=== PATIENT | male | born 1965 | race Caucasian/White ===

== ENCOUNTER 2018-03-26 12:45 | Outpatient (RCR) | payer OTHER, SELFPAY ==
[2018-03-24 14:30] VITALS: BP 139/71; PULSE 46; RESP 16; TEMP 37; BMI 49.4
--- NOTE | 2018-03-24 15:47 | PCM.WC.HP ---
(1) Ulcer of left lower extremity with fat layer exposed Status: Chronic Current Visit: Yes Code(s): L97.922 - Non-pressure chronic ulcer of unspecified part of left lower leg with fat layer exposed (2) Edema leg Status: Chronic Current Visit: Yes Code(s): R60.0 - Localized edema (3) Venous insufficiency Status: Chronic Current Visit: Yes Code(s): I87.2 - Venous insufficiency (chronic) (peripheral) (4) Malnutrition Status: Chronic Current Visit: Yes Code(s): E46 - Unspecified protein-calorie malnutrition (5) Delayed wound healing Status: Chronic Current Visit: Yes Code(s): T14.8XXD - Other injury of unspecified body region, subsequent encounter (6) Other specified peripheral vascular diseases Status: Chronic Current Visit: Yes Code(s): I73.89 - Other specified peripheral vascular diseases History of Present Illness Date of Service: 03/24/18 Chief Complaint: Left leg ulcer History of Wound: This 52-year-old male presents complaining of a painful left leg ulcer he estimates the onset of around December 25, 2017. He denies recent trauma. He does report a remote chain saw injury to the site and this ulcer site comes and goes when his leg swelling increases. He is tried taking intermittent diuretic medication. He denies wearing current compression garments. He denies claudication. He denies drinking leg numbness. He relates he has never been screened for diabetes. He denies odors, fever, chill, nausea, vomiting. Home care has included up application of silver gel and rest. Past Medical History Past Medical History: Chronic Problems Ulcer of left lower extremity with fat layer exposed (Chronic) Edema leg (Chronic) Venous insufficiency (Chronic) Malnutrition (Chronic) Delayed wound healing (Chronic) Other specified peripheral vascular diseases (Chronic) Past Medical History: Obesity, chronic leg swelling, hypertension Allergies/Adverse Reactions: Allergies No Known Allergies Allergy (Verified 03/24/18 14:53) Home Medications: Ambulatory Orders Medication Instructions Recorded Furosemide [Lasix] 20 mg PO BIDLX 03/24/18 Lisinopril [Zestril] 2.5 mg PO DAILY 03/24/18 Smoking Status: Never smoker Review of Systems Constitutional: Denies: Chills, Fever, Weakness, Fatigue Cardiovascular: Denies: Chest Pain, Claudication Respiratory: Denies: Shortness of Breath Gastrointestinal: Denies: Diarrhea, Nausea, Vomiting Musculoskeletal: Reports: Leg Pain. Denies: Foot Pain, Joint Tenderness Skin: Reports: Skin Changes, Wounds Neurological: Reports: Balance problems. Denies: Numbness, Tingling Endocrine: Reports: Change in Body Habitus - Physical Exam Vital Signs Temp Pulse Resp BP 98.6 F 46 L 16 139/71 H 03/24/18 14:30 03/24/18 14:30 03/24/18 14:30 03/24/18 14:30 General: Alert, Oriented x3, Cooperative HEENT: Atraumatic Extremities: No cyanosis, Capillary Refill Less than 3 Seconds, No Calf Tenderness - Negative Isaac and Whitmore signs bilateral, Edema - Bilateral lower extremity edema left more than right. Lower leg and thigh edema appears to be clinically consistent with lymphedema bilateral, Peripheral Pulses Normal - Palpable DP and PT pulses bilateral Skin: Ulcer/ Wound - No purulence, streaking, odor, or gross infection or deep tissue exposure is noted. The wound bed is granular and fibrotic without any eschar or necrosis. There is peripheral ulcer site erythema and hyperpigmentation consistent with the venous insufficiency type presentation. There is no bogginess or fluctuance on palpation. The peripheral skin is atrophic and hair is noted to the leg and the foot. There is no interdigital macerations toes Wound Measurements and Assessment WC - Nurse 1 - General Ulcer Measurement Start: 03/24/18 14:30 Freq: Status: Active Protocol: Activity Type Activity Date Activity User E-Sign Co-Sign Detail Recorded Client Recorded Date Recorded By Document 03/24/18 14:30 [facility] [id number] 03/24/18 14:50 [facility] 03/24/18 14:30 Wound Center Nurse 1 [Ulcer Assessment] #1- LT BLANCAS -Combined with other wound No -Current Size (cm) - Length 2.3 -Current Size (cm) - Width 2.4 -Current Size (cm) - Depth 0.3 -Total Square Cm 5.52 -Date of Last Picture (Recall this 03/24/18 field) -Photo Taken Yes -Epithelialization None Present -Tunneling No -Undermining/Tunneling No -Circular Undermining No -Exudate Amt Small (1-33%) -Exudate Type Serosanguineous -Wound Margin Distinct, Outline Attached -Granulation Amt None Present (0 %) -Slough/Fibrin Yes -Necrosis Amt Large (67-100%) -Necrotic Tissue Type Adherent Slough -Texture (Toshia-wound Skin Appearance) Excoriation Scarring Rash -Moisture (Toshia-wound Skin Appearance Dry/Scaly ) -Color (Toshia-wound Skin Appearance) Erythema Hemosiderin Staining -Temperature (Toshia-wound Skin No Abnormality Appearance) (Pt Warm) -Tenderness on Palpation (Toshia-wound Yes Skin Appearance) -Ulcer Cleansing Rinsed/ Irrigated with Saline -Foul Odor after Cleansing No -Anesthetic Used 5% Lidocaine Gel [Edema Assessment] -Lower Limb Edema Present Yes -Right Calf (cm) 54.5 -Right Ankle (cm) 28.6 -Left Calf (cm) 58.2 -Left Ankle (cm) 32.2 WC - Nurse 2 - General Ulcer CM Notes Start: 03/24/18 14:30 Freq: Status: Active Protocol: Activity Type Activity Date Activity User E-Sign Co-Sign Detail Recorded Client Recorded Date Recorded By Document 03/24/18 15:38 [id number] 03/24/18 15:44 03/24/18 15:38 Wound Center Nurse 2 [Procedure/Treatment] #1- LT BLANCAS -Time 15:38 -Correct Patient Yes -Correct Side, Site, Position Yes -Correct Procedure Yes -Procedure Performed Yes -Type of Procedure Debridement -Clinical Debridement Subcutaneous -Post Debridement Size (cm) - Length 2.4 -Post Debridement Size (cm) - Width 2.5 -Post Debridement Size (cm) - Depth 0.3 -Total Square Cm 6.00 -Wound/Ulcer Outcome Not Healed -Ulcer Cleansing Rinsed/ Irrigated with Saline -Foul Odor after Cleansing No -Bioengineered Tissue No -Topical Lidocaine (%) 5 -Bleeding Controlled with Pressure -Offloading No -Treatment Response Procedure Tolerated Well [See Physician Procedure note for Specifics] Pain Scale: 0-10 Numeric [Pain] -Is Patient Pain Free? Yes Musculoskeletal: No Tenderness to Palpation of Joints or Extremities, Muscle Wasting, - - 5 out of 5 ankle muscle strength in all directions bilateral. Compartments remain soft to palpate bilateral lower extremities. Active range of motion digits x10 noted Neurological: Sensory exam intact to light touch and pain Psych/Mental Status: Normal Affect, Appropriate Debridement Note Post-Debridement Measurements/Treatment - Nurse 2 - General Ulcer CM Notes Start: 03/24/18 14:30 Freq: Status: Active Protocol: Activity Type Activity Date Activity User E-Sign Co-Sign Detail Recorded Client Recorded Date Recorded By Document 03/24/18 15:38 [id number] 03/24/18 15:44 03/24/18 15:38 Wound Center Nurse 2 #1- LT BLANCAS -Time 15:38 -Correct Patient Yes -Correct Side, Site, Position Yes -Correct Procedure Yes -Procedure Performed Yes -Type of Procedure Debridement -Clinical Debridement Subcutaneous -Post Debridement Size (cm) - Length 2.4 -Post Debridement Size (cm) - Width 2.5 -Post Debridement Size (cm) - Depth 0.3 -Total Square Cm 6.00 -Wound/Ulcer Outcome Not Healed -Ulcer Cleansing Rinsed/ Irrigated with Saline -Foul Odor after Cleansing No -Bioengineered Tissue No -Topical Lidocaine (%) 5 -Bleeding Controlled with Pressure -Offloading No -Treatment Response Procedure Tolerated Well Pain Scale: 0-10 Numeric Is Patient Pain Free? Yes Wound debrided: leg Laterality: Left Type of Debridement: Excisional debridement Anesthesia Used: 4% Lidocaine Solution Depth: in the subcutaneous layer Percentage of wound debrided: 100 Instrument Used: #15 blade Tissue Removed: fibrous, devitalized subcutaneous, biofilm, slough Severity: Fat Layer Exposed Amount of bleeding with debridement: Mild Bleeding Controlled with: Pressure Patient tolerated procedure well Assessment/Plan Active Problems Ulcer of left lower extremity with fat layer exposed (Chronic) Edema leg (Chronic) Venous insufficiency (Chronic) Malnutrition (Chronic) Delayed wound healing (Chronic) Other specified peripheral vascular diseases (Chronic) Assessment: Left leg ulcer chronic. Venous insufficiency workup in process. Peripheral vascular disease workup in process. Diabetes screening in process. Lower extremity edema and lymphedema bilateral. Delayed healing. Malnutrition suspected. Obesity Plan: I reviewed and discussed his case today. Left leg ulcer subcutaneous excisional debridement was performed as noted in the clinical panel. Aquacel Ag was applied today and a 3 M2 L compression dressing was applied. He will return on Thursday for nursing visit change and will return to clinic in 1 week to follow-up with me. To elevate limbs at rest. To avoid idle standing or sitting. I do not see any jarrett signs of infection and suspect his toshia-ulcer site inflammation is more related to his leg swelling that has recently been exacerbated. He does not have a home and her Whitmore sign. I recommend and ordered baseline labs to get a better understanding of his medical status including CBC, CMP, hemoglobin A1c, prealbumin. Venous duplex Doppler with reflex evaluation and noninvasive arterial studies were also ordered and I will review these results when he returns. A prescription for Yash was provided and I recommended nutritional supplementation optimize healing. I answered all of his questions. We discussed the etiology and ongoing stage comprehensive wound healing plan and expectations.
--- NOTE | 2018-03-24 15:50 | HP.PCM_ITS ---
(1) Ulcer of left lower extremity with fat layer exposed Status: Chronic Current Visit: Yes Code(s): L97.922 - Non-pressure chronic ulcer of unspecified part of left lower leg with fat layer exposed (2) Edema leg Status: Chronic Current Visit: Yes Code(s): R60.0 - Localized edema (3) Venous insufficiency Status: Chronic Current Visit: Yes Code(s): I87.2 - Venous insufficiency (chronic) (peripheral) (4) Malnutrition Status: Chronic Current Visit: Yes Code(s): E46 - Unspecified protein- calorie malnutrition (5) Delayed wound healing Status: Chronic Current Visit: Yes Code(s): T14.8XXD - Other injury of unspecified body region, subsequent encounter (6) Other specified peripheral vascular diseases Status: Chronic Current Visit: Yes Code(s): I73.89 - Other specified peripheral vascular diseases History of Present Illness Date of Service: 03/24/18 Chief Complaint: Left leg ulcer History of Wound: This 52-year-old male presents complaining of a painful left leg ulcer he estimates the onset of around December 25, 2017. He denies recent trauma. He does report a remote chain saw injury to the site and this ulcer sit e comes and goes when his leg swelling increases. He is tried taking intermittent diuretic medication. He denies wearing current compression garments. He denies claudication. He denies drinking leg numbness. He relates he has never been screened for diabetes. He denies odors, fever, chill, nausea, vomiting. Home care has included up application of silver gel and rest. Past Medical History Past Medical History: Chronic Problems Ulcer of left lower extremity with fat layer exposed (Chronic) Edema leg (Chronic) Venous insufficiency (Chronic) Malnutrition (Chronic) Delayed wound healing (Chronic) Other specified peripheral vascular diseases (Chronic) Past Medical History: Obesity, chronic leg swelling, hypertension Allergies/Adverse Reactions: Allergies No Known Allergies Allergy (Verified 03/24/18 14:53) Home Medications: Ambulatory Orders Medication Instructions Recorded Furosemide [Lasix] 20 mg PO BIDLX 03/24/18 Lisinopril [Zestril] 2.5 mg PO DAILY 03/24/18 Smoking Status: Never smoker Review of Systems Constitutional: Denies: Chills, Fever, Weakness, Fatigue Cardiovascular: Denies: Chest Pain, Claudication Respiratory: Denies: Shortness of Breath Gastrointestinal: Denies: Diarrhea, Nausea, Vomiting Musculoskeletal: Reports: Leg Pain. Denies: Foot Pain, Joint Tenderness Skin: Reports: Skin Changes, Wounds Neurological: Reports: Balance problems. Denies: Numbness, Tingling Endocrine: Reports: Change in Body Habitus - Physical Exam Vital Signs Temp Pulse Resp BP 98.6 F 46 L 16 139/71 H 03/24/18 14:30 03/24/18 14:30 03/24/18 14:30 03/24/18 14:30 General: Alert, Oriented x3, Cooperative HEENT: Atraumatic Extremities: No cyanosis, Capillary Refill Less than 3 Seconds, No Calf Tenderness - Negative Isaac and Whitmore signs bilateral, Edema - Bilateral lower extremity edema left more than right. Lower leg and thigh edema appears to be clinically consistent with lymphedema bilateral, Peripheral Pulses Normal - Palpable DP and PT pulses bilateral Skin: Ulcer/ Wound - No purulence, streaking, odor, or gross infection or deep tissue exposure is noted. The wound bed is granular and fibrotic without any eschar or necrosis. There is peripheral ulcer site erythema and hyperpigmentation consistent with the venous insufficiency type presentation. There is no bogginess or fluctuance on palpation. The peripheral skin is atrophic and hair is noted to the leg and the foot. There is no interdigital macerations toes Wound Measurements and Assessment WC - Nurse 1 - General Ulcer Measurement Start: 03/24/18 14:30 Freq: Status: Active Protocol: Activity Type Activity Date Activity User E-Sign Co-Sign Detail Recorded Client Recorded Date Recorded By Document 03/24/18 14:30 [facility] [id number] 03/24/18 14:50 [facility] 03/24/18 14:30 Wound Center Nurse 1 [Ulcer Assessment] #1- LT BLANCAS -Combined with other wound No -Current Size (cm) - Length 2.3 -Current Size (cm) - Width 2.4 -Current Size (cm) - Depth 0.3 -Total Square Cm 5.52 -Date of Last Picture (Recall this 03/24/18 field) -Photo Taken Yes -Epithelialization None Present -Tunneling No -Undermining/Tunneling No -Circular Undermining No -Exudate Amt Small (1-33%) -Exudate Type Serosanguineous -Wound Margin Distinct, Outline Attached -Granulation Amt None Present (0 %) -Slough/Fibrin Yes -Necrosis Amt Large (67-100%) -Necrotic Tissue Type Adherent Slough -Texture (Toshia-wound Skin Appearance) Excoriation Scarring Rash -Moisture (Toshia-wound Skin Appearance Dry/Scaly ) -Color (Toshia-wound Skin Appearance) Erythema Hemosiderin Staining -Temperature (Toshia-wound Skin No Abnormality Appearance) (Pt Warm) -Tenderness on Palpation (Toshia-wound Yes Skin Appearance) -Ulcer Cleansing Rinsed/ Irrigated with Saline -Foul Odor after Cleansing No -Anesthetic Used 5% Lidocaine Gel [Edema Assessment] -Lower Limb Edema Present Yes -Right Calf (cm) 54.5 -Right Ankle (cm) 28.6 -Left Calf (cm) 58.2 -Left Ankle (cm) 32.2 WC - Nurse 2 - General Ulcer CM Notes Start: 03/24/18 14:30 Freq: Status: Active Protocol: Activity Type Activity Date Activity User E-Sign Co-Sign Detail Recorded Client Recorded Date Recorded By Document 03/24/18 15:38 [id number] 03/24/18 15:44 03/24/18 15:38 Wound Center Nurse 2 [Procedure/Treatment] #1- LT BALNCAS -Time 15:38 -Correct Patient Yes -Correct Side, Site, Position Yes -Correct Procedure Yes -Procedure Performed Yes -Type of Procedure Debridement -Clinical Debridement Subcutaneous -Post Debridement Size (cm) - Length 2.4 -Post Debridement Size (cm) - Width 2.5 -Post Debridement Size (cm) - Depth 0.3 -Total Square Cm 6.00 -Wound/Ulcer Outcome Not Healed -Ulcer Cleansing Rinsed/ Irrigated with Saline -Foul Odor after Cleansing No -Bioengineered Tissue No -Topical Lidocaine (%) 5 -Bleeding Controlled with Pressure -Offloading No -Treatment Response Procedure Tolerated Well [See Physician Procedure note for Specifics] Pain Scale: 0-10 Numeric [Pain] -Is Patient Pain Free? Yes Musculoskeletal: No Tenderness to Palpation of Joints or Extremities, Muscle Wasting, - - 5 out of 5 ankle muscle strength in all directions bilateral. Compartments remain soft to palpate bilateral lower extremities. Active range of motion digits x10 noted Neurological: Sensory exam intact to light touch and pain Psych/Mental Status: Normal Affect, Appropriate Debridement Note Post-Debridement Measurements/Treatment WC - Nurse 2 - General Ulcer CM Notes Start: 03/24/18 14:30 Freq: Status: Active Protocol: Activity Type Activity Date Activity User E-Sign Co-Sign Detail Recorded Client Recorded Date Recorded By Document 03/24/18 15:38 [id number] 03/24/18 15:44 03/24/18 15:38 Wound Center Nurse 2 #1- LT BLANCAS -Time 15:38 -Correct Patient Yes -Correct Side, Site, Position Yes -Correct Procedure Yes -Procedure Performed Yes -Type of Procedure Debridement -Clinical Debridement Subcutaneous -Post Debridement Size (cm) - Length 2.4 -Post Debridement Size (cm) - Width 2.5 -Post Debridement Size (cm) - Depth 0.3 -Total Square Cm 6.00 -Wound/Ulcer Outcome Not Healed -Ulcer Cleansing Rinsed/ Irrigated with Saline -Foul Odor after Cleansing No -Bioengineered Tissue No -Topical Lidocaine (%) 5 -Bleeding Controlled with Pressure -Offloading No -Treatment Response Procedure Tolerated Well Pain Scale: 0-10 Numeric Is Patient Pain Free? Yes Wound debrided: leg Laterality: Left Type of Debridement: Excisional debridement Anesthesia Used: 4% Lidocaine Solution Depth: in the subcutaneous layer Percentage of wound debrided: 100 Instrument Used: #15 blade Tissue Removed: fibrous, devitalized subcutaneous, biofilm, slough Severity: Fat Layer Exposed Amount of bleeding with debridement: Mild Bleeding Controlled with: Pressure Patient tolerated procedure well Assessment/Plan Active Problems Ulcer of left lower extremity with fat layer exposed (Chronic) Edema leg (Chronic) Venous insufficiency (Chronic) Malnutrition (Chronic) Delayed wound healing (Chronic) Other specified peripheral vascular diseases (Chronic) Assessment: Left leg ulcer chronic. Venous insufficiency workup in process. Peripheral vascular disease workup in process. Diabetes screening in process. Lower extremity edema and lymphedema bilateral. Delayed healing. Malnutrition suspected. Obesity Plan: I reviewed and discussed his case today. Left leg ulcer subcutaneous excisional debridement was performed as noted in the clinical panel. Aquacel Ag was applied today and a 3 M2 L compression dressing was applied. He will return on Thursday for nursing visit change and will return to clinic in 1 week to follow-up with me. To elevate limbs at rest. To avoid idle standing or sitting. I do not see any jarrett signs of infection and suspect his toshia-ulcer site inflammation is more related to his leg swelling that has recently been exacerbated. He does not have a home and her Whitmore sign. I recommend and ordered baseline labs to get a better understanding of his medical status including CBC, CMP, hemoglobin A1c, prealbumin. Venous duplex Doppler with reflex evaluation and noninvasive arterial studies were also ordered and I will review these results when he returns. A prescription for Yash was provided and I recommended nutritional supplementation optimize healing. I answered all of his questions. We discussed the etiology and ongoing stage comprehensive wound healing plan and expectations.
[2018-03-24 18:25] LABS: Absolute Lymphocyte Count 1.54 X10^3/ul (0.83-4.51); Absolute Neutrophil Count 7.8 X10^3/uL (2.0-7.7); Basophil# 0.04 X10^3/uL; Basophil% 0.4 % (0-1); Eosinophil# 0.34 X10^3/uL; Eosinophils% 3.2 % (0-5); Hematocrit 38.4 % (40-54); Lymphocyte # 1.54 X10^3/ul (4.0); Lymphocyte % 14.5 % (19-41); Mean Corp Hgb Conc 31.3 g/gl (32-36); Mean Corpuscular Hgb 26.2 pg (27.0-32.0); Mean Corpuscular Volume 83.8 fL (80-94); Mean Platelet Vol. 10.6 fl (6.2-12.0); Monocyte# 0.89 X10^3/uL; Monocyte% 8.4 % (0-10); Neutrophil # 7.78 X10^3/uL (2.7-7.7); Neutrophil % 73.4 % (47-70); POSITIVE COUNT NO; POSITIVE DIFFERENTIAL NO; POSITIVE MORPHOLOGY NO; Platelet Count 240 K/mm3 (150-450); RBC Distribution Width CV 15.5 % (11.6-14.6); RBC Distribution Width SD 47.9 fl (35.1-43.9); Red Blood Count 4.58 M/mm3 (4.6-6.2); White Blood Count 10.6 K/mm3 (4.4-11.0)
[2018-03-24 18:51] LABS: ALB/GLOB Ratio 0.8 RATIO (0.9-2.4); AST(SGOT) 13 U/L (15-37); Alanine Aminotransfer ALT/SGPT 22 U/L (16-61); Albumin, Serum 3.3 g/dL (3.2-5.0); Alkaline Phosphatase 76 U/L (45-117); Anion Gap 6 (5-15); BUN 24 mg/dL (7-18); BUN/Creat Ratio 41.6 RATIO (10-20); Calcium,Total 8.8 mg/dL (8.5-10.1); Chloride 107 mmol/L (98-107); Creatinine, Serum 0.58 mg/dL (0.70-1.30); EST Glomerular Filtration Rate 156 mL/min (>60); Est Glom Filt Rate - Afr Amer 189 mL/min (>60); Estimated Creatinine Clearance 140.86 ml/min; Globulin 4.2 g/dL (2.2-4.2); Glucose 83 mg/dL (74-106); Potassium 3.9 mmol/L (3.5-5.1); Prealbumin 24.2 mg/dL (20.0-40.0); Protein, Total 7.5 g/dL (6.4-8.2); Sodium Level 141 mmol/L (136-145)
[2018-03-24 19:38] LABS: Hemoglobin A1c 5.9 % (4.2-6.3)
[2018-03-26 13:07] VITALS: BP 141/76; PULSE 78; RESP 16; TEMP 37; BMI 49.4
--- NOTE | 2018-03-26 17:26 | PCM.WC.HP ---
(1) Cellulitis and abscess of left leg Status: Acute Current Visit: Yes Code(s): L03.116 - Cellulitis of left lower limb; L02.416 - Cutaneous abscess of left lower limb (2) Ulcer of left lower extremity with fat layer exposed Status: Chronic Current Visit: Yes Code(s): L97.922 - Non-pressure chronic ulcer of unspecified part of left lower leg with fat layer exposed (3) Venous insufficiency Status: Chronic Current Visit: Yes Code(s): I87.2 - Venous insufficiency (chronic) (peripheral) History of Present Illness Date of Service: 03/26/18 Chief Complaint: Left leg ulcer History of Wound: This 52-year-old male presents complaining of a painful left leg ulcer he estimates the onset of around December 25, 2017. He denies recent trauma. He does report a remote chain saw injury to the site and this ulcer site comes and goes when his leg swelling increases. He has tried taking intermittent diuretic medication. He denies wearing current compression garments. He denies claudication. He denies leg numbness. He relates he has never been screened for diabetes. He denies odors, fever, chill, nausea, vomiting. Home care has included application of silver gel and rest. He was seen for an initial visit with Dr. Blackmon on Thursday and was here for a nurse visit today for a change of 3M compression wraps but upon removal, nursing staff noticed odor and erythema and requested consultation by physician. The patient denies any increased pain or fever or chills. Past Medical History Past Medical History: Chronic Problems Ulcer of left lower extremity with fat layer exposed (Chronic) Edema leg (Chronic) Venous insufficiency (Chronic) Malnutrition (Chronic) Delayed wound healing (Chronic) Other specified peripheral vascular diseases (Chronic) Allergies/Adverse Reactions: Allergies No Known Allergies Allergy (Verified 03/24/18 14:53) Home Medications: Ambulatory Orders Medication Instructions Recorded Furosemide [Lasix] 20 mg PO BIDLX 03/24/18 Lisinopril [Zestril] 2.5 mg PO DAILY 03/24/18 Smoking Status: Never smoker Tobacco Use: Non-smoker Alcohol: None Drugs: None Review of Systems Constitutional: Denies: Chills, Fever, Weight Change Eyes: Denies: Pain, Vision Change Cardiovascular: Reports: Edema. Denies: Chest Pain, Palpitations Respiratory: Denies: Cough, Shortness of Breath Gastrointestinal: Denies: Diarrhea, Nausea, Vomiting Genitourinary: Denies: Dysuria, Hematuria Skin: Reports: Wounds Hematologic/ Lymphatic: Denies: Easy Bruising, Easy Bleeding - Physical Exam Vital Signs Temp Pulse Resp BP 98.6 F 78 16 141/76 H 03/26/18 13:07 03/26/18 13:07 03/26/18 13:07 03/26/18 13:07 General: Alert, Oriented x3, Cooperative, No apparent distress HEENT: Atraumatic, Normocephalic Lungs: Clear to auscultation Cardiovascular: Regular rate, Regular Rhythm Abdomen: Obese Extremities: Edema Skin: Ulcer/ Wound, - - erythema and odor of wound Wound Measurements and Assessment WC - Nurse 1 - General Ulcer Measurement Start: 03/24/18 14:30 Freq: Status: Active Protocol: Activity Type Activity Date Activity User E-Sign Co-Sign Detail Recorded Client Recorded Date Recorded By Document 03/24/18 14:30 [facility] [id number] 03/24/18 14:50 [facility] Document 03/26/18 13:07 [facility] [id number] 03/26/18 13:11 [facility] 03/24/18 03/26/18 14:30 13:07 Wound Center Nurse 1 [Ulcer Assessment] #1- LT PONCE -Combined with other wound No No -Current Size (cm) - Length 2.3 2.3 -Current Size (cm) - Width 2.4 2.7 -Current Size (cm) - Depth 0.3 0.2 -Total Square Cm 5.52 6.21 -Date of Last Picture (Recall this 03/24/18 field) -Photo Taken Yes -Epithelialization None Present None Present -Tunneling No No -Undermining/Tunneling No No -Circular Undermining No No -Exudate Amt Small (1-33%) Medium (34-66%) -Exudate Type Serosanguineous Serosanguineous -Wound Margin Distinct, Distinct, Outline Outline Attached Attached -Granulation Amt None Present (0 Small (1-33%) %) -Granulation Quality Red -Slough/Fibrin Yes Yes -Necrosis Amt Large (67-100%) Large (67-100%) -Necrotic Tissue Type Adherent Slough Adherent Slough -Texture (Toshia-wound Skin Appearance) Excoriation Excoriation Scarring Scarring Rash Rash -Moisture (Toshia-wound Skin Appearance Dry/Scaly Dry/Scaly ) -Color (Toshia-wound Skin Appearance) Erythema Assessed Hemosiderin Erythema Staining Hemosiderin Staining -Temperature (Toshia-wound Skin No Abnormality No Abnormality Appearance) (Pt Warm) (Pt Warm) -Tenderness on Palpation (Toshia-wound Yes No Skin Appearance) -Ulcer Cleansing Rinsed/ Rinsed/ Irrigated with Irrigated with Saline Saline -Foul Odor after Cleansing No No -Anesthetic Used 5% Lidocaine Gel [Edema Assessment] -Lower Limb Edema Present Yes Yes -Right Calf (cm) 54.5 -Right Ankle (cm) 28.6 -Left Calf (cm) 58.2 54 -Left Ankle (cm) 32.2 28.4 WC - Nurse 2 - General Ulcer CM Notes Start: 03/24/18 14:30 Freq: Status: Active Protocol: Activity Type Activity Date Activity User E-Sign Co-Sign Detail Recorded Client Recorded Date Recorded By Document 03/24/18 15:38 [id number] 03/24/18 15:44 Document 03/26/18 13:59 [id number] 03/26/18 13:59 03/24/18 03/26/18 15:38 13:59 Wound Center Nurse 2 [Procedure/Treatment] #1- LT PONCE -Time 15:38 13:59 -Correct Patient Yes Yes -Correct Side, Site, Position Yes Yes -Correct Procedure Yes Yes -Procedure Performed Yes Yes -Type of Procedure Debridement Debridement -Clinical Debridement Subcutaneous Subcutaneous -Post Debridement Size (cm) - Length 2.4 2.4 -Post Debridement Size (cm) - Width 2.5 2.5 -Post Debridement Size (cm) - Depth 0.3 0.3 -Total Square Cm 6.00 6.00 -Wound/Ulcer Outcome Not Healed Not Healed -Ulcer Cleansing Rinsed/ Not Cleansed Irrigated with Saline -Foul Odor after Cleansing No No -Bioengineered Tissue No No -Topical Lidocaine (%) 5 -Bleeding Controlled with Pressure NA -Offloading No No -Treatment Response Procedure Tolerated Well [See Physician Procedure note for Specifics] Pain Scale: 0-10 Numeric [Pain] -Is Patient Pain Free? Yes Yes Psych/Mental Status: Normal Affect, Appropriate Debridement Note Post-Debridement Measurements/Treatment - Nurse 2 - General Ulcer CM Notes Start: 03/24/18 14:30 Freq: Status: Active Protocol: Activity Type Activity Date Activity User E-Sign Co-Sign Detail Recorded Client Recorded Date Recorded By Document 03/24/18 15:38 [id number] 03/24/18 15:44 TM Document 03/26/18 13:59 [id number] 03/26/18 13:59 03/24/18 03/26/18 15:38 13:59 Wound Center Nurse 2 #1- LT PONCE -Time 15:38 13:59 -Correct Patient Yes Yes -Correct Side, Site, Position Yes Yes -Correct Procedure Yes Yes -Procedure Performed Yes Yes -Type of Procedure Debridement Debridement -Clinical Debridement Subcutaneous Subcutaneous -Post Debridement Size (cm) - Length 2.4 2.4 -Post Debridement Size (cm) - Width 2.5 2.5 -Post Debridement Size (cm) - Depth 0.3 0.3 -Total Square Cm 6.00 6.00 -Wound/Ulcer Outcome Not Healed Not Healed -Ulcer Cleansing Rinsed/ Not Cleansed Irrigated with Saline -Foul Odor after Cleansing No No -Bioengineered Tissue No No -Topical Lidocaine (%) 5 -Bleeding Controlled with Pressure NA -Offloading No No -Treatment Response Procedure Tolerated Well Pain Scale: 0-10 Numeric Is Patient Pain Free? Yes Yes Wound debrided: left ponce Laterality: Left Type of Debridement: Excisional debridement Anesthesia Used: 4% Lidocaine Solution Depth: Down to and including healthy tissue, in the subcutaneous layer Percentage of wound debrided: 100 Instrument Used: 5mm curette Tissue Removed: yellow slough, devitalized tissue Severity: Fat Layer Exposed Amount of bleeding with debridement: Mild Bleeding Controlled with: Compression and gauze Patient tolerated procedure well Assessment/Plan Active Problems Ulcer of left lower extremity with fat layer exposed (Chronic) Edema leg (Chronic) Venous insufficiency (Chronic) Malnutrition (Chronic) Delayed wound healing (Chronic) Other specified peripheral vascular diseases (Chronic) Cellulitis and abscess of left leg (Acute) Assessment: Left leg ulcer chronic. Venous insufficiency workup in process. Peripheral vascular disease workup in process. Diabetes screening in process. Lower extremity edema and lymphedema bilateral. Delayed healing. Malnutrition suspected. Obesity Plan: I reviewed and discussed his case today. Left leg ulcer subcutaneous excisional debridement was performed as noted in the clinical panel. Wound culture performed today and he was prophylactically placed on Augmentin for cellulitis. Will change antibiotic if necessary based on culture results. Aquacel Ag was applied today and will use tubigrip for compression until he follows up with Dr. Blackmon. Encouraged to elevate limbs at rest. To avoid idle standing or sitting. Baseline labs are pending to get a better understanding of his medical status including CBC, CMP, hemoglobin A1c, prealbumin. Venous duplex Doppler with reflex evaluation and noninvasive arterial studies were also pending. Yash prescription was providedby Dr. Blackmon and I recommended nutritional supplementation to optimize healing. We discussed the etiology and ongoing stage comprehensive wound healing plan and expectations. He will follow up as scheduled with Dr. Blackmon.
--- NOTE | 2018-03-26 17:32 | HP.PCM_ITS ---
(1) Cellulitis and abscess of left leg Status: Acute Current Visit: Yes Code(s): L03.116 - Cellulitis of left lower limb; L02.416 - Cutaneous abscess of left lower limb (2) Ulcer of left lower extremity with fat layer exposed Status: Chronic Current Visit: Yes Code(s): L97.922 - Non-pressure chronic ulcer of unspecified part of left lower leg with fat layer exposed (3) Venous insufficiency Status: Chronic Current Visit: Yes Code(s): I87.2 - Venous insufficiency (chronic) (peripheral) History of Present Illness Date of Service: 03/26/18 Chief Complaint: Left leg ulcer History of Wound: This 52-year-old male presents complaining of a painful left leg ulcer he estimates the onset of around December 25, 2017. He denies recent trauma. He does report a remote chain saw injury to the site and this ulcer si te comes and goes when his leg swelling increases. He has tried taking intermittent diuretic medication. He denies wearing current compression garments. He denies claudication. He denies leg numbness. He relates he has never been screened for diabetes. He denies odors, fever, chill, nausea, vomiting. Home care has included application of silver gel and rest. He was seen for an initial visit with Dr. Blackmon on Thursday and was here for a nurse visit today for a change of 3M compression wraps but upon removal, nursing staff noticed odor and erythema and requested consultation by physician. The patient denies any increased pain or fever or chills. Past Medical History Past Medical History: Chronic Problems Ulcer of left lower extremity with fat layer exposed (Chronic) Edema leg (Chronic) Venous insufficiency (Chronic) Malnutrition (Chronic) Delayed wound healing (Chronic) Other specified peripheral vascular diseases (Chronic) Allergies/Adverse Reactions: Allergies No Known Allergies Allergy (Verified 03/24/18 14:53) Home Medications: Ambulatory Orders Medication Instructions Recorded Furosemide [Lasix] 20 mg PO BIDLX 03/24/18 Lisinopril [Zestril] 2.5 mg PO DAILY 03/24/18 Smoking Status: Never smoker Tobacco Use: Non-smoker Alcohol: None Drugs: None Review of Systems Constitutional: Denies: Chills, Fever, Weight Change Eyes: Denies: Pain, Vision Change Cardiovascular: Reports: Edema. Denies: Chest Pain, Palpitations Respiratory: Denies: Cough, Shortness of Breath Gastrointestinal: Denies: Diarrhea, Nausea, Vomiting Genitourinary: Denies: Dysuria, Hematuria Skin: Reports: Wounds Hematologic/ Lymphatic: Denies: Easy Bruising, Easy Bleeding - Physical Exam Vital Signs Temp Pulse Resp BP 98.6 F 78 16 141/76 H 03/26/18 13:07 03/26/18 13:07 03/26/18 13:07 03/26/18 13:07 General: Alert, Oriented x3, Cooperative, No apparent distress HEENT: Atraumatic, Normocephalic Lungs: Clear to auscultation Cardiovascular: Regular rate, Regular Rhythm Abdomen: Obese Extremities: Edema Skin: Ulcer/ Wound, - - erythema and odor of wound Wound Measurements and Assessment WC - Nurse 1 - General Ulcer Measurement Start: 03/24/18 14:30 Freq: Status: Active Protocol: Activity Type Activity Date Activity User E-Sign Co-Sign Detail Recorded Client Recorded Date Recorded By Document 03/24/18 14:30 [facility] [id number] 03/24/18 14:50 [facility] Document 03/26/18 13:07 [facility] [id number] 03/26/18 13:11 [facility] 03/24/18 03/26/18 14:30 13:07 Wound Center Nurse 1 [Ulcer Assessment] #1- LT PONCE -Combined with other wound No No -Current Size (cm) - Length 2.3 2.3 -Current Size (cm) - Width 2.4 2.7 -Current Size (cm) - Depth 0.3 0.2 -Total Square Cm 5.52 6.21 -Date of Last Picture (Recall this 03/24/18 field) -Photo Taken Yes -Epithelialization None Present None Present -Tunneling No No -Undermining/Tunneling No No -Circular Undermining No No -Exudate Amt Small (1-33%) Medium (34-66%) -Exudate Type Serosanguineous Serosanguineous -Wound Margin Distinct, Distinct, Outline Outline Attached Attached -Granulation Amt None Present (0 Small (1-33%) %) -Granulation Quality Red -Slough/Fibrin Yes Yes -Necrosis Amt Large (67-100%) Large (67-100%) -Necrotic Tissue Type Adherent Slough Adherent Slough -Texture (Toshia-wound Skin Appearance) Excoriation Excoriation Scarring Scarring Rash Rash -Moisture (Toshia-wound Skin Appearance Dry/Scaly Dry/Scaly ) -Color (Toshia-wound Skin Appearance) Erythema Assessed Hemosiderin Erythema Staining Hemosiderin Staining -Temperature (Toshia-wound Skin No Abnormality No Abnormality Appearance) (Pt Warm) (Pt Warm) -Tenderness on Palpation (Toshia-wound Yes No Skin Appearance) -Ulcer Cleansing Rinsed/ Rinsed/ Irrigated with Irrigated with Saline Saline -Foul Odor after Cleansing No No -Anesthetic Used 5% Lidocaine Gel [Edema Assessment] -Lower Limb Edema Present Yes Yes -Right Calf (cm) 54.5 -Right Ankle (cm) 28.6 -Left Calf (cm) 58.2 54 -Left Ankle (cm) 32.2 28.4 WC - Nurse 2 - General Ulcer CM Notes Start: 03/24/18 14:30 Freq: Status: Active Protocol: Activity Type Activity Date Activity User E-Sign Co-Sign Detail Recorded Client Recorded Date Recorded By Document 03/24/18 15:38 [id number] 03/24/18 15:44 Document 03/26/18 13:59 [id number] 03/26/18 13:59 03/24/18 03/26/18 15:38 13:59 Wound Center Nurse 2 [Procedure/Treatment] #1- LT PONCE -Time 15:38 13:59 -Correct Patient Yes Yes -Correct Side, Site, Position Yes Yes -Correct Procedure Yes Yes -Procedure Performed Yes Yes -Type of Procedure Debridement Debridement -Clinical Debridement Subcutaneous Subcutaneous -Post Debridement Size (cm) - Length 2.4 2.4 -Post Debridement Size (cm) - Width 2.5 2.5 -Post Debridement Size (cm) - Depth 0.3 0.3 -Total Square Cm 6.00 6.00 -Wound/Ulcer Outcome Not Healed Not Healed -Ulcer Cleansing Rinsed/ Not Cleansed Irrigated with Saline -Foul Odor after Cleansing No No -Bioengineered Tissue No No -Topical Lidocaine (%) 5 -Bleeding Controlled with Pressure NA -Offloading No No -Treatment Response Procedure Tolerated Well [See Physician Procedure note for Specifics] Pain Scale: 0-10 Numeric [Pain] -Is Patient Pain Free? Yes Yes Psych/Mental Status: Normal Affect, Appropriate Debridement Note Post-Debridement Measurements/Treatment - Nurse 2 - General Ulcer CM Notes Start: 03/24/18 14:30 Freq: Status: Active Protocol: Activity Type Activity Date Activity User E-Sign Co-Sign Detail Recorded Client Recorded Date Recorded By Document 03/24/18 15:38 [id number] 03/24/18 15:44 TM Document 03/26/18 13:59 [id number] 03/26/18 13:59 03/24/18 03/26/18 15:38 13:59 Wound Center Nurse 2 #1- LT PONCE -Time 15:38 13:59 -Correct Patient Yes Yes -Correct Side, Site, Position Yes Yes -Correct Procedure Yes Yes -Procedure Performed Yes Yes -Type of Procedure Debridement Debridement -Clinical Debridement Subcutaneous Subcutaneous -Post Debridement Size (cm) - Length 2.4 2.4 -Post Debridement Size (cm) - Width 2.5 2.5 -Post Debridement Size (cm) - Depth 0.3 0.3 -Total Square Cm 6.00 6.00 -Wound/Ulcer Outcome Not Healed Not Healed -Ulcer Cleansing Rinsed/ Not Cleansed Irrigated with Saline -Foul Odor after Cleansing No No -Bioengineered Tissue No No -Topical Lidocaine (%) 5 -Bleeding Controlled with Pressure NA -Offloading No No -Treatment Response Procedure Tolerated Well Pain Scale: 0-10 Numeric Is Patient Pain Free? Yes Yes Wound debrided: left ponce Laterality: Left Type of Debridement: Excisional debridement Anesthesia Used: 4% Lidocaine Solution Depth: Down to and including healthy tissue, in the subcutaneous layer Percentage of wound debrided: 100 Instrument Used: 5mm curette Tissue Removed: yellow slough, devitalized tissue Severity: Fat Layer Exposed Amount of bleeding with debridement: Mild Bleeding Controlled with: Compression and gauze Patient tolerated procedure well Assessment/Plan Active Problems Ulcer of left lower extremity with fat layer exposed (Chronic) Edema leg (Chronic) Venous insufficiency (Chronic) Malnutrition (Chronic) Delayed wound healing (Chronic) Other specified peripheral vascular diseases (Chronic) Cellulitis and abscess of left leg (Acute) Assessment: Left leg ulcer chronic. Venous insufficiency workup in process. Peripheral vascular disease workup in process. Diabetes screening in process. Lower extremity edema and lymphedema bilateral. Delayed healing. Malnutrition suspected. Obesity Plan: I reviewed and discussed his case today. Left leg ulcer subcutaneous e xcisional debridement was performed as noted in the clinical panel. Wound culture performed today and he was prophylactically placed on Augmentin for cellulitis. Will change antibiotic if necessary based on culture results. Aquacel Ag was applied today and will use tubigrip for compression until he follows up with Dr. Blackmon. Encouraged to elevate limbs at rest. To avoid idle standing or sitting. Baseline labs are pending to get a better understanding of his medical status including CBC, CMP, hemoglobin A1c, prealbumin. Venous duplex Doppler with reflex evaluation and noninvasive arterial studies were also pending. Yash prescription was providedby Dr. Blackmon and I recommended nutritional supplementation to optimize healing. We discussed the etiology and ongoing stage comprehensive wound healing plan and expectations. He will follow up as scheduled with Dr. Blackmon.
--- OUTSIDE RECORDS SUMMARY | 2018-05-19 23:53 | XMS RPT_ITS ---
:1965 Author Organization OH[facility] Care Team Providers Name Role Phone TAYA BOYER MD Admitting Unavailable TAYA BOYER MD Attending Unavailable TAYA BOYER MD Primary Care Unavailable TAYA BOYER MD Consulting Unavailable PROVIDER, UNKNOWN Consulting Unavailable PROVIDER, UNKNOWN Consulting Unavailable PROVIDER, UNKNOWN Consulting Unavailable TAYA BOYER MD Admitting Unavailable TAYA BOYER MD Attending Unavailable TAYA BOYER MD Referring Unavailable TAYA BOYER MD Primary Care Unavailable TAYA BOYER MD Consulting Unavailable PROVIDER, UNKNOWN Consulting Unavailable PROVIDER, UNKNOWN Consulting Unavailable PROVIDER, UNKNOWN Consulting Unavailable Fascione, Tita Attending Unavailable LATOUF, BUTROS Primary Care Unavailable Fascione, Tita Attending Unavailable LATOUF, BUTROS Primary Care Unavailable Fascione, Tita Attending Unavailable Fascione, Tita Referring Unavailable LATOUF, BUTROS Primary Care Unavailable PROBLEMS PROBLEMS No Problem Records FoundPROCEDURES PROCEDURES No Procedure Records FoundRESULTS RESULTS LOWER EXT ARTERIAL Observed: 04/04/2018 Status: F Source: [facility] 11:26 PM [facility] REPOSITORY [facility] Cardiovascular Services [address] [place] [address] 04/04/18 2319 MR#: [id number] Acct: [id number] Name: JAMARI LOVE Rep #: [id number] : 1965 52 From: Pradeep Carter MD Attending Dr: Tita Blackmon DPM Status: PRE CLI Ordering Dr: Date: 04/04/18 Location: [facility] Sex: M C Admitted: Arterial Study - Arterial Study Arterial Study: This is a 52-year-old male with an ulcer in the left lower extremity. Suspecting the presence of atherosclerotic peripheral arterial occlusive disease, the patient was brought to the noninvasive vascular laboratory at this time for the purpose of bilateral noninvasive lower extremity arterial assessment. Doppler signal assessment was used to evaluate the pulses at ankle level bilaterally. The posterior tibial and dorsalis pedis pulses were triphasic bilaterally. Segmental limb pressures were obtained bilaterally. The right ankle pressure, as determined by posterior tibial pulse, was measured at 184 mmHg. The right ankle pressure, as determined by dorsalis pedis pulse, was measured at 156 mmHg. The right digital pressure could not be obtained due to the noncompressibility of the vasculature. The left ankle pressure, as determined by posterior tibial pulse, was measured at 180 mmHg. The left ankle pressure, as determined by dorsalis pedis pulse, was measured at 145 mmHg. The left digital pressure was measured at 180 mmHg. Pulse-volume recordings were obtained bilaterally and segmentally. Waveform amplitudes appeared to be satisfactory at all levels bilaterally, but for the right digital level, which was diminished. Resting ankle brachial indices were calculated bilaterally. The resting right ankle brachial index was calculated to be 1.43. The resting left ankle brachial index was calculated to be 1.40. The right digital-brachial index could not be determined due to the noncompressibility of the vasculature. The left digital-brachial index was calculated to be 1.40. Impression: Based upon the findings of this resting noninvasive lower extremity arterial study, there is evidence of arterial calcification bilaterally, rendering the digital arteries in the right lower extremity noncompressible. Furthermore, resting ankle brachial indices are supra-normal bilaterally, as is the left digital-brachial index. However, triphasic waveforms were noted at ankle level bilaterally. Based upon this study, there is no specific evidence of arterial occlusive disease in either lower extremity. However, arterial calcification is suspected, which may artifactually elevate ankle brachial indices and digital-brachial indices, rendering them somewhat inaccurate in determining the presence of an occlusive process. Therefore clinical correlation is advised. However, evidence of significant occlusive disease is not appreciated based upon this study. 04/04/182325 <Electronically signed by Pradeep Carter MD> Date Pradeep Carter MD CC: Taya Boyer; Tita Blackmon DPM Date Dictated: 04/04/182318 Date Transcribed: 04/04/182318 [employer] Teacher: FAYE Bermudez VENOUS DUPLEX LOWER Observed: 04/02/2018 Status: F Source: [facility] [facility] 7:20 AM [facility] REPOSITORY [facility] Cardiovascular Services [address] [place] [id number] Venous Duplex US - Felipe Extrem 03/31/18 1306 MR#: [id number] Acct: [id number] Name: JAMARI LOVE Rep #: [id number] : 1965 52 From: Pradeep Carter MD Attending Dr: Tita Blackmon DPM Status: REG RCR Ordering Dr: Tita Blackmon DPM Date: 03/31/18 Location: WC Sex: M C Admitted: Reason For Study: Venous Insufficiency RIGHT LEFT CFV is compressible, spontaneous, phasic, CFV is compressible, spontaneous, phasic, competent and demonstrates normal competent, and demonstrates normal augmentation. augmentation. FV is compressible, spontaneous, phasic, FV is compressible, spontaneous, phasic, competent and demonstrates normal competent and demonstrates normal augmentation. augmentation. POP V is compressible, spontaneous, phasic, POP V is compressible, spontaneous, phasic, competent and demonstrates normal competent and demonstrates normal augmentation. augmentation. T/P Trunk is compressible. T/P Trunk is compressible. PTV is compressible. PTV is compressible. RT PerV is compressible. LT PerV is compressible. SFJ is competent. SFJ is competent. GSV at knee and above is INCOMPETENT for GSV at knee and above is INCOMPETENT for greater than 0.5 seconds with a measurement greater than 0.5 seconds and measures 0.71 x of 0.45 x 0.54 cm. 0.78 cm. GSV below knee is competent and measures 0.39 GSV below knee is competent and measures 0.16 x 0.52 cm. x 0.20 cm. SSV is competent. SSV is competent. Procedure Exam performed in department. A preliminary report was called and/or faxed to [facility]. <> Interpretation Summary Deep veins of the lower extremities are bilaterally patent and compressible segmentally. There is no evidence of deep vein thrombosis on either side. Valvular competence appears intact within the proximal deep venous systems bilaterally. The greater saphenous veins appear bilaterally patent and compressible segmentally. Sapheno-femoral junctions are bilaterally competent . The right greater saphenous vein appears incompetent above the knee. The right greater saphenous vein appears competent below the knee. The left greater saphenous vein appears incompetent above the knee. The left greater saphenous vein appears competent below the knee. Small saphenous veins are patent and competent bilaterally. Ordering Physician: Tita Blackmon Referring Physician: Taya Boyer Performed By: Darlene Pittman RVT, RDCS and Student 04/02/18 0720 Date Pradeep Carter MD CC: Taya Boyer; Tita Blackmon DPM Date Dictated: 03/31/18 1306 Date Transcribed: 04/02/18 0720 [employer] Teacher: Signed WOUND CTR HISTORY Observed: 03/26/2018 Status: F Source: [facility] 5:42 PM [facility] REPOSITORY [facility] Wound Healing Center [address] [place] [address] Wound Ctr History AND Physical 03/26/18 1726 MR#: [id number] Acct: [id number] Name: JAMARI LOVE Rep #: [id number] : 1965 52 From: Radha Angel DO PCP: Taya Boyer Status: REG RCR Y Location: WC (1) Cellulitis and abscess of left leg Status: Acute Current Visit: Yes Code(s): L03.116 - Cellulitis of left lower limb; L02.416 - Cutaneous abscess of left lower limb (2) Ulcer of left lower extremity with fat layer exposed Status: Chronic Current Visit: Yes Code(s): L97.922 - Non-pressure chronic ulcer of unspecified part of left lower leg with fat layer exposed (3) Venous insufficiency Status: Chronic Current Visit: Yes Code(s): I87.2 - Venous insufficiency (chronic) (peripheral) History of Present Illness Date of Service: 03/26/18 Chief Complaint: Left leg ulcer History of Wound: This 52-year-old male presents complaining of a painful left leg ulcer he estimates the onset of around December 25, 2017. He denies recent trauma. He does report a remote chain saw injury to the site and this ulcer site comes and goes when his leg swelling increases. He has tried taking intermittent diuretic medication. He denies wearing current compression garments. He denies claudication. He denies leg numbness. He relates he has never been screened for diabetes. He denies odors, fever, chill, nausea, vomiting. Home care has included application of silver gel and rest. He was seen for an initial visit with Dr. Blackmon on Thursday and was here for a nurse visit today for a change of 3M compression wraps but upon removal, nursing staff noticed odor and erythema and requested consultation by physician. The patient denies any increased pain or fever or chills. Past Medical History Past Medical History: Chronic Problems Ulcer of left lower extremity with fat layer exposed (Chronic) Edema leg (Chronic) Venous insufficiency (Chronic) Malnutrition (Chronic) Delayed wound healing (Chronic) Other specified peripheral vascular diseases (Chronic) Allergies/Adverse Reactions: Allergies No Known Allergies Allergy (Verified 03/24/18 14:53) Home Medications: Ambulatory Orders Medication Instructions Recorded Furosemide [Lasix] 20 mg PO BIDLX 03/24/18 Lisinopril [Zestril] 2.5 mg PO DAILY 03/24/18 Smoking Status: Never smoker Tobacco Use: Non-smoker Alcohol: None Drugs: None Review of Systems Constitutional: Denies: Chills, Fever, Weight Change Eyes: Denies: Pain, Vision Change Cardiovascular: Reports: Edema. Denies: Chest Pain, Palpitations Respiratory: Denies: Cough, Shortness of Breath Gastrointestinal: Denies: Diarrhea, Nausea, Vomiting Genitourinary: Denies: Dysuria, Hematuria Skin: Reports: Wounds Hematologic/ Lymphatic: Denies: Easy Bruising, Easy Bleeding - Physical Exam Vital Signs Temp Pulse Resp BP 98.6 F 78 16 141/76 H 03/26/18 13:07 03/26/18 13:07 03/26/18 13:07 03/26/18 13:07 General: Alert, Oriented x3, Cooperative, No apparent distress HEENT: Atraumatic, Normocephalic Lungs: Clear to auscultation Cardiovascular: Regular rate, Regular Rhythm Abdomen: Obese Extremities: Edema Skin: Ulcer/ Wound, - - erythema and odor of wound Wound Measurements and Assessment WC - Nurse 1 - General Ulcer Measurement Start: 03/24/18 14:30 Freq: Status: Active Protocol: Activity Type Activity Date Activity User E-Sign Co-Sign Detail Wound Center Nurse 1 [Ulcer Assessment] WC - Nurse 2 - General Ulcer CM Notes Start: 03/24/18 14:30 Freq: Status: Active Protocol: Activity Type Activity Date Activity User E-Sign Co-Sign Detail Wound Center Nurse 2 [Procedure/Treatment] #1- LT PONCE -Time 15:38 13:59 -Correct Patient Yes Yes -Correct Side, Site, Position Yes Yes Psych/Mental Status: Normal Affect, Appropriate Debridement Note Post-Debridement Measurements/Treatment WC - Nurse 2 - General Ulcer CM Notes Start: 03/24/18 14:30 Freq: Status: Active Protocol: Activity Type Activity Date Activity User E-Sign Co-Sign Detail Wound Center Nurse 2 #1- LT PONCE -Time 15:38 13:59 Wound debrided: left ponce Laterality: Left Type of Debridement: Excisional debridement Anesthesia Used: 4% Lidocaine Solution Depth: Down to and including healthy tissue, in the subcutaneous layer Percentage of wound debrided: 100 Instrument Used: 5mm curette Tissue Removed: yellow slough, devitalized tissue Severity: Fat Layer Exposed Amount of bleeding with debridement: Mild Bleeding Controlled with: Compression and gauze Patient tolerated procedure well Assessment/Plan Active Problems Ulcer of left lower extremity with fat layer exposed (Chronic) Edema leg (Chronic) Venous insufficiency (Chronic) Malnutrition (Chronic) Delayed wound healing (Chronic) Other specified peripheral vascular diseases (Chronic) Cellulitis and abscess of left leg (Acute) Assessment: Left leg ulcer chronic. Venous insufficiency workup in process. Peripheral vascular disease workup in process. Diabetes screening in process. Lower extremity edema and lymphedema bilateral. Delayed healing. Malnutrition suspected. Obesity Plan: I reviewed and discussed his case today. Left leg ulcer subcutaneous excisional debridement was performed as noted in the clinical panel. Wound culture performed today and he was prophylactically placed on Augmentin for cellulitis. Will change antibiotic if necessary based on culture results. Aquacel Ag was applied today and will use tubigrip for compression until he follows up with Dr. Blackmon. Encouraged to elevate limbs at rest. To avoid idle standing or sitting. Baseline labs are pending to get a better understanding of his medical status including CBC, CMP, hemoglobin A1c, prealbumin. Venous duplex Doppler with reflex evaluation and noninvasive arterial studies were also pending. Yash prescription was providedby Dr. Blackmon and I recommended nutritional supplementation to optimize healing. We discussed the etiology and ongoing stage comprehensive wound healing plan and expectations. He will follow up as scheduled with Dr. Blackmon. 03/26/18 [id number] <Electronically signed by Radha Angel DO> Date Radha Angel DO CC: Signed Observed: 03/26/2018 Status: F Source: [facility] C[facility], DEEP WOUND 1:50 PM [facility] REPOSITORY Gram Stain Gram Stain 3+ Red Blood Cells No White Blood Cells Very Rare Gram positive cocci Wound Culture #3 Penicillin is the drug of choice for Beta Streptococcal infections. For Penicillin allergic patients, Erythromycin may be used. ORGANISM 1: Proteus mirabilis Amount Growth Rare ORGANISM 2: Staphylococcus aureus Amount Growth 1+ ORGANISM 3: Streptococcus group G Amount Growth 2+ Proteus mirabilis: REACTION Amoxacillin/Clavulanic Acid $ <=2 S Ampicillin $ <=2 S Ampicillin/Sulbactam $ <=2 S Cefazolin $ <=4 S Cefepime $ <=1 S Ceftriaxone $ <=1 S Ciprofloxacin $ <=0.25 S Ertapenim $$$ <=0.5 S Gentamicin $ <=1 S Levofloxacin $ <=0.12 S Piperacillin/Tazobactam $$ <=4 S Tobramycin $ <=1 S Trimethoprim/Sulfametho $ <=20 S (NF) indicates non-formulary drug at [facility]. Approval by Infectious Disease Specialist required before non-formulary drugs may be ordered and/or dispensed. Staphylococcus aureus: REACTION Benzylpenicillin NF 0.06 R Cefoxitin *NF - Clindamycin $$ <=0.25 S Inducable Clindamycin Res[place] - Erythromycin $ <=0.25 S Gentamicin $ <=0.5 S Levofloxacin $ 0.25 S Linezolid $$$$ 2 S Moxifloxicin *NF <=0.25 S Oxacillin NF <=0.25 S Tigecycline $$$$ <=0.12 S Rifampin $$ <=0.5 S Tetracycline NF <=1 S Trimethoprim/Sulfametho $ <=10 S Vancomycin $ <=0.5 S (NF) indicates non-formulary drug at [facility]. Approval by Infectious Disease Specialist required before non-formulary drugs may be ordered and/or dispensed. * CLSI guidelines does not recommend testing of cephalosporins. This interpretation is deduced from Beta-lactam/penicillin results. Cult, Anaerobic No anaerobic bacteria isolated. Performed By: #### M100.1500 #### [facility] [address] [place], [address] WOUND CTR HISTORY Observed: 03/24/2018 Status: F Source: [facility] 9:47 PM [facility] REPOSITORY [facility] Wound Healing Center [address] [place] [address] Wound Ctr History AND Physical 03/24/18 1547 MR#: [id number] Acct: [id number] Name: JAMARI LOVE Rep #: [id number] : 1965 52 From: Tita Blackmon DPWoo PCP: Taya Boyer Status: REG RCR Y Location: WC (1) Ulcer of left lower extremity with fat layer exposed Status: Chronic Current Visit: Yes Code(s): L97.922 - Non-pressure chronic ulcer of unspecified part of left lower leg with fat layer exposed (2) Edema leg Status: Chronic Current Visit: Yes Code(s): R60.0 - Localized edema (3) Venous insufficiency Status: Chronic Current Visit: Yes Code(s): I87.2 - Venous insufficiency (chronic) (peripheral) (4) Malnutrition Status: Chronic Current Visit: Yes Code(s): E46 - Unspecified protein-calorie malnutrition (5) Delayed wound healing Status: Chronic Current Visit: Yes Code(s): T14.8XXD - Other injury of unspecified body region, subsequent encounter (6) Other specified peripheral vascular diseases Status: Chronic Current Visit: Yes Code(s): I73.89 - Other specified peripheral vascular diseases History of Present Illness Date of Service: 03/24/18 Chief Complaint: Left leg ulcer History of Wound: This 52-year-old male presents complaining of a painful left leg ulcer he estimates the onset of around December 25, 2017. He denies recent trauma. He does report a remote chain saw injury to the site and this ulcer site comes and goes when his leg swelling increases. He is tried taking intermittent diuretic medication. He denies wearing current compression garments. He denies claudication. He denies drinking leg numbness. He relates he has never been screened for diabetes. He denies odors, fever, chill, nausea, vomiting. Home care has included up application of silver gel and rest. Past Medical History Past Medical History: Chronic Problems Ulcer of left lower extremity with fat layer exposed (Chronic) Edema leg (Chronic) Venous insufficiency (Chronic) Malnutrition (Chronic) Delayed wound healing (Chronic) Other specified peripheral vascular diseases (Chronic) Past Medical History: Obesity, chronic leg swelling, hypertension Allergies/Adverse Reactions: Allergies No Known Allergies Allergy (Verified 03/24/18 14:53) Home Medications: Ambulatory Orders Medication Instructions Recorded Furosemide [Lasix] 20 mg PO BIDLX 03/24/18 Lisinopril [Zestril] 2.5 mg PO DAILY 03/24/18 Smoking Status: Never smoker Review of Systems Constitutional: Denies: Chills, Fever, Weakness, Fatigue Cardiovascular: Denies: Chest Pain, Claudication Respiratory: Denies: Shortness of Breath Gastrointestinal: Denies: Diarrhea, Nausea, Vomiting Musculoskeletal: Reports: Leg Pain. Denies: Foot Pain, Joint Tenderness Skin: Reports: Skin Changes, Wounds Neurological: Reports: Balance problems. Denies: Numbness, Tingling Endocrine: Reports: Change in Body Habitus - Physical Exam Vital Signs Temp Pulse Resp BP 98.6 F 46 L 16 139/71 H 03/24/18 14:30 03/24/18 14:30 03/24/18 14:30 03/24/18 14:30 General: Alert, Oriented x3, Cooperative HEENT: Atraumatic Extremities: No cyanosis, Capillary Refill Less than 3 Seconds, No Calf Tenderness - Negative Isaac and Whitmore signs bilateral, Edema - Bilateral lower extremity edema left more than right. Lower leg and thigh edema appears to be clinically consistent with lymphedema bilateral, Peripheral Pulses Normal - Palpable DP and PT pulses bilateral Skin: Ulcer/ Wound - No purulence, streaking, odor, or gross infection or deep tissue exposure is noted. The wound bed is granular and fibrotic without any eschar or necrosis. There is peripheral ulcer site erythema and hyperpigmentation consistent with the venous insufficiency type presentation. There is no bogginess or fluctuance on palpation. The peripheral skin is atrophic and hair is noted to the leg and the foot. There is no interdigital macerations toes Wound Measurements and Assessment WC - Nurse 1 - General Ulcer Measurement Start: 03/24/18 14:30 Freq: Status: Active Protocol: Activity Type Activity Date Activity User E-Sign Co-Sign Detail Recorded Client Recorded Date Recorded By Document 03/24/18 14:30 [facility] [id number] 03/24/18 14:50 [facility] Wound Center Nurse 1 [Ulcer Assessment] #1- LT PONCE -Combined with other wound No WC - Nurse 2 - General Ulcer CM Notes Start: 03/24/18 14:30 Freq: Status: Active Protocol: Activity Type Activity Date Activity User E-Sign Co-Sign Detail Recorded Client Recorded Date Recorded By Document 03/24/18 15:38 [id number] 03/24/18 15:44 Wound Center Nurse 2 [Procedure/Treatment] Musculoskeletal: No Tenderness to Palpation of Joints or Extremities, Muscle Wasting, - - 5 out of 5 ankle muscle strength in all directions bilateral. Compartments remain soft to palpate bilateral lower extremities. Active range of motion digits x10 noted Neurological: Sensory exam intact to light touch and pain Psych/Mental Status: Normal Affect, Appropriate Debridement Note Post-Debridement Measurements/Treatment - Nurse 2 - General Ulcer CM Notes Start: 03/24/18 14:30 Freq: Status: Active Protocol: Activity Type Activity Date Activity User E-Sign Co-Sign Detail Recorded Client Recorded Date Recorded By Document 03/24/18 15:38 [id number] 03/24/18 15:44 Wound Center Nurse 2 #1- LT PONCE -Time 15:38 -Correct Patient Yes -Correct Side, Site, Position Yes -Correct Procedure Yes Wound debrided: leg Laterality: Left Type of Debridement: Excisional debridement Anesthesia Used: 4% Lidocaine Solution Depth: in the subcutaneous layer Percentage of wound debrided: 100 Instrument Used: #15 blade Tissue Removed: fibrous, devitalized subcutaneous, biofilm, slough Severity: Fat Layer Exposed Amount of bleeding with debridement: Mild Bleeding Controlled with: Pressure Patient tolerated procedure well Assessment/Plan Active Problems Ulcer of left lower extremity with fat layer exposed (Chronic) Edema leg (Chronic) Venous insufficiency (Chronic) Malnutrition (Chronic) Delayed wound healing (Chronic) Other specified peripheral vascular diseases (Chronic) Assessment: Left leg ulcer chronic. Venous insufficiency workup in process. Peripheral vascular disease workup in process. Diabetes screening in process. Lower extremity edema and lymphedema bilateral. Delayed healing. Malnutrition suspected. Obesity Plan: I reviewed and discussed his case today. Left leg ulcer subcutaneous excisional debridement was performed as noted in the clinical panel. Aquacel Ag was applied today and a 3 M2 L compression dressing was applied. He will return on Thursday for nursing visit change and will return to clinic in 1 week to follow-up with me. To elevate limbs at rest. To avoid idle standing or sitting. I do not see any jarrett signs of infection and suspect his lee-ulcer site inflammation is more related to his leg swelling that has recently been exacerbated. He does not have a home and her Whitmore sign. I recommend and ordered baseline labs to get a better understanding of his medical status including CBC, CMP, hemoglobin A1c, prealbumin. Venous duplex Doppler with reflex evaluation and noninvasive arterial studies were also ordered and I will review these results when he returns. A prescription for Yash was provided and I recommended nutritional supplementation optimize healing. I answered all of his questions. We discussed the etiology and ongoing stage comprehensive wound healing plan and expectations. 03/24/[id number] <Electronically signed by Tita Blackmon DPM> Date Tita Blackmon DPM CC: Signed CBC W/DIFF, AUTOMATED Collected: 03/24/2018 Status: F Source: [facility] 4:15 PM [facility] REPOSITORY TYPE CODE TESTS RESULT OUT OF RANGE REFERENCE UNITS LAB L100.1000 4.4-11.0 K/mm3 Normal WBC 10.6 LAB L100.1200 4.6-6.2 M/mm3 Low RBC 4.58 LAB L100.1300 13.0-16.5 g/dl Low HGB 12.0 LAB L100.1400 40-54 % Low HCT 38.4 LAB L100.1500 80-94 fL Normal MCV 83.8 LAB L100.1600 27.0-32.0 pg Low MCH 26.2 LAB L100.1700 32-36 g/gl Low MCHC 31.3 LAB L100.1810 11.6-14.6 % High RDW CV 15.5 LAB L100.1820 35.1-43.9 fl High RDW SD 47.9 LAB L100.1900 150-450 K/mm3 Normal PLT 240 LAB L100.2000 6.2-12.0 fl Normal MPV 10.6 LAB L100.2100 47-70 % High NEUT% 73.4 LAB L100.2200 19-41 % Low LY% 14.5 LAB L100.2300 0-10 % Normal MONO% 8.4 LAB L100.2400 0-5 % Normal EO% 3.2 LAB L100.2500 0-1 % Normal BASO% 0.4 LAB L100.2550 0.0-0.9 % Normal IM GRAN % 0.100 Result Comment: IG% - Immature Granulocytes (promyelocytes, myelocytes and metamyelocytes) > 1% indicates that a LEFT SHIFT is Present. LAB L100.2620 2.0-7.7 X10 3/uL High Absolute Neut 7.8 LAB L100.2720 0.83-4.51 X10 3/ul Normal Absolute Lymph 1.54 Performed By: #### L100.0100 #### [facility] [address] [place], [address] COMPREHENSIVE METABOLIC Collected: 03/24/2018 Status: F Source: [facility] 4:15 PM [facility] REPOSITORY TYPE CODE TESTS RESULT OUT OF RANGE REFERENCE UNITS LAB L501.0100 74-106 mg/dL Normal GLU 83 Result Comment: Please note revised GLUCOSE reference range effective 2017. LAB L501.1000 7-18 mg/dL High BUN 24 LAB L501.1100 0.70-1.30 mg/dL Low CREAT,SERUM 0.58 Result Comment: The validity of the calculated GFR AND GFRAA in patients over 70 years has not been determined. Clinical correlation is essential. LAB L501.1110 >60 mL/min Normal EST GFR 156 Result Comment: Non- GFR Calc LAB L501.1115 >60 mL/min Normal EST GFR - AA 189 Result Comment: GFR Calc LAB L501.1255 ml/min Normal Estimated CRCL 140.86 LAB L501.1300 10-20 RATIO High BUN/CRE 41.6 LAB L501.1500 6.4-8. g/dL 2 T PROT Normal 7.5 LAB L501.1800 3.2-5. g/dL 0 ALB Normal 3.3 LAB L501.1950 2.2-4. g/dL 2 GLOB Normal 4.2 LAB L501.2000 0.9-2. RATIO Low 4 A/G 0.8 LAB L501.2200 8.5-10 mg/dL .1 CA Normal 8.8 LAB L501.4100 15-37 U/L Low AST 13 LAB L501.4305 45-117 U/L ALK P Normal 76 LAB L501.4405 16-61 U/L ALT Normal 22 LAB L501.4600 0.20-1 mg/dL .00 T BILI Normal 0.30 LAB L501.5300 136-14 mmol/L 5 NA Normal 141 LAB L501.5600 3.5-5. mmol/L 1 K Normal 3.9 LAB L501.5900 98-107 mmol/L CL Normal 107 LAB L501.6100 21.0-3 mmol/L 2.0 CO2 Normal 28.0 LAB L501.6200 5-15 GAP Normal 6 Performed By: #### L500.4050, L506.0500 #### [facility] [address] [place], [address] PREALBUMIN Collected: 03/24/2018 Status: F Source: [place] 4:15 PM [facility] REPOSITORY TYPE CODE TESTS RESULT OUT OF RANGE REFERENCE UNITS LAB L506.0500 20.0-40.0 mg/dL Normal PREALBUMIN 24.2 Performed By: #### L500.4050, L506.0500 #### [facility] [address] [place], [address] HEMOGLOBIN A1C Collected: 03/24/2018 Status: F Source: [place] 4:15 PM [facility] REPOSITORY TYPE CODE TESTS RESULT OUT OF RANGE REFERENCE UNITS LAB L501.9985 4.2-6.3 % Normal HGB A1C 5.9 Performed By: #### L501.9985 #### [facility] [address] [place], [address] ALLERGIES ALLERGIES DATE TYPE / CODE NAME / CODE REACTION SEVERITY SOURCE 03/24/2018 Drug No Known Unknown Tomás Allergy/[id number](S Allergies/F0019 Formerly [facility] NOMED CT) [address](RXNORM) Hospital Repository Miscellaneous No Known Drug Moderate Walter Pomerene Allergy/[id number](S Allergies (Severity [facility] NOMED CT) Modifier) [facility] (Qualifier Repository Value) ENCOUNTERS ENCOUNTERS ADMIT/DISCHARGE ACCOUNT ADMITTING ENCOUNTER LOCATION SOURCE NUMBER CLASS 04/09/2018 [id number] Ambulatory [address] ing:[facility] Repository 03/31/2018 [id number] Ambulatory [address] ing:[facility] Repository 03/26/2018/ [id number] Ambulatory Tomás Tomás 8 [facility] ing:[place] Repository 01/11/2018/ [id number] [facility], [facility] Repository 10/19/2017/ [id number] [facility], Ambulatory [facility] 8 [facility] Repository PAYERS PAYERS ENCOUNTER GUARANTOR PAYER SUBSCRIBER SOURCE 04/09/2018 JAMARI [place] [id number] Insurance:[facility] Number: [facility] [id number] Repository , [place] [address]Agb: Date:2018-03-23 () 04/09/2018 Secondary NOT GIVENUNK [place] Insurance:SELF PAY [facility] Hospital Number: Effective Repository Date:2018-03-27 03/31/2018 JAMARI TAY Primary JAMARI [place] [id number] [facility]: [facility] [id number] Repository , [place] [address]Egn: Date:2018-03-24 () 03/31/2018 Secondary NOT GIVENUNK [place] Insurance:SELF PAY [facility] Number: Effective Repository Date:2018-03-24 03/26/2018 JAMARI [place] [id number] [facility] Number: [facility] [id number] Repository , [place] [address]Jpp: Date:2018-03-23 () 03/26/2018 Secondary NOT GIVENUNK Tomás Insurance:SELF PAY [facility] Hospital Number: Effective Repository Date:2018-03-23
== END 2018-03-26 23:59 ==
LOC: WC 12:45
PROVIDERS: Family Provider Internal Medicine; PCP Internal Medicine; Visit Provider Podiatrist
DX: I87.2 Venous insufficiency (chronic) (peripheral) (principal); L97.822 Non-pressure chronic ulcer of other part of left lower leg with fat layer exposed; R60.0 Localized edema; M79.605 Pain in left leg; M79.89 Other specified soft tissue disorders; E66.9 Obesity, unspecified; Z68.42 Body mass index [BMI] 45.0-49.9, adult; Z71.3 Dietary counseling and surveillance; I89.0 Lymphedema, not elsewhere classified; I73.9 Peripheral vascular disease, unspecified; L03.116 Cellulitis of left lower limb
CPT/HCPCS: 11042; 29581; 80053; 83036; 84134; 85025; 87070; 87075; 87077; 87186; 87205; 99203; G0463

== ENCOUNTER 2018-04-21 09:00 | Outpatient (RCR) | payer OTHER, SELFPAY ==
[2018-03-27 02:12] VITALS: BP 141/76; PULSE 78; RESP 16; TEMP 37
--- NOTE | 2018-03-31 13:03 | VDLE_ITS ---
Reason For Study: Venous Insufficiency RIGHT LEFT CFV is compressible, spontaneous, phasic, CFV is compressible, spontaneous, phasic, competent and demonstrates normal competent, and demonstrates normal augmentation. augmentation. FV is compressible, spontaneous, phasic, FV is compressible, spontaneous, phasic, competent and demonstrates normal competent and demonstrates normal augmentation. augmentation. POP V is compressible, spontaneous, phasic, POP V is compressible, spontaneous, phasic, competent and demonstrates normal competent and demonstrates normal augmentation. augmentation. T/P Trunk is compressible. T/P Trunk is compressible. PTV is compressible. PTV is compressible. RT PerV is compressible. LT PerV is compressible. SFJ is competent. SFJ is competent. GSV at knee and above is INCOMPETENT for GSV at knee and above is INCOMPETENT for greater than 0.5 seconds with a measurement greater than 0.5 seconds and measures 0.71 x of 0.45 x 0.54 cm. 0.78 cm. GSV below knee is competent and measures 0.39 GSV below knee is competent and measures 0.16 x 0.52 cm. x 0.20 cm. SSV is competent. SSV is competent. Procedure Exam performed in department. A preliminary report was called and/or faxed to [facility]. <> Interpretation Summary Deep veins of the lower extremities are bilaterally patent and compressible segmentally. There is no evidence of deep vein thrombosis on either side. Valvular competence appears intact within the proximal deep venous systems bilaterally. The greater saphenous veins appear bilaterally patent and compressible segmentally. Sapheno-femoral junctions are bilaterally competent . The right greater saphenous vein appears incompetent above the knee. The right greater saphenous vein appears competent below the knee. The left greater saphenous vein appears incompetent above the knee. The left greater saphenous vein appears competent below the knee. Small saphenous veins are patent and competent bilaterally. Ordering Physician: Tita Blackmon Referring Physician: Lobo Longo Performed By: Zain DAVIES RDCS, Darlene and Student
[2018-03-31 15:12] VITALS: BP 132/73; PULSE 74; RESP 20; TEMP 37; BMI 49.4
--- NOTE | 2018-03-31 16:48 | PCM.WC.PN ---
(1) Ulcer of left lower extremity with fat layer exposed Status: Chronic Code(s): L97.922 - Non-pressure chronic ulcer of unspecified part of left lower leg with fat layer exposed (2) Edema leg Status: Chronic Code(s): R60.0 - Localized edema (3) Venous insufficiency Status: Chronic Code(s): I87.2 - Venous insufficiency (chronic) (peripheral) (4) Delayed wound healing Status: Chronic Code(s): T14.8XXD - Other injury of unspecified body region, subsequent encounter (5) Other specified peripheral vascular diseases Status: Chronic Code(s): I73.89 - Other specified peripheral vascular diseases (6) Cellulitis and abscess of left leg Status: Chronic Code(s): L03.116 - Cellulitis of left lower limb; L02.416 - Cutaneous abscess of left lower limb Type of Wound Chief Complaint: Left leg ulcer History of Wound: This 52-year-old male presents complaining of a painful left leg ulcer he estimates the onset of around December 25, 2017. He denies recent trauma. He does report a remote chain saw injury to the site and this ulcer site comes and goes when his leg swelling increases. He has tried taking intermittent diuretic medication. He denies wearing current compression garments. He denies claudication. He denies leg numbness. He relates he has never been screened for diabetes. He denies odors, fever, chill, nausea, vomiting. He was seen for compression dressing change last Thursday and there was concern of cellulitis formation. Dr. Young did obtain a culture and he would like to review the results today. Progress of Wound: Improving - Physical Exam Vital Signs Temp Pulse Resp BP 98.6 F 74 20 H 132/73 H 03/31/18 15:12 03/31/18 15:12 03/31/18 15:12 03/31/18 15:12 General: Alert, Oriented x3, Cooperative Extremities: No cyanosis, Capillary Refill Less than 3 Seconds, No Calf Tenderness - Negative Isaac and Whitmore sign bilateral, Diminished Peripheral Pulses, Edema - Moderate left lower extremity Skin: Ulcer/ Wound - No purulence, odor, necrosis, deep tissue exposure left leg. The peripheral skin is atrophic. There is some periwound inflammation this is decreased compared to last week. The compartments remain soft and periwound palpation Wound Measurements and Assessment WC - Nurse 1 - General Ulcer Measurement Start: 03/31/18 15:12 Freq: Status: Active Protocol: Activity Type Activity Date Activity User E-Sign Co-Sign Detail Recorded Client Recorded Date Recorded By Document 03/31/18 15:12 [email or web address] [id number] 03/31/18 15:18 DL 03/31/18 15:12 Wound Center Nurse 1 [Ulcer Assessment] #1- LT BLANCAS -Current Size (cm) - Length 1.9 -Current Size (cm) - Width 1.9 -Current Size (cm) - Depth 0.2 -Total Square Cm 3.61 -Photo Taken No -Exudate Amt Medium (34-66%) -Exudate Type Serosanguineous -Wound Margin Distinct, Outline Attached -Granulation Amt Medium (34-66%) -Granulation Quality Red -Necrosis Amt Medium (34-66%) -Necrotic Tissue Type Adherent Slough -Structure Exposed N/A -Texture (Toshia-wound Skin Appearance) Excoriation Localized Edema Scarring -Moisture (Toshia-wound Skin Appearance Weeping ) -Color (Toshia-wound Skin Appearance) Erythema Hemosiderin Staining -Temperature (Toshia-wound Skin No Abnormality Appearance) (Pt Warm) -Tenderness on Palpation (Toshia-wound No Skin Appearance) -Ulcer Cleansing Wound Cleanser -Foul Odor after Cleansing No -Anesthetic Used 4% Lidocaine Solution [Edema Assessment] -Left Calf (cm) 47.5 -Left Ankle (cm) 28 - Nurse 2 - General Ulcer CM Notes Start: 03/31/18 15:12 Freq: Status: Active Protocol: Activity Type Activity Date Activity User E-Sign Co-Sign Detail Recorded Client Recorded Date Recorded By Document 03/31/18 15:42 JO [id number] 03/31/18 15:47 JO 03/31/18 15:42 Wound Center Nurse 2 [Procedure/Treatment] #1- LT BLANCAS -Time 15:42 -Correct Patient Yes -Correct Side, Site, Position Yes -Correct Procedure Yes -Procedure Performed Yes -Type of Procedure Debridement -Clinical Debridement Subcutaneous -Post Debridement Size (cm) - Length 2.0 -Post Debridement Size (cm) - Width 2.0 -Post Debridement Size (cm) - Depth 0.2 -Total Square Cm 4.00 -Wound/Ulcer Outcome Not Healed -Ulcer Cleansing Rinsed/ Irrigated with Saline -Foul Odor after Cleansing No -Bioengineered Tissue No -Bleeding Controlled with Pressure -Offloading No -Treatment Response Procedure Tolerated Well [See Physician Procedure note for Specifics] Pain Scale: 0-10 Numeric [Pain] -Is Patient Pain Free? Yes Musculoskeletal: No Tenderness to Palpation of Joints or Extremities, Muscle Wasting Neurological: - - Lack of normal epicritic sensation noted. There is pain with wound manipulation debridement Psych/Mental Status: Normal Affect, Appropriate Debridement Note Post-Debridement Measurements/Treatment WC - Nurse 2 - General Ulcer CM Notes Start: 03/31/18 15:12 Freq: Status: Active Protocol: Activity Type Activity Date Activity User E-Sign Co-Sign Detail Recorded Client Recorded Date Recorded By Document 03/31/18 15:42 [id number] 03/31/18 15:47 JO 03/31/18 15:42 Wound Center Nurse 2 #1- LT BLANCAS -Time 15:42 -Correct Patient Yes -Correct Side, Site, Position Yes -Correct Procedure Yes -Procedure Performed Yes -Type of Procedure Debridement -Clinical Debridement Subcutaneous -Post Debridement Size (cm) - Length 2.0 -Post Debridement Size (cm) - Width 2.0 -Post Debridement Size (cm) - Depth 0.2 -Total Square Cm 4.00 -Wound/Ulcer Outcome Not Healed -Ulcer Cleansing Rinsed/ Irrigated with Saline -Foul Odor after Cleansing No -Bioengineered Tissue No -Bleeding Controlled with Pressure -Offloading No -Treatment Response Procedure Tolerated Well Pain Scale: 0-10 Numeric Is Patient Pain Free? Yes Wound debrided: leg Laterality: Left Type of Debridement: Excisional debridement Anesthesia Used: 5% Lidocaine Gel Depth: in the subcutaneous layer Percentage of wound debrided: 100 Instrument Used: #15 blade Tissue Removed: devitalized subcutaneous, biofilm, slough, fibrous Severity: Fat Layer Exposed Amount of bleeding with debridement: Mild Bleeding Controlled with: Pressure Patient tolerated procedure well Assessment/Plan Assessment: Left leg ulcer chronic. Venous insufficiency workup in process. Peripheral vascular disease workup in process. Diabetes screening in process. Lower extremity edema and lymphedema bilateral. Delayed healing. Malnutrition suspected. Obesity Plan: I reviewed and discussed his case today. Left leg ulcer subcutaneous excisional debridement was performed as noted in the clinical panel. Wound culture performed last week and he was prophylactically placed on Augmentin for cellulitis. His microbiology results were reviewed with staph, strep, and Proteus mirabilis. His white blood cell count was 10.6. He is advised to complete the course of Augmentin. Aquacel Ag was applied today and will use 3M2L compression dressing; he will leave this intact until next week. Encouraged to elevate limbs at rest. To avoid idle standing or sitting. Baseline labs are pending to get a better understanding of his medical status including CBC, CMP, hemoglobin A1c, prealbumin. Venous duplex Doppler with reflex evaluation were reviewed with evidence of venous insufficiency in which I recommend a vascular referral. His noninvasive arterial studies were also pending. Yash prescription was provided to optimize healing. We discussed the etiology and ongoing stage comprehensive wound healing plan and expectations. He will follow up as scheduled 1 week at the wound healing center.
[2018-04-07 09:27] VITALS: BP 146/71; PULSE 72; RESP 22; TEMP 36.4; BMI 49.4
--- NOTE | 2018-04-07 10:06 | PCM.WC.PN ---
(1) Ulcer of left lower extremity with fat layer exposed Status: Chronic Current Visit: Yes Code(s): L97.922 - Non-pressure chronic ulcer of unspecified part of left lower leg with fat layer exposed (2) Edema leg Status: Chronic Current Visit: Yes Code(s): R60.0 - Localized edema (3) Venous insufficiency Status: Chronic Current Visit: Yes Code(s): I87.2 - Venous insufficiency (chronic) (peripheral) (4) Delayed wound healing Status: Chronic Current Visit: Yes Code(s): T14.8XXD - Other injury of unspecified body region, subsequent encounter (5) Other specified peripheral vascular diseases Status: Chronic Current Visit: Yes Code(s): I73.89 - Other specified peripheral vascular diseases Type of Wound Date of Service: 04/07/18 Chief Complaint: Left leg ulcer History of Wound: This 52-year-old male presents for follow-up of left leg ulcer. His compression dressing slipped down and exposed the wound a couple of days ago and he took no action. He denies odors, fever, chill, nausea, vomiting. He is a vascular surgery consultation with Dr. Alejo scheduled for April 28, 2018. Progress of Wound: Improving - Physical Exam Vital Signs Temp Pulse Resp BP 97.6 F L 72 22 H 146/71 H 04/07/18 09:27 04/07/18 09:27 04/07/18 09:27 04/07/18 09:27 General: Alert, Oriented x3, Cooperative Extremities: No cyanosis, Capillary Refill Less than 3 Seconds, No Calf Tenderness - Negative Isaac and Whitmore sign bilateral legs and thighs, Diminished Peripheral Pulses, Edema - Bilateral lower extremities have significant edema and lymphedema Skin: Ulcer/ Wound - No purulence, odor, or streaking. There is peripheral wound erythema and inflammation skin peeling and hyperpigmentation. The skin is atrophic. The wound has significantly decreased in size and has mainly granulation tissue with interspersed fibrous tissue noted no deep tissue exposure is noted Wound Measurements and Assessment WC - Nurse 1 - General Ulcer Measurement Start: 03/31/18 15:12 Freq: Status: Active Protocol: Activity Type Activity Date Activity User E-Sign Co-Sign Detail Recorded Client Recorded Date Recorded By Document 04/07/18 09:27 DL [id number] 04/07/18 09:33 DL 04/07/18 09:27 Wound Center Nurse 1 [Ulcer Assessment] #1- LT BLANCAS -Current Size (cm) - Length 1.6 -Current Size (cm) - Width 1.7 -Current Size (cm) - Depth 0.1 -Total Square Cm 2.72 -Photo Taken No -Exudate Amt Medium (34-66%) -Exudate Type Serosanguineous -Wound Margin Distinct, Outline Attached -Granulation Amt Medium (34-66%) -Granulation Quality Red -Necrosis Amt Medium (34-66%) -Necrotic Tissue Type Adherent Slough -Structure Exposed N/A -Texture (Toshia-wound Skin Appearance) Excoriation Localized Edema Scarring -Moisture (Toshia-wound Skin Appearance Weeping ) -Color (Toshia-wound Skin Appearance) Erythema -Temperature (Toshia-wound Skin No Abnormality Appearance) (Pt Warm) -Tenderness on Palpation (Toshia-wound Yes Skin Appearance) -Ulcer Cleansing Wound Cleanser -Foul Odor after Cleansing No [Edema Assessment] -Left Calf (cm) 56 -Left Ankle (cm) 27.5 WC - Nurse 2 - General Ulcer CM Notes Start: 03/31/18 15:12 Freq: Status: Active Protocol: Activity Type Activity Date Activity User E-Sign Co-Sign Detail Recorded Client Recorded Date Recorded By Document 04/07/18 09:42 JO [id number] 04/07/18 09:43 JO 04/07/18 09:42 Wound Center Nurse 2 [Procedure/Treatment] #1- LT BLANCAS -Time 09:42 -Correct Patient Yes -Correct Side, Site, Position Yes -Correct Procedure Yes -Procedure Performed Yes -Type of Procedure Debridement -Clinical Debridement Subcutaneous -Post Debridement Size (cm) - Length 1.7 -Post Debridement Size (cm) - Width 1.7 -Post Debridement Size (cm) - Depth 0.1 -Total Square Cm 2.89 -Wound/Ulcer Outcome Not Healed -Ulcer Cleansing Rinsed/ Irrigated with Saline -Foul Odor after Cleansing No -Bioengineered Tissue No -Bleeding Controlled with Pressure -Offloading No -Treatment Response Procedure Tolerated Well [See Physician Procedure note for Specifics] Pain Scale: 0-10 Numeric [Pain] -Is Patient Pain Free? Yes Musculoskeletal: No Tenderness to Palpation of Joints or Extremities, Muscle Wasting, - - Compartments soft to palpation left lower extremity Neurological: - Psych/Mental Status: Normal Affect, Appropriate Debridement Note Post-Debridement Measurements/Treatment WC - Nurse 2 - General Ulcer CM Notes Start: 03/31/18 15:12 Freq: Status: Active Protocol: Activity Type Activity Date Activity User E-Sign Co-Sign Detail Recorded Client Recorded Date Recorded By Document 03/31/18 15:42 [id number] 03/31/18 15:47 Document 04/07/18 09:42 [id number] 04/07/18 09:43 03/31/18 04/07/18 15:42 09:42 Wound Center Nurse 2 #1- LT BLANCAS -Time 15:42 09:42 -Correct Patient Yes Yes -Correct Side, Site, Position Yes Yes -Correct Procedure Yes Yes -Procedure Performed Yes Yes -Type of Procedure Debridement Debridement -Clinical Debridement Subcutaneous Subcutaneous -Post Debridement Size (cm) - Length 2.0 1.7 -Post Debridement Size (cm) - Width 2.0 1.7 -Post Debridement Size (cm) - Depth 0.2 0.1 -Total Square Cm 4.00 2.89 -Wound/Ulcer Outcome Not Healed Not Healed -Ulcer Cleansing Rinsed/ Rinsed/ Irrigated with Irrigated with Saline Saline -Foul Odor after Cleansing No No -Bioengineered Tissue No No -Bleeding Controlled with Pressure Pressure -Offloading No No -Treatment Response Procedure Procedure Tolerated Well Tolerated Well Pain Scale: 0-10 Numeric Is Patient Pain Free? Yes Yes Wound debrided: leg Laterality: Left Type of Debridement: Excisional debridement Anesthesia Used: 5% Lidocaine Gel Depth: in the subcutaneous layer Percentage of wound debrided: 100 Instrument Used: #15 blade Tissue Removed: fibrous, devitalized subcutaneous, biofilm, slough Severity: Fat Layer Exposed Amount of bleeding with debridement: Mild Bleeding Controlled with: Pressure Patient tolerated procedure well Assessment/Plan Active Problems Ulcer of left lower extremity with fat layer exposed (Chronic) Edema leg (Chronic) Venous insufficiency (Chronic) Delayed wound healing (Chronic) Other specified peripheral vascular diseases (Chronic) Cellulitis and abscess of left leg (Chronic) Assessment: Left leg ulcer chronic. Venous insufficiency workup in process. Peripheral vascular disease workup in process. Diabetes screening in process. Lower extremity edema and lymphedema bilateral. Delayed healing. Malnutrition suspected. Obesity Plan: I reviewed and discussed his case today. Left leg ulcer subcutaneous excisional debridement was performed as noted in the clinical panel. He completed a course of Augmentin for cellulitis. Aquacel Ag was applied today and will use 3M2L compression dressing; he will leave this intact mid week which she will return for nursing visit to change this. I encouraged him to elevate limbs at rest. To avoid idle standing or sitting. Baseline labs are pending to get a better understanding of his medical status including CBC, CMP, hemoglobin A1c, prealbumin. Venous duplex Doppler with reflex evaluation were reviewed with evidence of venous insufficiency in which I recommend a vascular referral. His noninvasive arterial studies were reviewed with evidence of vessel calcification. His right ankle-brachial index is 1.43 and left was 1.4. To follow-up with his vascular consultation on April 28 as scheduled. He does not have apparent objective or subjective signs of a blood clot and he will continue to monitor for this. He thinks he has been walking differently and his left hip is tight. He will also monitor this. Yash prescription was provided to optimize healing. We discussed the etiology and ongoing stage comprehensive wound healing plan and expectations. He will follow up as scheduled 1 week at the wound healing center.
[2018-04-09 13:53] VITALS: BP 130/75; PULSE 79; RESP 18; TEMP 37.2; BMI 49.4
[2018-04-14 10:04] VITALS: BP 144/89; PULSE 84; RESP 22; TEMP 36.2; BMI 49.4
--- NOTE | 2018-04-14 10:44 | PCM.WC.PN ---
(1) Ulcer of left lower extremity with fat layer exposed Status: Chronic Current Visit: Yes Code(s): L97.922 - Non-pressure chronic ulcer of unspecified part of left lower leg with fat layer exposed (2) Edema leg Status: Chronic Current Visit: Yes Code(s): R60.0 - Localized edema (3) Venous insufficiency Status: Chronic Current Visit: Yes Code(s): I87.2 - Venous insufficiency (chronic) (peripheral) (4) Delayed wound healing Status: Chronic Current Visit: Yes Code(s): T14.8XXD - Other injury of unspecified body region, subsequent encounter (5) Other specified peripheral vascular diseases Status: Chronic Current Visit: Yes Code(s): I73.89 - Other specified peripheral vascular diseases Type of Wound Date of Service: 04/14/18 Chief Complaint: Left leg ulcer History of Wound: This 52-year-old male presents for follow-up of left leg ulcer. He wears a 3m2l for compression control. He denies odors, fever, chill, nausea, vomiting. He is a vascular surgery consultation with Dr. Alejo scheduled for April 28, 2018. Progress of Wound: Improving - Physical Exam Vital Signs Temp Pulse Resp BP 97.1 F L 84 22 H 144/89 H 04/14/18 10:04 04/14/18 10:04 04/14/18 10:04 04/14/18 10:04 General: Alert, Oriented x3, Cooperative Extremities: No cyanosis, Capillary Refill Less than 3 Seconds, No Calf Tenderness - negative kathleen and de la vega bilateral, Diminished Peripheral Pulses, Edema - significant edema left lower extremity with inflammatory changes Skin: Ulcer/ Wound - no streaking, no odor, no deep necrosis, no deep tissue exposed left leg. skin peeling. inflammatory changes are consistent with last visit. Wound Measurements and Assessment WC - Nurse 1 - General Ulcer Measurement Start: 03/31/18 15:12 Freq: Status: Active Protocol: Activity Type Activity Date Activity User E-Sign Co-Sign Detail Recorded Client Recorded Date Recorded By Document 04/14/18 10:04 DL [id number] 04/14/18 10:06 DL 04/14/18 10:04 Wound Center Nurse 1 [Ulcer Assessment] #1- LT BLANCAS -Current Size (cm) - Length 1.7 -Current Size (cm) - Width 1.5 -Current Size (cm) - Depth 0.2 -Total Square Cm 2.55 -Photo Taken No -Exudate Amt Medium (34-66%) -Exudate Type Serosanguineous -Wound Margin Distinct, Outline Attached -Granulation Amt Large (67-100%) -Granulation Quality Red -Necrosis Amt Small (1-33%) -Necrotic Tissue Type Adherent Slough -Structure Exposed N/A -Texture (Toshia-wound Skin Appearance) Excoriation -Moisture (Toshia-wound Skin Appearance Weeping ) -Color (Toshia-wound Skin Appearance) Hemosiderin Staining -Temperature (Toshia-wound Skin No Abnormality Appearance) (Pt Warm) -Ulcer Cleansing Wound Cleanser -Foul Odor after Cleansing No -Anesthetic Used 4% Lidocaine Solution [Edema Assessment] -Left Calf (cm) 55 -Left Ankle (cm) 27.6 WC - Nurse 2 - General Ulcer CM Notes Start: 03/31/18 15:12 Freq: Status: Active Protocol: Activity Type Activity Date Activity User E-Sign Co-Sign Detail Recorded Client Recorded Date Recorded By Document 04/14/18 10:13 DL [email or web address] 04/14/18 10:15 DL 04/14/18 10:13 Wound Center Nurse 2 [Procedure/Treatment] #1- LT BLANCAS -Time 10:13 -Correct Patient Yes -Correct Side, Site, Position Yes -Correct Procedure Yes -Procedure Performed Yes -Type of Procedure Debridement -Clinical Debridement Subcutaneous -Post Debridement Size (cm) - Length 1.8 -Post Debridement Size (cm) - Width 1.5 -Post Debridement Size (cm) - Depth 0.2 -Total Square Cm 2.70 -Wound/Ulcer Outcome Not Healed -Ulcer Cleansing Rinsed/ Irrigated with Saline -Foul Odor after Cleansing No -Bioengineered Tissue No -Bleeding Controlled with Pressure -Offloading No -Treatment Response Procedure Tolerated Well [See Physician Procedure note for Specifics] Pain Scale: 0-10 Numeric [Pain] -Is Patient Pain Free? Yes Musculoskeletal: No Tenderness to Palpation of Joints or Extremities, Muscle Wasting Neurological: Sensory exam intact to light touch and pain, - Psych/Mental Status: Normal Affect, Appropriate Debridement Note Post-Debridement Measurements/Treatment WC - Nurse 2 - General Ulcer CM Notes Start: 03/31/18 15:12 Freq: Status: Active Protocol: Activity Type Activity Date Activity User E-Sign Co-Sign Detail Recorded Client Recorded Date Recorded By Document 03/31/18 15:42 [id number] 03/31/18 15:47 JF Document 04/07/18 09:42 [email or web address] [id number] 04/07/18 09:43 JF Document 04/14/18 10:13 DL [id number] 04/14/18 10:15 DL 03/31/18 04/07/18 04/14/18 15:42 09:42 10:13 Wound Center Nurse 2 #1- LT BLANCAS -Time 15:42 09:42 10:13 -Correct Patient Yes Yes Yes -Correct Side, Site, Position Yes Yes Yes -Correct Procedure Yes Yes Yes -Procedure Performed Yes Yes Yes -Type of Procedure Debridement Debridement Debridement -Clinical Debridement Subcutaneous Subcutaneous Subcutaneous -Post Debridement Size (cm) - Length 2.0 1.7 1.8 -Post Debridement Size (cm) - Width 2.0 1.7 1.5 -Post Debridement Size (cm) - Depth 0.2 0.1 0.2 -Total Square Cm 4.00 2.89 2.70 -Wound/Ulcer Outcome Not Healed Not Healed Not Healed -Ulcer Cleansing Rinsed/ Rinsed/ Rinsed/ Irrigated with Irrigated with Irrigated with Saline Saline Saline -Foul Odor after Cleansing No No No -Bioengineered Tissue No No No -Bleeding Controlled with Pressure Pressure Pressure -Offloading No No No -Treatment Response Procedure Procedure Procedure Tolerated Well Tolerated Well Tolerated Well Pain Scale: 0-10 Numeric Is Patient Pain Free? Yes Yes Yes Wound debrided: leg Laterality: Left Type of Debridement: Excisional debridement Anesthesia Used: 4% Lidocaine Solution Depth: in the subcutaneous layer Percentage of wound debrided: 100 Instrument Used: #15 blade Tissue Removed: fibrous, devitalized subcutaneous, biofilm, slough Severity: Fat Layer Exposed Amount of bleeding with debridement: Mild Bleeding Controlled with: Pressure Patient tolerated procedure well Assessment/Plan Active Problems Ulcer of left lower extremity with fat layer exposed (Chronic) Edema leg (Chronic) Venous insufficiency (Chronic) Delayed wound healing (Chronic) Other specified peripheral vascular diseases (Chronic) Cellulitis and abscess of left leg (Chronic) Assessment: Left leg ulcer chronic. Venous insufficiency workup in process. Peripheral vascular disease workup in process. Diabetes screening in process. Lower extremity edema and lymphedema bilateral. Delayed healing. Malnutrition suspected. Obesity Plan: I reviewed and discussed his case today. Left leg ulcer subcutaneous excisional debridement was performed as noted in the clinical panel. He completed a course of Augmentin for cellulitis. Aquacel Ag was applied today and will use 3M2L compression dressing; he will leave this intact mid week which she will return for nursing visit to change this. I encouraged him to elevate limbs at rest. To avoid idle standing or sitting. Baseline labs are pending to get a better understanding of his medical status including CBC, CMP, hemoglobin A1c, prealbumin. The WBC was 10.6, hemoglobin A1C was 5.9%, and prealbumin was 24.2. Venous duplex Doppler with reflex evaluation were reviewed with evidence of venous insufficiency in which I recommend a vascular referral. His noninvasive arterial studies were reviewed with evidence of vessel calcification. His right ankle-brachial index is 1.43 and left was 1.4. To follow-up with his vascular consultation on April 28 as scheduled. He does not have apparent objective or subjective signs of a blood clot and he will continue to monitor for this. He thinks he has been walking differently and his left hip is tight. He will also monitor this. Yash prescription was provided to optimize healing. We discussed the etiology and ongoing stage comprehensive wound healing plan and expectations. He will follow up as scheduled 1 week at the wound healing center.
[2018-04-16 13:03] VITALS: BP 152/87; PULSE 80; RESP 16; TEMP 36.3; BMI 49.4
[2018-04-21 09:10] VITALS: BP 141/78; PULSE 79; RESP 18; TEMP 36.4; BMI 49.4
--- NOTE | 2018-04-21 10:02 | PCM.WC.PN ---
(1) Ulcer of left lower extremity with fat layer exposed Status: Chronic Current Visit: Yes Code(s): L97.922 - Non-pressure chronic ulcer of unspecified part of left lower leg with fat layer exposed (2) Edema leg Status: Chronic Current Visit: Yes Code(s): R60.0 - Localized edema (3) Venous insufficiency Status: Chronic Current Visit: Yes Code(s): I87.2 - Venous insufficiency (chronic) (peripheral) (4) Delayed wound healing Status: Chronic Current Visit: Yes Code(s): T14.8XXD - Other injury of unspecified body region, subsequent encounter (5) Other specified peripheral vascular diseases Status: Chronic Current Visit: Yes Code(s): I73.89 - Other specified peripheral vascular diseases Type of Wound Date of Service: 04/21/18 Chief Complaint: Left leg ulcer History of Wound: This 52-year-old male presents for follow-up of left leg ulcer. He wears a 3m2l for compression control. He denies odors, fever, chill, nausea, vomiting. He is a vascular surgery consultation with Dr. Alejo scheduled for April 28, 2018. He has continued leg swelling. Progress of Wound: Improving - Physical Exam Vital Signs Temp Pulse Resp BP 97.5 F L 79 18 141/78 H 04/21/18 09:10 04/21/18 09:10 04/21/18 09:10 04/21/18 09:10 General: Alert, Oriented x3, Cooperative Extremities: No cyanosis, Capillary Refill Less than 3 Seconds, No Calf Tenderness - Negative Isaac and Whitmore sign bilateral, Diminished Peripheral Pulses, Edema - biLateral lower extremities but decreased compared to previous visits Skin: Ulcer/ Wound - No purulence, erythema, streaking, odor, or infection of the leg. There is inflammation and edema around the ulcer site that is consistent with previous exams. There is some skin peeling. The ulcer size has decreased with peripheral epithelialization and continued granulation tissue that appears healthy. Wound Measurements and Assessment WC - Nurse 1 - General Ulcer Measurement Start: 03/31/18 15:12 Freq: Status: Active Protocol: Activity Type Activity Date Activity User E-Sign Co-Sign Detail Recorded Client Recorded Date Recorded By Document 04/21/18 09:10 RB [id number] 04/21/18 09:25 RB 04/21/18 09:10 Wound Center Nurse 1 [Ulcer Assessment] #1- LT BLANCAS -Combined with other wound No -Current Size (cm) - Length 1.2 -Current Size (cm) - Width 1.5 -Current Size (cm) - Depth 0.2 -Total Square Cm 1.80 -Photo Taken No -Tunneling No -Undermining/Tunneling No -Exudate Amt Small (1-33%) -Exudate Type Serosanguineous -Wound Margin Distinct, Outline Attached -Granulation Amt Large (67-100%) -Granulation Quality Red -Slough/Fibrin Yes -Necrosis Amt Small (1-33%) -Necrotic Tissue Type Adherent Slough -Structure Exposed N/A -Texture (Toshia-wound Skin Appearance) Excoriation Friable -Moisture (Toshia-wound Skin Appearance Dry/Scaly ) -Color (Toshia-wound Skin Appearance) Erythema -Tenderness on Palpation (Toshia-wound Yes Skin Appearance) -Ulcer Cleansing Wound Cleanser -Anesthetic Used 5% Lidocaine Gel [Edema Assessment] -Lower Limb Edema Present Yes -Left Calf (cm) 50.5 -Left Ankle (cm) 28 WC - Nurse 2 - General Ulcer CM Notes Start: 03/31/18 15:12 Freq: Status: Active Protocol: Activity Type Activity Date Activity User E-Sign Co-Sign Detail Recorded Client Recorded Date Recorded By Document 04/21/18 09:34 [id number] 04/21/18 09:36 04/21/18 09:34 Wound Center Nurse 2 [Procedure/Treatment] #1- LT BLANCAS -Time 09:35 -Correct Patient Yes -Correct Side, Site, Position Yes -Correct Procedure Yes -Procedure Performed Yes -Type of Procedure Debridement -Clinical Debridement Subcutaneous -Post Debridement Size (cm) - Length 1.3 -Post Debridement Size (cm) - Width 1.5 -Post Debridement Size (cm) - Depth 0.2 -Total Square Cm 1.95 -Wound/Ulcer Outcome Not Healed -Ulcer Cleansing Rinsed/ Irrigated with Saline -Foul Odor after Cleansing No -Bioengineered Tissue No -Bleeding Controlled with Pressure -Offloading No -Treatment Response Procedure Tolerated Well [See Physician Procedure note for Specifics] Pain Scale: 0-10 Numeric [Pain] -Is Patient Pain Free? Yes Musculoskeletal: No Tenderness to Palpation of Joints or Extremities, Muscle Wasting Neurological: Sensory exam intact to light touch and pain Psych/Mental Status: Normal Affect, Appropriate Debridement Note Post-Debridement Measurements/Treatment WC - Nurse 2 - General Ulcer CM Notes Start: 03/31/18 15:12 Freq: Status: Active Protocol: Activity Type Activity Date Activity User E-Sign Co-Sign Detail Recorded Client Recorded Date Recorded By Document 03/31/18 15:42 JF [id number] 03/31/18 15:47 JF Document 04/07/18 09:42 JF [id number] 04/07/18 09:43 JF Document 04/14/18 10:13 DL [id number] 04/14/18 10:15 DL Document 04/21/18 09:34 JF [id number] 04/21/18 09:36 JF 03/31/18 04/07/18 04/14/18 15:42 09:42 10:13 Wound Center Nurse 2 #1- LT BLANCAS -Time 15:42 09:42 10:13 -Correct Patient Yes Yes Yes -Correct Side, Site, Position Yes Yes Yes -Correct Procedure Yes Yes Yes -Procedure Performed Yes Yes Yes -Type of Procedure Debridement Debridement Debridement -Clinical Debridement Subcutaneous Subcutaneous Subcutaneous -Post Debridement Size (cm) - Length 2.0 1.7 1.8 -Post Debridement Size (cm) - Width 2.0 1.7 1.5 -Post Debridement Size (cm) - Depth 0.2 0.1 0.2 -Total Square Cm 4.00 2.89 2.70 -Wound/Ulcer Outcome Not Healed Not Healed Not Healed -Ulcer Cleansing Rinsed/ Rinsed/ Rinsed/ Irrigated with Irrigated with Irrigated with Saline Saline Saline -Foul Odor after Cleansing No No No -Bioengineered Tissue No No No -Bleeding Controlled with Pressure Pressure Pressure -Offloading No No No -Treatment Response Procedure Procedure Procedure Tolerated Well Tolerated Well Tolerated Well Pain Scale: 0-10 Numeric Is Patient Pain Free? Yes Yes Yes 04/21/18 09:34 Wound Center Nurse 2 #1- LT BLANCAS -Time 09:35 -Correct Patient Yes -Correct Side, Site, Position Yes -Correct Procedure Yes -Procedure Performed Yes -Type of Procedure Debridement -Clinical Debridement Subcutaneous -Post Debridement Size (cm) - Length 1.3 -Post Debridement Size (cm) - Width 1.5 -Post Debridement Size (cm) - Depth 0.2 -Total Square Cm 1.95 -Wound/Ulcer Outcome Not Healed -Ulcer Cleansing Rinsed/ Irrigated with Saline -Foul Odor after Cleansing No -Bioengineered Tissue No -Bleeding Controlled with Pressure -Offloading No -Treatment Response Procedure Tolerated Well Pain Scale: 0-10 Numeric Is Patient Pain Free? Yes Wound debrided: leg Laterality: Left Type of Debridement: Excisional debridement Anesthesia Used: 5% Lidocaine Gel Depth: in the subcutaneous layer Percentage of wound debrided: 100 Instrument Used: #15 blade Tissue Removed: fibrous, devitalized subcutaneous, biofilm, slough Severity: Fat Layer Exposed Amount of bleeding with debridement: Mild Bleeding Controlled with: Pressure Patient tolerated procedure well Assessment/Plan Active Problems Ulcer of left lower extremity with fat layer exposed (Chronic) Edema leg (Chronic) Venous insufficiency (Chronic) Delayed wound healing (Chronic) Other specified peripheral vascular diseases (Chronic) Cellulitis and abscess of left leg (Chronic) Assessment: Left leg ulcer chronic. Venous insufficiency workup in process. Peripheral vascular disease workup in process. Diabetes screening in process. Lower extremity edema and lymphedema bilateral. Delayed healing. Malnutrition suspected. Obesity Plan: I reviewed and discussed his case today. Left leg ulcer subcutaneous excisional debridement was performed as noted in the clinical panel. He completed a course of Augmentin for cellulitis. Aquacel Ag was applied today and will use 3M2L compression dressing; he refuses to come for nursing visit this upcoming mid week. I encouraged him to elevate limbs at rest. To avoid idle standing or sitting. Baseline labs are pending to get a better understanding of his medical status including CBC, CMP, hemoglobin A1c, prealbumin. The WBC was 10.6, hemoglobin A1C was 5.9%, and prealbumin was 24.2. Venous duplex Doppler with reflex evaluation were reviewed with evidence of venous insufficiency in which I recommend a vascular referral. He is scheduled for Saturday, April 28, 2018. his noninvasive arterial studies were reviewed with evidence of vessel calcification. His right ankle-brachial index is 1.43 and left was 1.4. To follow-up with his vascular consultation on April 28 as scheduled. He does not have apparent objective or subjective signs of a blood clot and he will continue to monitor for this. He thinks he has been walking differently and his left hip is tight. He will also monitor this. Yash prescription was provided to optimize healing. We discussed the etiology and ongoing stage comprehensive wound healing plan and expectations. He will follow up as scheduled 1 week at the wound healing center.
--- NOTE | 2018-04-21 10:05 | PN.PCM_ITS ---
(1) Ulcer of left lower extremity with fat layer exposed Status: Chronic Current Visit: Yes Code(s): L97.922 - Non-pressure chronic ulcer of unspecified part of left lower leg with fat layer exposed (2) Edema leg Status: Chronic Current Visit: Yes Code(s): R60.0 - Localized edema (3) Venous insufficiency Status: Chronic Current Visit: Yes Code(s): I87.2 - Venous insufficiency (chronic) (peripheral) (4) Delayed wound healing Status: Chronic Current Visit: Yes Code(s): T14.8XXD - Other injury of unspecified body region, subsequent encounter (5) Other specified peripheral vascular diseases Status: Chronic Current Visit: Yes Code(s): I73.89 - Other specified peripheral vascular diseases Type of Wound Date of Service: 04/21/18 Chief Complaint: Left leg ulcer History of Wound: This 52-year-old male presents for follow-up of left leg ulcer. He wears a 3m2l for compression control. He denies odors, fever, chill, nausea, vomiting. He is a vascular surgery consultation with Dr. Alejo scheduled for April 28, 2018. He has continued leg swelling. Progress of Wound: Improving - Physical Exam Vital Signs Temp Pulse Resp BP 97.5 F L 79 18 141/78 H 04/21/18 09:10 04/21/18 09:10 04/21/18 09:10 04/21/18 09:10 General: Alert, Oriented x3, Cooperative Extremities: No cyanosis, Capillary Refill Less than 3 Seconds, No Calf Tenderness - Negative Isaac and Whitmore sign bilateral, Diminished Peripheral Pulses, Edema - biLateral lower extremities but decreased compared to previous v isits Skin: Ulcer/ Wound - No purulence, erythema, streaking, odor, or infection of the leg. There is inflammation and edema around the ulcer site that is consistent with previous exams. There is some skin peeling. The ulcer size has decreased with peripheral epithelialization and continued granulation tissue that appears healthy. Wound Measurements and Assessment WC - Nurse 1 - General Ulcer Measurement Start: 03/31/18 15:12 Freq: Status: Active Protocol: Activity Type Activity Date Activity User E-Sign Co-Sign Detail Recorded Client Recorded Date Recorded By Document 04/21/18 09:10 RB [id number] 04/21/18 09:25 RB 04/21/18 09:10 Wound Center Nurse 1 [Ulcer Assessment] #1- LT BLANCAS -Combined with other wound No -Current Size (cm) - Length 1.2 -Current Size (cm) - Width 1.5 -Current Size (cm) - Depth 0.2 -Total Square Cm 1.80 -Photo Taken No -Tunneling No -Undermining/Tunneling No -Exudate Amt Small (1-33%) -Exudate Type Serosanguineous -Wound Margin Distinct, Outline Attached -Granulation Amt Large (67-100%) -Granulation Quality Red -Slough/Fibrin Yes -Necrosis Amt Small (1-33%) -Necrotic Tissue Type Adherent Slough -Structure Exposed N/A -Texture (Toshia-wound Skin Appearance) Excoriation Friable -Moisture (Toshia-wound Skin Appearance Dry/Scaly ) -Color (Toshia-wound Skin Appearance) Erythema -Tenderness on Palpation (Toshia-wound Yes Skin Appearance) -Ulcer Cleansing Wound Cleanser -Anesthetic Used 5% Lidocaine Gel [Edema Assessment] -Lower Limb Edema Present Yes -Left Calf (cm) 50.5 -Left Ankle (cm) 28 WC - Nurse 2 - General Ulcer CM Notes Start: 03/31/18 15:12 Freq: Status: Active Protocol: Activity Type Activity Date Activity User E-Sign Co-Sign Detail Recorded Client Recorded Date Recorded By Document 04/21/18 09:34 JO [id number] 04/21/18 09:36 JO 04/21/18 09:34 Wound Center Nurse 2 [Procedure/Treatment] #1- LT BLANCAS -Time 09:35 -Correct Patient Yes -Correct Side, Site, Position Yes -Correct Procedure Yes -Procedure Performed Yes -Type of Procedure Debridement -Clinical Debridement Subcutaneous -Post Debridement Size (cm) - Length 1.3 -Post Debridement Size (cm) - Width 1.5 -Post Debridement Size (cm) - Depth 0.2 -Total Square Cm 1.95 -Wound/Ulcer Outcome Not Healed -Ulcer Cleansing Rinsed/ Irrigated with Saline -Foul Odor after Cleansing No -Bioengineered Tissue No -Bleeding Controlled with Pressure -Offloading No -Treatment Response Procedure Tolerated Well [See Physician Procedure note for Specifics] Pain Scale: 0-10 Numeric [Pain] -Is Patient Pain Free? Yes Musculoskeletal: No Tenderness to Palpation of Joints or Extremities, Muscle Wasting Neurological: Sensory exam intact to light touch and pain Psych/Mental Status: Normal Affect, Appropriate Debridement Note Post-Debridement Measurements/Treatment WC - Nurse 2 - General Ulcer CM Notes Start: 03/31/18 15:12 Freq: Status: Active Protocol: Activity Type Activity Date Activity User E-Sign Co-Sign Detail Recorded Client Recorded Date Recorded By Document 03/31/18 15:42 JF [id number] 03/31/18 15:47 JF Document 04/07/18 09:42 JF [id number] 04/07/18 09:43 JF Document 04/14/18 10:13 DL [id number] 04/14/18 10:15 DL Document 04/21/18 09:34 JF [id number] 04/21/18 09:36 JF 03/31/18 04/07/18 04/14/18 15:42 09:42 10:13 Wound Center Nurse 2 #1- LT BLANCAS -Time 15:42 09:42 10:13 -Correct Patient Yes Yes Yes -Correct Side, Site, Position Yes Yes Yes -Correct Procedure Yes Yes Yes -Procedure Performed Yes Yes Yes -Type of Procedure Debridement Debridement Debridement -Clinical Debridement Subcutaneous Subcutaneous Subcutaneous -Post Debridement Size (cm) - Length 2.0 1.7 1.8 -Post Debridement Size (cm) - Width 2.0 1.7 1.5 -Post Debridement Size (cm) - Depth 0.2 0.1 0.2 -Total Square Cm 4.00 2.89 2.70 -Wound/Ulcer Outcome Not Healed Not Healed Not Healed -Ulcer Cleansing Rinsed/ Rinsed/ Rinsed/ Irrigated with Irrigated with Irrigated with Saline Saline Saline -Foul Odor after Cleansing No No No -Bioengineered Tissue No No No -Bleeding Controlled with Pressure Pressure Pressure -Offloading No No No -Treatment Response Procedure Procedure Procedure Tolerated Well Tolerated Well Tolerated Well Pain Scale: 0-10 Numeric Is Patient Pain Free? Yes Yes Yes 04/21/18 09:34 Wound Center Nurse 2 #1- LT BLANCAS -Time 09:35 -Correct Patient Yes -Correct Side, Site, Position Yes -Correct Procedure Yes -Procedure Performed Yes -Type of Procedure Debridement -Clinical Debridement Subcutaneous -Post Debridement Size (cm) - Length 1.3 -Post Debridement Size (cm) - Width 1.5 -Post Debridement Size (cm) - Depth 0.2 -Total Square Cm 1.95 -Wound/Ulcer Outcome Not Healed -Ulcer Cleansing Rinsed/ Irrigated with Saline -Foul Odor after Cleansing No -Bioengineered Tissue No -Bleeding Controlled with Pressure -Offloading No -Treatment Response Procedure Tolerated Well Pain Scale: 0-10 Numeric Is Patient Pain Free? Yes Wound debrided: leg Laterality: Left Type of Debridement: Excisional debridement Anesthesia Used: 5% Lidocaine Gel Depth: in the subcutaneous layer Percentage of wound debrided: 100 Instrument Used: #15 blade Tissue Removed: fibrous, devitalized subcutaneous, biofilm, slough Severity: Fat Layer Exposed Amount of bleeding with debridement: Mild Bleeding Controlled with: Pressure Patient tolerated procedure well Assessment/Plan Active Problems Ulcer of left lower extremity with fat layer exposed (Chronic) Edema leg (Chronic) Venous insufficiency (Chronic) Delayed wound healing (Chronic) Other specified peripheral vascular diseases (Chronic) Cellulitis and abscess of left leg (Chronic) Assessment: Left leg ulcer chronic. Venous insufficiency workup in process. Peripheral vascular disease workup in process. Diabetes screening in process. Lower extremity edema and lymphedema bilateral. Delayed healing. Malnutrition suspected. Obesity Plan: I reviewed and discussed his case today. Left leg ulcer subcutaneous excisional debridement was performed as noted in the clinical panel. He completed a course of Augmentin for cellulitis. Aquacel Ag was applied today and will use 3M2L compression dressing; he refuses to come for nursing visit this upcoming mid week. I encouraged him to elevate limbs at rest. To avoid idle standing or sitting. Baseline labs are pending to get a better understanding of his medical status including CBC, CMP, hemoglobin A1c, prealbumin. The WBC was 10.6, hemoglobin A1C was 5.9%, and prealbumin was 24.2. Venous duplex Doppler with reflex evaluation were reviewed with evidence of venous insufficiency in which I recommend a vascular referral. He is scheduled for Saturday, April 28, 2018. his noninvasive arterial studies were reviewed with evidence of vessel calcification. His right ankle-brachial index is 1.43 and left was 1.4. To follow-up with his vascular consultation on April 28 as scheduled. He does not have apparent objective or subjective signs of a blood clot and he will continue to monitor for this. He thinks he has been walking differently and his left hip is tight. He will also monitor this. Yash prescription was provided to optimize healing. We discussed the etiology and ongoing stage comprehensive wound healing plan and expectations. He will follow up as scheduled 1 week at the wound healing center.
== END 2018-04-26 23:59 ==
LOC: WC 09:00
PROVIDERS: Family Provider Internal Medicine; PCP Internal Medicine; Visit Provider Podiatrist
DX: I87.2 Venous insufficiency (chronic) (peripheral) (principal); L97.822 Non-pressure chronic ulcer of other part of left lower leg with fat layer exposed; R60.0 Localized edema; M79.605 Pain in left leg; M79.89 Other specified soft tissue disorders; L03.116 Cellulitis of left lower limb; I73.9 Peripheral vascular disease, unspecified; I89.0 Lymphedema, not elsewhere classified; E66.9 Obesity, unspecified; Z71.3 Dietary counseling and surveillance; Z68.42 Body mass index [BMI] 45.0-49.9, adult
CPT/HCPCS: 11042; 29581; 93923; 93970; 99212; G0463

== ENCOUNTER 2018-05-26 16:00 | Outpatient (RCR) | payer OTHER, SELFPAY ==
[2018-04-27 01:26] VITALS: BP 141/78; PULSE 79; RESP 18; TEMP 36.4
[2018-04-28 10:24] VITALS: BP 141/78; PULSE 82; RESP 22; TEMP 36.7; BMI 49.4
--- NOTE | 2018-04-28 11:00 | PCM.WC.PN ---
(1) Ulcer of left lower extremity with fat layer exposed Status: Chronic Current Visit: Yes Code(s): L97.922 - Non-pressure chronic ulcer of unspecified part of left lower leg with fat layer exposed (2) Edema leg Status: Chronic Current Visit: Yes Code(s): R60.0 - Localized edema (3) Venous insufficiency Status: Chronic Current Visit: Yes Code(s): I87.2 - Venous insufficiency (chronic) (peripheral) (4) Malnutrition Status: Chronic Current Visit: Yes Code(s): E46 - Unspecified protein-calorie malnutrition (5) Delayed wound healing Status: Chronic Current Visit: Yes Code(s): T14.8XXD - Other injury of unspecified body region, subsequent encounter Type of Wound Chief Complaint: Left leg ulcer History of Wound: This 52-year-old male presents for follow-up of left leg ulcer. He wears a 3m2l for compression control. He left this on all week and was traveling. He reports his leg was dangling down more than usual and he was in the car for extended periods of time. He was not able to come for a midweek nursing session as advised. He denies odors, fever, chill, nausea, vomiting. He is a vascular surgery consultation with Dr. Alejo was completed this morning and he was advised to wear compression garment and to return to clinic in 4 months. He has continued leg swelling and increased skin excoriation and irritation. Progress of Wound: Improving ulcer site. Worsening ulcer surrounding tissue - Physical Exam Vital Signs Temp Pulse Resp BP 98.1 F 82 22 H 141/78 H 04/28/18 10:24 04/28/18 10:24 04/28/18 10:24 04/28/18 10:24 General: Alert, Oriented x3, Cooperative Extremities: No cyanosis, Capillary Refill Less than 3 Seconds, No Calf Tenderness - Negative Isaac and Whitmore sign bilateral, Diminished Peripheral Pulses - Moderate bilateral lower extremities and bilateral Skin: Ulcer/ Wound - No purulence, odor, infection, or streaking left. There is progressive peripheral epithelialization and healing of the ulcer site.. Ulcer site is inflamed with erythema and increased skin peeling. There is no crepitus or bogginess on palpation or jarrett necrosis. The skin is very atrophic and hairless left Wound Measurements and Assessment WC - Nurse 1 - General Ulcer Measurement Start: 04/28/18 10:23 Freq: Status: Active Protocol: Activity Type Activity Date Activity User E-Sign Co-Sign Detail Recorded Client Recorded Date Recorded By Document 04/28/18 10:24 [email or web address] 04/28/18 10:34 DL 04/28/18 10:24 Wound Center Nurse 1 [Ulcer Assessment] #1- LT BLANCAS -Current Size (cm) - Length 0.3 -Current Size (cm) - Width 0.2 -Current Size (cm) - Depth 0.1 -Total Square Cm 0.06 -Photo Taken No -Exudate Amt Small (1-33%) -Exudate Type Serosanguineous -Wound Margin Indistinct, Non -Visible -Granulation Amt Small (1-33%) -Granulation Quality [place] -Necrosis Amt Small (1-33%) -Necrotic Tissue Type Adherent Slough -Texture (Toshia-wound Skin Appearance) Excoriation Localized Edema -Moisture (Toshia-wound Skin Appearance Weeping ) -Color (Toshia-wound Skin Appearance) Erythema Hemosiderin Staining -Temperature (Toshia-wound Skin No Abnormality Appearance) (Pt Warm) -Tenderness on Palpation (Toshia-wound No Skin Appearance) -Ulcer Cleansing Wound Cleanser -Foul Odor after Cleansing No -Anesthetic Used 4% Lidocaine Solution [Edema Assessment] -Left Calf (cm) 57.5 -Left Ankle (cm) 29 WC - Nurse 2 - General Ulcer CM Notes Start: 04/28/18 10:23 Freq: Status: Active Protocol: Activity Type Activity Date Activity User E-Sign Co-Sign Detail Recorded Client Recorded Date Recorded By Document 04/28/18 10:49 JO [email or web address] 04/28/18 10:50 JO 04/28/18 10:49 Wound Center Nurse 2 [Procedure/Treatment] #1- LT BLANCAS -Time 10:49 -Correct Patient Yes -Correct Side, Site, Position Yes -Correct Procedure Yes -Procedure Performed Yes -Type of Procedure Debridement -Clinical Debridement Subcutaneous -Post Debridement Size (cm) - Length 0.4 -Post Debridement Size (cm) - Width 0.4 -Post Debridement Size (cm) - Depth 0.1 -Total Square Cm 0.16 -Wound/Ulcer Outcome Not Healed -Ulcer Cleansing Rinsed/ Irrigated with Saline -Foul Odor after Cleansing No -Bioengineered Tissue No -Bleeding Controlled with Pressure -Offloading No -Treatment Response Procedure Tolerated Well [See Physician Procedure note for Specifics] Pain Scale: 0-10 Numeric [Pain] -Is Patient Pain Free? Yes Musculoskeletal: No Tenderness to Palpation of Joints or Extremities, Muscle Wasting Neurological: Sensory exam intact to light touch and pain Psych/Mental Status: Normal Affect, Appropriate Debridement Note Post-Debridement Measurements/Treatment WC - Nurse 2 - General Ulcer CM Notes Start: 04/28/18 10:23 Freq: Status: Active Protocol: Activity Type Activity Date Activity User E-Sign Co-Sign Detail Recorded Client Recorded Date Recorded By Document 04/28/18 10:49 JO [id number] 04/28/18 10:50 JO 04/28/18 10:49 Wound Center Nurse 2 #1- LT BLANCAS -Time 10:49 -Correct Patient Yes -Correct Side, Site, Position Yes -Correct Procedure Yes -Procedure Performed Yes -Type of Procedure Debridement -Clinical Debridement Subcutaneous -Post Debridement Size (cm) - Length 0.4 -Post Debridement Size (cm) - Width 0.4 -Post Debridement Size (cm) - Depth 0.1 -Total Square Cm 0.16 -Wound/Ulcer Outcome Not Healed -Ulcer Cleansing Rinsed/ Irrigated with Saline -Foul Odor after Cleansing No -Bioengineered Tissue No -Bleeding Controlled with Pressure -Offloading No -Treatment Response Procedure Tolerated Well Pain Scale: 0-10 Numeric Is Patient Pain Free? Yes Wound debrided: leg Laterality: Left Type of Debridement: Excisional debridement Anesthesia Used: 5% Lidocaine Gel Depth: in the subcutaneous layer Percentage of wound debrided: 100 Instrument Used: #15 blade Tissue Removed: fibrous, devitalized subcutaneous, biofilm, slough Severity: Fat Layer Exposed Amount of bleeding with debridement: Mild Bleeding Controlled with: Pressure Patient tolerated procedure well Assessment/Plan Active Problems Ulcer of left lower extremity with fat layer exposed (Chronic) Edema leg (Chronic) Venous insufficiency (Chronic) Malnutrition (Chronic) Delayed wound healing (Chronic) Assessment: Left leg ulcer chronic. Venous insufficiency. Lower extremity edema and lymphedema bilateral. Delayed healing. Malnutrition suspected. Obesity Plan: I reviewed and discussed his case today. Left leg ulcer subcutaneous excisional debridement was performed as noted in the clinical panel. He completed a course of Augmentin for cellulitis. Kopjra was applied today and will use 3M2L compression dressing; he is available to come for a mid week nursing visit to have the compression dressing changed. I encouraged him to elevate limbs at rest. To avoid idle standing or sitting. Baseline labs are pending to get a better understanding of his medical status including CBC, CMP, hemoglobin A1c, prealbumin. The WBC was 10.6, hemoglobin A1C was 5.9%, and prealbumin was 24.2. Venous duplex Doppler with reflex evaluation were reviewed with evidence of venous insufficiency in which I recommend a vascular referral. He did see Dr. Alejo this morning who recommended compression garments and return follow-up in 4 months I provided a Farrow wrap compression dressing prescription today. His noninvasive arterial studies were reviewed with evidence of vessel calcification. His right ankle-brachial index is 1.43 and left was 1.4. He does not have apparent objective or subjective signs of a blood clot and he will continue to monitor for this. Yash prescription was provided to optimize healing. We discussed the etiology and ongoing stage comprehensive wound healing plan and expectations. He will follow up as scheduled 1 week at the wound healing center.
--- NOTE | 2018-04-28 11:03 | PN.PCM_ITS ---
(1) Ulcer of left lower extremity with fat layer exposed Status: Chronic Current Visit: Yes Code(s): L97.922 - Non-pressure chronic ulcer of unspecified part of left lower leg with fat layer exposed (2) Edema leg Status: Chronic Current Visit: Yes Code(s): R60.0 - Localized edema (3) Venous insufficiency Status: Chronic Current Visit: Yes Code(s): I87.2 - Venous insufficiency (chronic) (peripheral) (4) Malnutrition Status: Chronic Current Visit: Yes Code(s): E46 - Unspecified protein- calorie malnutrition (5) Delayed wound healing Status: Chronic Current Visit: Yes Code(s): T14.8XXD - Other injury of unspecified body region, subsequent encounter Type of Wound Chief Complaint: Left leg ulcer History of Wound: This 52-year-old male presents for follow-up of left leg ulcer. He wears a 3m2l for compression control. He left this on all week and was traveling. He reports his leg was dangling down more than usual and he was in the car for extended periods of time. He was not able to come for a midweek nursing session as advised. He denies odors, fever, chill, nausea, vomiting. He is a vascular surgery consultation with Dr. Alejo was completed this morning and he was advised to wear compression garment and to return to clinic in 4 months. He has continued leg swelling and increased skin excoriation and irritation. Progress of Wound: Improving ulcer site. Worsening ulcer surrounding tissue - Physical Exam Vital Signs Temp Pulse Resp BP 98.1 F 82 22 H 141/78 H 04/28/18 10:24 04/28/18 10:24 04/28/18 10:24 04/28/18 10:24 General: Alert, Oriented x3, Cooperative Extremities: No cyanosis, Capillary Refill Less than 3 Seconds, No Calf Tenderness - Negative Isaac and Whitmore sign bilateral, Diminished Peripheral Pulses - Moderate bilateral lower extremities and bilateral Skin: Ulcer/ Wound - No purulence, odor, infection, or streaking left. There is progressive peripheral epithelialization and healing of the ulcer site.. Ulcer site is inflamed with erythema and increased skin peeling. There is no crepitus or bogginess on palpation or jarrett necrosis. The skin is very atrophic and hairless left Wound Measurements and Assessment WC - Nurse 1 - General Ulcer Measurement Start: 04/28/18 10:23 Freq: Status: Active Protocol: Activity Type Activity Date Activity User E-Sign Co-Sign Detail Recorded Client Recorded Date Recorded By Document 04/28/18 10:24 [email or web address] [id number] 04/28/18 10:34 DL 04/28/18 10:24 Wound Center Nurse 1 [Ulcer Assessment] #1- LT BLANCAS -Current Size (cm) - Length 0.3 -Current Size (cm) - Width 0.2 -Current Size (cm) - Depth 0.1 -Total Square Cm 0.06 -Photo Taken No -Exudate Amt Small (1-33%) -Exudate Type Serosanguineous -Wound Margin Indistinct, Non -Visible -Granulation Amt Small (1-33%) -Granulation Quality [place] -Necrosis Amt Small (1-33%) -Necrotic Tissue Type Adherent Slough -Texture (Toshia-wound Skin Appearance) Excoriation Localized Edema -Moisture (Toshia-wound Skin Appearance Weeping ) -Color (Toshia-wound Skin Appearance) Erythema Hemosiderin Staining -Temperature (Toshia-wound Skin No Abnormality Appearance) (Pt Warm) -Tenderness on Palpation (Toshia-wound No Skin Appearance) -Ulcer Cleansing Wound Cleanser -Foul Odor after Cleansing No -Anesthetic Used 4% Lidocaine Solution [Edema Assessment] -Left Calf (cm) 57.5 -Left Ankle (cm) 29 WC - Nurse 2 - General Ulcer CM Notes Start: 04/28/18 10:23 Freq: Status: Active Protocol: Activity Type Activity Date Activity User E-Sign Co-Sign Detail Recorded Client Recorded Date Recorded By Document 04/28/18 10:49 JO [email or web address] 04/28/18 10:50 JO 04/28/18 10:49 Wound Center Nurse 2 [Procedure/Treatment] #1- LT BLANCAS -Time 10:49 -Correct Patient Yes -Correct Side, Site, Position Yes -Correct Procedure Yes -Procedure Performed Yes -Type of Procedure Debridement -Clinical Debridement Subcutaneous -Post Debridement Size (cm) - Length 0.4 -Post Debridement Size (cm) - Width 0.4 -Post Debridement Size (cm) - Depth 0.1 -Total Square Cm 0.16 -Wound/Ulcer Outcome Not Healed -Ulcer Cleansing Rinsed/ Irrigated with Saline -Foul Odor after Cleansing No -Bioengineered Tissue No -Bleeding Controlled with Pressure -Offloading No -Treatment Response Procedure Tolerated Well [See Physician Procedure note for Specifics] Pain Scale: 0-10 Numeric [Pain] -Is Patient Pain Free? Yes Musculoskeletal: No Tenderness to Palpation of Joints or Extremities, Muscle Wasting Neurological: Sensory exam intact to light touch and pain Psych/Mental Status: Normal Affect, Appropriate Debridement Note Post-Debridement Measurements/Treatment WC - Nurse 2 - General Ulcer CM Notes Start: 04/28/18 10:23 Freq: Status: Active Protocol: Activity Type Activity Date Activity User E-Sign Co-Sign Detail Recorded Client Recorded Date Recorded By Document 04/28/18 10:49 JO [id number] 04/28/18 10:50 JO 04/28/18 10:49 Wound Center Nurse 2 #1- LT BLANCAS -Time 10:49 -Correct Patient Yes -Correct Side, Site, Position Yes -Correct Procedure Yes -Procedure Performed Yes -Type of Procedure Debridement -Clinical Debridement Subcutaneous -Post Debridement Size (cm) - Length 0.4 -Post Debridement Size (cm) - Width 0.4 -Post Debridement Size (cm) - Depth 0.1 -Total Square Cm 0.16 -Wound/Ulcer Outcome Not Healed -Ulcer Cleansing Rinsed/ Irrigated with Saline -Foul Odor after Cleansing No -Bioengineered Tissue No -Bleeding Controlled with Pressure -Offloading No -Treatment Response Procedure Tolerated Well Pain Scale: 0-10 Numeric Is Patient Pain Free? Yes Wound debrided: leg Laterality: Left Type of Debridement: Excisional debridement Anesthesia Used: 5% Lidocaine Gel Depth: in the subcutaneous layer Percentage of wound debrided: 100 Instrument Used: #15 blade Tissue Removed: fibrous, devitalized subcutaneous, biofilm, slough Severity: Fat Layer Exposed Amount of bleeding with debridement: Mild Bleeding Controlled with: Pressure Patient tolerated procedure well Assessment/Plan Active Problems Ulcer of left lower extremity with fat layer exposed (Chronic) Edema leg (Chronic) Venous insufficiency (Chronic) Malnutrition (Chronic) Delayed wound healing (Chronic) Assessment: Left leg ulcer chronic. Venous insufficiency. Lower extremity edema and lymphedema bilateral. Delayed healing. Malnutrition suspected. Obesity Plan: I reviewed and discussed his case today. Left leg ulcer subcutaneous excisional debridement was performed as noted in the clinical panel. He completed a course of Augmentin for cellulitis. FanGo was applied today and will use 3M2L compression dressing; he is available to come for a mid week nursing visit to have the compression dressing changed. I encouraged him to elevate limbs at rest. To avoid idle standing or sitting. Baseline labs are pending to get a better understanding of his medical status including CBC, CMP, hemoglobin A1c, prealbumin. The WBC was 10.6, hemoglobin A1C was 5.9%, and prealbumin was 24.2. Venous duplex Doppler with reflex evaluation were reviewed with evidence of venous insufficiency in which I recommend a vascular referral. He did see Dr. Alejo this morning who recommended compression garments and return follow-up in 4 months I provided a Farrow wrap compression dressing prescription today. His noninvasive arterial studies were reviewed with evidence of vessel calcification. His right ankle-brachial index is 1.43 and left was 1.4. He does not have apparent objective or subjective signs of a blood clot and he will continue to monitor for this. Yash prescription was provided to optimize healing. We discussed the etiology and ongoing stage comprehensive wound healing plan and expectations. He will follow up as sc heduled 1 week at the wound healing center.
[2018-04-30 08:26] VITALS: BP 142/96; PULSE 85; RESP 18; TEMP 37.3; BMI 49.4
[2018-05-05 15:48] VITALS: BP 154/88; PULSE 76; RESP 24; TEMP 36.3; BMI 49.4
--- NOTE | 2018-05-05 16:36 | PCM.WC.PN ---
(1) Ulcer of left lower extremity with fat layer exposed Status: Chronic Current Visit: Yes Code(s): L97.922 - Non-pressure chronic ulcer of unspecified part of left lower leg with fat layer exposed (2) Edema leg Status: Chronic Current Visit: Yes Code(s): R60.0 - Localized edema (3) Venous insufficiency Status: Chronic Current Visit: Yes Code(s): I87.2 - Venous insufficiency (chronic) (peripheral) (4) Malnutrition Status: Chronic Current Visit: Yes Code(s): E46 - Unspecified protein-calorie malnutrition (5) Delayed wound healing Status: Chronic Current Visit: Yes Code(s): T14.8XXD - Other injury of unspecified body region, subsequent encounter Type of Wound Date of Service: 05/05/18 Chief Complaint: Left leg ulcer History of Wound: This 52-year-old male presents for follow-up of left leg ulcer. He wears a 3m2l for compression control. He obtained his new Farrow compression dressing for left lower extremity and brought this today. He is ready to get educated on proper application. He is a vascular surgery consultation with Dr. Alejo was completed recently and he was advised to wear compression garment and to return to clinic in 4 months. He has continued leg swelling and increased skin excoriation and irritation. He asked if there is any other lotion recommendation. He denies calf pain, shortness of breath, chest pain, fever, chill, nausea, vomiting, loss of appetite, or leg pain. Progress of Wound: Improving ulcer site - Physical Exam Vital Signs Temp Pulse Resp BP 97.3 F L 76 24 H 154/88 H 05/05/18 15:48 05/05/18 15:48 05/05/18 15:48 05/05/18 15:48 General: Alert, Oriented x3, Cooperative Extremities: No cyanosis, Capillary Refill Less than 3 Seconds, No Calf Tenderness - Negative Isaac and Whitmore sign bilateral, Diminished Peripheral Pulses, Edema - Bilateral lower extremities consistent with lymphedema and venous insufficiency, Tenderness - No pain with left leg ulcer manipulation Skin: Ulcer/ Wound - Peripheral epithelialization and reduced ulcer site is noted to the anterior left leg ulcer site. There is no purulence, erythema, streaking, odor, or infection or necrosis left leg. The peripheral skin is hairless, atrophic, with skin peeling and hyperpigmentation. Wound Measurements and Assessment WC - Nurse 1 - General Ulcer Measurement Start: 04/28/18 10:23 Freq: Status: Active Protocol: Activity Type Activity Date Activity User E-Sign Co-Sign Detail Recorded Client Recorded Date Recorded By Document 05/05/18 15:48 DL [id number] 05/05/18 15:56 DL 05/05/18 15:48 Wound Center Nurse 1 [Ulcer Assessment] #1- LT BLANCAS -Current Size (cm) - Length 0.5 -Current Size (cm) - Width 0.4 -Current Size (cm) - Depth 0.1 -Total Square Cm 0.20 -Photo Taken No -Exudate Amt Small -Exudate Type Yellow/Green -Wound Margin Thickened -Granulation Amt Small (1-33%) -Granulation Quality [place] -Necrosis Amt Small (1-33%) -Necrotic Tissue Type Adherent Slough -Structure Exposed N/A -Texture (Toshia-wound Skin Appearance) Excoriation Localized Edema -Moisture (Toshia-wound Skin Appearance Weeping ) -Color (Toshia-wound Skin Appearance) Erythema Hemosiderin Staining -Temperature (Toshia-wound Skin No Abnormality Appearance) (Pt Warm) -Tenderness on Palpation (Toshia-wound No Skin Appearance) -Ulcer Cleansing Wound Cleanser -Foul Odor after Cleansing No -Anesthetic Used 4% Lidocaine Solution [Edema Assessment] -Left Calf (cm) 56 -Left Ankle (cm) 26.2 - Nurse 2 - General Ulcer CM Notes Start: 04/28/18 10:23 Freq: Status: Active Protocol: Activity Type Activity Date Activity User E-Sign Co-Sign Detail Recorded Client Recorded Date Recorded By Document 05/05/18 16:08 JO [id number] 05/05/18 16:09 JO 05/05/18 16:08 Wound Center Nurse 2 [Procedure/Treatment] #1- LT BLANCAS -Time 16:09 -Correct Patient Yes -Correct Side, Site, Position Yes -Correct Procedure Yes -Procedure Performed Yes -Type of Procedure Debridement -Clinical Debridement Subcutaneous -Post Debridement Size (cm) - Length 0.5 -Post Debridement Size (cm) - Width 0.5 -Post Debridement Size (cm) - Depth 0.1 -Total Square Cm 0.25 -Wound/Ulcer Outcome Not Healed -Ulcer Cleansing Rinsed/ Irrigated with Saline -Foul Odor after Cleansing No -Bioengineered Tissue No -Bleeding Controlled with Pressure -Offloading No -Treatment Response Procedure Tolerated Well [See Physician Procedure note for Specifics] Pain Scale: 0-10 Numeric [Pain] -Is Patient Pain Free? Yes Musculoskeletal: No Tenderness to Palpation of Joints or Extremities, Muscle Wasting Neurological: Sensory exam intact to light touch and pain Psych/Mental Status: Normal Affect, Appropriate Debridement Note Post-Debridement Measurements/Treatment WC - Nurse 2 - General Ulcer CM Notes Start: 04/28/18 10:23 Freq: Status: Active Protocol: Activity Type Activity Date Activity User E-Sign Co-Sign Detail Recorded Client Recorded Date Recorded By Document 04/28/18 10:49 [id number] 04/28/18 10:50 Document 05/05/18 16:08 [id number] 05/05/18 16:09 04/28/18 05/05/18 10:49 16:08 Wound Center Nurse 2 #1- LT BLANCAS -Time 10:49 16:09 -Correct Patient Yes Yes -Correct Side, Site, Position Yes Yes -Correct Procedure Yes Yes -Procedure Performed Yes Yes -Type of Procedure Debridement Debridement -Clinical Debridement Subcutaneous Subcutaneous -Post Debridement Size (cm) - Length 0.4 0.5 -Post Debridement Size (cm) - Width 0.4 0.5 -Post Debridement Size (cm) - Depth 0.1 0.1 -Total Square Cm 0.16 0.25 -Wound/Ulcer Outcome Not Healed Not Healed -Ulcer Cleansing Rinsed/ Rinsed/ Irrigated with Irrigated with Saline Saline -Foul Odor after Cleansing No No -Bioengineered Tissue No No -Bleeding Controlled with Pressure Pressure -Offloading No No -Treatment Response Procedure Procedure Tolerated Well Tolerated Well Pain Scale: 0-10 Numeric Is Patient Pain Free? Yes Yes Wound debrided: leg Laterality: Left Type of Debridement: Excisional debridement Anesthesia Used: 5% Lidocaine Gel Depth: in the subcutaneous layer Percentage of wound debrided: 100 Instrument Used: #15 blade Tissue Removed: fibrous, devitalized subcutaneous, biofilm, slough Severity: Fat Layer Exposed Amount of bleeding with debridement: Mild Bleeding Controlled with: Pressure Patient tolerated procedure well Assessment/Plan Active Problems Ulcer of left lower extremity with fat layer exposed (Chronic) Edema leg (Chronic) Venous insufficiency (Chronic) Malnutrition (Chronic) Delayed wound healing (Chronic) Assessment: Left leg ulcer chronic. Venous insufficiency. Lower extremity edema and lymphedema bilateral. Delayed healing. Malnutrition suspected. Obesity Plan: I reviewed and discussed his case today. Left leg ulcer subcutaneous excisional debridement was performed as noted in the clinical panel. He completed a course of Augmentin for cellulitis. I do not recommend additional antibiotics at this time and this does not appear clinically infected. Aquacel Ag was applied today to change daily after soap and water wash. I recommend moisturizing the toshia-ulcer site with Lac-Hydrin to improve skin integrity. A prescription was provided today. If he is unable to obtain this prescription, I recommend [id number] Eucerin. I encouraged him to elevate limbs at rest. To avoid idle standing or sitting. Baseline labs are pending to get a better understanding of his medical status including CBC, CMP, hemoglobin A1c, prealbumin. The WBC was 10.6, hemoglobin A1C was 5.9%, and prealbumin was 24.2. Venous duplex Doppler with reflex evaluation were reviewed with evidence of venous insufficiency in which I recommend a vascular referral. He did see Dr. Alejo this morning who recommended compression garments and return follow-up in 4 months and he did obtain his prescribed Farrow wrap compression. He was educated on proper application to the left lower extremity will try this this upcoming week. She will then consider ordering this compression dressing for the right lower extremity if he can tolerate this and successfully perform at home. His noninvasive arterial studies were reviewed with evidence of vessel calcification. His right ankle-brachial index is 1.43 and left was 1.4. He does not have apparent objective or subjective signs of a blood clot and he will continue to monitor for this. Yash prescription was provided to optimize healing. We discussed the etiology and ongoing stage comprehensive wound healing plan and expectations. He will follow up as scheduled 1 week at the wound healing center.
[2018-05-12 15:57] VITALS: BP 155/92; PULSE 80; RESP 24; TEMP 36.4; BMI 49.4
--- NOTE | 2018-05-12 16:41 | PN.PCM_ITS ---
(1) Ulcer of left lower extremity with fat layer exposed Status: Chronic Current Visit: Yes Code(s): L97.922 - Non-pressure chronic ulcer of unspecified part of left lower leg with fat layer exposed (2) Edema leg Status: Chronic Current Visit: Yes Code(s): R60.0 - Localized edema (3) Venous insufficiency Status: Chronic Current Visit: Yes Code(s): I87.2 - Venous insufficiency (chronic) (peripheral) (4) Malnutrition Status: Chronic Current Visit: Yes Code(s): E46 - Unspecified protein- calorie malnutrition (5) Delayed wound healing Status: Chronic Current Visit: Yes Code(s): T14.8XXD - Other injury of unspecified body region, subsequent encounter Type of Wound Date of Service: 05/12/18 Chief Complaint: Left leg ulcer History of Wound: This 52-year-old male presents for follow-up of left leg ulcer. He wears a 3m2l for compression control. He obtained his new Farrow compression dressing for left lower extremity and brought this today. He is ready to get educated on proper application. He is a vascular surgery consultation with Dr. Alejo was completed recently and he was advised to wear compression garment and to return to clinic in 4 months. He has continued leg swelling and increased skin excoriation and irritation. He asked if there is any other lotion recommendation. He denies calf pain, shortness of breath, chest pain, fever, chill, nausea, vomiting, loss of appetite, or leg pain. He has been moisturizing the surrounding ulcer site skin with moisturizing lotion as advised and there is less skin peeling and inflammation. Progress of Wound: Improving ulcer site and toshia Ulcer site - Physical Exam Vital Signs Temp Pulse Resp BP 97.6 F L 80 24 H 155/92 H 05/12/18 15:57 05/12/18 15:57 05/12/18 15:57 05/12/18 15:57 General: Alert, Oriented x3, Cooperative Extremities: No cyanosis, Capillary Refill Less than 3 Seconds, No Calf Tenderness - Negative Isaac and Whitmore sign bilateral, Diminished Peripheral Pulses, Edema - Bilateral lower extremities decreased Skin: Ulcer/ Wound - No purulence, erythema, streaking, odor, infection, necrosis, or deep tissue exposure left limb. The peripheral skin is hairless and atrophic. The toshia-ulcer site has less erythema, skin peeling, inflammation, and hyperpigmentation compared to last week and is doing well. Wound Measurements and Assessment WC - Nurse 1 - General Ulcer Measurement Start: 04/28/18 10:23 Freq: Status: Active Protocol: Activity Type Activity Date Activity User E-Sign Co-Sign Detail Recorded Client Recorded Date Recorded By Document 05/12/18 15:57 DL [id number] 05/12/18 16:04 DL 05/12/18 15:57 Wound Center Nurse 1 [Ulcer Assessment] #1- LT BLANCAS -Current Size (cm) - Length 0.7 -Current Size (cm) - Width 0.6 -Current Size (cm) - Depth 0.1 -Total Square Cm 0.42 -Photo Taken No -Exudate Amt None Present -Wound Margin Flat & Intact -Granulation Amt Small (1-33%) -Granulation Quality [place] -Necrosis Amt None Present (0 %) -Structure Exposed N/A -Texture (Toshia-wound Skin Appearance) Excoriation Scarring -Moisture (Toshia-wound Skin Appearance Weeping ) -Color (Toshia-wound Skin Appearance) Hemosiderin Staining Rubor -Temperature (Toshia-wound Skin No Abnormality Appearance) (Pt Warm) -Tenderness on Palpation (Toshia-wound No Skin Appearance) -Ulcer Cleansing Wound Cleanser -Foul Odor after Cleansing No -Anesthetic Used 5% Lidocaine Gel [Edema Assessment] -Left Calf (cm) 50 -Left Ankle (cm) 27 - Nurse 2 - General Ulcer CM Notes Start: 04/28/18 10:23 Freq: Status: Active Protocol: Activity Type Activity Date Activity User E-Sign Co-Sign Detail Recorded Client Recorded Date Recorded By Document 05/12/18 16:22 DV [id number] 05/12/18 16:28 DV 05/12/18 16:22 Wound Center Nurse 2 [Procedure/Treatment] #1- LT BLANCAS -Time 16:22 -Correct Patient Yes -Correct Side, Site, Position Yes -Correct Procedure Yes -Procedure Performed Yes -Type of Procedure Debridement -Clinical Debridement Subcutaneous -Post Debridement Size (cm) - Length 0.7 -Post Debridement Size (cm) - Width 1.1 -Post Debridement Size (cm) - Depth 0.1 -Total Square Cm 0.77 -Wound/Ulcer Outcome Not Healed -Ulcer Cleansing Rinsed/ Irrigated with Saline -Foul Odor after Cleansing No -Bioengineered Tissue No -Bleeding Controlled with Pressure -Offloading No -Treatment Response Procedure Tolerated Well [See Physician Procedure note for Specifics] Pain Scale: 0-10 Numeric [Pain] -Is Patient Pain Free? Yes Musculoskeletal: No Tenderness to Palpation of Joints or Extremities, Muscle Wasting, - - Compartments remain soft to palpate left lower extremity Neurological: Sensory exam intact to light touch and pain Psych/Mental Status: Normal Affect, Appropriate Debridement Note Post-Debridement Measurements/Treatment WC - Nurse 2 - General Ulcer CM Notes Start: 04/28/18 10:23 Freq: Status: Active Protocol: Activity Type Activity Date Activity User E-Sign Co-Sign Detail Recorded Client Recorded Date Recorded By Document 04/28/18 10:49 JO [id number] 04/28/18 10:50 Document 05/05/18 16:08 JF [id number] 05/05/18 16:09 JF Document 05/12/18 16:22 DV [id number] 05/12/18 16:28 DV 04/28/18 05/05/18 05/12/18 10:49 16:08 16:22 Wound Center Nurse 2 #1- LT BLANCAS -Time 10:49 16:09 16:22 -Correct Patient Yes Yes Yes -Correct Side, Site, Position Yes Yes Yes -Correct Procedure Yes Yes Yes -Procedure Performed Yes Yes Yes -Type of Procedure Debridement Debridement Debridement -Clinical Debridement Subcutaneous Subcutaneous Subcutaneous -Post Debridement Size (cm) - Length 0.4 0.5 0.7 -Post Debridement Size (cm) - Width 0.4 0.5 1.1 -Post Debridement Size (cm) - Depth 0.1 0.1 0.1 -Total Square Cm 0.16 0.25 0.77 -Wound/Ulcer Outcome Not Healed Not Healed Not Healed -Ulcer Cleansing Rinsed/ Rinsed/ Rinsed/ Irrigated with Irrigated with Irrigated with Saline Saline Saline -Foul Odor after Cleansing No No No -Bioengineered Tissue No No No -Bleeding Controlled with Pressure Pressure Pressure -Offloading No No No -Treatment Response Procedure Procedure Procedure Tolerated Well Tolerated Well Tolerated Well Pain Scale: 0-10 Numeric Is Patient Pain Free? Yes Yes Yes Wound debrided: leg anterior Laterality: Left Type of Debridement: Excisional debridement Anesthesia Used: 5% Lidocaine Gel Depth: in the subcutaneous layer Percentage of wound debrided: 100 Instrument Used: #15 blade Tissue Removed: fibrous, devitalized subcutaneous, biofilm, slough Severity: Fat Layer Exposed Amount of bleeding with debridement: Mild Bleeding Controlled with: Pressure Patient tolerated procedure well Assessment/Plan Active Problems Ulcer of left lower extremity with fat layer exposed (Chronic) Edema leg (Chronic) Venous insufficiency (Chronic) Malnutrition (Chronic) Delayed wound healing (Chronic) Assessment: Left leg ulcer chronic. Venous insufficiency. Lower extremity edema and lymphedema bilateral. Delayed healing. Malnutrition suspected. Obesity Plan: I reviewed and discussed his case today. Left leg ulcer subcutaneous excisional debridement was performed as noted in the clinical panel. He completed a course of Augmentin for cellulitis. I do not recommend additional antibiotics at this time and this does not appear clinically infected. Aquacel Ag was applied today to change daily after soap and water wash. I recommend moisturizing the toshia-ulcer site with Lac-Hydrin to improve skin integrity. She did obtain this and has started use as advised. Significant skin improvement is noted. I encouraged him to elevate limbs at rest. To avoid idle standing or sitting. Baseline labs are pending to get a better understanding of his medical status including CBC, CMP, hemoglobin A1c, prealbumin. The WBC was 10.6, hemoglobin A1C was 5.9%, and prealbumin was 24.2. Venous duplex Doppler with reflex evaluation were reviewed with evidence of venous insufficiency in which I recommend a vascular referral. He did see Dr. Alejo this previously who recommended compression garments and return follow-up in 4 months and he did obtain his prescribed Farrow wrap compression. He was educated on proper application to the left lower extremity will try this this upcoming week. He is doing very well with this compression garment on the left and would like to obtain one for the right lower extremity as well. An order was provided today. His noninvasive arterial studies were reviewed with evidence of vessel calcification. His right ankle-brachial index is 1.43 and left was 1.4. He does not have apparent objective or subjective signs of a blood clot and he will continue to monitor for this. Yash prescription was provided to optimize healing. We discussed the etiology and ongoing stage comprehensive wound healing plan and expectations. He will follow up as scheduled 1 week at the wound healing center.
[2018-05-19 15:45] VITALS: BP 159/100; PULSE 85; RESP 16; TEMP 37.4; BMI 49.4
--- NOTE | 2018-05-19 17:43 | PCM.WC.PN ---
(1) Ulcer of left lower extremity with fat layer exposed Status: Chronic Current Visit: Yes Code(s): L97.922 - Non-pressure chronic ulcer of unspecified part of left lower leg with fat layer exposed (2) Edema leg Status: Chronic Current Visit: Yes Code(s): R60.0 - Localized edema (3) Venous insufficiency Status: Chronic Current Visit: Yes Code(s): I87.2 - Venous insufficiency (chronic) (peripheral) (4) Malnutrition Status: Chronic Current Visit: Yes Code(s): E46 - Unspecified protein-calorie malnutrition (5) Delayed wound healing Status: Chronic Current Visit: Yes Code(s): T14.8XXD - Other injury of unspecified body region, subsequent encounter Type of Wound Date of Service: 05/19/18 Chief Complaint: Left leg ulcer History of Wound: This 52-year-old male presents for follow-up of left leg ulcer. He wears a 3m2l for compression control. He obtained his new Farrow compression dressing for left lower extremity and brought this today. He is ready to get educated on proper application. He is a vascular surgery consultation with Dr. Alejo was completed recently and he was advised to wear compression garment and to return to clinic in 4 months. He asked if there is any other lotion recommendation. He denies calf pain, shortness of breath, chest pain, fever, chill, nausea, vomiting, loss of appetite, or leg pain. He has been moisturizing the surrounding ulcer site skin with moisturizing lotion as advised and there is less skin peeling and inflammation. Progress of Wound: Improving ulcer site and toshia Ulcer site - Physical Exam Vital Signs Temp Pulse Resp BP 99.3 F H 85 16 159/100 H 05/19/18 15:45 05/19/18 15:45 05/19/18 15:45 05/19/18 15:45 General: Alert, Oriented x3, Cooperative Extremities: No cyanosis, Capillary Refill Less than 3 Seconds, No Calf Tenderness - Negative Isaac and Whitmore sign left compartments remain soft to left lower extremity palpation, Diminished Peripheral Pulses, Edema Skin: Ulcer/ Wound - Peripheral epithelialization is noted in the ulcer bed is granular. There is no purulence, erythema, streaking, odor, or infection. The peripheral skin does have continued peeling and inflammation however this is not appear to be infectious and it has significantly improved since he has been applying lotion. Wound Measurements and Assessment GULSHAN - Nurse 1 - General Ulcer Measurement Start: 04/28/18 10:23 Freq: Status: Active Protocol: Activity Type Activity Date Activity User E-Sign Co-Sign Detail Recorded Client Recorded Date Recorded By Document 05/19/18 15:45 [facility] [id number] 05/19/18 15:50 [facility] 05/19/18 15:45 Wound Center Nurse 1 [Ulcer Assessment] #1- LT BLANCAS -Combined with other wound No -Current Size (cm) - Length 0.7 -Current Size (cm) - Width 0.7 -Current Size (cm) - Depth 0.1 -Total Square Cm 0.49 -Photo Taken No -Epithelialization Small 1-33% -Tunneling No -Undermining/Tunneling No -Circular Undermining No -Exudate Amt None Present -Wound Margin Distinct, Outline Attached -Granulation Amt None Present (0 %) -Necrosis Amt Large (67-100%) -Necrotic Tissue Type Eschar -Structure Exposed None/Limited to Skin Breakdown -Texture (Toshia-wound Skin Appearance) No Abnormality Assessed -Moisture (Toshia-wound Skin Appearance Assessed ) Dry/Scaly -Color (Toshia-wound Skin Appearance) Erythema -Temperature (Toshia-wound Skin No Abnormality Appearance) (Pt Warm) -Tenderness on Palpation (Toshia-wound No Skin Appearance) -Ulcer Cleansing Wound Cleanser -Foul Odor after Cleansing No -Anesthetic Used 4% Lidocaine Solution [Edema Assessment] -Lower Limb Edema Present Yes -Left Calf (cm) 51.5 -Left Ankle (cm) 29.3 - Nurse 2 - General Ulcer CM Notes Start: 04/28/18 10:23 Freq: Status: Active Protocol: Activity Type Activity Date Activity User E-Sign Co-Sign Detail Recorded Client Recorded Date Recorded By Document 05/19/18 16:09 [id number] 05/19/18 16:09 05/19/18 16:09 Wound Center Nurse 2 [Procedure/Treatment] #1- LT BLANCAS -Time 16:09 -Correct Patient Yes -Correct Side, Site, Position Yes -Correct Procedure Yes -Procedure Performed Yes -Type of Procedure Debridement -Clinical Debridement Subcutaneous -Post Debridement Size (cm) - Length 0.4 -Post Debridement Size (cm) - Width 0.5 -Post Debridement Size (cm) - Depth 0.1 -Total Square Cm 0.20 -Wound/Ulcer Outcome Not Healed -Ulcer Cleansing Rinsed/ Irrigated with Saline -Foul Odor after Cleansing No -Bioengineered Tissue No -Bleeding Controlled with Pressure -Offloading No -Treatment Response Procedure Tolerated Well [See Physician Procedure note for Specifics] Pain Scale: 0-10 Numeric [Pain] -Is Patient Pain Free? Yes Musculoskeletal: No Tenderness to Palpation of Joints or Extremities, Muscle Wasting Neurological: - - Lack of normal epicritic sensation toshia-ulcer site noted to light touch Psych/Mental Status: Normal Affect, Appropriate Debridement Note Post-Debridement Measurements/Treatment WC - Nurse 2 - General Ulcer CM Notes Start: 04/28/18 10:23 Freq: Status: Active Protocol: Activity Type Activity Date Activity User E-Sign Co-Sign Detail Recorded Client Recorded Date Recorded By Document 04/28/18 10:49 [id number] 04/28/18 10:50 Document 05/05/18 16:08 [id number] 05/05/18 16:09 Document 05/12/18 16:22 DV [id number] 05/12/18 16:28 DV Document 05/19/18 16:09 [id number] 05/19/18 16:09 JF 04/28/18 05/05/18 05/12/18 10:49 16:08 16:22 Wound Center Nurse 2 #1- LT BLANCAS -Time 10:49 16:09 16:22 -Correct Patient Yes Yes Yes -Correct Side, Site, Position Yes Yes Yes -Correct Procedure Yes Yes Yes -Procedure Performed Yes Yes Yes -Type of Procedure Debridement Debridement Debridement -Clinical Debridement Subcutaneous Subcutaneous Subcutaneous -Post Debridement Size (cm) - Length 0.4 0.5 0.7 -Post Debridement Size (cm) - Width 0.4 0.5 1.1 -Post Debridement Size (cm) - Depth 0.1 0.1 0.1 -Total Square Cm 0.16 0.25 0.77 -Wound/Ulcer Outcome Not Healed Not Healed Not Healed -Ulcer Cleansing Rinsed/ Rinsed/ Rinsed/ Irrigated with Irrigated with Irrigated with Saline Saline Saline -Foul Odor after Cleansing No No No -Bioengineered Tissue No No No -Bleeding Controlled with Pressure Pressure Pressure -Offloading No No No -Treatment Response Procedure Procedure Procedure Tolerated Well Tolerated Well Tolerated Well Pain Scale: 0-10 Numeric Is Patient Pain Free? Yes Yes Yes 05/19/18 16:09 Wound Center Nurse 2 #1- LT BLANCAS -Time 16:09 -Correct Patient Yes -Correct Side, Site, Position Yes -Correct Procedure Yes -Procedure Performed Yes -Type of Procedure Debridement -Clinical Debridement Subcutaneous -Post Debridement Size (cm) - Length 0.4 -Post Debridement Size (cm) - Width 0.5 -Post Debridement Size (cm) - Depth 0.1 -Total Square Cm 0.20 -Wound/Ulcer Outcome Not Healed -Ulcer Cleansing Rinsed/ Irrigated with Saline -Foul Odor after Cleansing No -Bioengineered Tissue No -Bleeding Controlled with Pressure -Offloading No -Treatment Response Procedure Tolerated Well Pain Scale: 0-10 Numeric Is Patient Pain Free? Yes Wound debrided: anterior leg Laterality: Left Type of Debridement: Excisional debridement Anesthesia Used: 5% Lidocaine Gel Depth: in the subcutaneous layer Percentage of wound debrided: 100 Instrument Used: #15 blade Tissue Removed: fibrous, devitalized subcutaneous, biofilm, slough Severity: Fat Layer Exposed Amount of bleeding with debridement: Mild Bleeding Controlled with: Pressure Patient tolerated procedure well Assessment/Plan Active Problems Ulcer of left lower extremity with fat layer exposed (Chronic) Edema leg (Chronic) Venous insufficiency (Chronic) Malnutrition (Chronic) Delayed wound healing (Chronic) Assessment: Left leg ulcer chronic. Venous insufficiency. Lower extremity edema and lymphedema bilateral. Delayed healing. Malnutrition suspected. Obesity Plan: I reviewed and discussed his case today. Left leg ulcer subcutaneous excisional debridement was performed as noted in the clinical panel. He completed a course of Augmentin for cellulitis. I do not recommend additional antibiotics at this time and this does not appear clinically infected. Aquacel Ag was applied today to change daily after soap and water wash. I recommend moisturizing the toshia-ulcer site with Lac-Hydrin to improve skin integrity. he did obtain this and has started use as advised. Significant skin improvement is noted. I encouraged him to elevate limbs at rest. To avoid idle standing or sitting. Baseline labs are pending to get a better understanding of his medical status including CBC, CMP, hemoglobin A1c, prealbumin. The WBC was 10.6, hemoglobin A1C was 5.9%, and prealbumin was 24.2. Venous duplex Doppler with reflex evaluation were reviewed with evidence of venous insufficiency in which I recommend a vascular referral. He did see Dr. Alejo this previously who recommended compression garments and return follow-up in 4 months and he did obtain his prescribed Farrow wrap compression. He was educated on proper application to the left lower extremity will try this this upcoming week. He is doing very well with this compression garment on the left and would like to obtain one for the right lower extremity as well. An order was provided previously. His noninvasive arterial studies were reviewed with evidence of vessel calcification. His right ankle-brachial index is 1.43 and left was 1.4. He does not have apparent objective or subjective signs of a blood clot and he will continue to monitor for this. Yash prescription was provided to optimize healing. We discussed the etiology and ongoing stage comprehensive wound healing plan and expectations. He will follow up as scheduled 1 week at the wound healing center.
--- NOTE | 2018-05-19 17:47 | PN.PCM_ITS ---
(1) Ulcer of left lower extremity with fat layer exposed Status: Chronic Current Visit: Yes Code(s): L97.922 - Non-pressure chronic ulcer of unspecified part of left lower leg with fat layer exposed (2) Edema leg Status: Chronic Current Visit: Yes Code(s): R60.0 - Localized edema (3) Venous insufficiency Status: Chronic Current Visit: Yes Code(s): I87.2 - Venous insufficiency (chronic) (peripheral) (4) Malnutrition Status: Chronic Current Visit: Yes Code(s): E46 - Unspecified protein- calorie malnutrition (5) Delayed wound healing Status: Chronic Current Visit: Yes Code(s): T14.8XXD - Other injury of unspecified body region, subsequent encounter Type of Wound Date of Service: 05/19/18 Chief Complaint: Left leg ulcer History of Wound: This 52-year-old male presents for follow-up of left leg ulcer. He wears a 3m2l for compression control. He obtained his new Farrow compression dressing for left lower extremity and brought this today. He is ready to get educated on proper application. He is a vascular surgery consultation with Dr. Aeljo was completed recently and he was advised to wear compression garment and to return to clinic in 4 months. He asked if there is any other lotion recommendation. He denies calf pain, shortness of breath, chest pain, fever, chill, nausea, vomiting, loss of appetite, or leg pain. He has been moisturizing the surrounding ulcer site skin with moisturizing lotion as advised and there is less skin peeling and inflammation. Progress of Wound: Improving ulcer site and toshia Ulcer site - Physical Exam Vital Signs Temp Pulse Resp BP 99.3 F H 85 16 159/100 H 05/19/18 15:45 05/19/18 15:45 05/19/18 15:45 05/19/18 15:45 General: Alert, Oriented x3, Cooperative Extremities: No cyanosis, Capillary Refill Less than 3 Seconds, No Calf Tenderness - Negative Isaac and Whitmore sign left compartments remain soft to left lower extremity palpation, Diminished Peripheral Pulses, Edema Skin: Ulcer/ Wound - Peripheral epithelialization is noted in the ulcer bed is granular. There is no purulence, erythema, streaking, odor, or infection. The peripheral skin does have continued peeling and inflammation however this is not appear to be infectious and it has significantly improved since he has been applying lotion. Wound Measurements and Assessment GULSHAN - Nurse 1 - General Ulcer Measurement Start: 04/28/18 10:23 Freq: Status: Active Protocol: Activity Type Activity Date Activity User E-Sign Co-Sign Detail Recorded Client Recorded Date Recorded By Document 05/19/18 15:45 [facility] [id number] 05/19/18 15:50 [facility] 05/19/18 15:45 Wound Center Nurse 1 [Ulcer Assessment] #1- LT BLANCAS -Combined with other wound No -Current Size (cm) - Length 0.7 -Current Size (cm) - Width 0.7 -Current Size (cm) - Depth 0.1 -Total Square Cm 0.49 -Photo Taken No -Epithelialization Small 1-33% -Tunneling No -Undermining/Tunneling No -Circular Undermining No -Exudate Amt None Present -Wound Margin Distinct, Outline Attached -Granulation Amt None Present (0 %) -Necrosis Amt Large (67-100%) -Necrotic Tissue Type Eschar -Structure Exposed None/Limited to Skin Breakdown -Texture (Toshia-wound Skin Appearance) No Abnormality Assessed -Moisture (Toshia-wound Skin Appearance Assessed ) Dry/Scaly -Color (Toshia-wound Skin Appearance) Erythema -Temperature (Toshia-wound Skin No Abnormality Appearance) (Pt Warm) -Tenderness on Palpation (Toshia-wound No Skin Appearance) -Ulcer Cleansing Wound Cleanser -Foul Odor after Cleansing No -Anesthetic Used 4% Lidocaine Solution [Edema Assessment] -Lower Limb Edema Present Yes -Left Calf (cm) 51.5 -Left Ankle (cm) 29.3 - Nurse 2 - General Ulcer CM Notes Start: 04/28/18 10:23 Freq: Status: Active Protocol: Activity Type Activity Date Activity User E-Sign Co-Sign Detail Recorded Client Recorded Date Recorded By Document 05/19/18 16:09 [id number] 05/19/18 16:09 05/19/18 16:09 Wound Center Nurse 2 [Procedure/Treatment] #1- LT BLANCAS -Time 16:09 -Correct Patient Yes -Correct Side, Site, Position Yes -Correct Procedure Yes -Procedure Performed Yes -Type of Procedure Debridement -Clinical Debridement Subcutaneous -Post Debridement Size (cm) - Length 0.4 -Post Debridement Size (cm) - Width 0.5 -Post Debridement Size (cm) - Depth 0.1 -Total Square Cm 0.20 -Wound/Ulcer Outcome Not Healed -Ulcer Cleansing Rinsed/ Irrigated with Saline -Foul Odor after Cleansing No -Bioengineered Tissue No -Bleeding Controlled with Pressure -Offloading No -Treatment Response Procedure Tolerated Well [See Physician Procedure note for Specifics] Pain Scale: 0-10 Numeric [Pain] -Is Patient Pain Free? Yes Musculoskeletal: No Tenderness to Palpation of Joints or Extremities, Muscle Wasting Neurological: - - Lack of normal epicritic sensation toshia-ulcer site noted to light touch Psych/Mental Status: Normal Affect, Appropriate Debridement Note Post-Debridement Measurements/Treatment WC - Nurse 2 - General Ulcer CM Notes Start: 04/28/18 10:23 Freq: Status: Active Protocol: Activity Type Activity Date Activity User E-Sign Co-Sign Detail Recorded Client Recorded Date Recorded By Document 04/28/18 10:49 [id number] 04/28/18 10:50 Document 05/05/18 16:08 [id number] 05/05/18 16:09 Document 05/12/18 16:22 DV [id number] 05/12/18 16:28 DV Document 05/19/18 16:09 [id number] 05/19/18 16:09 JF 04/28/18 05/05/18 05/12/18 10:49 16:08 16:22 Wound Center Nurse 2 #1- LT BLANCAS -Time 10:49 16:09 16:22 -Correct Patient Yes Yes Yes -Correct Side, Site, Position Yes Yes Yes -Correct Procedure Yes Yes Yes -Procedure Performed Yes Yes Yes -Type of Procedure Debridement Debridement Debridement -Clinical Debridement Subcutaneous Subcutaneous Subcutaneous -Post Debridement Size (cm) - Length 0.4 0.5 0.7 -Post Debridement Size (cm) - Width 0.4 0.5 1.1 -Post Debridement Size (cm) - Depth 0.1 0.1 0.1 -Total Square Cm 0.16 0.25 0.77 -Wound/Ulcer Outcome Not Healed Not Healed Not Healed -Ulcer Cleansing Rinsed/ Rinsed/ Rinsed/ Irrigated with Irrigated with Irrigated with Saline Saline Saline -Foul Odor after Cleansing No No No -Bioengineered Tissue No No No -Bleeding Controlled with Pressure Pressure Pressure -Offloading No No No -Treatment Response Procedure Procedure Procedure Tolerated Well Tolerated Well Tolerated Well Pain Scale: 0-10 Numeric Is Patient Pain Free? Yes Yes Yes 05/19/18 16:09 Wound Center Nurse 2 #1- LT BLANCAS -Time 16:09 -Correct Patient Yes -Correct Side, Site, Position Yes -Correct Procedure Yes -Procedure Performed Yes -Type of Procedure Debridement -Clinical Debridement Subcutaneous -Post Debridement Size (cm) - Length 0.4 -Post Debridement Size (cm) - Width 0.5 -Post Debridement Size (cm) - Depth 0.1 -Total Square Cm 0.20 -Wound/Ulcer Outcome Not Healed -Ulcer Cleansing Rinsed/ Irrigated with Saline -Foul Odor after Cleansing No -Bioengineered Tissue No -Bleeding Controlled with Pressure -Offloading No -Treatment Response Procedure Tolerated Well Pain Scale: 0-10 Numeric Is Patient Pain Free? Yes Wound debrided: anterior leg Laterality: Left Type of Debridement: Excisional debridement Anesthesia Used: 5% Lidocaine Gel Depth: in the subcutaneous layer Percentage of wound debrided: 100 Instrument Used: #15 blade Tissue Removed: fibrous, devitalized subcutaneous, biofilm, slough Severity: Fat Layer Exposed Amount of bleeding with debridement: Mild Bleeding Controlled with: Pressure Patient tolerated procedure well Assessment/Plan Active Problems Ulcer of left lower extremity with fat layer exposed (Chronic) Edema leg (Chronic) Venous insufficiency (Chronic) Malnutrition (Chronic) Delayed wound healing (Chronic) Assessment: Left leg ulcer chronic. Venous insufficiency. Lower extremity edema and lymphedema bilateral. Delayed healing. Malnutrition suspected. Obes ity Plan: I reviewed and discussed his case today. Left leg ulcer subcutaneous excisional debridement was performed as noted in the clinical panel. He completed a course of Augmentin for cellulitis. I do not recommend additional antibiotics at this time and this does not appear clinically infected. Aquacel Ag was applied today to change daily after soap and water wash. I recommend moisturizing the toshia-ulcer site with Lac-Hydrin to improve skin integrity. he did obtain this and has started use as advised. Significant skin improvement is noted. I encouraged him to elevate limbs at rest. To avoid idle standing or sitting. Baseline labs are pending to get a better understanding of his medical status including CBC, CMP, hemoglobin A1c, prealbumin. The WBC was 10.6, hemoglobin A1C was 5.9%, and prealbumin was 24.2. Venous duplex Doppler with reflex evaluation were reviewed with evidence of venous insufficiency in which I recommend a vascular referral. He did see Dr. Alejo this previously who recommended compression garments and return follow-up in 4 months and he did obtain his prescribed Farrow wrap compression. He was educated on proper appli cation to the left lower extremity will try this this upcoming week. He is doing very well with this compression garment on the left and would like to obtain one for the right lower extremity as well. An order was provided previously. His noninvasive arterial studies were reviewed with evidence of vessel calcification. His right ankle-brachial index is 1.43 and left was 1.4. He does not have apparent objective or subjective signs of a blood clot and he will continue to monitor for this. Yash prescription was provided to optimize healing. We discussed the etiology and ongoing stage comprehensive wound healing plan and expectations. He will follow up as scheduled 1 week at the wound healing center.
[2018-05-26 15:35] VITALS: BP 166/87; PULSE 85; RESP 20; TEMP 36.2; BMI 49.4
--- NOTE | 2018-05-27 11:57 | PCM.WC.PN ---
(1) Ulcer of left lower extremity with fat layer exposed Status: Chronic Current Visit: Yes Code(s): L97.922 - Non-pressure chronic ulcer of unspecified part of left lower leg with fat layer exposed (2) Edema leg Status: Chronic Current Visit: Yes Code(s): R60.0 - Localized edema (3) Venous insufficiency Status: Chronic Current Visit: Yes Code(s): I87.2 - Venous insufficiency (chronic) (peripheral) (4) Malnutrition Status: Chronic Current Visit: Yes Code(s): E46 - Unspecified protein-calorie malnutrition (5) Delayed wound healing Status: Chronic Current Visit: Yes Code(s): T14.8XXD - Other injury of unspecified body region, subsequent encounter Type of Wound Date of Service: 05/26/18 Chief Complaint: Left leg ulcer History of Wound: This 52-year-old male presents for follow-up of left leg ulcer. He wears a 3m2l for compression control. He obtained his new Farrow compression dressing for left lower extremity and has been doing well with this so far. He also recently purchased this same compression dressing for the right lower extremity and is waiting for it to arrive in the mail. He denies calf pain, shortness of breath, chest pain, fever, chill, nausea, vomiting, loss of appetite, or leg pain. He has been moisturizing the surrounding ulcer site skin with moisturizing lotion as advised and there is less skin peeling and inflammation. Progress of Wound: Improving ulcer site and lee Ulcer site - Physical Exam Vital Signs Temp Pulse Resp BP 97.1 F L 85 20 H 166/87 H 05/26/18 15:35 05/26/18 15:35 05/26/18 15:35 05/26/18 15:35 General: Alert, Oriented x3, Cooperative Extremities: No cyanosis, Capillary Refill Less than 3 Seconds, No Calf Tenderness - Negative Isaac and Whitmore sign bilateral, Diminished Peripheral Pulses, Edema - Moderate bilateral lower extremities, Tenderness - No pain with ulcer manipulation Skin: Ulcer/ Wound - left no purulence, erythema, streaking, odor, deep tissue exposure, or infection left leg. The surrounding ulcer site has decreased inflammation, skin peeling, and irritation. The remaining skin is atrophic and hairless to bilateral lower extremities Wound Measurements and Assessment WC - Nurse 1 - General Ulcer Measurement Start: 04/28/18 10:23 Freq: Status: Active Protocol: Activity Type Activity Date Activity User E-Sign Co-Sign Detail Recorded Client Recorded Date Recorded By Document 05/26/18 15:35 DL [id number] 05/26/18 15:40 DL 05/26/18 15:35 Wound Center Nurse 1 [Ulcer Assessment] #1- LT BLANCAS -Current Size (cm) - Length 0.4 -Current Size (cm) - Width 0.5 -Current Size (cm) - Depth 0.1 -Total Square Cm 0.20 -Photo Taken No -Exudate Amt None Present -Wound Margin Distinct, Outline Attached -Granulation Amt Small (1-33%) -Granulation Quality Red -Necrosis Amt Small (1-33%) -Necrotic Tissue Type Adherent Slough -Structure Exposed N/A -Texture (Lee-wound Skin Appearance) Scarring -Moisture (Lee-wound Skin Appearance Dry/Scaly ) -Color (Lee-wound Skin Appearance) Hemosiderin Staining -Temperature (Lee-wound Skin No Abnormality Appearance) (Pt Warm) -Tenderness on Palpation (Lee-wound No Skin Appearance) -Ulcer Cleansing Rinsed/ Irrigated with Saline -Foul Odor after Cleansing No -Anesthetic Used 5% Lidocaine Gel [Edema Assessment] -Left Calf (cm) 50 -Left Ankle (cm) 26.2 WC - Nurse 2 - General Ulcer CM Notes Start: 04/28/18 10:23 Freq: Status: Active Protocol: Activity Type Activity Date Activity User E-Sign Co-Sign Detail Recorded Client Recorded Date Recorded By Document 05/26/18 15:47 DL [id number] 05/26/18 15:48 DL 05/26/18 15:47 Wound Center Nurse 2 [Procedure/Treatment] #1- LT BLANCAS -Time 15:48 -Correct Patient Yes -Correct Side, Site, Position Yes -Correct Procedure Yes -Procedure Performed Yes -Type of Procedure Debridement -Clinical Debridement Subcutaneous -Post Debridement Size (cm) - Length 0.4 -Post Debridement Size (cm) - Width 0.5 -Post Debridement Size (cm) - Depth 0.1 -Total Square Cm 0.20 -Wound/Ulcer Outcome Not Healed -Ulcer Cleansing Rinsed/ Irrigated with Saline -Foul Odor after Cleansing No -Bioengineered Tissue No -Bleeding Controlled with Pressure -Offloading No -Treatment Response Procedure Tolerated Well [See Physician Procedure note for Specifics] Pain Scale: 0-10 Numeric [Pain] -Is Patient Pain Free? Yes Musculoskeletal: No Tenderness to Palpation of Joints or Extremities, Muscle Wasting Neurological: Sensory exam intact to light touch and pain Psych/Mental Status: Normal Affect, Appropriate Debridement Note Post-Debridement Measurements/Treatment WC - Nurse 2 - General Ulcer CM Notes Start: 04/28/18 10:23 Freq: Status: Active Protocol: Activity Type Activity Date Activity User E-Sign Co-Sign Detail Recorded Client Recorded Date Recorded By Document 04/28/18 10:49 [id number] 04/28/18 10:50 JF Document 05/05/18 16:08 JF [id number] 05/05/18 16:09 JF Document 05/12/18 16:22 DV [id number] 05/12/18 16:28 DV Document 05/19/18 16:09 JF [id number] 05/19/18 16:09 JF Document 05/26/18 15:47 DL [id number] 05/26/18 15:48 DL 04/28/18 05/05/18 05/12/18 10:49 16:08 16:22 Wound Center Nurse 2 #1- LT BLANCAS -Time 10:49 16:09 16:22 -Correct Patient Yes Yes Yes -Correct Side, Site, Position Yes Yes Yes -Correct Procedure Yes Yes Yes -Procedure Performed Yes Yes Yes -Type of Procedure Debridement Debridement Debridement -Clinical Debridement Subcutaneous Subcutaneous Subcutaneous -Post Debridement Size (cm) - Length 0.4 0.5 0.7 -Post Debridement Size (cm) - Width 0.4 0.5 1.1 -Post Debridement Size (cm) - Depth 0.1 0.1 0.1 -Total Square Cm 0.16 0.25 0.77 -Wound/Ulcer Outcome Not Healed Not Healed Not Healed -Ulcer Cleansing Rinsed/ Rinsed/ Rinsed/ Irrigated with Irrigated with Irrigated with Saline Saline Saline -Foul Odor after Cleansing No No No -Bioengineered Tissue No No No -Bleeding Controlled with Pressure Pressure Pressure -Offloading No No No -Treatment Response Procedure Procedure Procedure Tolerated Well Tolerated Well Tolerated Well Pain Scale: 0-10 Numeric Is Patient Pain Free? Yes Yes Yes 05/19/18 05/26/18 16:09 15:47 Wound Center Nurse 2 #1- LT BLANCAS -Time 16:09 15:48 -Correct Patient Yes Yes -Correct Side, Site, Position Yes Yes -Correct Procedure Yes Yes -Procedure Performed Yes Yes -Type of Procedure Debridement Debridement -Clinical Debridement Subcutaneous Subcutaneous -Post Debridement Size (cm) - Length 0.4 0.4 -Post Debridement Size (cm) - Width 0.5 0.5 -Post Debridement Size (cm) - Depth 0.1 0.1 -Total Square Cm 0.20 0.20 -Wound/Ulcer Outcome Not Healed Not Healed -Ulcer Cleansing Rinsed/ Rinsed/ Irrigated with Irrigated with Saline Saline -Foul Odor after Cleansing No No -Bioengineered Tissue No No -Bleeding Controlled with Pressure Pressure -Offloading No No -Treatment Response Procedure Procedure Tolerated Well Tolerated Well Pain Scale: 0-10 Numeric Is Patient Pain Free? Yes Yes Wound debrided: leg Laterality: Left Type of Debridement: Excisional debridement Anesthesia Used: 5% Lidocaine Gel Depth: in the subcutaneous layer Percentage of wound debrided: 100 Instrument Used: #15 blade Tissue Removed: fibrous, devitalized subcutaneous, biofilm, slough Severity: Fat Layer Exposed Amount of bleeding with debridement: Mild Bleeding Controlled with: Pressure Patient tolerated procedure well Assessment/Plan Active Problems Ulcer of left lower extremity with fat layer exposed (Chronic) Edema leg (Chronic) Venous insufficiency (Chronic) Malnutrition (Chronic) Delayed wound healing (Chronic) Assessment: Left leg ulcer chronic. Venous insufficiency. Lower extremity edema and lymphedema bilateral. Delayed healing. Malnutrition suspected. Obesity Plan: I reviewed and discussed his case today. Left leg ulcer subcutaneous excisional debridement was performed as noted in the clinical panel. He was reassured no local signs of infection are noted. Aquacel Ag was applied today to change daily after soap and water wash. I recommend moisturizing the lee-ulcer site with Lac-Hydrin to improve skin integrity. he did obtain this and has started use as advised. Significant skin improvement is noted. I encouraged him to elevate limbs at rest. To avoid idle standing or sitting. Baseline labs are pending to get a better understanding of his medical status including CBC, CMP, hemoglobin A1c, prealbumin. The WBC was 10.6, hemoglobin A1C was 5.9%, and prealbumin was 24.2. Venous duplex Doppler with reflex evaluation were reviewed with evidence of venous insufficiency in which I recommend a vascular referral. He did see Dr. Alejo this previously who recommended compression garments and return follow-up in 4 months and he did obtain his prescribed Farrow wrap compression for both lower extremities. His noninvasive arterial studies were reviewed with evidence of vessel calcification. His right ankle-brachial index is 1.43 and left was 1.4. He does not have apparent objective or subjective signs of a blood clot and he will continue to monitor for this. Yash prescription was provided to optimize healing; to continue use of the advised. We discussed the etiology and ongoing stage comprehensive wound healing plan and expectations. He will follow up as scheduled 1 week at the wound healing center.
--- NOTE | 2018-05-27 12:02 | PN.PCM_ITS ---
(1) Ulcer of left lower extremity with fat layer exposed Status: Chronic Current Visit: Yes Code(s): L97.922 - Non-pressure chronic ulcer of unspecified part of left lower leg with fat layer exposed (2) Edema leg Status: Chronic Current Visit: Yes Code(s): R60.0 - Localized edema (3) Venous insufficiency Status: Chronic Current Visit: Yes Code(s): I87.2 - Venous insufficiency (chronic) (peripheral) (4) Malnutrition Status: Chronic Current Visit: Yes Code(s): E46 - Unspecified protein- calorie malnutrition (5) Delayed wound healing Status: Chronic Current Visit: Yes Code(s): T14.8XXD - Other injury of unspecified body region, subsequent encounter Type of Wound Date of Service: 05/26/18 Chief Complaint: Left leg ulcer History of Wound: This 52-year-old male presents for follow-up of left leg ulcer. He wears a 3m2l for compression control. He obtained his new Farrow compression dressing for left lower extremity and has been doing well with this so far. He also recently purchased this same compression dressing for the right lower extremity and is waiting for it to arrive in the mail. He denies calf pain, shortness of breath, chest pain, fever, chill, nausea, vomiting, loss of appetite, or leg pain. He has been moisturizing the surrounding ulcer site skin with moisturizing lotion as advised and there is less skin peeling and inflammation. Progress of Wound: Improving ulcer site and lee Ulcer site - Physical Exam Vital Signs Temp Pulse Resp BP 97.1 F L 85 20 H 166/87 H 05/26/18 15:35 05/26/18 15:35 05/26/18 15:35 05/26/18 15:35 General: Alert, Oriented x3, Cooperative Extremities: No cyanosis, Capillary Refill Less than 3 Seconds, No Calf Tenderness - Negative Isaac and Whitmore sign bilateral, Diminished Peripheral Pulses, Edema - Moderate bilateral lower extremities, Tenderness - No pain with ulcer manipulation Skin: Ulcer/ Wound - left no purulence, erythema, streaking, odor, deep tissue exposure, or infection left leg. The surrounding ulcer site has decreased inflammation, skin peeling, and irritation. The remaining skin is atrophic and hairless to bilateral lower extremities Wound Measurements and Assessment WC - Nurse 1 - General Ulcer Measurement Start: 04/28/18 10:23 Freq: Status: Active Protocol: Activity Type Activity Date Activity User E-Sign Co-Sign Detail Recorded Client Recorded Date Recorded By Document 05/26/18 15:35 DL [id number] 05/26/18 15:40 DL 05/26/18 15:35 Wound Center Nurse 1 [Ulcer Assessment] #1- LT BLANCAS -Current Size (cm) - Length 0.4 -Current Size (cm) - Width 0.5 -Current Size (cm) - Depth 0.1 -Total Square Cm 0.20 -Photo Taken No -Exudate Amt None Present -Wound Margin Distinct, Outline Attached -Granulation Amt Small (1-33%) -Granulation Quality Red -Necrosis Amt Small (1-33%) -Necrotic Tissue Type Adherent Slough -Structure Exposed N/A -Texture (Lee-wound Skin Appearance) Scarring -Moisture (Lee-wound Skin Appearance Dry/Scaly ) -Color (Lee-wound Skin Appearance) Hemosiderin Staining -Temperature (Lee-wound Skin No Abnormality Appearance) (Pt Warm) -Tenderness on Palpation (Lee-wound No Skin Appearance) -Ulcer Cleansing Rinsed/ Irrigated with Saline -Foul Odor after Cleansing No -Anesthetic Used 5% Lidocaine Gel [Edema Assessment] -Left Calf (cm) 50 -Left Ankle (cm) 26.2 WC - Nurse 2 - General Ulcer CM Notes Start: 04/28/18 10:23 Freq: Status: Active Protocol: Activity Type Activity Date Activity User E-Sign Co-Sign Detail Recorded Client Recorded Date Recorded By Document 05/26/18 15:47 DL [id number] 05/26/18 15:48 DL 05/26/18 15:47 Wound Center Nurse 2 [Procedure/Treatment] #1- LT BLANCAS -Time 15:48 -Correct Patient Yes -Correct Side, Site, Position Yes -Correct Procedure Yes -Procedure Performed Yes -Type of Procedure Debridement -Clinical Debridement Subcutaneous -Post Debridement Size (cm) - Length 0.4 -Post Debridement Size (cm) - Width 0.5 -Post Debridement Size (cm) - Depth 0.1 -Total Square Cm 0.20 -Wound/Ulcer Outcome Not Healed -Ulcer Cleansing Rinsed/ Irrigated with Saline -Foul Odor after Cleansing No -Bioengineered Tissue No -Bleeding Controlled with Pressure -Offloading No -Treatment Response Procedure Tolerated Well [See Physician Procedure note for Specifics] Pain Scale: 0-10 Numeric [Pain] -Is Patient Pain Free? Yes Musculoskeletal: No Tenderness to Palpation of Joints or Extremities, Muscle Wasting Neurological: Sensory exam intact to light touch and pain Psych/Mental Status: Normal Affect, Appropriate Debridement Note Post-Debridement Measurements/Treatment WC - Nurse 2 - General Ulcer CM Notes Start: 04/28/18 10:23 Freq: Status: Active Protocol: Activity Type Activity Date Activity User E-Sign Co-Sign Detail Recorded Client Recorded Date Recorded By Document 04/28/18 10:49 [id number] 04/28/18 10:50 JF Document 05/05/18 16:08 JF [id number] 05/05/18 16:09 JF Document 05/12/18 16:22 DV [id number] 05/12/18 16:28 DV Document 05/19/18 16:09 JF [id number] 05/19/18 16:09 JF Document 05/26/18 15:47 DL [id number] 05/26/18 15:48 DL 04/28/18 05/05/18 05/12/18 10:49 16:08 16:22 Wound Center Nurse 2 #1- LT BLANCAS -Time 10:49 16:09 16:22 -Correct Patient Yes Yes Yes -Correct Side, Site, Position Yes Yes Yes -Correct Procedure Yes Yes Yes -Procedure Performed Yes Yes Yes -Type of Procedure Debridement Debridement Debridement -Clinical Debridement Subcutaneous Subcutaneous Subcutaneous -Post Debridement Size (cm) - Length 0.4 0.5 0.7 -Post Debridement Size (cm) - Width 0.4 0.5 1.1 -Post Debridement Size (cm) - Depth 0.1 0.1 0.1 -Total Square Cm 0.16 0.25 0.77 -Wound/Ulcer Outcome Not Healed Not Healed Not Healed -Ulcer Cleansing Rinsed/ Rinsed/ Rinsed/ Irrigated with Irrigated with Irrigated with Saline Saline Saline -Foul Odor after Cleansing No No No -Bioengineered Tissue No No No -Bleeding Controlled with Pressure Pressure Pressure -Offloading No No No -Treatment Response Procedure Procedure Procedure Tolerated Well Tolerated Well Tolerated Well Pain Scale: 0-10 Numeric Is Patient Pain Free? Yes Yes Yes 05/19/18 05/26/18 16:09 15:47 Wound Center Nurse 2 #1- LT BLANCAS -Time 16:09 15:48 -Correct Patient Yes Yes -Correct Side, Site, Position Yes Yes -Correct Procedure Yes Yes -Procedure Performed Yes Yes -Type of Procedure Debridement Debridement -Clinical Debridement Subcutaneous Subcutaneous -Post Debridement Size (cm) - Length 0.4 0.4 -Post Debridement Size (cm) - Width 0.5 0.5 -Post Debridement Size (cm) - Depth 0.1 0.1 -Total Square Cm 0.20 0.20 -Wound/Ulcer Outcome Not Healed Not Healed -Ulcer Cleansing Rinsed/ Rinsed/ Irrigated with Irrigated with Saline Saline -Foul Odor after Cleansing No No -Bioengineered Tissue No No -Bleeding Controlled with Pressure Pressure -Offloading No No -Treatment Response Procedure Procedure Tolerated Well Tolerated Well Pain Scale: 0-10 Numeric Is Patient Pain Free? Yes Yes Wound debrided: leg Laterality: Left Type of Debridement: Excisional debridement Anesthesia Used: 5% Lidocaine Gel Depth: in the subcutaneous layer Percentage of wound debrided: 100 Instrument Used: #15 blade Tissue Removed: fibrous, devitalized subcutaneous, biofilm, slough Severity: Fat Layer Exposed Amount of bleeding with debridement: Mild Bleeding Controlled with: Pressure Patient tolerated procedure well Assessment/Plan Active Problems Ulcer of left lower extremity with fat layer exposed (Chronic) Edema leg (Chronic) Venous insufficiency (Chronic) Malnutrition (Chronic) Delayed wound healing (Chronic) Assessment: Left leg ulcer chronic. Venous insufficiency. Lower extremity edema and lymphedema bilateral. Delayed healing. Malnutrition suspected. Obesity Plan: I reviewed and discussed his case today. Left leg ulcer subcutaneous excisional debridement was performed as noted in the clinical panel. He was reassured no local signs of infection are noted. Aquacel Ag was applied today to change daily after soap and water wash. I recommend moisturizing the lee- ulcer site with Lac-Hydrin to improve skin integrity. he did obtain this and has started use as advised. Significant skin improvement is noted. I encouraged him to elevate limbs at rest. To avoid idle standing or sitting. Baseline labs are pending to get a better understanding of his medical status including CBC, CMP, hemoglobin A1c, prealbumin. The WBC was 10.6, hemoglobin A1C was 5.9%, and prealbumin was 24.2. Venous duplex Doppler with reflex evaluation were reviewed with evidence of venous insufficiency in which I recommend a vascular referral. He did see Dr. Alejo this previously who recommended compression garments and return follow-up in 4 months and he did obtain his prescribed Farrow wrap compression for both lower extremities. His noninvasive arterial studies were reviewed with evidence of vessel calcification. His right ankle-brachial index is 1.43 and left was 1.4. He does not have apparent objective or subjective signs of a blood clot and he will continue to monitor for this. Yash prescription was provided to optimize healing; to continue use of the advised. We discussed the etiology and ongoing stage comprehensive wound healing plan and expectations. He will follow up as scheduled 1 week at the wound healing center.
== END 2018-05-27 23:59 ==
LOC: WC 16:00
PROVIDERS: Family Provider Internal Medicine; PCP Internal Medicine; Visit Provider Podiatrist
DX: I87.2 Venous insufficiency (chronic) (peripheral) (principal); L97.822 Non-pressure chronic ulcer of other part of left lower leg with fat layer exposed; R60.0 Localized edema; M79.89 Other specified soft tissue disorders; L03.116 Cellulitis of left lower limb; I73.9 Peripheral vascular disease, unspecified; I89.0 Lymphedema, not elsewhere classified; E66.9 Obesity, unspecified; Z71.3 Dietary counseling and surveillance; Z68.42 Body mass index [BMI] 45.0-49.9, adult
CPT/HCPCS: 11042; 29581; 99212; G0463

== ENCOUNTER 2018-06-16 16:15 | Outpatient (RCR) | payer OTHER, SELFPAY ==
[2018-05-28 01:28] VITALS: BP 166/87; PULSE 85; RESP 20; TEMP 36.2
[2018-06-02 15:25] VITALS: BP 129/83; PULSE 78; RESP 18; TEMP 36.6; BMI 49.4
--- NOTE | 2018-06-04 22:25 | PN.PCM_ITS ---
(1) Ulcer of left lower extremity with fat layer exposed Status: Chronic Current Visit: Yes Code(s): L97.922 - Non-pressure chronic ulcer of unspecified part of left lower leg with fat layer exposed (2) Edema leg Status: Chronic Current Visit: Yes Code(s): R60.0 - Localized edema (3) Venous insufficiency Status: Chronic Current Visit: Yes Code(s): I87.2 - Venous insufficiency (chronic) (peripheral) (4) Malnutrition Status: Chronic Current Visit: Yes Code(s): E46 - Unspecified protein- calorie malnutrition (5) Delayed wound healing Status: Chronic Current Visit: Yes Code(s): T14.8XXD - Other injury of unspecified body region, subsequent encounter Type of Wound Date of Service: 06/02/18 Chief Complaint: Left leg ulcer History of Wound: This 52-year-old male presents for follow-up of left leg ulcer. He wears a 3m2l for compression control. He continues to use bilateral farrow compression dressings. He denies calf pain, shortness of breath, chest pain, fever, chill, nausea, vomiting, loss of appetite, or leg pain. He has been moisturizing the surrounding ulcer site skin with moisturizing lotion as advised and there is less skin peeling and inflammation. He is having difficulty coming to the wound care center once a week. Progress of Wound: Improving ulcer site and lee Ulcer site - Physical Exam Vital Signs Temp Pulse Resp BP 97.8 F 78 18 129/83 H 06/02/18 15:25 06/02/18 15:25 06/02/18 15:25 06/02/18 15:25 General: Alert, Oriented x3, Cooperative Extremities: No cyanosis, Capillary Refill Less than 3 Seconds, No Calf Tenderness - Negative Isaac and Whitmore sign bilateral, Diminished Peripheral Pulses, Edema Skin: Ulcer/ Wound - No purulence, erythema, streaking, odor, or infection. Peripheral epithelialization is noted to the left leg ulcer site. There is continued decreased lee-ulcer site inflammation Wound Measurements and Assessment WC - Nurse 1 - General Ulcer Measurement Start: 06/02/18 15:25 Freq: Status: Active Protocol: Activity Type Activity Date Activity User E-Sign Co-Sign Detail Recorded Client Recorded Date Recorded By Document 06/02/18 15:25 AN [id number] 06/02/18 15:39 AN 06/02/18 15:25 Wound Center Nurse 1 [Ulcer Assessment] #1- LT BLANCAS -Current Size (cm) - Length 0.3 -Current Size (cm) - Width 0.8 -Current Size (cm) - Depth 0.1 -Total Square Cm 0.24 -Date of Last Picture (Recall this 06/02/18 field) -Photo Taken Yes -Epithelialization None Present -Tunneling No -Undermining/Tunneling No -Circular Undermining No -Classification - Thickness Full Thickness without Exposed Support Structure -Exudate Amt Small -Exudate Type Serosanguineous -Wound Margin Flat & Intact -Granulation Amt Medium (34-66%) -Granulation Quality Red -Necrosis Amt Medium (34-66%) -Necrotic Tissue Type Adherent Slough -Structure Exposed None/Limited to Skin Breakdown -Texture (Lee-wound Skin Appearance) Assessed -Moisture (Lee-wound Skin Appearance No Abnormality ) Dry/Scaly -Color (Lee-wound Skin Appearance) Assessed Hemosiderin Staining -Temperature (Lee-wound Skin No Abnormality Appearance) (Pt Warm) -Tenderness on Palpation (Lee-wound No Skin Appearance) -Ulcer Cleansing Rinsed/ Irrigated with Saline -Foul Odor after Cleansing No -Anesthetic Used 5% Lidocaine Gel [Edema Assessment] -Left Calf (cm) 58.5 -Left Ankle (cm) 28.5 WC - Nurse 2 - General Ulcer CM Notes Start: 06/02/18 15:25 Freq: Status: Active Protocol: Activity Type Activity Date Activity User E-Sign Co-Sign Detail Recorded Client Recorded Date Recorded By Document 06/02/18 15:57 [id number] 06/02/18 15:58 06/02/18 15:57 Wound Center Nurse 2 [Procedure/Treatment] #1- LT BLANCAS -Time 15:57 -Correct Patient Yes -Correct Side, Site, Position Yes -Correct Procedure Yes -Procedure Performed Yes -Type of Procedure Debridement -Clinical Debridement Subcutaneous -Post Debridement Size (cm) - Length 0.4 -Post Debridement Size (cm) - Width 0.8 -Post Debridement Size (cm) - Depth 0.1 -Total Square Cm 0.32 -Wound/Ulcer Outcome Not Healed -Ulcer Cleansing Rinsed/ Irrigated with Saline -Foul Odor after Cleansing No -Bioengineered Tissue No -Bleeding Controlled with Pressure -Offloading No -Treatment Response Procedure Tolerated Well [See Physician Procedure note for Specifics] Pain Scale: 0-10 Numeric [Pain] -Is Patient Pain Free? Yes Musculoskeletal: No Tenderness to Palpation of Joints or Extremities, Muscle Wasting, - - lymphedema Neurological: Sensory exam intact to light touch and pain, - Psych/Mental Status: Normal Affect, Appropriate Debridement Note Post-Debridement Measurements/Treatment WC - Nurse 2 - General Ulcer CM Notes Start: 06/02/18 15:25 Freq: Status: Active Protocol: Activity Type Activity Date Activity User E-Sign Co-Sign Detail Recorded Client Recorded Date Recorded By Document 06/02/18 15:57 [id number] 06/02/18 15:58 06/02/18 15:57 Wound Center Nurse 2 #1- LT BLANCAS -Time 15:57 -Correct Patient Yes -Correct Side, Site, Position Yes -Correct Procedure Yes -Procedure Performed Yes -Type of Procedure Debridement -Clinical Debridement Subcutaneous -Post Debridement Size (cm) - Length 0.4 -Post Debridement Size (cm) - Width 0.8 -Post Debridement Size (cm) - Depth 0.1 -Total Square Cm 0.32 -Wound/Ulcer Outcome Not Healed -Ulcer Cleansing Rinsed/ Irrigated with Saline -Foul Odor after Cleansing No -Bioengineered Tissue No -Bleeding Controlled with Pressure -Offloading No -Treatment Response Procedure Tolerated Well Pain Scale: 0-10 Numeric Is Patient Pain Free? Yes Wound debrided: anterior leg Laterality: Left Type of Debridement: Excisional debridement Anesthesia Used: 5% Lidocaine Gel Depth: in the subcutaneous layer Percentage of wound debrided: 100 Instrument Used: #15 blade Tissue Removed: fibrous, devitalized subcutaneous, biofilm, slough Severity: Fat Layer Exposed Amount of bleeding with debridement: Mild Bleeding Controlled with: Pressure Patient tolerated procedure well Assessment/Plan Active Problems Ulcer of left lower extremity with fat layer exposed (Chronic) Edema leg (Chronic) Venous insufficiency (Chronic) Malnutrition (Chronic) Delayed wound healing (Chronic) Assessment: Left leg ulcer chronic. Venous insufficiency. Lower extremity edema and lymphedema bilateral. Delayed healing. Malnutrition suspected. Obesity Plan: I reviewed and discussed his case today. Left leg ulcer subcutaneous excisional debridement was performed as noted in the clinical panel. He was reassured no local signs of infection are noted. Aquacel Ag was applied today to change daily after soap and water wash. I recommend moisturizing the lee-ulcer site with Lac-Hydrin to improve skin integrity. he did obtain this and has started use as advised. Significant skin improvement is noted. I encouraged him to elevate limbs at rest. To avoid idle standing or sitting. Baseline labs are pending to get a better understanding of his medical status including CBC, CMP, hemoglobin A1c, prealbumin. The WBC was 10.6, hemoglobin A1C was 5.9%, and prealbumin was 24.2. Venous duplex Doppler with reflex evaluation were reviewed with evidence of venous insufficiency in which I recommend a vascular referral. He did see Dr. Alejo this previously who recommended compression garments and return follow-up in 4 months and he did obtain his prescribed Farrow wrap compression for both lower extremities. His noninvasive arterial studies were reviewed with evidence of vessel calcification. His right ankle-brachial index is 1.43 and left was 1.4. He does not have apparent objective or subjective signs of a blood clot and he will continue to monitor for this. Yash prescription was provided to optimize healing; to continue use of the advised. We discussed the etiology and ongoing stage comprehensive wound healing plan and expectations. He is having difficulty attending weekly wound care center visit and he will return in 2 weeks.
[2018-06-16 16:18] VITALS: BP 144/83; PULSE 82; RESP 18; TEMP 37; BMI 49.4
--- NOTE | 2018-06-16 16:51 | PN.PCM_ITS ---
(1) Ulcer of left lower extremity with fat layer exposed Status: Chronic Current Visit: Yes Code(s): L97.922 - Non-pressure chronic ulcer of unspecified part of left lower leg with fat layer exposed (2) Edema leg Status: Chronic Current Visit: Yes Code(s): R60.0 - Localized edema (3) Venous insufficiency Status: Chronic Current Visit: Yes Code(s): I87.2 - Venous insufficiency (chronic) (peripheral) (4) Malnutrition Status: Chronic Current Visit: Yes Code(s): E46 - Unspecified protein- calorie malnutrition (5) Delayed wound healing Status: Chronic Current Visit: Yes Code(s): T14.8XXD - Other injury of unspecified body region, subsequent encounter Type of Wound Date of Service: 06/16/18 Chief Complaint: Left leg ulcer History of Wound: This 52-year-old male presents for follow-up of left leg ulcer. He wears a 3m2l for compression control. He continues to use bilateral farrow compression dressings. He denies calf pain, shortness of breath, chest pain, fever, chill, nausea, vomiting, loss of appetite, or leg pain. He has been moisturizing the surrounding ulcer site skin with moisturizing lotion as advised and there is less skin peeling and inflammation. He is having difficulty coming to the wound care center once a week. He reports he is unable to elevate his leg at all throughout the day. Progress of Wound: Stable - Physical Exam Vital Signs Temp Pulse Resp BP 98.6 F 82 18 144/83 H 06/16/18 16:18 06/16/18 16:18 06/16/18 16:18 06/16/18 16:18 General: Alert, Oriented x3, Cooperative Extremities: No cyanosis, Capillary Refill Less than 3 Seconds, No Calf Tenderness, Diminished Peripheral Pulses, Edema Skin: Ulcer/ Wound - No purulence, erythema, streaking, odor, or infection. The peripheral skin is very hairless, atrophic, and there is no deep tissue exposed. Wound Measurements and Assessment WC - Nurse 1 - General Ulcer Measurement Start: 06/02/18 15:25 Freq: Status: Active Protocol: Activity Type Activity Date Activity User E-Sign Co-Sign Detail Recorded Client Recorded Date Recorded By Document 06/16/18 16:18 AN [id number] 06/16/18 16:24 AN 02/20/19 16:18 Wound Center Nurse 1 [Ulcer Assessment] #1- LT BLANCAS -Current Size (cm) - Length 0.2 -Current Size (cm) - Width 0.4 -Current Size (cm) - Depth 0.1 -Total Square Cm 0.08 -Photo Taken No -Epithelialization None Present -Tunneling No -Undermining/Tunneling No -Circular Undermining No -Classification - Thickness Full Thickness without Exposed Support Structure -Exudate Amt Small -Exudate Type Serosanguineous -Wound Margin Distinct, Outline Attached -Granulation Amt Large (67-100%) -Granulation Quality [place] -Slough/Fibrin Yes -Necrosis Amt Small (1-33%) -Necrotic Tissue Type Adherent Slough -Structure Exposed None/Limited to Skin Breakdown -Texture ([place]-wound Skin Appearance) Assessed Localized Edema -Moisture ([place]oshia-wound Skin Appearance Assessed ) Dry/Scaly -Color (Toshia-wound Skin Appearance) Assessed Erythema -Temperature ([place]oshia-wound Skin No Abnormality Appearance) (Pt Warm) -Tenderness on Palpation ([place]oshia-wound No Skin Appearance) -Ulcer Cleansing Rinsed/ Irrigated with Saline -Foul Odor after Cleansing No -Anesthetic Used 4% Lidocaine Solution [Edema Assessment] -Left Calf (cm) 55 -Left Ankle (cm) 26.8 WC - Nurse 2 - General Ulcer CM Notes Start: 06/02/18 15:25 Freq: Status: Active Protocol: Activity Type Activity Date Activity User E-Sign Co-Sign Detail Recorded Client Recorded Date Recorded By Document 06/16/18 16:45 JO [email or web address] 06/16/18 16:47 JO 06/16/18 16:45 Wound Center Nurse 2 [Procedure/Treatment] #1- LT BLANCAS -Time 16:46 -Correct Patient Yes -Correct Side, Site, Position Yes -Correct Procedure Yes -Procedure Performed Yes -Type of Procedure Debridement -Clinical Debridement Subcutaneous -Post Debridement Size (cm) - Length 0.3 -Post Debridement Size (cm) - Width 0.5 -Post Debridement Size (cm) - Depth 0.1 -Total Square Cm 0.15 -Wound/Ulcer Outcome Not Healed -Ulcer Cleansing Rinsed/ Irrigated with Saline -Foul Odor after Cleansing No -Bioengineered Tissue No -Bleeding Controlled with Pressure -Offloading No -Treatment Response Procedure Tolerated Well [See Physician Procedure note for Specifics] Pain Scale: 0-10 Numeric [Pain] -Is Patient Pain Free? Yes Musculoskeletal: No Tenderness to Palpation of Joints or Extremities, Muscle Wasting, - - Compartments remain soft left lower extremity. Negative Isaac and Whitmore sign bilateral. Lymphedema bilateral lower extremities Neurological: - - Lack of normal epicritic sensation to ulcer palpation left leg Psych/Mental Status: Normal Affect, Appropriate Debridement Note Post-Debridement Measurements/Treatment WC - Nurse 2 - General Ulcer CM Notes Start: 06/02/18 15:25 Freq: Status: Active Protocol: Activity Type Activity Date Activity User E-Sign Co-Sign Detail Recorded Client Recorded Date Recorded By Document 06/02/18 15:57 [id number] 06/02/18 15:58 Document 06/16/18 16:45 [id number] 06/16/18 16:47 06/02/18 06/16/18 15:57 16:45 Wound Center Nurse 2 #1- LT BLANCAS -Time 15:57 16:46 -Correct Patient Yes Yes -Correct Side, Site, Position Yes Yes -Correct Procedure Yes Yes -Procedure Performed Yes Yes -Type of Procedure Debridement Debridement -Clinical Debridement Subcutaneous Subcutaneous -Post Debridement Size (cm) - Length 0.4 0.3 -Post Debridement Size (cm) - Width 0.8 0.5 -Post Debridement Size (cm) - Depth 0.1 0.1 -Total Square Cm 0.32 0.15 -Wound/Ulcer Outcome Not Healed Not Healed -Ulcer Cleansing Rinsed/ Rinsed/ Irrigated with Irrigated with Saline Saline -Foul Odor after Cleansing No No -Bioengineered Tissue No No -Bleeding Controlled with Pressure Pressure -Offloading No No -Treatment Response Procedure Procedure Tolerated Well Tolerated Well Pain Scale: 0-10 Numeric Is Patient Pain Free? Yes Yes Wound debrided: leg Laterality: Left Type of Debridement: Excisional debridement Anesthesia Used: 5% Lidocaine Gel Depth: in the subcutaneous layer Percentage of wound debrided: 100 Instrument Used: #15 blade Tissue Removed: fibrous, devitalized subcutaneous, biofilm, slough Severity: Fat Layer Exposed Amount of bleeding with debridement: Mild Bleeding Controlled with: Pressure Patient tolerated procedure well Assessment/Plan Active Problems Ulcer of left lower extremity with fat layer exposed (Chronic) Edema leg (Chronic) Venous insufficiency (Chronic) Malnutrition (Chronic) Delayed wound healing (Chronic) Assessment: Left leg ulcer chronic. Venous insufficiency. Lower extremity edema and lymphedema bilateral. Delayed healing. Malnutrition suspected. Obesity Plan: I reviewed and discussed his case today. Left leg ulcer subcutaneous excisional debridement was performed as noted in the clinical panel. He was reassured no local signs of infection are noted. Hydrogel will was applied to the leg; to change daily. I recommend moisturizing the toshia-ulcer site with Lac- Hydrin to improve skin integrity. he did obtain this and has started use as advised. Significant skin improvement is noted. I encouraged him to elevate limbs at rest. To avoid idle standing or sitting. I advised him to elevate the legs at least 20 minutes every hour. Baseline labs are pending to get a better understanding of his medical status including CBC, CMP, hemoglobin A1c, prealbumin. The WBC was 10.6, hemoglobin A1C was 5.9%, and prealbumin was 24.2. Venous duplex Doppler with reflex evaluation were reviewed with evidence of venous insufficiency in which I recommend a vascular referral. He did see Dr. Alejo this previously who recommended compression garments and return follow-up in 4 months and he did obtain his prescribed Farrow wrap compression for both lower extremities. His noninvasive arterial studies were reviewed with evidence of vessel calcification. His right ankle-brachial index is 1.43 and left was 1.4. He does not have apparent objective or subjective signs of a blood clot and he will continue to monitor for this. Yash prescription was provided to optimize healing; to continue use of the advised. We discussed the etiology and ongoing stage comprehensive wound healing plan and expectations. He is having difficulty attending weekly wound care center visit and he will return in 2 weeks.
== END 2018-06-24 23:59 ==
LOC: WC 16:15
PROVIDERS: Family Provider Internal Medicine; PCP Internal Medicine; Visit Provider Podiatrist
DX: I87.2 Venous insufficiency (chronic) (peripheral) (principal); L97.822 Non-pressure chronic ulcer of other part of left lower leg with fat layer exposed; R60.0 Localized edema; I89.0 Lymphedema, not elsewhere classified; E66.9 Obesity, unspecified; Z71.3 Dietary counseling and surveillance; Z68.42 Body mass index [BMI] 45.0-49.9, adult
CPT/HCPCS: 11042

== ENCOUNTER 2018-07-14 08:00 | Outpatient (RCR) | payer OTHER, SELFPAY ==
[2018-06-25 01:10] VITALS: BP 144/83; PULSE 82; RESP 18; TEMP 37
[2018-06-30 08:02] VITALS: BP 132/74; PULSE 80; RESP 22; TEMP 36.3; BMI 49.4
--- NOTE | 2018-06-30 08:34 | PCM.WC.PN ---
(1) Ulcer of left lower extremity with fat layer exposed Status: Chronic Current Visit: Yes Code(s): L97.922 - Non-pressure chronic ulcer of unspecified part of left lower leg with fat layer exposed (2) Venous insufficiency Status: Chronic Current Visit: Yes Code(s): I87.2 - Venous insufficiency (chronic) (peripheral) (3) Malnutrition Status: Chronic Current Visit: Yes Code(s): E46 - Unspecified protein-calorie malnutrition (4) Delayed wound healing Status: Chronic Current Visit: Yes Code(s): T14.8XXD - Other injury of unspecified body region, subsequent encounter Type of Wound Chief Complaint: Left leg ulcer History of Wound: This 52-year-old male presents for follow-up of left leg ulcer. He wears a 3m2l for compression control. He continues to use bilateral farrow compression dressings. He denies calf pain, shortness of breath, chest pain, fever, chill, nausea, vomiting, loss of appetite, or leg pain. He has been moisturizing the surrounding ulcer site skin with moisturizing lotion as advised and there is less skin peeling and inflammation. He is having difficulty coming to the wound care center once a week. He reports he is unable to elevate his leg at all throughout the day. Progress of Wound: Stable - Physical Exam Vital Signs Temp Pulse Resp BP 97.4 F L 80 22 H 132/74 H 06/30/18 08:02 06/30/18 08:02 06/30/18 08:02 06/30/18 08:02 Wound Measurements and Assessment WC - Nurse 1 - General Ulcer Measurement Start: 06/30/18 08:02 Freq: Status: Active Protocol: Activity Type Activity Date Activity User E-Sign Co-Sign Detail Recorded Client Recorded Date Recorded By Document 06/30/18 08:02 DL [id number] 06/30/18 08:09 DL 06/30/18 08:02 Wound Center Nurse 1 [Ulcer Assessment] #1- LT BLANCAS -Current Size (cm) - Length 0.3 -Current Size (cm) - Width 0.4 -Current Size (cm) - Depth 0.1 -Total Square Cm 0.12 -Photo Taken No -Exudate Amt Medium -Exudate Type Serosanguineous -Wound Margin Distinct, Outline Attached -Granulation Amt Large (67-100%) -Granulation Quality [place] -Necrosis Amt None Present (0 %) -Structure Exposed N/A -Texture (Lee-wound Skin Appearance) Excoriation Localized Edema -Moisture (Lee-wound Skin Appearance We[place] ) -Color (Lee-wound Skin Appearance) Hemosiderin Staining -Temperature (Lee-wound Skin No Abnormality Appearance) (Pt Warm) -Tenderness on Palpation (Lee-wound No Skin Appearance) -Ulcer Cleansing Wound Cleanser -Foul Odor after Cleansing No [Edema Assessment] -Left Calf (cm) 50 -Left Ankle (cm) 27 Debridement Note Wound debrided: leg Laterality: Left Type of Debridement: Excisional debridement Anesthesia Used: 5% Lidocaine Gel Depth: in the subcutaneous layer Percentage of wound debrided: 100 Instrument Used: #15 blade Tissue Removed: fibrous, devitalized subcutaneous, biofilm, slough Severity: Fat Layer Exposed Amount of bleeding with debridement: Mild Bleeding Controlled with: Pressure Patient tolerated procedure well Assessment/Plan Active Problems Ulcer of left lower extremity with fat layer exposed (Chronic) Venous insufficiency (Chronic) Malnutrition (Chronic) Delayed wound healing (Chronic) Assessment: Left leg ulcer chronic. Venous insufficiency. Lower extremity edema and lymphedema bilateral. Delayed healing. Malnutrition suspected. Obesity Plan: I reviewed and discussed his case today. Left leg ulcer subcutaneous excisional debridement was performed as noted in the clinical panel. He was reassured no local signs of infection are noted. Hydrogel will was applied to the leg; to change daily. I recommend moisturizing the lee-ulcer site with Lac-Hydrin to improve skin integrity. he did obtain this and has started use as advised. Significant skin improvement is noted. I encouraged him to elevate limbs at rest. To avoid idle standing or sitting. I advised him to elevate the legs at least 20 minutes every hour. Baseline labs are pending to get a better understanding of his medical status including CBC, CMP, hemoglobin A1c, prealbumin. The WBC was 10.6, hemoglobin A1C was 5.9%, and prealbumin was 24.2. Venous duplex Doppler with reflex evaluation were reviewed with evidence of venous insufficiency in which I recommend a vascular referral. He did see Dr. Alejo this previously who recommended compression garments and return follow-up in 4 months and he did obtain his prescribed Farrow wrap compression for both lower extremities. His noninvasive arterial studies were reviewed with evidence of vessel calcification. His right ankle-brachial index is 1.43 and left was 1.4. He does not have apparent objective or subjective signs of a blood clot and he will continue to monitor for this. Yash prescription was provided to optimize healing; to continue use of the advised. We discussed the etiology and ongoing stage comprehensive wound healing plan and expectations. He is having difficulty attending weekly wound care center visit and he will return in 2 weeks.
--- NOTE | 2018-06-30 15:50 | PCM.WC.PN ---
(1) Ulcer of left lower extremity with fat layer exposed Status: Chronic Current Visit: Yes Code(s): L97.922 - Non-pressure chronic ulcer of unspecified part of left lower leg with fat layer exposed (2) Venous insufficiency Status: Chronic Current Visit: Yes Code(s): I87.2 - Venous insufficiency (chronic) (peripheral) (3) Malnutrition Status: Chronic Current Visit: Yes Code(s): E46 - Unspecified protein-calorie malnutrition (4) Delayed wound healing Status: Chronic Current Visit: Yes Code(s): T14.8XXD - Other injury of unspecified body region, subsequent encounter Type of Wound Date of Service: 06/30/18 Chief Complaint: Left leg ulcer History of Wound: This 52-year-old male presents for follow-up of left leg ulcer. He wears farrow wraps for edema control. He has difficulty with daily elevation due to work demands. He denies calf pain, shortness of breath, chest pain, fever, chill, nausea, vomiting, loss of appetite, or leg pain. He has been moisturizing the surrounding ulcer site skin with moisturizing lotion as advised and there is less skin peeling and inflammation. He is having difficulty coming to the wound care center once a week. He has increased weeping and inflammation surrounding the ulcer site this past week. He denies shortness of breath chest pain or deep calf pain. Progress of Wound: Improving ulcer site. Intermittent worsening of the leg swelling - Physical Exam Vital Signs Temp Pulse Resp BP 97.4 F L 80 22 H 132/74 H 06/30/18 08:02 06/30/18 08:02 06/30/18 08:02 06/30/18 08:02 General: Alert, Oriented x3, Cooperative Extremities: No cyanosis, Capillary Refill Less than 3 Seconds, No Calf Tenderness - Negative Isaac and Whitmore left, Diminished Peripheral Pulses, Edema - Increased left lower extremity Skin: Ulcer/ Wound - No purulence, erythema, streaking, odor, or acute infection. Peripheral epithelialization is noted. The peripheral ulcer site has increased skin peeling, hyperpigmentation, diffuse erythema consistent with his venous insufficiency and lymphedema. The skin is atrophic and hairless. Wound Measurements and Assessment WC - Nurse 1 - General Ulcer Measurement Start: 06/30/18 08:02 Freq: Status: Active Protocol: Activity Type Activity Date Activity User E-Sign Co-Sign Detail Recorded Client Recorded Date Recorded By Document 06/30/18 08:02 DL [id number] 06/30/18 08:09 DL 06/30/18 08:02 Wound Center Nurse 1 [Ulcer Assessment] #1- LT BLANCAS -Current Size (cm) - Length 0.3 -Current Size (cm) - Width 0.4 -Current Size (cm) - Depth 0.1 -Total Square Cm 0.12 -Photo Taken No -Exudate Amt Medium -Exudate Type Serosanguineous -Wound Margin Distinct, Outline Attached -Granulation Amt Large (67-100%) -Granulation Quality [place] -Necrosis Amt None Present (0 %) -Structure Exposed N/A -Texture (Lee-wound Skin Appearance) Excoriation Localized Edema -Moisture (Lee-wound Skin Appearance Weeping ) -Color (Lee-wound Skin Appearance) Hemosiderin Staining -Temperature (Lee-wound Skin No Abnormality Appearance) (Pt Warm) -Tenderness on Palpation (Lee-wound No Skin Appearance) -Ulcer Cleansing Wound Cleanser -Foul Odor after Cleansing No [Edema Assessment] -Left Calf (cm) 50 -Left Ankle (cm) 27 WC - Nurse 2 - General Ulcer CM Notes Start: 06/30/18 08:02 Freq: Status: Active Protocol: Activity Type Activity Date Activity User E-Sign Co-Sign Detail Recorded Client Recorded Date Recorded By Document 06/30/18 08:27 [id number] 06/30/18 08:34 06/30/18 08:27 Wound Center Nurse 2 [Procedure/Treatment] #1- LT BLANCAS -Time 08:27 -Correct Patient Yes -Correct Side, Site, Position Yes -Correct Procedure Yes -Procedure Performed Yes -Type of Procedure Debridement -Clinical Debridement Subcutaneous -Post Debridement Size (cm) - Length 0.3 -Post Debridement Size (cm) - Width 0.4 -Post Debridement Size (cm) - Depth 0.2 -Total Square Cm 0.12 -Wound/Ulcer Outcome Not Healed -Ulcer Cleansing Rinsed/ Irrigated with Saline -Foul Odor after Cleansing No -Bleeding Controlled with Pressure -Offloading No -Treatment Response Procedure Tolerated Well [See Physician Procedure note for Specifics] Pain Scale: 0-10 Numeric [Pain] -Is Patient Pain Free? Yes Musculoskeletal: No Tenderness to Palpation of Joints or Extremities, Muscle Wasting, - - Compartments soft to palpate left lower extremity Neurological: Sensory exam intact to light touch and pain Psych/Mental Status: Normal Affect, Appropriate Debridement Note Post-Debridement Measurements/Treatment WC - Nurse 2 - General Ulcer CM Notes Start: 06/30/18 08:02 Freq: Status: Active Protocol: Activity Type Activity Date Activity User E-Sign Co-Sign Detail Recorded Client Recorded Date Recorded By Document 06/30/18 08:27 [id number] 06/30/18 08:34 06/30/18 08:27 Wound Center Nurse 2 #1- LT BLANCAS -Time 08:27 -Correct Patient Yes -Correct Side, Site, Position Yes -Correct Procedure Yes -Procedure Performed Yes -Type of Procedure Debridement -Clinical Debridement Subcutaneous -Post Debridement Size (cm) - Length 0.3 -Post Debridement Size (cm) - Width 0.4 -Post Debridement Size (cm) - Depth 0.2 -Total Square Cm 0.12 -Wound/Ulcer Outcome Not Healed -Ulcer Cleansing Rinsed/ Irrigated with Saline -Foul Odor after Cleansing No -Bleeding Controlled with Pressure -Offloading No -Treatment Response Procedure Tolerated Well Pain Scale: 0-10 Numeric Is Patient Pain Free? Yes Wound debrided: leg Laterality: Left Type of Debridement: Excisional debridement Anesthesia Used: 5% Lidocaine Gel Depth: in the subcutaneous layer Percentage of wound debrided: 100 Instrument Used: #15 blade Tissue Removed: fibrous, devitalized subcutaneous, biofilm, slough Severity: Fat Layer Exposed Amount of bleeding with debridement: Mild Bleeding Controlled with: Pressure Patient tolerated procedure well Assessment/Plan Active Problems Ulcer of left lower extremity with fat layer exposed (Chronic) Venous insufficiency (Chronic) Malnutrition (Chronic) Delayed wound healing (Chronic) Assessment: Left leg ulcer chronic. Venous insufficiency. Lower extremity edema and lymphedema bilateral. Delayed healing. Malnutrition suspected. Obesity Plan: I reviewed and discussed his case today. Left leg ulcer subcutaneous excisional debridement was performed as noted in the clinical panel. He was reassured no local signs of infection are noted. Hydrogel will was applied to the leg; to change daily. I recommend moisturizing the lee-ulcer site with Lac-Hydrin to improve skin integrity. I encouraged him to elevate limbs at rest. To avoid idle standing or sitting. I advised him to elevate the legs at least 20 minutes every hour. Increase edema is noted. To continue with diuresis per primary care physician. To continue farrow wraps. I also recommend compression pumps lymphedema; order was provided today. This order process will be initiated and is noted he does not have health insurance and he has limited electrical access. This is medically necessary to optimize healing and prevent limb loss. The patient is amenable to proceed forward with the order and is able to use this product as prescribed. He is tried other conservative care for edema control including various compression stockings, diuresis medications, and avoiding idle activities. Baseline labs are pending to get a better understanding of his medical status including CBC, CMP, hemoglobin A1c, prealbumin. The WBC was 10.6, hemoglobin A1C was 5.9%, and prealbumin was 24.2. Venous duplex Doppler with reflex evaluation were reviewed with evidence of venous insufficiency in which I recommend a vascular referral. He did see Dr. Alejo this previously who recommended compression garments and return follow-up in 4 months and he did obtain his prescribed Farrow wrap compression for both lower extremities. His noninvasive arterial studies were reviewed with evidence of vessel calcification. His right ankle-brachial index is 1.43 and left was 1.4. He does not have apparent objective or subjective signs of a blood clot and he will continue to monitor for this. Yash prescription was provided to optimize healing; to continue use of the advised. We discussed the etiology and ongoing stage comprehensive wound healing plan and expectations. He is having difficulty attending weekly wound care center visit and he will return in 2 weeks.
--- NOTE | 2018-06-30 15:55 | PN.PCM_ITS ---
(1) Ulcer of left lower extremity with fat layer exposed Status: Chronic Current Visit: Yes Code(s): L97.922 - Non-pressure chronic ulcer of unspecified part of left lower leg with fat layer exposed (2) Venous insufficiency Status: Chronic Current Visit: Yes Code(s): I87.2 - Venous insufficiency (chronic) (peripheral) (3) Malnutrition Status: Chronic Current Visit: Yes Code(s): E46 - Unspecified protein- calorie malnutrition (4) Delayed wound healing Status: Chronic Current Visit: Yes Code(s): T14.8XXD - Other injury of unspecified body region, subsequent encounter Type of Wound Date of Service: 06/30/18 Chief Complaint: Left leg ulcer History of Wound: This 52-year-old male presents for follow-up of left leg ulcer. He wears farrow wraps for edema control. He has difficulty with daily elevation due to work demands. He denies calf pain, shortness of breath, chest pain, fever, chill, nausea, vomiting, loss of appetite, or leg pain. He has been moisturizing the surrounding ulcer site skin with moisturizing lotion as advised and there is less skin peeling and inflammation. He is having difficulty coming to the wound care center once a week. He has increased weeping and inflammation surrounding the ulcer site this past week. He denies shortness of breath chest pain or deep calf pain. Progress of Wound: Improving ulcer site. Intermittent worsening of the leg swelling - Physical Exam Vital Signs Temp Pulse Resp BP 97.4 F L 80 22 H 132/74 H 06/30/18 08:02 06/30/18 08:02 06/30/18 08:02 06/30/18 08:02 General: Alert, Oriented x3, Cooperative Extremities: No cyanosis, Capillary Refill Less than 3 Seconds, No Calf Tenderness - Negative Isaac and Whitmore left, Diminished Peripheral Pulses, Edema - Increased left lower extremity Skin: Ulcer/ Wound - No purulence, erythema, streaking, odor, or acute infection. Peripheral epithelialization is noted. The peripheral ulcer site has increased skin peeling, hyperpigmentation, diffuse erythema consistent with his venous insufficiency and lymphedema. The skin is atrophic and hairless. Wound Measurements and Assessment WC - Nurse 1 - General Ulcer Measurement Start: 06/30/18 08:02 Freq: Status: Active Protocol: Activity Type Activity Date Activity User E-Sign Co-Sign Detail Recorded Client Recorded Date Recorded By Document 06/30/18 08:02 DL [id number] 06/30/18 08:09 DL 06/30/18 08:02 Wound Center Nurse 1 [Ulcer Assessment] #1- LT BLANCAS -Current Size (cm) - Length 0.3 -Current Size (cm) - Width 0.4 -Current Size (cm) - Depth 0.1 -Total Square Cm 0.12 -Photo Taken No -Exudate Amt Medium -Exudate Type Serosanguineous -Wound Margin Distinct, Outline Attached -Granulation Amt Large (67-100%) -Granulation Quality [place] -Necrosis Amt None Present (0 %) -Structure Exposed N/A -Texture (Lee-wound Skin Appearance) Excoriation Localized Edema -Moisture (Lee-wound Skin Appearance Weeping ) -Color (Lee-wound Skin Appearance) Hemosiderin Staining -Temperature (Lee-wound Skin No Abnormality Appearance) (Pt Warm) -Tenderness on Palpation (Lee-wound No Skin Appearance) -Ulcer Cleansing Wound Cleanser -Foul Odor after Cleansing No [Edema Assessment] -Left Calf (cm) 50 -Left Ankle (cm) 27 WC - Nurse 2 - General Ulcer CM Notes Start: 06/30/18 08:02 Freq: Status: Active Protocol: Activity Type Activity Date Activity User E-Sign Co-Sign Detail Recorded Client Recorded Date Recorded By Document 06/30/18 08:27 [id number] [id number] 06/30/18 08:34 06/30/18 08:27 Wound Center Nurse 2 [Procedure/Treatment] #1- LT BLANCAS -Time 08:27 -Correct Patient Yes -Correct Side, Site, Position Yes -Correct Procedure Yes -Procedure Performed Yes -Type of Procedure Debridement -Clinical Debridement Subcutaneous -Post Debridement Size (cm) - Length 0.3 -Post Debridement Size (cm) - Width 0.4 -Post Debridement Size (cm) - Depth 0.2 -Total Square Cm 0.12 -Wound/Ulcer Outcome Not Healed -Ulcer Cleansing Rinsed/ Irrigated with Saline -Foul Odor after Cleansing No -Bleeding Controlled with Pressure -Offloading No -Treatment Response Procedure Tolerated Well [See Physician Procedure note for Specifics] Pain Scale: 0-10 Numeric [Pain] -Is Patient Pain Free? Yes Musculoskeletal: No Tenderness to Palpation of Joints or Extremities, Muscle Wasting, - - Compartments soft to palpate left lower extremity Neurological: Sensory exam intact to light touch and pain Psych/Mental Status: Normal Affect, Appropriate Debridement Note Post-Debridement Measurements/Treatment WC - Nurse 2 - General Ulcer CM Notes Start: 06/30/18 08:02 Freq: Status: Active Protocol: Activity Type Activity Date Activity User E-Sign Co-Sign Detail Recorded Client Recorded Date Recorded By Document 06/30/18 08:27 [id number] 06/30/18 08:34 06/30/18 08:27 Wound Center Nurse 2 #1- LT BLANCAS -Time 08:27 -Correct Patient Yes -Correct Side, Site, Position Yes -Correct Procedure Yes -Procedure Performed Yes -Type of Procedure Debridement -Clinical Debridement Subcutaneous -Post Debridement Size (cm) - Length 0.3 -Post Debridement Size (cm) - Width 0.4 -Post Debridement Size (cm) - Depth 0.2 -Total Square Cm 0.12 -Wound/Ulcer Outcome Not Healed -Ulcer Cleansing Rinsed/ Irrigated with Saline -Foul Odor after Cleansing No -Bleeding Controlled with Pressure -Offloading No -Treatment Response Procedure Tolerated Well Pain Scale: 0-10 Numeric Is Patient Pain Free? Yes Wound debrided: leg Laterality: Left Type of Debridement: Excisional debridement Anesthesia Used: 5% Lidocaine Gel Depth: in the subcutaneous layer Percentage of wound debrided: 100 Instrument Used: #15 blade Tissue Removed: fibrous, devitalized subcutaneous, biofilm, slough Severity: Fat Layer Exposed Amount of bleeding with debridement: Mild Bleeding Controlled with: Pressure Patient tolerated procedure well Assessment/Plan Active Problems Ulcer of left lower extremity with fat layer exposed (Chronic) Venous insufficiency (Chronic) Malnutrition (Chronic) Delayed wound healing (Chronic) Assessment: Left leg ulcer chronic. Venous insufficiency. Lower extremity edema and lymphedema bilateral. Delayed healing. Malnutrition suspected. Obesity Plan: I reviewed and discussed his case today. Left leg ulcer subcutaneous excisional debridement was performed as noted in the clinical panel. He was reassured no local signs of infection are noted. Hydrogel will was applied to the leg; to change daily. I recommend moisturizing the lee-ulcer site with Lac- Hydrin to improve skin integrity. I encouraged him to elevate limbs at rest. To avoid idle standing or sitting. I advised him to elevate the legs at least 20 minutes every hour. Increase edema is noted. To continue with diuresis per primary care physician. To continue farrow wraps. I also recommend compression pumps lymphedema; order was provided today. This order process will be initiated and is noted he does not have health insurance and he has limited electrical access. This is medically necessary to optimize healing and prevent limb loss. The patient is amenable to proceed forward with the order and is able to use this product as prescribed. He is tried other conservative care for edema control including various compression stockings, diuresis medications, and avoiding idle activities. Baseline labs are pending to get a better understanding of his medical status including CBC, CMP, hemoglobin A1c, prealbumin. The WBC was 10.6, hemoglobin A1C was 5.9%, and prealbumin was 24.2. Venous duplex Doppler with reflex evaluation were reviewed with evidence of venous insufficiency in which I recommend a vascular referral. He did see Dr. Alejo this previously who recommended compression garments and return follow-up in 4 months and he did obtain his prescribed Farrow wrap compression for both lower extremities. His noninvasive arterial studies were reviewed with evidence of vessel calcification. His right ankle-brachial index is 1.43 and left was 1.4. He does not have apparent objective or subjective signs of a blood clot and he will continue to monitor for this. Yash prescription was provided to optimize healing; to continue use of the advised. We discussed the etiology and ongoing stage comprehensive wound healing plan and expectations. He is having difficulty attending weekly wound care center visit and he will return in 2 weeks.
[2018-07-14 08:10] VITALS: BP 122/65; PULSE 73; RESP 16; TEMP 36.2; BMI 49.4
--- NOTE | 2018-07-14 13:05 | PN.PCM_ITS ---
(1) Ulcer of left lower extremity with fat layer exposed Status: Resolved Current Visit: Yes Code(s): L97.922 - Non-pressure chronic ulcer of unspecified part of left lower leg with fat layer exposed (2) Venous insufficiency Status: Chronic Current Visit: Yes Code(s): I87.2 - Venous insufficiency (chronic) (peripheral) (3) Malnutrition Status: Chronic Current Visit: Yes Code(s): E46 - Unspecified protein- calorie malnutrition (4) Delayed wound healing Status: Chronic Current Visit: Yes Code(s): T14.8XXD - Other injury of unspecified body region, subsequent encounter Type of Wound Date of Service: 07/14/18 Chief Complaint: Left leg ulcer History of Wound: This 52-year-old male presents for follow-up of left leg ulcer. He wears farrow wraps for edema control. He has difficulty with daily elevation due to work demands. He denies calf pain, shortness of breath, chest pain, fever, chill, nausea, vomiting, loss of appetite, or leg pain. He has been moisturizing the surrounding ulcer site skin with moisturizing lotion as advised and there is less skin peeling and inflammation. He thinks the ulcer site has healed. He is continue to wear compression dressings. He does have difficulty elevating the limb because he is very busy working most the day. He is trying to get a compression pump and is currently delaying this process due to over $700 cost. Progress of Wound: Healed - Physical Exam Vital Signs Temp Pulse Resp BP 97.1 F L 73 16 122/65 H 07/14/18 08:10 07/14/18 08:10 07/14/18 08:10 07/14/18 08:10 General: Alert, Oriented x3, Cooperative Extremities: No cyanosis, Capillary Refill Less than 3 Seconds, No Calf Tenderness - Negative Isaac and Whitmore sign left lower extremity, Diminished Peripheral Pulses, Edema - Bilateral lower extremities consistent with venous insufficiency and lymphedema Skin: Ulcer/ Wound - The ulcer site has healed and there is full epithelialization. The peripheral skin is hairless and atrophic. There is continued edema inflammation and hyperpigmentation noted. No blisters are noted. Wound Measurements and Assessment WC - Nurse 1 - General Ulcer Measurement Start: 06/30/18 08:02 Freq: Status: Active Protocol: Activity Type Activity Date Activity User E-Sign Co-Sign Detail Recorded Client Recorded Date Recorded By Document 07/14/18 08:10 [id number] 07/14/18 08:11 07/14/18 08:10 Wound Center Nurse 1 [Ulcer Assessment] #1- LT BLANCAS -Combined with other wound No -Current Size (cm) - Length 0 -Current Size (cm) - Width 0 -Current Size (cm) - Depth 0 -Total Square Cm 0 -Photo Taken Yes -Epithelialization Large 67-100% [Edema Assessment] -Lower Limb Edema Present Yes -Left Calf (cm) 53.4 -Left Ankle (cm) 27.9 - Nurse 2 - General Ulcer CM Notes Start: 06/30/18 08:02 Freq: Status: Active Protocol: Activity Type Activity Date Activity User E-Sign Co-Sign Detail Recorded Client Recorded Date Recorded By Document 07/14/18 08:36 [id number] 07/14/18 08:37 07/14/18 08:36 Pain Scale: 0-10 Numeric [Pain] -Is Patient Pain Free? Yes Musculoskeletal: No Tenderness to Palpation of Joints or Extremities, Muscle Wasting, - - Compartments remain soft left lower extremity to palpate Neurological: Sensory exam intact to light touch and pain, - Psych/Mental Status: Normal Affect, Appropriate Debridement Note Post-Debridement Measurements/Treatment - Nurse 2 - General Ulcer CM Notes Start: 06/30/18 08:02 Freq: Status: Active Protocol: Activity Type Activity Date Activity User E-Sign Co-Sign Detail Recorded Client Recorded Date Recorded By Document 06/30/18 08:27 [id number] 06/30/18 08:34 Document 07/14/18 08:36 [id number] 07/14/18 08:37 06/30/18 07/14/18 08:27 08:36 Wound Center Nurse 2 #1- LT BLANCAS -Time 08:27 -Correct Patient Yes -Correct Side, Site, Position Yes -Correct Procedure Yes -Procedure Performed Yes -Type of Procedure Debridement -Clinical Debridement Subcutaneous -Post Debridement Size (cm) - Length 0.3 -Post Debridement Size (cm) - Width 0.4 -Post Debridement Size (cm) - Depth 0.2 -Total Square Cm 0.12 -Wound/Ulcer Outcome Not Healed -Ulcer Cleansing Rinsed/ Irrigated with Saline -Foul Odor after Cleansing No -Bleeding Controlled with Pressure -Offloading No -Treatment Response Procedure Tolerated Well Pain Scale: 0-10 Numeric Is Patient Pain Free? Yes Yes No debridement was completed today - ulcer site is healed today Assessment/Plan Active Problems Venous insufficiency (Chronic) Malnutrition (Chronic) Delayed wound healing (Chronic) Assessment: Left leg ulcer chronic -healed today. Venous insufficiency. Lower extremity edema and lymphedema bilateral. Delayed healing. Malnutrition suspected. Obesity Plan: I reviewed and discussed his case today. No debridement was performed today because the ulcer site has healed. He can discontinue wound product application and dressing care. He was advised to discontinue nutritional sup plementation. He understands the site is very friable and he is at high risk for re-ulceration; to monitor closely on a daily basis. To continue moisturizing the skin to maintain proper skin integrity with Lac-Hydrin. I encouraged him to elevate limbs at rest. To avoid idle standing or sitting. I advised him to elevate the legs at least 20 minutes every hour. Increase edema is noted. To continue with diuresis per primary care physician. To continue farrow wraps. I also recommend compression pumps lymphedema; order was provided previously. The finalization of this orders pending due to the cost and he will do his best to participate. He is discharged from the wound healing center at this time. To return if re-ulceration occurs or call the foot and ankle Center if he has any other lower extremity concerns.
== END 2018-07-25 23:59 ==
LOC: WC 08:00
PROVIDERS: Family Provider Internal Medicine; PCP Internal Medicine; Visit Provider Podiatrist
DX: I87.2 Venous insufficiency (chronic) (peripheral) (principal); L97.822 Non-pressure chronic ulcer of other part of left lower leg with fat layer exposed; R60.0 Localized edema; E89.0 Postprocedural hypothyroidism; Z71.3 Dietary counseling and surveillance; Z68.42 Body mass index [BMI] 45.0-49.9, adult; E66.9 Obesity, unspecified
CPT/HCPCS: 11042; 99212; G0463

== ENCOUNTER 2022-03-24 10:00 | Outpatient (RCR) | payer OTHER, SELFPAY ==
[2022-03-17 10:34] VITALS: BP 138/83; PULSE 78; RESP 22; TEMP 35.9
--- NOTE | 2022-03-17 13:15 | HP.PCM_ITS ---
History of Present Illness Date of Service: 03/17/22 Chief Complaint: Left leg ulcer History of Wound: This 56-year-old male presents for evaluation of left anterior leg ulcer that started 2 months ago. He has been placing aloe gel and black christian on to the ulcer. He has a history of edema and lymphedema. He has not been wearing his compression wraps or using his compression pumps. He has a history of leg ulcers, lymphedema, edema in legs, CHF, HTN, obstructive sleep apnea, osteoarthritis, obesity, depression and PVD. Arterial study done 04/04/18 showed Resting ankle?brachial indices were calculated bilaterally. The resting right ankle?brachial index was calculated to be 1.43. The resting left ankle?brachial index was calculated to be 1.40 Venous studies from 03/31/28 showed Valvular competence appears intact within the proximal deep venous systems bilaterally. The right greater saphenous vein appears incompetent above the knee. The left greater saphenous vein appears incompetent above the knee. He denies fever, chills, nausea or vomiting. Progress of Wound: Left anterior leg ulcer is superficial and very painful. [facility] Medical History (Updated 03/21/22 @ 14:51 by Katie Kauffman NP, [employer]) Edema leg Home Medications furosemide 20 mg tablet 20 mg PO BIDLX 03/24/18 [History Last Taken Unknown] lisinopril 2.5 mg tablet 2.5 mg PO DAILY 03/24/18 [History Last Taken Unknown] aspirin 81 mg tablet 81 mg PO DAILY 03/17/22 [History Last Taken Unknown] Allergy/AdvReac Type Severity Reaction Status Date / Time No Known Allergies Allergy Verified 03/17/22 10:49 Family History Mother CHF (congestive heart failure) Father Parkinsons disease Surgical History History of surgical removal of skin lesion Status post right foot surgery Social History Smoking Status: Never smoker ROS Constitutional Constitutional: Reports stops breathing during sleep; Denies fatigue, fever(s) or frequent falls Eyes Eyes: Reports requires corrective lenses ENT HEENT: Reports none Cardiovascular Cardiovascular: Denies chest pain or vomiting Respiratory/Chest Respiratory/Chest: Reports as per HPI Gastrointestinal Gastrointestinal: Reports none Genitourinary Genitourinary: Reports none Musculoskeletal Musculoskeletal: Reports joint pain and joint stiffness Integumentary Integumentary: Reports skin ulcer Neurologic Neurologic: Reports none Psychiatric Psychiatric: Reports as per HPI Endocrine Endocrinology: Reports none Vital Signs Vital Signs Vital Signs: 03/17/22 10:34 Temperature 96.7 F L Temperature Source Temporal Pulse Rate 78 Respiratory Rate 22 H Blood Pressure 138/83 H Blood Pressure Mean 101 Blood Pressure Source Monitor Physical Exam Const alert and no apparent distress General Appearance: cooperative Nutritional Appearance: obese HEENT normocephalic and head/scalp atraumatic Eyes General Eye: normal appearance of both eyes Neck full ROM Lymph Lymphatic: lymphedema moderate and pitting Lymphatic Narrative: Lymphedema of bilateral lower extremities up into the thighs bilaterally. Resp normal respiratory effort, normal air movement and clear to auscultation bilaterally Effort and Inspection: able to speak in complete sentences Cardio regular rate and regular rhythm GI soft to palpation and non-tender Back/Spine normal ROM Extremity normal capillary refill General Extremity: edema bilateral lower extremity (+3-+4 edema bilateral lower extremities) Details: severe Peripheral Pulses: Yes dorsalis pedis pulses present Skin Skin Narrative: Left anterior leg ulcer is superficial with a pink wound bed. Toshia wound is stable. Wound Narrative: Left anterior leg ulcer Neuro oriented x3 Psych cooperative and affect normal Debridement Note Debridement Note Wound debrided: anterior leg ulcer Laterality: Left Wound Grade/Stage: Stage II Type of Debridement: Excisional debridement Anesthesia Used: 5% Lidocaine Gel Depth: Down to and including healthy tissue and in the subcutaneous layer Percentage of wound debrided: 100 Instrument Used: 5mm curette Tissue Removed: Devitalized tissue and slough Severity: Fat Layer Exposed Amount of bleeding with debridement: Mild Bleeding Controlled with: Compression and gauze Patient tolerated procedure: Patient tolerated procedure well Post-Debridement Measurements and Additional Note: Post-Debridement Measurements/Treatment WC - Nurse 1 - General Ulcer Assessment Start: 03/17/22 10:30 Freq: Status: Active Protocol: GULSHAN.LOWANGELY Activity Type Activity Date Activity User E-sign Co-sign Detail Recorded Client Recorded Date Recorded By Document 03/17/22 10:34 DL [id number] 03/17/22 10:47 DL 03/17/22 10:34 WC - Today's Visit Information Type of service Initial Visit Arrival Mode Ambulatory, Crutches Transfer Assistance Manual Transfer Assist (Other) x1 Patient Identification Verified (Name & Yes ) Patient Requires Transmission-Based No Precautions Vital Signs Temperature (97.8 F-99.1 F) 96.7 F L Temperature Source Temporal Pulse Rate (60-100) 78 Pulse Location Monitor Respiratory Rate (12-18) 22 H Respiratory rate source Observation Blood Pressure (90/60-120/80) 138/83 H Blood Pressure Mean 101 Source Monitor History Since Last Visit- (Skip if this is Patient's initial visit) Left Footwear Regular Shoe Right Footwear Regular Shoe Pain Scale: 0-10 Numeric Is Patient Pain Free? Yes Lower Extremity Assessment/ Foot Assessment/ Toe Nail Assessment Left -Posterior Tibial Palpable Yes -Posterior Tibial Doppler Multiphasic -Dorsalis Pedis Palpable Yes -Dorsalis Pedis Doppler Multiphasic -Extremity Color Hemosiderin -Hair Growth on Legs No -Hair Growth on Toes No -Temperature of Extremity Warm -Capillary Refill Less than 3 Seconds -Dependent Rubor No -Blanched when Elevated No -Lipodermatosclerosis No -Other Deformity No -Prior Foot Ulcer No -Charcot Joint No -Prior Amputation No -Thick No -Discolored No -Deformed No -Improper Length & Hygeine No Right -Posterior Tibial Palpable Yes -Posterior Tibial Doppler Multiphasic -Dorsalis Pedis Palpable Yes -Dorsalis Pedis Doppler Multiphasic -Extremity Color Normal -Hair Growth on Legs No -Hair Growth on Toes No -Temperature of Extremity Warm -Capillary Refill Less than 3 Seconds -Dependent Rubor No -Blanched when Elevated No -Lipodermatosclerosis No -Other Deformity No -Prior Foot Ulcer No -Charcot Joint No -Prior Amputation No -Thick No -Discolored No -Deformed No -Improper Length & Hygeine No Neuropathy Assessment Feet - Top Side and Bottom <Entered> (a) Communication Assessment Able to Read Yes Able to Write Yes Right Hearing Abillity Normal Left Hearing Abillity Normal Visual Assistive Devices Glasses Teaching Assessment Preferences Verbal,Written, Demonstration Barriers to Learning None,Knowledge Deficit Readiness To Learn Fair Willingness to Engage in Self Management Med Activies Readiness to Engage in Self Management Med Activities Anxiety Level Calm Cooperation Cooperative Perception Coherent Interest in Health Problem Asks Questions Education Importance Acknowledges Need Does Patient Smoke tobacco or other No substances Smoking Status Never smoker Is Patient Diabetic No Functional Assessment Recent Decline in Ability to Perform Denies Any Declines Culture/Oriental Orthodox/Director Of Outside Sales Cultural/Oriental Orthodox Needs that may affect No Treatment Plan Would you allow our hospital drivers license examiner to No meet you for the purpose of spiritual/ emotional support? Director Of Outside Sales to contact place of anabaptism No Teaching: Wound Center Discharge Instructions -Person Taught Patient *Nutrition -Person Taught Patient Applying Farow Wrap -Person Taught Patient [facility] Orientation/ Contacting Physician -Person Taught Patient Venous Insufficiency -Person Taught Patient Special Procedure Instuctions -Person Taught Patient Control Swelling with Leg Elevation -Person Taught Patient Compression Wraps & Stockings -Person Taught Patient *Wound/Skin Impairment -Person Taught Patient *Welcome to the Wound Center -Person Taught Patient (a) 1 - + WC - Nurse 1 - General Ulcer Measurement Start: 03/17/22 10:30 Freq: Status: Active Protocol: Activity Type Activity Date Activity User E-sign Co-sign Detail Recorded Client Recorded Date Recorded By Document 03/17/22 10:34 DL [id number] 03/17/22 10:47 DL 03/17/22 10:34 Wound Center Nurse 1 #2 L Sanchez -Current Size (cm) - Length 2 -Current Size (cm) - Width 3.3 -Current Size (cm) - Depth 0.2 -Total Square Cm 6.6 -Photo Taken Yes -Classification - Thickness Full Thickness without Exposed Support Structure -Exudate Amt Medium -Exudate Type Serosanguineous -Wound Margin Distinct, Outline Attached -Granulation Amt None Present (0 %) -Necrosis Amt Large (67-100%) -Necrotic Tissue Type Adherent Slough -Structure Exposed N/A -Texture (Toshia-wound Skin Appearance) Localized Edema ,Scarring -Moisture (Toshia-wound Skin Appearance) Dry/Scaly -Color (Toshia-wound Skin Appearance) Erythema, Hemosiderin Staining -Temperature (Toshia-wound Skin No Abnormality Appearance) (Pt Warm) -Tenderness on Palpation (Toshia-wound No Skin Appearance) -Ulcer Cleansing Soap and Water -Foul Odor after Cleansing No -Anesthetic Used 5% Lidocaine Gel Right Calf (cm) 49.5 Right Ankle (cm) 28 Left Calf (cm) 48.5 Left Ankle (cm) 29 WC - Nurse 2 - General Ulcer CM Notes Start: 03/17/22 10:30 Freq: Status: Active Protocol: Activity Type Activity Date Activity User E-sign Co-sign Detail Recorded Client Recorded Date Recorded By Document 03/17/22 11:04 [id number] 03/17/22 11:11 03/17/22 11:04 Wound Center Nurse 2 #2 L Sanchez -Time 11:10 -Correct Patient Yes -Correct Side, Site, Position Yes -Correct Procedure Yes -Procedure Performed Yes -Type of Procedure Debridement -Clinical Debridement Subcutaneous -Tissue Removed Subcutaneous -Post Debridement (cm) - Length 2.5 -Post Debridement (cm) - Width 4.3 -Post Debridement (cm) - Depth 0.2 -Total Square (Post) (cm) 10.75 -Area of Debridement (cm) - Length 2.5 -Area of Debridement (cm) - Width 4.3 -Total Square (Area) (cm) 10.75 -Tunneling No -Undermining/Tunneling No -Circular Undermining No -Wound/Ulcer Outcome Not Healed -Ulcer Cleansing Rinsed/ Irrigated with Saline -Foul Odor after Cleansing No -Bioengineered Tissue No -Bleeding Controlled with Pressure -Treatment Response Procedure Tolerated Well -Offloading No -Debridement - Subq, 1st 20sq cm Yes Pain Scale: 0-10 Numeric Is Patient Pain Free? Yes - Nurse 3 - General Ulcer D/C NN Start: 03/17/22 10:30 Freq: Status: Active Protocol: Activity Type Activity Date Activity User E-sign Co-sign Detail Recorded Client Recorded Date Recorded By Document 03/17/22 11:27 [facility] [id number] 03/17/22 11:28 [facility] 03/17/22 11:27 Wound Care Nurse 3 #2 L Sanchez -Ulcer Cleansing Rinsed/ Irrigated with Saline -Foul Odor after Cleansing No -Primary Dressing Applied Optilok 6.5x10, Promogran -Other Dressing DRSG PER [place] [employer]SEMBLER -Optilok 6.5x10 1 -Promogran 1 Left -Multi-Layered Wrap Application Multi-Layer Comp - Left ($) -Other PER [place] [employer]SEMBLER Treatment Response Procedure Tolerated Well Pain Scale: 0-10 Numeric Is Patient Pain Free? Yes - Visit Discharge Discharge Condition Stable Ambulatory Status Ambulatory, Crutches Charges/Coding Visit Charges Office Visits / Consults: 61438 OV L4 Est (25 modifier) Procedures Integumentary 111xxx-113xx: [id number] Bettina subq tissue 20 sq cm/< Assessment/Plan Assessment/Plan (1) Ulcer of left lower extremity with fat layer exposed: CODE(S): L97.922 - Non-pressure chronic ulcer of unspecified part of left lower leg with fat layer exposed (2) Bilateral lower extremity edema: CODE(S): R60.0 - Localized edema (3) Lymphedema associated with obesity: CODE(S): I89.0 - Lymphedema, not elsewhere classified; E66.9 - Obesity, unspecified (4) Venous insufficiency: CODE(S): I87.2 - Venous insufficiency (chronic) (peripheral) (5) Other specified peripheral vascular diseases: CODE(S): I73.89 - Other specified peripheral vascular diseases PLAN: Plan Patient was evaluated at the wound center today. Wound care - To left anterior leg ulcer Promogram covered with Super absorber dressing, such as ABD. Compression - 3M 2 layer wraps to the left leg, lightly wrapped. Hopefully this will start to compress legs to remove some of the edema. Encourage patient to start to use his lymphedema pumps to help decrease some of his edema. Wound culture obtained today of left anterior leg ulcer, depending on the results of the culture, it may necessitate the need for treatment with antibiotics. Encouraged patient to elevate his legs when sitting. If he develops pain in left leg or any other issues over the weekend, he can take to two layer wrap off to asses his feet and leg. Follow up one week. Call or come in sooner, or go to ED if develop any concerns.
[2022-03-24 10:05] VITALS: BP 125/69; PULSE 79; TEMP 36.1
--- NOTE | 2022-03-24 10:34 | PN.PCM_ITS ---
History of Present Illness Date of Service: 03/24/22 Chief Complaint: Left leg ulcer History of Wound: This 56-year-old male presents for evaluation of left anterior leg ulcer that started 2 months ago. He has been placing aloe gel and black christian on to the ulcer. He has a history of edema and lymphedema. He has not been wearing his compression wraps or using his compression pumps. He has a history of leg ulcers, lymphedema, edema in legs, CHF, HTN, obstructive sleep apnea, osteoarthritis, obesity, depression and PVD. Arterial study done 04/04/18 showed Resting ankle?brachial indices were calculated bilaterally. The resting right ankle?brachial index was calculated to be 1.43. The resting left ankle?brachial index was calculated to be 1.40 Venous studies from 03/31/28 showed Valvular competence appears intact within the proximal deep venous systems bilaterally. The right greater saphenous vein appears incompetent above the knee. The left greater saphenous vein appears incompetent above the knee. Wound culture obtained on 03/17/22 was positive for Staphylococcus pseudintermediu and MRSE. He was started on Levaquin. He denies fever, chills, nausea or vomiting. Progress of Wound: Left anterior leg ulcer is stable. Toshia wound is excoriated. Ulcer is painful. Left leg edema has shown improvement with the 3M 2 layer wraps, edema is +2-+3, non pitting. He states he is has started to use his compression pumps a couple of times a week. Objective Data Objective Data Vital Signs: Vital Signs Temp Pulse Resp BP 96.9 F L 79 22 H 125/69 H 03/24/22 10:05 03/24/22 10:05 03/17/22 10:34 03/24/22 10:05 Lab / Micro Data Micro: Microbiology 03/17/22 11:10 Wound - Leg, Left Gram Stain - Final 03/17/22 11:10 Wound - Leg, Left Wound Culture - Final Staphylococcus pseudintermediu Staphylococcus epidermidis 03/17/22 11:10 Wound - Leg, Left Anaerobic Culture - Final No anaerobic bacteria isolated. Charges/Coding Procedures Integumentary 111xxx-113xx: [id number] Bettina subq tissue 20 sq cm/< Debridement Note Debridement Note Wound debrided: anterior leg ulcer Laterality: Left Wound Grade/Stage: Stage II Type of Debridement: Excisional debridement Anesthesia Used: 5% Lidocaine Gel Depth: Down to and including healthy tissue and in the subcutaneous layer Percentage of wound debrided: 100 Instrument Used: 5mm curette Tissue Removed: Devitalized tissue and slough Severity: Fat Layer Exposed Amount of bleeding with debridement: Mild Bleeding Controlled with: Compression and gauze Patient tolerated procedure: Patient tolerated procedure well Post-Debridement Measurements and Additional Note: Post-Debridement Measurements/Treatment GULSHAN - Nurse 1 - General Ulcer Assessment Start: 03/17/22 10:30 Freq: Status: Active Protocol: TERRANCE Activity Type Activity Date Activity User E-sign Co-sign Detail Recorded Client Recorded Date Recorded By Document 03/17/22 10:34 DL [id number] 03/17/22 10:47 DL Document 03/24/22 10:05 KR [id number] 03/24/22 10:08 KR 03/17/22 03/24/22 10:34 10:05 GULSHAN - Today's Visit Information Type of service Initial Visit Follow-up Visit (Physician/RADIATOR TESTER ) Arrival Mode Ambulatory, Ambulatory, Crutches Crutches Transfer Assistance Manual Transfer Assist (Other) x1 Patient Identification Verified (Name & Yes Yes ) Patient Requires Transmission-Based No Precautions Vital Signs Temperature (97.8 F-99.1 F) 96.7 F L 96.9 F L Temperature Source Temporal Temporal Pulse Rate (60-100) 78 79 Pulse Location Monitor Monitor Respiratory Rate (12-18) 22 H Respiratory rate source Observation Blood Pressure (90/60-120/80) 138/83 H 125/69 H Blood Pressure Mean (mm Hg) 101 87 Source Monitor Monitor Position Sitting Blood Pressure Location Left Arm History Since Last Visit- (Skip if this is Patient's initial visit) Have you changed medications since your No last visit? Any new allergies or adverse reactions No Had a fall/change in ADL's that may No increase risk of falls Signs or symptoms of abuse and/or No neglect since last visit Have you been in the hospital since your No last visit? Has dressing in place as prescribed Yes Has compression in place as prescribed Yes Has offloadiing in place as prescribed N/A Experienced any changes in pain level or No management Left Footwear Regular Shoe Regular Shoe Right Footwear Regular Shoe Regular Shoe Pain Scale: 0-10 Numeric Is Patient Pain Free? Yes Yes Lower Extremity Assessment/ Foot Assessment/ Toe Nail Assessment Left -Posterior Tibial Palpable Yes -Posterior Tibial Doppler Multiphasic -Dorsalis Pedis Palpable Yes -Dorsalis Pedis Doppler Multiphasic -Extremity Color Hemosiderin -Hair Growth on Legs No -Hair Growth on Toes No -Temperature of Extremity Warm -Capillary Refill Less than 3 Seconds -Dependent Rubor No -Blanched when Elevated No -Lipodermatosclerosis No -Other Deformity No -Prior Foot Ulcer No -Charcot Joint No -Prior Amputation No -Thick No -Discolored No -Deformed No -Improper Length & Hygeine No Right -Posterior Tibial Palpable Yes -Posterior Tibial Doppler Multiphasic -Dorsalis Pedis Palpable Yes -Dorsalis Pedis Doppler Multiphasic -Extremity Color Normal -Hair Growth on Legs No -Hair Growth on Toes No -Temperature of Extremity Warm -Capillary Refill Less than 3 Seconds -Dependent Rubor No -Blanched when Elevated No -Lipodermatosclerosis No -Other Deformity No -Prior Foot Ulcer No -Charcot Joint No -Prior Amputation No -Thick No -Discolored No -Deformed No -Improper Length & Hygeine No Neuropathy Assessment Feet - Top Side and Bottom <Entered> (a) Communication Assessment Able to Read Yes Able to Write Yes Right Hearing Abillity Normal Left Hearing Abillity Normal Visual Assistive Devices Glasses Teaching Assessment Preferences Verbal,Written, Demonstration Barriers to Learning None,Knowledge Deficit Readiness To Learn Fair Willingness to Engage in Self Management Med Activies Readiness to Engage in Self Management Med Activities Anxiety Level Calm Cooperation Cooperative Perception Coherent Interest in Health Problem Asks Questions Education Importance Acknowledges Need Does Patient Smoke tobacco or other No substances Smoking Status Never smoker Is Patient Diabetic No Functional Assessment Recent Decline in Ability to Perform Denies Any Declines Culture/Orthodox/Journeyman Level Acoustic Analyst Cultural/Orthodox Needs that may affect No Treatment Plan Would you allow our hospital glue plant operator to No meet you for the purpose of spiritual/ emotional support? Journeyman Level Acoustic Analyst to contact place of mandaeism No Teaching: Wound Center Discharge Instructions -Person Taught Patient *Nutrition -Person Taught Patient Applying Farow Wrap -Person Taught Patient [facility] Orientation/ Contacting Physician -Person Taught Patient Venous Insufficiency -Person Taught Patient Special Procedure Instuctions -Person Taught Patient Control Swelling with Leg Elevation -Person Taught Patient Compression Wraps & Stockings -Person Taught Patient *Wound/Skin Impairment -Person Taught Patient *Welcome to the Wound Center -Person Taught Patient (a) 1 - + WC - Nurse 1 - General Ulcer Measurement Start: 03/17/22 10:30 Freq: Status: Active Protocol: Activity Type Activity Date Activity User E-sign Co-sign Detail Recorded Client Recorded Date Recorded By Document 03/17/22 10:34 DL [id number] 03/17/22 10:47 DL Document 03/24/22 10:05 KR [id number] 03/24/22 10:08 KR 03/17/22 03/24/22 10:34 10:05 Wound Center Nurse 1 #2 L Sanchez -Current Size (cm) - Length 2 2.5 -Current Size (cm) - Width 3.3 4 -Current Size (cm) - Depth 0.2 0.2 -Total Square Cm 6.6 10.0 -Photo Taken Yes -Classification - Thickness Full Thickness without Exposed Support Structure -Exudate Amt Medium Medium -Exudate Type Serosanguineous Serosanguineous -Wound Margin Distinct, Distinct, Outline Outline Attached Attached -Granulation Amt None Present (0 Medium (34-66%) %) -Granulation Quality [place],Red -Necrosis Amt Large (67-100%) Medium (34-66%) -Necrotic Tissue Type Adherent Slough Adherent Slough -Structure Exposed N/A -Texture (Toshia-wound Skin Appearance) Localized Edema Assessed, ,Scarring Scarring -Moisture (Toshia-wound Skin Appearance) Dry/Scaly No Abnormality, Assessed -Color (Toshia-wound Skin Appearance) Erythema, No Abnormality, Hemosiderin Assessed Staining -Temperature (Toshia-wound Skin No Abnormality No Abnormality Appearance) (Pt Warm) (Pt Warm) -Tenderness on Palpation (Toshia-wound No No Skin Appearance) -Ulcer Cleansing Soap and Water Rinsed/ Irrigated with Saline -Foul Odor after Cleansing No No -Anesthetic Used 5% Lidocaine 5% Lidocaine Gel Gel Right Calf (cm) 49.5 Right Ankle (cm) 28 Left Calf (cm) 48.5 Left Ankle (cm) 29 WC - Nurse 2 - General Ulcer CM Notes Start: 03/17/22 10:30 Freq: Status: Active Protocol: Activity Type Activity Date Activity User E-sign Co-sign Detail Recorded Client Recorded Date Recorded By Document 03/17/22 11:04 [id number] 03/17/22 11:11 Document 03/24/22 10:28 [id number] 03/24/22 10:31 03/17/22 03/24/22 11:04 10:28 Wound Center Nurse 2 #2 L Sanchez -Time 11:10 10:30 -Correct Patient Yes Yes -Correct Side, Site, Position Yes Yes -Correct Procedure Yes Yes -Procedure Performed Yes Yes -Type of Procedure Debridement Debridement -Clinical Debridement Subcutaneous Subcutaneous -Tissue Removed Subcutaneous Subcutaneous -Post Debridement (cm) - Length 2.5 2.5 -Post Debridement (cm) - Width 4.3 4.1 -Post Debridement (cm) - Depth 0.2 0.2 -Total Square (Post) (cm) 10.75 10.25 -Area of Debridement (cm) - Length 2.5 2.5 -Area of Debridement (cm) - Width 4.3 4.1 -Total Square (Area) (cm) 10.75 10.25 -Tunneling No No -Undermining/Tunneling No No -Circular Undermining No No -Wound/Ulcer Outcome Not Healed Not Healed -Ulcer Cleansing Rinsed/ Rinsed/ Irrigated with Irrigated with Saline Saline -Foul Odor after Cleansing No No -Bioengineered Tissue No No -Bleeding Controlled with Pressure Pressure -Treatment Response Procedure Procedure Tolerated Well Tolerated Well -Offloading No No -Debridement - Subq, 1st 20sq cm Yes Yes Pain Scale: 0-10 Numeric Is Patient Pain Free? Yes Yes WC - Nurse 3 - General Ulcer D/C NN Start: 03/17/22 10:30 Freq: Status: Active Protocol: Activity Type Activity Date Activity User E-sign Co-sign Detail Recorded Client Recorded Date Recorded By Document 03/17/22 11:27 [facility] [id number] 03/17/22 11:28 [facility] 03/17/22 11:27 Wound Care Nurse 3 #2 L Sanchez -Ulcer Cleansing Rinsed/ Irrigated with Saline -Foul Odor after Cleansing No -Primary Dressing Applied Optilok 6.5x10, Promogran -Other Dressing DRSG PER [place] SENIOR RELIABILITY ENGINEER -Optilok 6.5x10 1 -Promogran 1 Left -Multi-Layered Wrap Application Multi-Layer Comp - Left ($) -Other PER [place] SENIOR RELIABILITY ENGINEER Treatment Response Procedure Tolerated Well Pain Scale: 0-10 Numeric Is Patient Pain Free? Yes WC - Visit Discharge Discharge Condition Stable Ambulatory Status Ambulatory, Crutches Assessment/Plan Assessment/Plan (1) Ulcer of left lower extremity with fat layer exposed: CODE(S): L97.922 - Non-pressure chronic ulcer of unspecified part of left lower leg with fat layer exposed (2) Bilateral lower extremity edema: CODE(S): R60.0 - Localized edema (3) Lymphedema associated with obesity: CODE(S): I89.0 - Lymphedema, not elsewhere classified; E66.9 - Obesity, unspecified (4) Venous insufficiency: CODE(S): I87.2 - Venous insufficiency (chronic) (peripheral) (5) Other specified peripheral vascular diseases: CODE(S): I73.89 - Other specified peripheral vascular diseases PLAN: Plan Patient was evaluated at the wound center today. Wound care - To left anterior leg ulcer Kenia covered with Super absorber dressing, such as ABD. Compression - 3M 2 layer wraps to the left leg, lightly wrapped. Hopefully this will start to compress legs to remove some of the edema. Encourage patient to start to use his lymphedema pumps to help decrease some of his edema. Wound culture obtained on 03/17/22 was positive for Staphylococcus pseudintermediu and MRSE. He was started on Levaquin. Encouraged patient to elevate his legs when sitting. He removed the 3M wraps to shower before coming into the wound center. Instructed him to place RYAN wrap on leg after showering until he is seen at the wound center. Follow up one week. Call or come in sooner, or go to ED if develop any concerns.
== END 2022-03-26 23:59 | disposition home or self-care (01) ==
LOC: WC 10:00
PROVIDERS: PCP Internal Medicine; Visit Provider Nurse Practitioner Family
DX: L97.822 Non-pressure chronic ulcer of other part of left lower leg with fat layer exposed (principal); I11.0 Hypertensive heart disease with heart failure; I50.9 Heart failure, unspecified; I73.89 Other specified peripheral vascular diseases; I89.0 Lymphedema, not elsewhere classified; I87.2 Venous insufficiency (chronic) (peripheral); R60.0 Localized edema; E66.9 Obesity, unspecified; G47.33 Obstructive sleep apnea (adult) (pediatric); F32.A Depression, unspecified; Z79.82 Long term (current) use of aspirin; Z79.899 Other long term (current) drug therapy
CPT/HCPCS: 11042; 29581; 87070; 87075; 87186; 87205; 99213; 99214; G0463

== ENCOUNTER 2022-04-23 10:00 | Outpatient (RCR) | payer OTHER, SELFPAY ==
[2022-03-27 00:42] VITALS: BP 125/69; PULSE 79; RESP 22; TEMP 36.1
[2022-04-02 10:41] VITALS: BP 145/83; PULSE 78; RESP 18; TEMP 36.1
--- NOTE | 2022-04-02 12:38 | PN.PCM_ITS ---
History of Present Illness Date of Service: 04/02/22 Chief Complaint: Left leg ulcer History of Wound: This 56-year-old male presents for evaluation of left anterior leg ulcer that started 2 months ago. He has been placing aloe gel and black christian on to the ulcer. He has a history of edema and lymphedema. He has not been wearing his compression wraps or using his compression pumps. He has a history of leg ulcers, lymphedema, edema in legs, CHF, HTN, obstructive sleep apnea, osteoarthritis, obesity, depression and PVD. Arterial study done 04/04/18 showed Resting ankle?brachial indices were calculated bilaterally. The resting right ankle?brachial index was calculated to be 1.43. The resting left ankle?brachial index was calculated to be 1.40 Venous studies from 03/31/28 showed Valvular competence appears intact within the proximal deep venous systems bilaterally. The right greater saphenous vein appears incompetent above the knee. The left greater saphenous vein appears incompetent above the knee. Wound culture obtained on 03/17/22 was positive for Staphylococcus pseudintermediu and MRSE. He was started on Levaquin. He denies fever, chills, nausea or vomiting. Progress of Wound: Left anterior leg ulcer is stable. Toshia wound is less excoriated. Ulcer is painful. Left leg edema has shown improvement with the 3M 2 layer wraps, edema is +2, non pitting. He states he is has started to use his compression pumps a couple of times a week when the sun has been shining (he has solar energy). Objective Data Objective Data Vital Signs: Vital Signs Temp Pulse Resp BP 97 F L 78 18 145/83 H 04/02/22 10:41 04/02/22 10:41 04/02/22 10:41 04/02/22 10:41 Charges/Coding Procedures Integumentary 111xxx-113xx: 03003 Bettina subq tissue 20 sq cm/< Debridement Note Debridement Note Wound debrided: anterior leg ulcer Laterality: Left Wound Grade/Stage: Stage II Type of Debridement: Excisional debridement Anesthesia Used: 5% Lidocaine Gel Depth: Down to and including healthy tissue and in the subcutaneous layer Percentage of wound debrided: 100 Instrument Used: 7mm curette Tissue Removed: Devitalized tissue and slough Severity: Fat Layer Exposed Amount of bleeding with debridement: Mild Bleeding Controlled with: Compression and gauze Patient tolerated procedure: Patient tolerated procedure well Post-Debridement Measurements and Additional Note: Post-Debridement Measurements/Treatment - Nurse 1 - General Ulcer Assessment Start: 04/02/22 10:40 Freq: Status: Active Protocol: TERRANCE Activity Type Activity Date Activity User E-sign Co-sign Detail Recorded Client Recorded Date Recorded By Document 04/02/22 10:41 JOLENE [id number] 04/02/22 10:52 JOLENE 04/02/22 10:41 WC - Today's Visit Information Type of service Follow-up Visit (Physician/PARACHUTE TAPER ) Arrival Mode Ambulatory, Crutches Transfer Assistance None Patient Identification Verified (Name & Yes ) Patient Requires Transmission-Based No Precautions Vital Signs Temperature (97.8 F-99.1 F) 97 F L Temperature Source Temporal Pulse Rate (60-100) 78 Pulse Location Monitor Respiratory Rate (12-18) 18 Respiratory rate source Observation Blood Pressure (90/60-120/80) 145/83 H Blood Pressure Mean (mm Hg) 103 Source Monitor Position Semi-Fowlers Blood Pressure Location Left Arm History Since Last Visit- (Skip if this is Patient's initial visit) Have you changed medications since your No last visit? Any new allergies or adverse reactions No Had a fall/change in ADL's that may No increase risk of falls Signs or symptoms of abuse and/or No neglect since last visit Have you been in the hospital since your No last visit? Has dressing in place as prescribed Yes Has compression in place as prescribed Yes Has offloadiing in place as prescribed No Experienced any changes in pain level or No management Pain Scale: 0-10 Numeric Is Patient Pain Free? Yes [facility] Nurse 1 - General Ulcer Measurement Start: 04/02/22 10:40 Freq: Status: Active Protocol: Activity Type Activity Date Activity User E-sign Co-sign Detail Recorded Client Recorded Date Recorded By Document 04/02/22 10:41 JOLENE [id number] 04/02/22 10:52 RB 04/02/22 10:41 Wound Center Nurse 1 #2 L Sanchez -Combined with other wound No -Current Size (cm) - Length 2.3 -Current Size (cm) - Width 3.6 -Current Size (cm) - Depth 0.2 -Total Square Cm 8.28 -Photo Taken Yes -Tunneling No -Undermining/Tunneling No -Circular Undermining No -Exudate Amt Medium -Exudate Type Serosanguineous -Wound Margin Distinct, Outline Attached -Granulation Amt Medium (34-66%) -Granulation Quality [place] -Slough/Fibrin Yes -Necrosis Amt Medium (34-66%) -Necrotic Tissue Type Adherent Slough -Structure Exposed N/A -Texture (Toshia-wound Skin Appearance) Assessed, Scarring -Moisture (Toshia-wound Skin Appearance) Assessed -Color (Toshia-wound Skin Appearance) Assessed -Temperature (Toshia-wound Skin No Abnormality Appearance) (Pt Warm) -Tenderness on Palpation (Toshia-wound No Skin Appearance) -Ulcer Cleansing Wound Cleanser -Foul Odor after Cleansing No -Anesthetic Used 5% Lidocaine Gel Lower Limb Edema Present Yes Left Calf (cm) 56 Left Ankle (cm) 29 - Nurse 2 - General Ulcer CM Notes Start: 04/02/22 10:40 Freq: Status: Active Protocol: Activity Type Activity Date Activity User E-sign Co-sign Detail Recorded Client Recorded Date Recorded By Document 04/02/22 11:17 [id number] 04/02/22 11:19 JO 04/02/22 11:17 Wound Center Nurse 2 #2 L Sanchez -Time 11:17 -Correct Patient Yes -Correct Side, Site, Position Yes -Correct Procedure Yes -Procedure Performed Yes -Type of Procedure Debridement -Clinical Debridement Subcutaneous -Tissue Removed Subcutaneous -Post Debridement (cm) - Length 2.4 -Post Debridement (cm) - Width 3.5 -Post Debridement (cm) - Depth 0.2 -Total Square (Post) (cm) 8.40 -Area of Debridement (cm) - Length 2.4 -Area of Debridement (cm) - Width 3.5 -Total Square (Area) (cm) 8.40 -Tunneling No -Undermining/Tunneling No -Circular Undermining No -Wound/Ulcer Outcome Not Healed -Ulcer Cleansing Rinsed/ Irrigated with Saline -Foul Odor after Cleansing No -Bioengineered Tissue No -Bleeding Controlled with Pressure -Treatment Response Procedure Tolerated Well -Offloading No -Debridement - Subq, 1st 20sq cm Yes Pain Scale: 0-10 Numeric Is Patient Pain Free? Yes - Nurse 3 - General Ulcer D/C NN Start: 04/02/22 10:40 Freq: Status: Active Protocol: Activity Type Activity Date Activity User E-sign Co-sign Detail Recorded Client Recorded Date Recorded By Document 04/02/22 11:39 [id number] 04/02/22 11:40 RB 04/02/22 11:39 Wound Care Nurse 3 #2 L Sanchez -Primary Dressing Applied Optilok 6.5x10, Promogran -Optilok 6.5x10 1 -Promogran 1 Left -Multi-Layered Wrap Application Multi-Layer Comp - Left ($) Treatment Response Procedure Tolerated Well Pain Scale: 0-10 Numeric Is Patient Pain Free? Yes WC - Visit Discharge Discharge Condition Stable Ambulatory Status Ambulatory, Crutches Transportation Private Auto Medication Reconcilliation completed & No provided to patient/care provider Clinical Summary of Care Provided Yes Assessment/Plan Assessment/Plan (1) Ulcer of left lower extremity with fat layer exposed: CODE(S): L97.922 - Non-pressure chronic ulcer of unspecified part of left lower leg with fat layer exposed (2) Bilateral lower extremity edema: CODE(S): R60.0 - Localized edema (3) Lymphedema associated with obesity: CODE(S): I89.0 - Lymphedema, not elsewhere classified; E66.9 - Obesity, unspecified (4) Venous insufficiency: CODE(S): I87.2 - Venous insufficiency (chronic) (peripheral) (5) Other specified peripheral vascular diseases: CODE(S): I73.89 - Other specified peripheral vascular diseases PLAN: Plan Patient was evaluated at the wound center today. Wound care - To left anterior leg ulcer Kenia covered with Super absorber dressing, such as ABD. Compression - 3M 2 layer wraps to the left leg. This seems to be helping his edema. Encourage patient to start to use his lymphedema pumps to help decrease some of his edema. He states he has been using them when the sun has been shining, because he has solar energy. Wound culture obtained on 03/17/22 was positive for Staphylococcus pseudintermediu and MRSE. He was started on Levaquin. Encouraged patient to elevate his legs when sitting. Follow up one week. Call or come in sooner, or go to ED if develop any concerns.
--- NOTE | 2022-04-09 09:20 | PCM.WC.PN ---
History of Present Illness Date of Service: 04/09/22 Chief Complaint: Left leg ulcer History of Wound: This 56-year-old male presents for evaluation of left anterior leg ulcer that started 2 months ago. He has been placing aloe gel and black christian on to the ulcer. He has a history of edema and lymphedema. He has not been wearing his compression wraps or using his compression pumps. He has a history of leg ulcers, lymphedema, edema in legs, CHF, HTN, obstructive sleep apnea, osteoarthritis, obesity, depression and PVD. Arterial study done 04/04/18 showed Resting ankle?brachial indices were calculated bilaterally. The resting right ankle?brachial index was calculated to be 1.43. The resting left ankle?brachial index was calculated to be 1.40 Venous studies from 03/31/18 showed Valvular competence appears intact within the proximal deep venous systems bilaterally. The right greater saphenous vein appears incompetent above the knee. The left greater saphenous vein appears incompetent above the knee. Wound culture obtained on 03/17/22 was positive for Staphylococcus pseudintermediu and MRSE. He was started on Levaquin. He denies fever, chills, nausea or vomiting. Progress of Wound: Left anterior leg ulcer is stable. Wound bed is fibrous, doesn't bleed well with debridement. Toshia wound is stable but still pink. His 3M 2 layer wraps slid down, so his foot and lower leg (which includes where the ulcer is located) has less edema, but mid calf up has +4. He has not used his compression pumps this past week due to not having any power because it has been so over cast and he uses solar power. Objective Data Objective Data Vital Signs: Vital Signs Temp Pulse Resp BP 97 F L 78 18 145/83 H 04/02/22 10:41 04/02/22 10:41 04/02/22 10:41 04/02/22 10:41 Charges/Coding Procedures Integumentary 111xxx-113xx: [id number] Bettina subq tissue 20 sq cm/< Debridement Note Debridement Note Wound debrided: anterior leg ulcer Laterality: Left Wound Grade/Stage: Stage II Type of Debridement: Excisional debridement Anesthesia Used: 5% Lidocaine Gel Depth: Down to and including healthy tissue and in the subcutaneous layer Percentage of wound debrided: 100 Instrument Used: 7mm curette Tissue Removed: Devitalized tissue and slough Severity: Fat Layer Exposed Amount of bleeding with debridement: Mild (minimal bleeding with debridement.) Bleeding Controlled with: Compression and gauze Patient tolerated procedure: Patient tolerated procedure well Post-Debridement Measurements and Additional Note: Post-Debridement Measurements/Treatment - Nurse 1 - General Ulcer Assessment Start: 04/02/22 10:40 Freq: Status: Active Protocol: TERRANCE Activity Type Activity Date Activity User E-sign Co-sign Detail Recorded Client Recorded Date Recorded By Document 04/02/22 10:41 RB [id number] 04/02/22 10:52 RB Document 04/09/22 08:48 RB [id number] 04/09/22 08:54 RB 04/02/22 04/09/22 10:41 08:48 - Today's Visit Information Type of service Follow-up Visit (Physician/WELL SURVEYING ENGINEER ) Arrival Mode Ambulatory, Crutches Transfer Assistance None Patient Identification Verified (Name & Yes ) Patient Requires Transmission-Based No Precautions Vital Signs Temperature (97.8 F-99.1 F) 97 F L Temperature Source Temporal Pulse Rate (60-100) 78 Pulse Location Monitor Respiratory Rate (12-18) 18 Respiratory rate source Observation Blood Pressure (90/60-120/80) 145/83 H Blood Pressure Mean (mm Hg) 103 Source Monitor Position Semi-Fowlers Blood Pressure Location Left Arm History Since Last Visit- (Skip if this is Patient's initial visit) Have you changed medications since your No last visit? Any new allergies or adverse reactions No Had a fall/change in ADL's that may No increase risk of falls Signs or symptoms of abuse and/or No neglect since last visit Have you been in the hospital since your No last visit? Has dressing in place as prescribed Yes Has compression in place as prescribed Yes Has offloadiing in place as prescribed No Experienced any changes in pain level or No management Pain Scale: 0-10 Numeric Is Patient Pain Free? Yes Yes - Nurse 1 - General Ulcer Measurement Start: 04/02/22 10:40 Freq: Status: Active Protocol: Activity Type Activity Date Activity User E-sign Co-sign Detail Recorded Client Recorded Date Recorded By Document 04/02/22 10:41 RB [id number] 04/02/22 10:52 RB Document 04/09/22 08:48 RB [id number] 04/09/22 08:54 RB 04/02/22 04/09/22 10:41 08:48 Wound Center Nurse 1 #2 L Sanchez -Combined with other wound No No -Current Size (cm) - Length 2.3 1.8 -Current Size (cm) - Width 3.6 3.1 -Current Size (cm) - Depth 0.2 0.2 -Total Square Cm 8.28 5.58 -Photo Taken Yes Yes -Tunneling No No -Undermining/Tunneling No No -Circular Undermining No No -Exudate Amt Medium Medium -Exudate Type Serosanguineous Serosanguineous -Wound Margin Distinct, Distinct, Outline Outline Attached Attached -Granulation Amt Medium (34-66%) Medium (34-66%) -Granulation Quality [place],Red -Slough/Fibrin Yes Yes -Necrosis Amt Medium (34-66%) Medium (34-66%) -Necrotic Tissue Type Adherent Slough Adherent Slough -Structure Exposed N/A N/A -Texture (Toshia-wound Skin Appearance) Assessed, Assessed, Scarring Scarring -Moisture (Toshia-wound Skin Appearance) Assessed Assessed -Color (Toshia-wound Skin Appearance) Assessed Assessed -Temperature (Toshia-wound Skin No Abnormality No Abnormality Appearance) (Pt Warm) (Pt Warm) -Tenderness on Palpation (Toshia-wound No No Skin Appearance) -Ulcer Cleansing Wound Cleanser Wound Cleanser -Foul Odor after Cleansing No No -Anesthetic Used 5% Lidocaine 5% Lidocaine Gel Gel Lower Limb Edema Present Yes Yes Left Calf (cm) 56 50.5 Left Ankle (cm) 29 29.5 WC - Nurse 2 - General Ulcer CM Notes Start: 04/02/22 10:40 Freq: Status: Active Protocol: Activity Type Activity Date Activity User E-sign Co-sign Detail Recorded Client Recorded Date Recorded By Document 04/02/22 11:17 [id number] 04/02/22 11:19 Document 04/09/22 09:08 [id number] 04/09/22 09:10 JO 04/02/22 04/09/22 11:17 09:08 Wound Center Nurse 2 #2 L Sanchez -Time 11:17 09:08 -Correct Patient Yes Yes -Correct Side, Site, Position Yes Yes -Correct Procedure Yes Yes -Procedure Performed Yes Yes -Type of Procedure Debridement Debridement -Clinical Debridement Subcutaneous Subcutaneous -Tissue Removed Subcutaneous Subcutaneous -Post Debridement (cm) - Length 2.4 2.2 -Post Debridement (cm) - Width 3.5 3.3 -Post Debridement (cm) - Depth 0.2 0.1 -Total Square (Post) (cm) 8.40 7.26 -Area of Debridement (cm) - Length 2.4 2.2 -Area of Debridement (cm) - Width 3.5 3.3 -Total Square (Area) (cm) 8.40 7.26 -Tunneling No No -Undermining/Tunneling No No -Circular Undermining No No -Wound/Ulcer Outcome Not Healed Not Healed -Ulcer Cleansing Rinsed/ Rinsed/ Irrigated with Irrigated with Saline Saline -Foul Odor after Cleansing No No -Bioengineered Tissue No No -Bleeding Controlled with Pressure Pressure -Treatment Response Procedure Procedure Tolerated Well Tolerated Well -Offloading No No -Debridement - Subq, 1st 20sq cm Yes Yes Pain Scale: 0-10 Numeric Is Patient Pain Free? Yes Yes - Nurse 3 - General Ulcer D/C NN Start: 04/02/22 10:40 Freq: Status: Active Protocol: Activity Type Activity Date Activity User E-sign Co-sign Detail Recorded Client Recorded Date Recorded By Document 04/02/22 11:39 [id number] 04/02/22 11:40 04/02/22 11:39 Wound Care Nurse 3 #2 L Sanchez -Primary Dressing Applied Optilok 6.5x10, Promogran -Optilok 6.5x10 1 -Promogran 1 Left -Multi-Layered Wrap Application Multi-Layer Comp - Left ($) Treatment Response Procedure Tolerated Well Pain Scale: 0-10 Numeric Is Patient Pain Free? Yes - Visit Discharge Discharge Condition Stable Ambulatory Status Ambulatory, Crutches Transportation Private Auto Medication Reconcilliation completed & No provided to patient/care provider Clinical Summary of Care Provided Yes Assessment/Plan Assessment/Plan (1) Ulcer of left lower extremity with fat layer exposed: CODE(S): L97.922 - Non-pressure chronic ulcer of unspecified part of left lower leg with fat layer exposed (2) Bilateral lower extremity edema: CODE(S): R60.0 - Localized edema (3) Lymphedema associated with obesity: CODE(S): I89.0 - Lymphedema, not elsewhere classified; E66.9 - Obesity, unspecified (4) Venous insufficiency: CODE(S): I87.2 - Venous insufficiency (chronic) (peripheral) (5) Other specified peripheral vascular diseases: CODE(S): I73.89 - Other specified peripheral vascular diseases PLAN: Plan Patient was evaluated at the wound center today. Wound care - To left anterior leg ulcer moistened Promogram covered with gauze or super absorber dressing, such as ABD every other day. Wash the ulcer with soap and water at the time of the dressing change. Compression - Stopping the 3M 2 layer wraps to the left leg due to them slipping down and he is not able to come into the wound center for a nurse visit to have the redone. Will place single layer tubigrip and RYAN wrap for compression. He states that he has someone who should be able to help him with his dressing changes and the compression. Encourage patient to start to use his lymphedema pumps to help decrease some of his edema. He states he has been using them when the sun has been shining, because he has solar energy. Stressed that the pumps could really help his lymphedema and the wound healing. Discussed that with all the swelling, it will make it difficult to heal this wound. Wound culture obtained on 03/17/22 was positive for Staphylococcus pseudintermediu and MRSE. He was started on Levaquin. Encouraged patient to elevate his legs when sitting. Follow up one week. Call or come in sooner, or go to ED if develop any concerns.
[2022-04-16 08:58] VITALS: BP 135/80; PULSE 74; RESP 22; TEMP 36.1
--- NOTE | 2022-04-16 11:18 | PN.PCM_ITS ---
History of Present Illness Date of Service: 04/16/22 Chief Complaint: Left leg ulcer History of Wound: This 56-year-old male presents for evaluation of left anterior leg ulcer that started 2 months ago. He has been placing aloe gel and black christian on to the ulcer. He has a history of edema and lymphedema. He has not been wearing his compression wraps or using his compression pumps. He has a history of leg ulcers, lymphedema, edema in legs, CHF, HTN, obstructive sleep apnea, osteoarthritis, obesity, depression and PVD. Arterial study done 04/04/18 showed Resting ankle?brachial indices were calculated bilaterally. The resting right ankle?brachial index was calculated to be 1.43. The resting left ankle?brachial index was calculated to be 1.40 Venous studies from 03/31/18 showed Valvular competence appears intact within the proximal deep venous systems bilaterally. The right greater saphenous vein appears incompetent above the knee. The left greater saphenous vein appears incompetent above the knee. Wound culture obtained on 03/17/22 was positive for Staphylococcus pseudintermediu and MRSE. He was started on Levaquin. He denies fever, chills, nausea or vomiting. Progress of Wound: Left anterior leg ulcer is slightly smaller. He only changed his dressing once since his last visit. He has had a difficult time with the MANI wraps. He has only used his compression pumps once since his last visit because it has been too overcast for him to get enough solar power. Objective Data Objective Data Vital Signs: Vital Signs Temp Pulse Resp BP 97 F L 74 22 H 135/80 H 04/16/22 08:58 04/16/22 08:58 04/16/22 08:58 04/16/22 08:58 Charges/Coding Procedures Integumentary 111xxx-113xx: 50886 Bettina subq tissue 20 sq cm/< Debridement Note Debridement Note Wound debrided: anterior leg ulcer Laterality: Left Wound Grade/Stage: Stage II Type of Debridement: Excisional debridement Anesthesia Used: 5% Lidocaine Gel Depth: Down to and including healthy tissue and in the subcutaneous layer Percentage of wound debrided: 100 Instrument Used: 7mm curette Tissue Removed: Devitalized tissue and slough Severity: Fat Layer Exposed Amount of bleeding with debridement: Mild (minimal bleeding with debridement.) Bleeding Controlled with: Compression and gauze Patient tolerated procedure: Patient tolerated procedure well Post-Debridement Measurements and Additional Note: Post-Debridement Measurements/Treatment WC - Nurse 1 - General Ulcer Assessment Start: 04/02/22 10:40 Freq: Status: Active Protocol: TERRANCE Activity Type Activity Date Activity User E-sign Co-sign Detail Recorded Client Recorded Date Recorded By Document 04/02/22 10:41 RB [id number] 04/02/22 10:52 RB Document 04/09/22 08:48 RB [id number] 04/09/22 08:54 RB Document 04/16/22 08:58 DL [id number] 04/16/22 09:07 DL 04/02/22 04/09/22 04/16/22 10:41 08:48 08:58 WC - Today's Visit Information Type of service Follow-up Visit Follow-up Visit (Physician/ACCOUNTS RECEIVABLE ADMINISTRATOR (Physician/ACCOUNTS RECEIVABLE ADMINISTRATOR ) ) Arrival Mode Ambulatory, Ambulatory, Crutches Walker Transfer Assistance None None Patient Identification Verified (Name & Yes Yes ) Patient Requires Transmission-Based No No Precautions Vital Signs Temperature (97.8 F-99.1 F) 97 F L 97 F L Temperature Source Temporal Temporal Pulse Rate (60-100) 78 74 Pulse Location Monitor Monitor Respiratory Rate (12-18) 18 22 H Respiratory rate source Observation Observation Blood Pressure (90/60-120/80) 145/83 H 135/80 H Blood Pressure Mean (mm Hg) 103 98 Source Monitor Monitor Position Semi-Fowlers Blood Pressure Location Left Arm History Since Last Visit- (Skip if this is Patient's initial visit) Have you changed medications since your No No last visit? Any new allergies or adverse reactions No No Had a fall/change in ADL's that may No No increase risk of falls Signs or symptoms of abuse and/or No No neglect since last visit Have you been in the hospital since your No No last visit? Has dressing in place as prescribed Yes Yes Has compression in place as prescribed Yes N/A Has offloadiing in place as prescribed No N/A Experienced any changes in pain level or No No management Pain Scale: 0-10 Numeric Is Patient Pain Free? Yes Yes Yes GULSHAN - Nurse 1 - General Ulcer Measurement Start: 04/02/22 10:40 Freq: Status: Active Protocol: Activity Type Activity Date Activity User E-sign Co-sign Detail Recorded Client Recorded Date Recorded By Document 04/02/22 10:41 RB [id number] 04/02/22 10:52 RB Document 04/09/22 08:48 RB [id number] 04/09/22 08:54 RB Document 04/16/22 08:58 DL [id number] 04/16/22 09:07 DL 04/02/22 04/09/22 04/16/22 10:41 08:48 08:58 Wound Center Nurse 1 #2 L Sanchez -Combined with other wound No No -Current Size (cm) - Length 2.3 1.8 2.1 -Current Size (cm) - Width 3.6 3.1 2.8 -Current Size (cm) - Depth 0.2 0.2 0.2 -Total Square Cm 8.28 5.58 5.88 -Photo Taken Yes Yes Yes -Tunneling No No -Undermining/Tunneling No No -Circular Undermining No No -Exudate Amt Medium Medium Large -Exudate Type Serosanguineous Serosanguineous -Wound Margin Distinct, Distinct, Distinct, Outline Outline Outline Attached Attached Attached -Granulation Amt Medium (34-66%) Medium (34-66%) Medium (34-66%) -Granulation Quality [place],Red Pale -Slough/Fibrin Yes Yes -Necrosis Amt Medium (34-66%) Medium (34-66%) Medium (34-66%) -Necrotic Tissue Type Adherent Slough Adherent Slough Adherent Slough -Structure Exposed N/A N/A N/A -Texture (Toshia-wound Skin Appearance) Assessed, Assessed, Scarring Scarring Scarring -Moisture (Toshia-wound Skin Appearance) Assessed Assessed Dry/Scaly -Color (Toshia-wound Skin Appearance) Assessed Assessed Hemosiderin Staining -Temperature (Toshia-wound Skin No Abnormality No Abnormality No Abnormality Appearance) (Pt Warm) (Pt Warm) (Pt Warm) -Tenderness on Palpation (Toshia-wound No No Skin Appearance) -Ulcer Cleansing Wound Cleanser Wound Cleanser Soap and Water -Foul Odor after Cleansing No No No -Anesthetic Used 5% Lidocaine 5% Lidocaine 5% Lidocaine Gel Gel Gel Lower Limb Edema Present Yes Yes Left Calf (cm) 56 50.5 57.2 Left Ankle (cm) 29 29.5 26.5 WC - Nurse 2 - General Ulcer CM Notes Start: 04/02/22 10:40 Freq: Status: Active Protocol: Activity Type Activity Date Activity User E-sign Co-sign Detail Recorded Client Recorded Date Recorded By Document 04/02/22 11:17 [id number] 04/02/22 11:19 Document 04/09/22 09:08 [id number] 04/09/22 09:10 Document 04/16/22 09:35 [id number] 04/16/22 09:37 04/02/22 04/09/22 04/16/22 11:17 09:08 09:35 Wound Center Nurse 2 #2 L Sanchez -Time 11:17 09:08 09:35 -Correct Patient Yes Yes Yes -Correct Side, Site, Position Yes Yes Yes -Correct Procedure Yes Yes Yes -Procedure Performed Yes Yes Yes -Type of Procedure Debridement Debridement Debridement -Clinical Debridement Subcutaneous Subcutaneous Subcutaneous -Tissue Removed Subcutaneous Subcutaneous Subcutaneous -Post Debridement (cm) - Length 2.4 2.2 2 -Post Debridement (cm) - Width 3.5 3.3 3 -Post Debridement (cm) - Depth 0.2 0.1 0.2 -Total Square (Post) (cm) 8.40 7.26 6 -Area of Debridement (cm) - Length 2.4 2.2 2 -Area of Debridement (cm) - Width 3.5 3.3 3 -Total Square (Area) (cm) 8.40 7.26 6 -Tunneling No No No -Undermining/Tunneling No No No -Circular Undermining No No No -Wound/Ulcer Outcome Not Healed Not Healed Not Healed -Ulcer Cleansing Rinsed/ Rinsed/ Rinsed/ Irrigated with Irrigated with Irrigated with Saline Saline Saline -Foul Odor after Cleansing No No No -Bioengineered Tissue No No No -Bleeding Controlled with Pressure Pressure Pressure -Treatment Response Procedure Procedure Procedure Tolerated Well Tolerated Well Tolerated Well -Offloading No No No -Debridement - Subq, 1st 20sq cm Yes Yes Yes Pain Scale: 0-10 Numeric Is Patient Pain Free? Yes Yes Yes - Nurse 3 - General Ulcer D/C NN Start: 04/02/22 10:40 Freq: Status: Active Protocol: Activity Type Activity Date Activity User E-sign Co-sign Detail Recorded Client Recorded Date Recorded By Document 04/02/22 11:39 RB [id number] 04/02/22 11:40 RB Document 04/09/22 09:23 DL [id number] 04/09/22 09:25 DL Document 04/16/22 10:17 DL [id number] 04/16/22 10:18 DL 04/02/22 04/09/22 04/16/22 11:39 09:23 10:17 Wound Care Nurse 3 #2 L Sanchez -Ulcer Cleansing Soap and Water Soap and Water -Foul Odor after Cleansing No No -Primary Dressing Applied Optilok 6.5x10, Optilok 6.5x10, Promogran Promogran -Other Dressing promogran/ kerramax -Primary Dressing Covered/Secured with Dry Gauze & Secured with Roll Gauze, Tape Secured with Tape -Optilok 6.5x10 1 1 -Promogran 1 1 Left -Multi-Layered Wrap Application Multi-Layer Multi-Layer Comp - Left ($) Comp - Left ($) -Compression Wrap Mani Wrap -Tubular Bandage Single Layer -Size of Tubigrip Used Size F -Size F ($) 1 Treatment Response Procedure Procedure Tolerated Well Tolerated Well Pain Scale: 0-10 Numeric Is Patient Pain Free? Yes Yes Yes WC - Visit Discharge Discharge Condition Stable Stable Stable Ambulatory Status Ambulatory, Ambulatory, Ambulatory, Crutches Crutches Crutches Transportation Private Auto Private Auto Medication Reconcilliation completed & No provided to patient/care provider Clinical Summary of Care Provided Yes Orders Sent Yes Assessment/Plan Assessment/Plan (1) Ulcer of left lower extremity with fat layer exposed: CODE(S): L97.922 - Non-pressure chronic ulcer of unspecified part of left lower leg with fat layer exposed (2) Bilateral lower extremity edema: CODE(S): R60.0 - Localized edema (3) Lymphedema associated with obesity: CODE(S): I89.0 - Lymphedema, not elsewhere classified; E66.9 - Obesity, unspecified (4) Venous insufficiency: CODE(S): I87.2 - Venous insufficiency (chronic) (peripheral) (5) Other specified peripheral vascular diseases: CODE(S): I73.89 - Other specified peripheral vascular diseases PLAN: Plan Patient was evaluated at the wound center today. Wound care - To left anterior leg ulcer moistened Promogram covered with super absorber dressing. Compression - 3M 2 layer wraps to the left leg for compression. He will return in one week. After next week, he will come in on Fridays for a nurse visit. Encourage patient to start to use his lymphedema pumps to help decrease some of his edema. He states he has been using them when the sun has been shining, because he has solar energy. Stressed that the pumps could really help his lymphedema and the wound healing. Discussed that with all the swelling, it will make it difficult to heal this wound. Wound culture obtained on 03/17/22 was positive for Staphylococcus pseudintermediu and MRSE. He completed Levaquin. Encouraged patient to elevate his legs when sitting. Follow up one week. Call or come in sooner, or go to ED if develop any concerns.
[2022-04-23 10:05] VITALS: BP 122/65; PULSE 80; RESP 18; TEMP 35.7
--- NOTE | 2022-04-23 12:06 | PCM.WC.PN ---
History of Present Illness Date of Service: 04/23/22 Chief Complaint: Left leg ulcer History of Wound: This 56-year-old male presents for evaluation of left anterior leg ulcer that started 2 months ago. He has been placing aloe gel and black christian on to the ulcer. He has a history of edema and lymphedema. He has not been wearing his compression wraps or using his compression pumps. He has a history of leg ulcers, lymphedema, edema in legs, CHF, HTN, obstructive sleep apnea, osteoarthritis, obesity, depression and PVD. Arterial study done 04/04/18 showed Resting ankle?brachial indices were calculated bilaterally. The resting right ankle?brachial index was calculated to be 1.43. The resting left ankle?brachial index was calculated to be 1.40 Venous studies from 03/31/18 showed Valvular competence appears intact within the proximal deep venous systems bilaterally. The right greater saphenous vein appears incompetent above the knee. The left greater saphenous vein appears incompetent above the knee. Wound culture obtained on 03/17/22 was positive for Staphylococcus pseudintermediu and MRSE. He was started on Levaquin. He denies fever, chills, nausea or vomiting. Progress of Wound: Left anterior leg ulcer is slightly smaller. The toshia wound is slightly erythematous. His 3M 2layer wraps have started to slide down, or he has pushed them down so he can scratch his leg. Objective Data Objective Data Vital Signs: Vital Signs Temp Pulse Resp BP O2 Del Method 96.2 F L 80 18 122/65 H Room Air 04/23/22 10:05 04/23/22 10:05 04/23/22 10:05 04/23/22 10:05 04/23/22 10:05 Oxygen Delivery Method Room Air Charges/Coding Procedures Integumentary 111xxx-113xx: [id number] Bettina subq tissue 20 sq cm/< Debridement Note Debridement Note Wound debrided: anterior leg ulcer Laterality: Left Wound Grade/Stage: Stage II Type of Debridement: Excisional debridement Anesthesia Used: 5% Lidocaine Gel Depth: Down to and including healthy tissue and in the subcutaneous layer Percentage of wound debrided: 100 Instrument Used: 7mm curette Tissue Removed: Devitalized tissue and slough Severity: Fat Layer Exposed Amount of bleeding with debridement: Mild Bleeding Controlled with: Compression and gauze Patient tolerated procedure: Patient tolerated procedure well Post-Debridement Measurements and Additional Note: Post-Debridement Measurements/Treatment GULSHAN - Nurse 1 - General Ulcer Assessment Start: 04/02/22 10:40 Freq: Status: Active Protocol: TERRANCE Activity Type Activity Date Activity User E-sign Co-sign Detail Recorded Client Recorded Date Recorded By Document 04/02/22 10:41 RB [id number] 04/02/22 10:52 RB Document 04/09/22 08:48 RB [id number] 04/09/22 08:54 RB Document 04/16/22 08:58 DL [id number] 04/16/22 09:07 DL Document 04/23/22 10:05 BMF [id number] 04/23/22 10:09 BMF 04/02/22 04/09/22 04/16/22 10:41 08:48 08:58 WC - Today's Visit Information Type of service Follow-up Visit Follow-up Visit (Physician/SOFTWARE TECHNICAL LEAD (Physician/SOFTWARE TECHNICAL LEAD ) ) Arrival Mode Ambulatory, Ambulatory, Crutches Walker Transfer Assistance None None Patient Identification Verified (Name & Yes Yes ) Patient Requires Transmission-Based No No Precautions Vital Signs Temperature (97.8 F-99.1 F) 97 F L 97 F L Temperature Source Temporal Temporal Pulse Rate (60-100) 78 74 Pulse Location Monitor Monitor Respiratory Rate (12-18) 18 22 H Respiratory rate source Observation Observation Oxygen Delivery Method Blood Pressure (90/60-120/80) 145/83 H 135/80 H Blood Pressure Mean (mm Hg) 103 98 Source Monitor Monitor Position Semi-Fowlers Blood Pressure Location Left Arm History Since Last Visit- (Skip if this is Patient's initial visit) Have you changed medications since your No No last visit? Any new allergies or adverse reactions No No Had a fall/change in ADL's that may No No increase risk of falls Signs or symptoms of abuse and/or No No neglect since last visit Have you been in the hospital since your No No last visit? Has dressing in place as prescribed Yes Yes Has compression in place as prescribed Yes N/A Has offloadiing in place as prescribed No N/A Experienced any changes in pain level or No No management Left Footwear Right Footwear Pain Scale: 0-10 Numeric Is Patient Pain Free? Yes Yes Yes 04/23/22 10:05 - Today's Visit Information Type of service Follow-up Visit (Physician/SOFTWARE TECHNICAL LEAD ) Arrival Mode Ambulatory, Crutches Transfer Assistance None Patient Identification Verified (Name & Yes ) Patient Requires Transmission-Based No Precautions Vital Signs Temperature (97.8 F-99.1 F) 96.2 F L Temperature Source Temporal Pulse Rate (60-100) 80 Pulse Location Monitor Respiratory Rate (12-18) 18 Respiratory rate source Observation Oxygen Delivery Method Room Air Blood Pressure (90/60-120/80) 122/65 H Blood Pressure Mean (mm Hg) 84 Source Monitor Position Sitting Blood Pressure Location Left Arm History Since Last Visit- (Skip if this is Patient's initial visit) Have you changed medications since your No last visit? Any new allergies or adverse reactions No Had a fall/change in ADL's that may No increase risk of falls Signs or symptoms of abuse and/or No neglect since last visit Have you been in the hospital since your No last visit? Has dressing in place as prescribed Yes Has compression in place as prescribed Yes Has offloadiing in place as prescribed N/A Experienced any changes in pain level or No management Left Footwear Regular Shoe Right Footwear Regular Shoe Pain Scale: 0-10 Numeric Is Patient Pain Free? Yes - Nurse 1 - General Ulcer Measurement Start: 04/02/22 10:40 Freq: Status: Active Protocol: Activity Type Activity Date Activity User E-sign Co-sign Detail Recorded Client Recorded Date Recorded By Document 04/02/22 10:41 RB [id number] 04/02/22 10:52 RB Document 04/09/22 08:48 RB [id number] 04/09/22 08:54 RB Document 04/16/22 08:58 DL [id number] 04/16/22 09:07 DL Document 04/23/22 10:05 [facility] [id number] 04/23/22 10:09 BM 04/02/22 04/09/22 04/16/22 10:41 08:48 08:58 Wound Center Nurse 1 #2 L Sanchez -Combined with other wound No No -Current Size (cm) - Length 2.3 1.8 2.1 -Current Size (cm) - Width 3.6 3.1 2.8 -Current Size (cm) - Depth 0.2 0.2 0.2 -Total Square Cm 8.28 5.58 5.88 -Date of Last Picture (Recall this field) -Photo Taken Yes Yes Yes -Epithelialization -Tunneling No No -Undermining/Tunneling No No -Circular Undermining No No -Exudate Amt Medium Medium Large -Exudate Type Serosanguineous Serosanguineous -Wound Margin Distinct, Distinct, Distinct, Outline Outline Outline Attached Attached Attached -Granulation Amt Medium (34-66%) Medium (34-66%) Medium (34-66%) -Granulation Quality [place],Red Pale -Slough/Fibrin Yes Yes -Necrosis Amt Medium (34-66%) Medium (34-66%) Medium (34-66%) -Necrotic Tissue Type Adherent Slough Adherent Slough Adherent Slough -Structure Exposed N/A N/A N/A -Texture (Toshia-wound Skin Appearance) Assessed, Assessed, Scarring Scarring Scarring -Moisture (Toshia-wound Skin Appearance) Assessed Assessed Dry/Scaly -Color (Toshia-wound Skin Appearance) Assessed Assessed Hemosiderin Staining -Temperature (Toshia-wound Skin No Abnormality No Abnormality No Abnormality Appearance) (Pt Warm) (Pt Warm) (Pt Warm) -Tenderness on Palpation (Toshia-wound No No Skin Appearance) -Ulcer Cleansing Wound Cleanser Wound Cleanser Soap and Water -Foul Odor after Cleansing No No No -Anesthetic Used 5% Lidocaine 5% Lidocaine 5% Lidocaine Gel Gel Gel Lower Limb Edema Present Yes Yes Left Calf (cm) 56 50.5 57.2 Left Ankle (cm) 29 29.5 26.5 04/23/22 10:05 Wound Center Nurse 1 #2 L Sanchez -Combined with other wound No -Current Size (cm) - Length 1.8 -Current Size (cm) - Width 2 -Current Size (cm) - Depth 0.2 -Total Square Cm 3.6 -Date of Last Picture (Recall this 04/23/22 field) -Photo Taken Yes -Epithelialization None Present -Tunneling No -Undermining/Tunneling No -Circular Undermining No -Exudate Amt Medium -Exudate Type Serosanguineous -Wound Margin Flat & Intact -Granulation Amt Medium (34-66%) -Granulation Quality Red -Slough/Fibrin Yes -Necrosis Amt Medium (34-66%) -Necrotic Tissue Type Adherent Slough -Structure Exposed -Texture (Toshia-wound Skin Appearance) Assessed, Scarring -Moisture (Toshia-wound Skin Appearance) Assessed -Color (Toshia-wound Skin Appearance) Assessed, Erythema -Temperature (Toshia-wound Skin No Abnormality Appearance) (Pt Warm) -Tenderness on Palpation (Toshia-wound No Skin Appearance) -Ulcer Cleansing Soap and Water -Foul Odor after Cleansing No -Anesthetic Used 5% Lidocaine Gel Lower Limb Edema Present Yes Left Calf (cm) 57 Left Ankle (cm) 27 WC - Nurse 2 - General Ulcer CM Notes Start: 04/02/22 10:40 Freq: Status: Active Protocol: Activity Type Activity Date Activity User E-sign Co-sign Detail Recorded Client Recorded Date Recorded By Document 04/02/22 11:17 [id number] 04/02/22 11:19 Document 04/09/22 09:08 [id number] 04/09/22 09:10 Document 04/16/22 09:35 [id number] 04/16/22 09:37 Document 04/23/22 10:30 [id number] 04/23/22 10:31 04/02/22 04/09/22 04/16/22 11:17 09:08 09:35 Wound Center Nurse 2 #2 L Sanchez -Time 11:17 09:08 09:35 -Correct Patient Yes Yes Yes -Correct Side, Site, Position Yes Yes Yes -Correct Procedure Yes Yes Yes -Procedure Performed Yes Yes Yes -Type of Procedure Debridement Debridement Debridement -Clinical Debridement Subcutaneous Subcutaneous Subcutaneous -Tissue Removed Subcutaneous Subcutaneous Subcutaneous -Post Debridement (cm) - Length 2.4 2.2 2 -Post Debridement (cm) - Width 3.5 3.3 3 -Post Debridement (cm) - Depth 0.2 0.1 0.2 -Total Square (Post) (cm) 8.40 7.26 6 -Area of Debridement (cm) - Length 2.4 2.2 2 -Area of Debridement (cm) - Width 3.5 3.3 3 -Total Square (Area) (cm) 8.40 7.26 6 -Tunneling No No No -Undermining/Tunneling No No No -Circular Undermining No No No -Wound/Ulcer Outcome Not Healed Not Healed Not Healed -Ulcer Cleansing Rinsed/ Rinsed/ Rinsed/ Irrigated with Irrigated with Irrigated with Saline Saline Saline -Foul Odor after Cleansing No No No -Bioengineered Tissue No No No -Bleeding Controlled with Pressure Pressure Pressure -Treatment Response Procedure Procedure Procedure Tolerated Well Tolerated Well Tolerated Well -Offloading No No No -Debridement - Subq, 1st 20sq cm Yes Yes Yes Pain Scale: 0-10 Numeric Is Patient Pain Free? Yes Yes Yes 04/23/22 10:30 Wound Center Nurse 2 #2 L Sanchez -Time 10:30 -Correct Patient Yes -Correct Side, Site, Position Yes -Correct Procedure Yes -Procedure Performed Yes -Type of Procedure Debridement -Clinical Debridement Subcutaneous -Tissue Removed Subcutaneous -Post Debridement (cm) - Length 2.0 -Post Debridement (cm) - Width 2.4 -Post Debridement (cm) - Depth 0.1 -Total Square (Post) (cm) 4.80 -Area of Debridement (cm) - Length 2.0 -Area of Debridement (cm) - Width 2.4 -Total Square (Area) (cm) 4.80 -Tunneling No -Undermining/Tunneling No -Circular Undermining No -Wound/Ulcer Outcome Not Healed -Ulcer Cleansing Rinsed/ Irrigated with Saline -Foul Odor after Cleansing No -Bioengineered Tissue No -Bleeding Controlled with Pressure -Treatment Response Procedure Tolerated Well -Offloading No -Debridement - Subq, 1st 20sq cm Yes Pain Scale: 0-10 Numeric Is Patient Pain Free? Yes WC - Nurse 3 - General Ulcer D/C NN Start: 04/02/22 10:40 Freq: Status: Active Protocol: Activity Type Activity Date Activity User E-sign Co-sign Detail Recorded Client Recorded Date Recorded By Document 04/02/22 11:39 RB [id number] 04/02/22 11:40 RB Document 04/09/22 09:23 DL [id number] 04/09/22 09:25 DL Document 04/16/22 10:17 DL [id number] 04/16/22 10:18 DL Document 04/23/22 10:48 [facility] [id number] 04/23/22 10:48 BM 04/02/22 04/09/22 04/16/22 11:39 09:23 10:17 Wound Care Nurse 3 #2 L Sanchez -Ulcer Cleansing Soap and Water Soap and Water -Foul Odor after Cleansing No No -Primary Dressing Applied Optilok 6.5x10, Optilok 6.5x10, Promogran Promogran -Other Dressing promogran/ kerramax -Primary Dressing Covered/Secured with Dry Gauze & Secured with Roll Gauze, Tape Secured with Tape -Optilok 6.5x10 1 1 -Promogran 1 1 Left -Lotion applied to leg before compression wrap -Multi-Layered Wrap Application Multi-Layer Multi-Layer Comp - Left ($) Comp - Left ($) -Compression Wrap Mani Wrap -Tubular Bandage Single Layer -Size of Tubigrip Used Size F -Size F ($) 1 Treatment Response Procedure Procedure Tolerated Well Tolerated Well Pain Scale: 0-10 Numeric Is Patient Pain Free? Yes Yes Yes WC - Visit Discharge Discharge Condition Stable Stable Stable Ambulatory Status Ambulatory, Ambulatory, Ambulatory, Crutches Crutches Crutches Transportation Private Auto Private Auto Medication Reconcilliation completed & No provided to patient/care provider Clinical Summary of Care Provided Yes Orders Sent Yes 04/23/22 10:48 Wound Care Nurse 3 #2 L Sanchez -Ulcer Cleansing Rinsed/ Irrigated with Saline -Foul Odor after Cleansing No -Primary Dressing Applied -Other Dressing abd; promogran -Primary Dressing Covered/Secured with -Optilok 6.5x10 -Promogran Left -Lotion applied to leg before Yes compression wrap -Multi-Layered Wrap Application Multi-Layer Comp - Left ($) -Compression Wrap -Tubular Bandage -Size of Tubigrip Used -Size F ($) Treatment Response Procedure Tolerated Well Pain Scale: 0-10 Numeric Is Patient Pain Free? Yes WC - Visit Discharge Discharge Condition Stable Ambulatory Status Ambulatory, Crutches Transportation Medication Reconcilliation completed & provided to patient/care provider Clinical Summary of Care Provided Orders Sent Assessment/Plan Assessment/Plan (1) Ulcer of left lower extremity with fat layer exposed: CODE(S): L97.922 - Non-pressure chronic ulcer of unspecified part of left lower leg with fat layer exposed (2) Bilateral lower extremity edema: CODE(S): R60.0 - Localized edema (3) Lymphedema associated with obesity: CODE(S): I89.0 - Lymphedema, not elsewhere classified; E66.9 - Obesity, unspecified (4) Venous insufficiency: CODE(S): I87.2 - Venous insufficiency (chronic) (peripheral) (5) Other specified peripheral vascular diseases: CODE(S): I73.89 - Other specified peripheral vascular diseases PLAN: Plan Patient was evaluated at the wound center today. Wound care - To left anterior leg ulcer moistened Promogram covered with super absorber dressing. Compression - 3M 2 layer wraps to the left leg for compression. He will return on Thursday for a nurses visit. Encourage patient to start to use his lymphedema pumps to help decrease some of his edema. He states he has been using them when the sun has been shining, because he has solar energy. Stressed that the pumps could really help his lymphedema and the wound healing. Discussed that with all the swelling, it will make it difficult to heal this wound. Wound culture obtained on 03/17/22 was positive for Staphylococcus pseudintermediu and MRSE. He completed Levaquin. Encouraged patient to elevate his legs when sitting. Follow up one week. Follow up Thursday for a nurses visit to have 3M 2 layer wrap changed. Call or come in sooner, or go to ED if develop any concerns.
== END 2022-04-26 23:59 | disposition home or self-care (01) ==
LOC: WC 10:00
PROVIDERS: PCP Internal Medicine; Visit Provider Nurse Practitioner Family
DX: L97.822 Non-pressure chronic ulcer of other part of left lower leg with fat layer exposed (principal); I11.0 Hypertensive heart disease with heart failure; I50.9 Heart failure, unspecified; I73.89 Other specified peripheral vascular diseases; I87.2 Venous insufficiency (chronic) (peripheral); I89.0 Lymphedema, not elsewhere classified; R60.0 Localized edema; G47.33 Obstructive sleep apnea (adult) (pediatric); E66.9 Obesity, unspecified; F32.A Depression, unspecified; Z79.82 Long term (current) use of aspirin; Z79.899 Other long term (current) drug therapy
CPT/HCPCS: 11042; 29581

== ENCOUNTER 2022-05-13 15:00 | Outpatient (RCR) | payer OTHER, SELFPAY ==
[2022-04-27 00:33] VITALS: BP 122/65; PULSE 80; RESP 18; TEMP 35.7
[2022-04-30 09:18] VITALS: BP 128/80; PULSE 75; RESP 18; TEMP 35.6
--- NOTE | 2022-04-30 09:51 | PN.PCM_ITS ---
History of Present Illness Date of Service: 04/30/22 Chief Complaint: Left leg ulcer History of Wound: This 56-year-old male presents for evaluation of left anterior leg ulcer that started 2 months ago. He has been placing aloe gel and black christian on to the ulcer. He has a history of edema and lymphedema. He has not been wearing his compression wraps or using his compression pumps. He has a history of leg ulcers, lymphedema, edema in legs, CHF, HTN, obstructive sleep apnea, osteoarthritis, obesity, depression and PVD. Arterial study done 04/04/18 showed Resting ankle?brachial indices were calculated bilaterally. The resting right ankle?brachial index was calculated to be 1.43. The resting left ankle?brachial index was calculated to be 1.40 Venous studies from 03/31/18 showed Valvular competence appears intact within the proximal deep venous systems bilaterally. The right greater saphenous vein appears incompetent above the knee. The left greater saphenous vein appears incompetent above the knee. Wound culture obtained on 03/17/22 was positive for Staphylococcus pseudintermediu and MRSE. He was started on Levaquin. He denies fever, chills, nausea or vomiting. Progress of Wound: Left anterior leg ulcer is slightly smaller. The toshia wound is slightly erythematous. He removed his 3M 2layer wraps on Thursday and placed an RYAN wrap. He would like to try an RYAN wrap for compression. Objective Data Objective Data Vital Signs: Vital Signs Temp Pulse Resp BP 96.1 F L 75 18 128/80 H 04/30/22 09:18 04/30/22 09:18 04/30/22 09:18 04/30/22 09:18 Charges/Coding Procedures Integumentary 111xxx-113xx: 98230 Bettina subq tissue 20 sq cm/< Debridement Note Debridement Note Wound debrided: anterior leg ulcer Laterality: Left Wound Grade/Stage: Stage II Type of Debridement: Excisional debridement Anesthesia Used: 5% Lidocaine Gel Depth: Down to and including healthy tissue and in the subcutaneous layer Percentage of wound debrided: 100 Instrument Used: 7mm curette Tissue Removed: Devitalized tissue and slough Severity: Fat Layer Exposed Amount of bleeding with debridement: Mild Bleeding Controlled with: Compression and gauze Patient tolerated procedure: Patient tolerated procedure well Post-Debridement Measurements and Additional Note: Post-Debridement Measurements/Treatment WC - Nurse 1 - General Ulcer Assessment Start: 04/30/22 09:17 Freq: Status: Active Protocol: TERRANCE Activity Type Activity Date Activity User E-sign Co-sign Detail Recorded Client Recorded Date Recorded By Document 04/30/22 09:18 RB [id number] 04/30/22 09:22 RB 04/30/22 09:18 WC - Today's Visit Information Type of service Follow-up Visit (Physician/TELEGRAPHIC TYPEWRITER REPAIRER ) Arrival Mode Ambulatory, Crutches Transfer Assistance None Patient Identification Verified (Name & Yes ) Patient Requires Transmission-Based No Precautions Vital Signs Temperature (97.8 F-99.1 F) 96.1 F L Temperature Source Temporal Pulse Rate (60-100) 75 Pulse Location Apical Respiratory Rate (12-18) 18 Respiratory rate source Observation Blood Pressure (90/60-120/80) 128/80 H Blood Pressure Mean (mm Hg) 96 Source Monitor Position Semi-Fowlers Blood Pressure Location Right Arm History Since Last Visit- (Skip if this is Patient's initial visit) Have you changed medications since your No last visit? Any new allergies or adverse reactions No Had a fall/change in ADL's that may No increase risk of falls Signs or symptoms of abuse and/or No neglect since last visit Have you been in the hospital since your No last visit? Has dressing in place as prescribed Yes Has compression in place as prescribed Yes Has offloadiing in place as prescribed No Experienced any changes in pain level or No management Pain Scale: 0-10 Numeric Is Patient Pain Free? Yes - Nurse 1 - General Ulcer Measurement Start: 04/30/22 09:17 Freq: Status: Active Protocol: Activity Type Activity Date Activity User E-sign Co-sign Detail Recorded Client Recorded Date Recorded By Document 04/30/22 09:18 RB [id number] 04/30/22 09:22 RB 04/30/22 09:18 Wound Center Nurse 1 #2 L Sanchez -Combined with other wound No -Current Size (cm) - Length 1.4 -Current Size (cm) - Width 1.8 -Current Size (cm) - Depth 0.2 -Total Square Cm 2.52 -Photo Taken Yes -Tunneling No -Undermining/Tunneling No -Circular Undermining No -Exudate Amt Medium -Exudate Type Serosanguineous -Wound Margin Distinct, Outline Attached -Granulation Amt Medium (34-66%) -Granulation Quality [place] -Slough/Fibrin Yes -Necrosis Amt Small (1-33%) -Necrotic Tissue Type Adherent Slough -Structure Exposed N/A -Texture (Toshia-wound Skin Appearance) Assessed -Moisture (Toshia-wound Skin Appearance) Assessed -Color (Toshia-wound Skin Appearance) Assessed -Temperature (Toshia-wound Skin No Abnormality Appearance) (Pt Warm) -Tenderness on Palpation (Otshia-wound No Skin Appearance) -Ulcer Cleansing Wound Cleanser -Foul Odor after Cleansing No -Anesthetic Used 4% Lidocaine Solution Lower Limb Edema Present Yes Right Calf (cm) 48.4 Right Ankle (cm) 27.5 WC - Nurse 2 - General Ulcer CM Notes Start: 04/30/22 09:17 Freq: Status: Active Protocol: Activity Type Activity Date Activity User E-sign Co-sign Detail Recorded Client Recorded Date Recorded By Document 04/30/22 09:27 JO [id number] 04/30/22 09:28 JO 04/30/22 09:27 Wound Center Nurse 2 #2 L Sanchez -Time 09:28 -Correct Patient Yes -Correct Side, Site, Position Yes -Correct Procedure Yes -Procedure Performed Yes -Type of Procedure Debridement -Clinical Debridement Subcutaneous -Tissue Removed Subcutaneous -Post Debridement (cm) - Length 1.7 -Post Debridement (cm) - Width 2.2 -Post Debridement (cm) - Depth 0.1 -Total Square (Post) (cm) 3.74 -Area of Debridement (cm) - Length 1.7 -Area of Debridement (cm) - Width 2.2 -Total Square (Area) (cm) 3.74 -Tunneling No -Undermining/Tunneling No -Circular Undermining No -Wound/Ulcer Outcome Not Healed -Ulcer Cleansing Rinsed/ Irrigated with Saline -Foul Odor after Cleansing No -Bioengineered Tissue No -Bleeding Controlled with Pressure -Treatment Response Procedure Tolerated Well -Offloading No -Debridement - Subq, 1st 20sq cm Yes Pain Scale: 0-10 Numeric Is Patient Pain Free? Yes GULSHAN - Nurse 3 - General Ulcer D/C NN Start: 04/30/22 09:17 Freq: Status: Active Protocol: Activity Type Activity Date Activity User E-sign Co-sign Detail Recorded Client Recorded Date Recorded By Document 04/30/22 09:48 RB [id number] 04/30/22 09:49 RB 04/30/22 09:48 Wound Care Nurse 3 #2 L Sanchez -Ulcer Cleansing Wound Cleanser -Primary Dressing Applied Promogran -Primary Dressing Covered/Secured with Dry Gauze & Roll Gauze, Secured with Tape -Promogran 1 Left -Other ryan Treatment Response Procedure Tolerated Well Pain Scale: 0-10 Numeric Is Patient Pain Free? Yes WC - Visit Discharge Discharge Condition Stable Ambulatory Status Ambulatory, Crutches Transportation Private Auto Medication Reconcilliation completed & No provided to patient/care provider Clinical Summary of Care Provided Yes Assessment/Plan Assessment/Plan (1) Ulcer of left lower extremity with fat layer exposed: CODE(S): L97.922 - Non-pressure chronic ulcer of unspecified part of left lower leg with fat layer exposed (2) Bilateral lower extremity edema: CODE(S): R60.0 - Localized edema (3) Lymphedema associated with obesity: CODE(S): I89.0 - Lymphedema, not elsewhere classified; E66.9 - Obesity, unspecified (4) Venous insufficiency: CODE(S): I87.2 - Venous insufficiency (chronic) (peripheral) (5) Other specified peripheral vascular diseases: CODE(S): I73.89 - Other specified peripheral vascular diseases PLAN: Plan Patient was evaluated at the wound center today. Wound care - To left anterior leg ulcer moistened Promogram covered with super absorber dressing every other day after washing with soap and water. Compression - RYAN wrap to the left leg for compression. Encourage patient to start to use his lymphedema pumps to help decrease some of his edema. He states he has been using them when the sun has been shining, because he has solar energy. Stressed that the pumps could really help his lymphedema and the wound healing. Discussed that with all the swelling, it will make it difficult to heal this wound. Wound culture obtained on 03/17/22 was positive for Staphylococcus pseudintermediu and MRSE. He completed Levaquin. Encouraged patient to elevate his legs when sitting. If no improvement this week, will reconsider applying the 3 M 2 layer wraps. Follow up one week. Call or come in sooner, or go to ED if develop any concerns.
[2022-05-06 14:55] VITALS: BP 131/81; PULSE 86; RESP 20; TEMP 36.2
--- NOTE | 2022-05-06 15:56 | PCM.WC.PN ---
History of Present Illness Date of Service: 05/06/22 Chief Complaint: Left leg ulcer History of Wound: This 56-year-old male presents for evaluation of left anterior leg ulcer that started 2 months ago. He has been placing aloe gel and black christian on to the ulcer. He has a history of edema and lymphedema. He has not been wearing his compression wraps or using his compression pumps. He has a history of leg ulcers, lymphedema, edema in legs, CHF, HTN, obstructive sleep apnea, osteoarthritis, obesity, depression and PVD. Arterial study done 04/04/18 showed Resting ankle?brachial indices were calculated bilaterally. The resting right ankle?brachial index was calculated to be 1.43. The resting left ankle?brachial index was calculated to be 1.40 Venous studies from 03/31/18 showed Valvular competence appears intact within the proximal deep venous systems bilaterally. The right greater saphenous vein appears incompetent above the knee. The left greater saphenous vein appears incompetent above the knee. Wound culture obtained on 03/17/22 was positive for Staphylococcus pseudintermediu and MRSE. He was started on Levaquin. He denies fever, chills, nausea or vomiting. Progress of Wound: Left anterior leg ulcer is stable. The toshia wound is stable. He states that he has only changed his ulcer dressing once this past week and he has been wearing RYAN wrap for compression. Objective Data Objective Data Vital Signs: Vital Signs Temp Pulse Resp BP O2 Del Method 97.1 F L 86 20 H 131/81 H Room Air 05/06/22 14:55 05/06/22 14:55 05/06/22 14:55 05/06/22 14:55 05/06/22 14:55 Oxygen Delivery Method Room Air Charges/Coding Procedures Integumentary 111xxx-113xx: 50646 Bettina subq tissue 20 sq cm/< Debridement Note Debridement Note Wound debrided: anterior leg ulcer Laterality: Left Wound Grade/Stage: Stage II Type of Debridement: Excisional debridement Anesthesia Used: 5% Lidocaine Gel Depth: Down to and including healthy tissue and in the subcutaneous layer Percentage of wound debrided: 100 Instrument Used: 5mm curette Tissue Removed: Devitalized tissue and slough Severity: Fat Layer Exposed Amount of bleeding with debridement: Mild Bleeding Controlled with: Compression and gauze Patient tolerated procedure: Patient tolerated procedure well Post-Debridement Measurements and Additional Note: Post-Debridement Measurements/Treatment - Nurse 1 - General Ulcer Assessment Start: 04/30/22 09:17 Freq: Status: Active Protocol: TERRANCE Activity Type Activity Date Activity User E-sign Co-sign Detail Recorded Client Recorded Date Recorded By Document 04/30/22 09:18 RB [id number] 04/30/22 09:22 RB Document 05/06/22 14:55 [facility] [id number] 05/06/22 15:07 BM 04/30/22 05/06/22 09:18 14:55 - Today's Visit Information Type of service Follow-up Visit Follow-up Visit (Physician/SAWMILL RELIEF WORKER (Physician/SAWMILL RELIEF WORKER ) ) Arrival Mode Ambulatory, Wheelchair Crutches Transfer Assistance None Other Transfer Assist (Other) 1 Patient Identification Verified (Name & Yes Yes ) Patient Requires Transmission-Based No No Precautions Vital Signs Temperature (97.8 F-99.1 F) 96.1 F L 97.1 F L Temperature Source Temporal Temporal Pulse Rate (60-100) 75 86 Pulse Location Apical Monitor Respiratory Rate (12-18) 18 20 H Respiratory rate source Observation Observation Oxygen Delivery Method Room Air Blood Pressure (90/60-120/80) 128/80 H 131/81 H Blood Pressure Mean (mm Hg) 96 97 Source Monitor Monitor Position Semi-Fowlers Sitting Blood Pressure Location Right Arm Left Forearm History Since Last Visit- (Skip if this is Patient's initial visit) Have you changed medications since your No No last visit? Any new allergies or adverse reactions No No Had a fall/change in ADL's that may No No increase risk of falls Signs or symptoms of abuse and/or No No neglect since last visit Have you been in the hospital since your No No last visit? Has dressing in place as prescribed Yes Yes Has compression in place as prescribed Yes Yes Has offloadiing in place as prescribed No N/A Experienced any changes in pain level or No No management Left Footwear Regular Shoe Right Footwear Regular Shoe Pain Scale: 0-10 Numeric Is Patient Pain Free? Yes Yes GULSHAN - Nurse 1 - General Ulcer Measurement Start: 04/30/22 09:17 Freq: Status: Active Protocol: Activity Type Activity Date Activity User E-sign Co-sign Detail Recorded Client Recorded Date Recorded By Document 04/30/22 09:18 RB [id number] 04/30/22 09:22 RB Document 05/06/22 14:55 [facility] [id number] 05/06/22 15:07 [facility] 04/30/22 05/06/22 09:18 14:55 Wound Center Nurse 1 #2 L Sanchez -Combined with other wound No No -Current Size (cm) - Length 1.4 1.6 -Current Size (cm) - Width 1.8 1.5 -Current Size (cm) - Depth 0.2 0.1 -Total Square Cm 2.52 2.40 -Date of Last Picture (Recall this 05/06/22 field) -Photo Taken Yes Yes -Epithelialization Small 1-33% -Tunneling No No -Undermining/Tunneling No No -Circular Undermining No No -Exudate Amt Medium Medium -Exudate Type Serosanguineous Serosanguineous -Wound Margin Distinct, Distinct, Outline Outline Attached Attached -Granulation Amt Medium (34-66%) Large (67-100%) -Granulation Quality Spring Red -Slough/Fibrin Yes No -Necrosis Amt Small (1-33%) None Present (0 %) -Necrotic Tissue Type Adherent Slough -Structure Exposed N/A -Texture (Toshia-wound Skin Appearance) Assessed Assessed, Scarring -Moisture (Toshia-wound Skin Appearance) Assessed Assessed,Dry/ Scaly -Color (Toshia-wound Skin Appearance) Assessed Not Assessed, Erythema -Temperature (Toshia-wound Skin No Abnormality No Abnormality Appearance) (Pt Warm) (Pt Warm) -Tenderness on Palpation (Toshia-wound No No Skin Appearance) -Ulcer Cleansing Wound Cleanser Soap and Water -Foul Odor after Cleansing No No -Anesthetic Used 4% Lidocaine 5% Lidocaine Solution Gel Lower Limb Edema Present Yes Yes Right Calf (cm) 48.4 Right Ankle (cm) 27.5 Left Calf (cm) 57.7 Left Ankle (cm) 28.3 WC - Nurse 2 - General Ulcer CM Notes Start: 04/30/22 09:17 Freq: Status: Active Protocol: Activity Type Activity Date Activity User E-sign Co-sign Detail Recorded Client Recorded Date Recorded By Document 04/30/22 09:27 JO [id number] 04/30/22 09:28 Document 05/06/22 15:24 [id number] 05/06/22 15:26 JF 04/30/22 05/06/22 09:27 15:24 Wound Center Nurse 2 #2 L Sanchez -Time 09: 15:25 -Correct Patient Yes Yes -Correct Side, Site, Position Yes Yes -Correct Procedure Yes Yes -Procedure Performed Yes Yes -Type of Procedure Debridement Debridement -Clinical Debridement Subcutaneous Subcutaneous -Tissue Removed Subcutaneous Subcutaneous -Post Debridement (cm) - Length 1.7 1.9 -Post Debridement (cm) - Width 2.2 1.7 -Post Debridement (cm) - Depth 0.1 0.1 -Total Square (Post) (cm) 3.74 3.23 -Area of Debridement (cm) - Length 1.7 1.9 -Area of Debridement (cm) - Width 2.2 1.7 -Total Square (Area) (cm) 3.74 3.23 -Tunneling No No -Undermining/Tunneling No No -Circular Undermining No No -Wound/Ulcer Outcome Not Healed Not Healed -Ulcer Cleansing Rinsed/ Rinsed/ Irrigated with Irrigated with Saline Saline -Foul Odor after Cleansing No No -Bioengineered Tissue No No -Bleeding Controlled with Pressure Pressure -Treatment Response Procedure Procedure Tolerated Well Tolerated Well -Offloading No No -Debridement - Subq, 1st 20sq cm Yes Yes Pain Scale: 0-10 Numeric Is Patient Pain Free? Yes Yes - Nurse 3 - General Ulcer D/C NN Start: 04/30/22 09:17 Freq: Status: Active Protocol: Activity Type Activity Date Activity User E-sign Co-sign Detail Recorded Client Recorded Date Recorded By Document 04/30/22 09:48 [id number] 04/30/22 09:49 RB Document 05/06/22 15:43 [facility] [id number] 05/06/22 15:44 [facility] 04/30/22 05/06/22 09:48 15:43 Wound Care Nurse 3 #2 L Sanchez -Ulcer Cleansing Wound Cleanser Rinsed/ Irrigated with Saline -Foul Odor after Cleansing No -Primary Dressing Applied Promogran Optilok 6.5x10, Promogran Kenia Matter -Primary Dressing Covered/Secured with Dry Gauze & Dry Gauze & Roll Gauze, Roll Gauze, Secured with Secured with Tape Tape -Optilok 6.5x10 1 -Promogran 1 -Promogran Kenia Matter 1 Left -Multi-Layered Wrap Application Multi-Layer Comp - Left ($) -Other ryan Treatment Response Procedure Procedure Tolerated Well Tolerated Well Pain Scale: 0-10 Numeric Is Patient Pain Free? Yes Yes WC - Visit Discharge Discharge Condition Stable Stable Ambulatory Status Ambulatory, Wheelchair Crutches Transportation Private Auto Medication Reconcilliation completed & No provided to patient/care provider Clinical Summary of Care Provided Yes Assessment/Plan Assessment/Plan (1) Ulcer of left lower extremity with fat layer exposed: CODE(S): L97.922 - Non-pressure chronic ulcer of unspecified part of left lower leg with fat layer exposed (2) Bilateral lower extremity edema: CODE(S): R60.0 - Localized edema (3) Lymphedema associated with obesity: CODE(S): I89.0 - Lymphedema, not elsewhere classified; E66.9 - Obesity, unspecified (4) Venous insufficiency: CODE(S): I87.2 - Venous insufficiency (chronic) (peripheral) (5) Other specified peripheral vascular diseases: CODE(S): I73.89 - Other specified peripheral vascular diseases PLAN: Plan Patient was evaluated at the wound center today. Wound care - To left anterior leg ulcer moistened Kenia covered with super absorber at the time of the 3M 2layer wrap compression changes. Compression - 3M 2 layer wrap the left leg for compression. Encourage patient to start to use his lymphedema pumps to help decrease some of his edema. He states he has been using them when the sun has been shining, because he has solar energy. Stressed that the pumps could really help his lymphedema and the wound healing. Discussed that with all the swelling, it will make it difficult to heal this wound. Wound culture obtained on 03/17/22 was positive for Staphylococcus pseudintermediu and MRSE. He completed Levaquin. Encouraged patient to elevate his legs when sitting. Discussed with patient that if he is not doing good wound care as prescribed, that it will take longer to heal. He is concerned with how long the healing process will be because of the cost of coming to the wound healing center. Follow up Thursday for a nurses visit and in one week to see me. Call or come in sooner, or go to ED if develop any concerns.
[2022-05-09 09:40] VITALS: BP 122/78; PULSE 85; RESP 18; TEMP 35.8
[2022-05-13 15:10] VITALS: BP 140/84; PULSE 72; RESP 18; TEMP 36.3
--- NOTE | 2022-05-13 16:29 | PN.PCM_ITS ---
History of Present Illness Date of Service: 05/13/22 Chief Complaint: Left leg ulcer History of Wound: This 56-year-old male presents for evaluation of left anterior leg ulcer that started 2 months ago. He has been placing aloe gel and black christian on to the ulcer. He has a history of edema and lymphedema. He has not been wearing his compression wraps or using his compression pumps. He has a history of leg ulcers, lymphedema, edema in legs, CHF, HTN, obstructive sleep apnea, osteoarthritis, obesity, depression and PVD. Arterial study done 04/04/18 showed Resting ankle?brachial indices were calculated bilaterally. The resting right ankle?brachial index was calculated to be 1.43. The resting left ankle?brachial index was calculated to be 1.40 Venous studies from 03/31/18 showed Valvular competence appears intact within the proximal deep venous systems bilaterally. The right greater saphenous vein appears incompetent above the knee. The left greater saphenous vein appears incompetent above the knee. Wound culture obtained on 03/17/22 was positive for Staphylococcus pseudintermediu and MRSE. He completed Levaquin. He denies fever, chills, nausea or vomiting. Progress of Wound: Left anterior leg ulcer is slightly smaller. The toshia wound is erythematous, it looks like it could be a skin jonathan infection. He states he is really not liking the 3M 2 layer wraps because the roll down. He would really like to use an MANI wrap for compression. He states that he was able to use his compression pumps more over the past week because the sun had been shining. Objective Data Objective Data Vital Signs: Vital Signs Temp Pulse Resp BP O2 Del Method 97.3 F L 72 18 140/84 H Room Air 05/13/22 15:10 05/13/22 15:10 05/13/22 15:10 05/13/22 15:10 05/13/22 15:10 Oxygen Delivery Method Room Air Charges/Coding Procedures Integumentary 111xxx-113xx: [id number] Bettina subq tissue 20 sq cm/< Debridement Note Debridement Note Wound debrided: anterior leg ulcer Laterality: Left Wound Grade/Stage: Stage III Type of Debridement: Excisional debridement Anesthesia Used: 5% Lidocaine Gel Depth: Down to and including healthy tissue and in the subcutaneous layer Percentage of wound debrided: 100 Instrument Used: 5mm curette Tissue Removed: Devitalized tissue and slough Severity: Fat Layer Exposed Amount of bleeding with debridement: Mild Bleeding Controlled with: Compression and gauze Patient tolerated procedure: Patient tolerated procedure well Post-Debridement Measurements and Additional Note: Post-Debridement Measurements/Treatment - Nurse 1 - General Ulcer Assessment Start: 04/30/22 09:17 Freq: Status: Active Protocol: TERRANCE Activity Type Activity Date Activity User E-sign Co-sign Detail Recorded Client Recorded Date Recorded By Document 04/30/22 09:18 RB [id number] 04/30/22 09:22 RB Document 05/06/22 14:55 [facility] [id number] 05/06/22 15:07 BM Document 05/09/22 09:40 RB [id number] 05/09/22 09:44 RB Document 05/13/22 15:10 [facility] [id number] 05/13/22 15:20 BMF 04/30/22 05/06/22 05/09/22 09:18 14:55 09:40 - Today's Visit Information Type of service Follow-up Visit Follow-up Visit Nurse-only (Physician/PUNCH MACHINE OPERATOR (Physician/PUNCH MACHINE OPERATOR Visit ) ) Arrival Mode Ambulatory, Wheelchair Ambulatory, Crutches Crutches Transfer Assistance None Other None Transfer Assist (Other) 1 Patient Identification Verified (Name & Yes Yes Yes ) Patient Requires Transmission-Based No No No Precautions Vital Signs Temperature (97.8 F-99.1 F) 96.1 F L 97.1 F L 96.5 F L Temperature Source Temporal Temporal Temporal Pulse Rate (60-100) 75 86 85 Pulse Location Apical Monitor Monitor Respiratory Rate (12-18) 18 20 H 18 Respiratory rate source Observation Observation Observation Oxygen Delivery Method Room Air Blood Pressure (90/60-120/80) 128/80 H 131/81 H 122/78 H Blood Pressure Mean (mm Hg) 96 97 92 Source Monitor Monitor Monitor Position Semi-Fowlers Sitting Semi-Fowlers Blood Pressure Location Right Arm Left Forearm Left Arm History Since Last Visit- (Skip if this is Patient's initial visit) Have you changed medications since your No No No last visit? Any new allergies or adverse reactions No No No Had a fall/change in ADL's that may No No No increase risk of falls Signs or symptoms of abuse and/or No No No neglect since last visit Have you been in the hospital since your No No No last visit? Has dressing in place as prescribed Yes Yes Yes Has compression in place as prescribed Yes Yes Yes Has offloadiing in place as prescribed No N/A No Experienced any changes in pain level or No No No management Left Footwear Regular Shoe Right Footwear Regular Shoe Pain Scale: 0-10 Numeric Is Patient Pain Free? Yes Yes Yes Teaching: Wound Center compression pumps -Person Taught Patient -Teaching Method Discussion -Response to teaching Reinforcement needed Control Swelling with Leg Elevation -Person Taught Patient -Teaching Method Discussion -Response to teaching Reinforcement needed 05/13/22 15:10 WC - Today's Visit Information Type of service Follow-up Visit (Physician/PUNCH MACHINE OPERATOR ) Arrival Mode Ambulatory, Crutches Transfer Assistance None Transfer Assist (Other) Patient Identification Verified (Name & Yes ) Patient Requires Transmission-Based No Precautions Vital Signs Temperature (97.8 F-99.1 F) 97.3 F L Temperature Source Temporal Pulse Rate (60-100) 72 Pulse Location Monitor Respiratory Rate (12-18) 18 Respiratory rate source Observation Oxygen Delivery Method Room Air Blood Pressure (90/60-120/80) 140/84 H Blood Pressure Mean (mm Hg) 102 Source Monitor Position Sitting Blood Pressure Location Left Forearm History Since Last Visit- (Skip if this is Patient's initial visit) Have you changed medications since your No last visit? Any new allergies or adverse reactions No Had a fall/change in ADL's that may No increase risk of falls Signs or symptoms of abuse and/or No neglect since last visit Have you been in the hospital since your No last visit? Has dressing in place as prescribed Yes Has compression in place as prescribed No Has offloadiing in place as prescribed N/A Experienced any changes in pain level or No management Left Footwear Regular Shoe Right Footwear Regular Shoe Pain Scale: 0-10 Numeric Is Patient Pain Free? Yes Teaching: Wound Center compression pumps -Person Taught -Teaching Method -Response to teaching Control Swelling with Leg Elevation -Person Taught -Teaching Method -Response to teaching - Nurse 1 - General Ulcer Measurement Start: 04/30/22 09:17 Freq: Status: Active Protocol: Activity Type Activity Date Activity User E-sign Co-sign Detail Recorded Client Recorded Date Recorded By Document 04/30/22 09:18 RB [id number] 04/30/22 09:22 RB Document 05/06/22 14:55 [facility] [id number] 05/06/22 15:07 [facility] Document 05/09/22 09:40 RB [id number] 05/09/22 09:44 RB Document 05/13/22 15:10 [facility] [id number] 05/13/22 15:20 F 04/30/22 05/06/22 05/09/22 09:18 14:55 09:40 Wound Center Nurse 1 #2 L Sanchez -Combined with other wound No No -Current Size (cm) - Length 1.4 1.6 -Current Size (cm) - Width 1.8 1.5 -Current Size (cm) - Depth 0.2 0.1 -Total Square Cm 2.52 2.40 -Date of Last Picture (Recall this 05/06/22 field) -Photo Taken Yes Yes -Epithelialization Small 1-33% -Tunneling No No -Undermining/Tunneling No No -Circular Undermining No No -Exudate Amt Medium Medium -Exudate Type Serosanguineous Serosanguineous -Wound Margin Distinct, Distinct, Outline Outline Attached Attached -Granulation Amt Medium (34-66%) Large (67-100%) -Granulation Quality [place] Red -Slough/Fibrin Yes No -Necrosis Amt Small (1-33%) None Present (0 %) -Necrotic Tissue Type Adherent Slough -Structure Exposed N/A -Texture (Toshia-wound Skin Appearance) Assessed Assessed, Scarring -Moisture (Toshia-wound Skin Appearance) Assessed Assessed,Dry/ Scaly -Color (Toshia-wound Skin Appearance) Assessed Not Assessed, Erythema -Temperature (Toshia-wound Skin No Abnormality No Abnormality Appearance) (Pt Warm) (Pt Warm) -Tenderness on Palpation (Toshia-wound No No Skin Appearance) -Ulcer Cleansing Wound Cleanser Soap and Water -Foul Odor after Cleansing No No -Anesthetic Used 4% Lidocaine 5% Lidocaine Solution Gel Lower Limb Edema Present Yes Yes Yes Right Calf (cm) 48.4 Right Ankle (cm) 27.5 Left Calf (cm) 57.7 47.7 Left Ankle (cm) 28.3 27.5 05/13/22 15:10 Wound Center Nurse 1 #2 L Sanchez -Combined with other wound No -Current Size (cm) - Length 1.5 -Current Size (cm) - Width 1.5 -Current Size (cm) - Depth 0.1 -Total Square Cm 2.25 -Date of Last Picture (Recall this 05/13/22 field) -Photo Taken Yes -Epithelialization None Present -Tunneling No -Undermining/Tunneling No -Circular Undermining No -Exudate Amt Large -Exudate Type Serosanguineous -Wound Margin Distinct, Outline Attached -Granulation Amt Medium (34-66%) -Granulation Quality Red -Slough/Fibrin Yes -Necrosis Amt Medium (34-66%) -Necrotic Tissue Type Adherent Slough -Structure Exposed -Texture (Toshia-wound Skin Appearance) Assessed, Excoriation, Scarring -Moisture (Toshia-wound Skin Appearance) Assessed, Maceration -Color (Toshia-wound Skin Appearance) Assessed, Erythema -Temperature (Toshia-wound Skin No Abnormality Appearance) (Pt Warm) -Tenderness on Palpation (Toshia-wound No Skin Appearance) -Ulcer Cleansing Soap and Water -Foul Odor after Cleansing No -Anesthetic Used 5% Lidocaine Gel Lower Limb Edema Present Yes Right Calf (cm) Right Ankle (cm) Left Calf (cm) 58.8 Left Ankle (cm) 27.7 - Nurse 2 - General Ulcer CM Notes Start: 04/30/22 09:17 Freq: Status: Active Protocol: Activity Type Activity Date Activity User E-sign Co-sign Detail Recorded Client Recorded Date Recorded By Document 04/30/22 09:27 [id number] 04/30/22 09:28 Document 05/06/22 15:24 [id number] 05/06/22 15:26 Document 05/13/22 15:35 [id number] 05/13/22 15:38 04/30/22 05/06/22 05/13/22 09:27 15:24 15:35 Wound Center Nurse 2 #2 L Sanchez -Time 09: 15:25 15:36 -Correct Patient Yes Yes Yes -Correct Side, Site, Position Yes Yes Yes -Correct Procedure Yes Yes Yes -Procedure Performed Yes Yes Yes -Type of Procedure Debridement Debridement Debridement -Clinical Debridement Subcutaneous Subcutaneous Subcutaneous -Tissue Removed Subcutaneous Subcutaneous Subcutaneous -Post Debridement (cm) - Length 1.7 1.9 1.5 -Post Debridement (cm) - Width 2.2 1.7 1.7 -Post Debridement (cm) - Depth 0.1 0.1 0.1 -Total Square (Post) (cm) 3.74 3.23 2.55 -Area of Debridement (cm) - Length 1.7 1.9 1.5 -Area of Debridement (cm) - Width 2.2 1.7 1.7 -Total Square (Area) (cm) 3.74 3.23 2.55 -Tunneling No No No -Undermining/Tunneling No No No -Circular Undermining No No No -Wound/Ulcer Outcome Not Healed Not Healed Not Healed -Ulcer Cleansing Rinsed/ Rinsed/ Rinsed/ Irrigated with Irrigated with Irrigated with Saline Saline Saline -Foul Odor after Cleansing No No No -Bioengineered Tissue No No No -Bleeding Controlled with Pressure Pressure Pressure -Treatment Response Procedure Procedure Procedure Tolerated Well Tolerated Well Tolerated Well -Offloading No No No -Debridement - Subq, 1st 20sq cm Yes Yes Yes Pain Scale: 0-10 Numeric Is Patient Pain Free? Yes Yes Yes WC - Nurse 3 - General Ulcer D/C NN Start: 04/30/22 09:17 Freq: Status: Active Protocol: Activity Type Activity Date Activity User E-sign Co-sign Detail Recorded Client Recorded Date Recorded By Document 04/30/22 09:48 RB [id number] 04/30/22 09:49 RB Document 05/06/22 15:43 [facility] [id number] 05/06/22 15:44 [facility] Document 05/09/22 09:40 RB [id number] 05/09/22 09:44 RB Document 05/13/22 15:43 AK [id number] 05/13/22 15:44 AK 04/30/22 05/06/22 05/09/22 09:48 15:43 09:40 Wound Care Nurse 3 #2 L Sanchez -Ulcer Cleansing Wound Cleanser Rinsed/ Irrigated with Saline -Foul Odor after Cleansing No -Primary Dressing Applied Promogran Optilok 6.5x10, Optilok 6.5x10 Promogran Agustin Matter -Other Dressing agustin -Primary Dressing Covered/Secured with Dry Gauze & Dry Gauze & Roll Gauze, Roll Gauze, Secured with Secured with Tape Tape -Optilok 6.5x10 1 1 -Promogran 1 -Promogran Agustin Matter 1 Left -Lotion applied to leg before compression wrap -Multi-Layered Wrap Application Multi-Layer Multi-Layer Comp - Left ($) Comp - Left ($) -Compression Wrap -Other mani Treatment Response Procedure Procedure Procedure Tolerated Well Tolerated Well Tolerated Well Vital Signs Temperature (97.8 F-99.1 F) 96.5 F L Temperature Source Temporal Pulse Rate (60-100) 85 Pulse Location Monitor Respiratory Rate (12-18) 18 Respiratory rate source Observation Blood Pressure (90/60-120/80) 122/78 H Blood Pressure Mean (mm Hg) 92 Source Monitor Position Semi-Fowlers Blood Pressure Location Left Arm Pain Scale: 0-10 Numeric Is Patient Pain Free? Yes Yes Yes Teaching: Wound Center compression pumps -Person Taught Patient -Teaching Method Discussion -Response to teaching Reinforcement needed Control Swelling with Leg Elevation -Person Taught Patient -Teaching Method Discussion -Response to teaching Reinforcement needed WC - Visit Discharge Discharge Condition Stable Stable Stable Ambulatory Status Ambulatory, Wheelchair Ambulatory, Crutches Crutches Transportation Private Auto [facility] van transportation Medication Reconcilliation completed & No No provided to patient/care provider Clinical Summary of Care Provided Yes Yes 05/13/22 15:43 Wound Care Nurse 3 #2 L Sanchez -Ulcer Cleansing -Foul Odor after Cleansing -Primary Dressing Applied Promogran Agustin Matter -Other Dressing -Primary Dressing Covered/Secured with Dry Gauze & Roll Gauze, Secured with Tape -Optilok 6.5x10 -Promogran -Promogran Agustin Matter 1 Left -Lotion applied to leg before No compression wrap -Multi-Layered Wrap Application -Compression Wrap Mani Wrap -Other Treatment Response Vital Signs Temperature (97.8 F-99.1 F) Temperature Source Pulse Rate (60-100) Pulse Location Respiratory Rate (12-18) Respiratory rate source Blood Pressure (90/60-120/80) Blood Pressure Mean (mm Hg) Source Position Blood Pressure Location Pain Scale: 0-10 Numeric Is Patient Pain Free? Yes Teaching: Wound Center compression pumps -Person Taught -Teaching Method -Response to teaching Control Swelling with Leg Elevation -Person Taught -Teaching Method -Response to teaching WC - Visit Discharge Discharge Condition Stable Ambulatory Status Ambulatory, Crutches Transportation Medication Reconcilliation completed & Yes provided to patient/care provider Clinical Summary of Care Provided Yes Assessment/Plan Assessment/Plan (1) Ulcer of left lower extremity with fat layer exposed: CODE(S): L97.922 - Non-pressure chronic ulcer of unspecified part of left lower leg with fat layer exposed (2) Bilateral lower extremity edema: CODE(S): R60.0 - Localized edema (3) Lymphedema associated with obesity: CODE(S): I89.0 - Lymphedema, not elsewhere classified; E66.9 - Obesity, unspecified (4) Venous insufficiency: CODE(S): I87.2 - Venous insufficiency (chronic) (peripheral) (5) Other specified peripheral vascular diseases: CODE(S): I73.89 - Other specified peripheral vascular diseases PLAN: Plan Patient was evaluated at the wound center today. Wound care - To left anterior leg ulcer moistened Agustin covered with super absorber. To the toshia wound will order Nystatin cream to place on twice daily. Instructed him that the dressing needs to be changed daily and the nystatin cream needs to be placed at least daily, but ideally twice daily. Compression - MANI wrap the left leg for compression. Encourage patient to start to use his lymphedema pumps to help decrease some of his edema. He states he has been using them more frequently. Stressed that the pumps could really help his lymphedema and the wound healing. Discussed that with all the swelling, it will make it difficult to heal this wound. Wound culture obtained on 03/17/22 was positive for Staphylococcus pseudintermediu and MRSE. He completed Levaquin. Encouraged patient to elevate his legs when sitting. Stressed the importance of doing his wound care as prescribed and wearing the compression as instructed. He verbalized understanding. Follow up one week. Call or come in sooner, or go to ED if develop any concerns.
== END 2022-05-27 23:59 | disposition home or self-care (01) ==
LOC: WC 15:00
PROVIDERS: PCP Internal Medicine; Visit Provider Nurse Practitioner Family
DX: L97.822 Non-pressure chronic ulcer of other part of left lower leg with fat layer exposed (principal); I11.0 Hypertensive heart disease with heart failure; I50.9 Heart failure, unspecified; I73.89 Other specified peripheral vascular diseases; I89.0 Lymphedema, not elsewhere classified; I87.2 Venous insufficiency (chronic) (peripheral); M19.90 Unspecified osteoarthritis, unspecified site; G47.33 Obstructive sleep apnea (adult) (pediatric); E66.9 Obesity, unspecified; Z79.82 Long term (current) use of aspirin; Z79.899 Other long term (current) drug therapy
CPT/HCPCS: 11042; 29581

== ENCOUNTER 2022-06-23 09:00 | Outpatient (RCR) | payer OTHER, SELFPAY ==
[2022-05-28 00:34] VITALS: BP 140/84; PULSE 72; RESP 18; TEMP 36.3
[2022-05-28 08:32] VITALS: BP 153/84; PULSE 88; RESP 18; TEMP 36.1
--- NOTE | 2022-05-28 13:36 | PN.PCM_ITS ---
History of Present Illness Date of Service: 05/28/22 Chief Complaint: Left leg ulcer History of Wound: This 56-year-old male presents for evaluation of left anterior leg ulcer that started 2 months ago. He has been placing aloe gel and black christian on to the ulcer. He has a history of edema and lymphedema. He has not been wearing his compression wraps or using his compression pumps. He has a history of leg ulcers, lymphedema, edema in legs, CHF, HTN, obstructive sleep apnea, osteoarthritis, obesity, depression and PVD. Arterial study done 04/04/18 showed Resting ankle?brachial indices were calculated bilaterally. The resting right ankle?brachial index was calculated to be 1.43. The resting left ankle?brachial index was calculated to be 1.40 Venous studies from 03/31/18 showed Valvular competence appears intact within the proximal deep venous systems bilaterally. The right greater saphenous vein appears incompetent above the knee. The left greater saphenous vein appears incompetent above the knee. Wound culture obtained on 03/17/22 was positive for Staphylococcus pseudintermediu and MRSE. He completed Levaquin. He denies fever, chills, nausea or vomiting. Progress of Wound: Left anterior leg ulcer is slightly smaller. The toshia wound is erythematous, it looks like it could be a skin jonathan infection. He states he has been using nystatin cream and the toshia wound does look a little better. He has been using an RYAN wrap for compression and is changing his dressing almost every day. Objective Data Objective Data Vital Signs: Vital Signs Temp Pulse Resp BP 97 F L 88 18 153/84 H 05/28/22 08:32 05/28/22 08:32 05/28/22 08:32 05/28/22 08:32 Charges/Coding Procedures Integumentary 111xxx-113xx: [id number] Bettina subq tissue 20 sq cm/< Debridement Note Debridement Note Wound debrided: anterior leg ulcer Laterality: Left Wound Grade/Stage: Stage III Type of Debridement: Excisional debridement Anesthesia Used: 5% Lidocaine Gel Depth: Down to and including healthy tissue and in the subcutaneous layer Percentage of wound debrided: 100 Instrument Used: 5mm curette Tissue Removed: Devitalized tissue and slough Severity: Fat Layer Exposed Amount of bleeding with debridement: Mild Bleeding Controlled with: Compression and gauze Patient tolerated procedure: Patient tolerated procedure well Post-Debridement Measurements and Additional Note: Post-Debridement Measurements/Treatment - Nurse 1 - General Ulcer Assessment Start: 05/28/22 08:31 Freq: Status: Active Protocol: TERRANCE Activity Type Activity Date Activity User E-sign Co-sign Detail Recorded Client Recorded Date Recorded By Document 05/28/22 08:32 JOLENE [id number] 05/28/22 08:34 RB 05/28/22 08:32 WC - Today's Visit Information Type of service Follow-up Visit (Physician/MANAGER MBA ) Arrival Mode Ambulatory, Crutches Transfer Assistance None Patient Identification Verified (Name & Yes ) Patient Requires Transmission-Based No Precautions Vital Signs Temperature (97.8 F-99.1 F) 97 F L Temperature Source Temporal Pulse Rate (60-100) 88 Pulse Location Monitor Respiratory Rate (12-18) 18 Respiratory rate source Observation Blood Pressure (90/60-120/80) 153/84 H Blood Pressure Mean (mm Hg) 107 Source Monitor Position Sitting Blood Pressure Location Left Arm History Since Last Visit- (Skip if this is Patient's initial visit) Have you changed medications since your No last visit? Any new allergies or adverse reactions No Had a fall/change in ADL's that may No increase risk of falls Signs or symptoms of abuse and/or No neglect since last visit Have you been in the hospital since your No last visit? Has dressing in place as prescribed Yes Has compression in place as prescribed Yes Has offloadiing in place as prescribed No Experienced any changes in pain level or No management Pain Scale: 0-10 Numeric Is Patient Pain Free? Yes - Nurse 1 - General Ulcer Measurement Start: 05/28/22 08:31 Freq: Status: Active Protocol: Activity Type Activity Date Activity User E-sign Co-sign Detail Recorded Client Recorded Date Recorded By Document 05/28/22 08:32 JOLENE [id number] 05/28/22 08:34 RB 05/28/22 08:32 Wound Center Nurse 1 #2 L Sanchez -Combined with other wound No -Current Size (cm) - Length 0.9 -Current Size (cm) - Width 0.8 -Current Size (cm) - Depth 0.2 -Total Square Cm 0.72 -Photo Taken Yes -Tunneling No -Undermining/Tunneling No -Circular Undermining No -Exudate Amt Large -Exudate Type Serosanguineous -Wound Margin Distinct, Outline Attached -Granulation Amt Medium (34-66%) -Granulation Quality [place] -Slough/Fibrin Yes -Necrosis Amt Medium (34-66%) -Necrotic Tissue Type Adherent Slough -Structure Exposed N/A -Texture (Toshia-wound Skin Appearance) Excoriation -Moisture (Toshia-wound Skin Appearance) Assessed -Color (Toshia-wound Skin Appearance) Assessed -Temperature (Toshia-wound Skin No Abnormality Appearance) (Pt Warm) -Tenderness on Palpation (Toshia-wound No Skin Appearance) -Ulcer Cleansing Wound Cleanser -Foul Odor after Cleansing No -Anesthetic Used 5% Lidocaine Gel Lower Limb Edema Present Yes Left Calf (cm) 515 Left Ankle (cm) 27.5 WC - Nurse 2 - General Ulcer CM Notes Start: 05/28/22 08:31 Freq: Status: Active Protocol: Activity Type Activity Date Activity User E-sign Co-sign Detail Recorded Client Recorded Date Recorded By Document 05/28/22 08:46 [id number] 05/28/22 08:47 JO 05/28/22 08:46 Wound Center Nurse 2 #2 L Sanchez -Time 08:46 -Correct Patient Yes -Correct Side, Site, Position Yes -Correct Procedure Yes -Procedure Performed Yes -Type of Procedure Debridement -Clinical Debridement Subcutaneous -Tissue Removed Subcutaneous -Post Debridement (cm) - Length 1.4 -Post Debridement (cm) - Width 1.4 -Post Debridement (cm) - Depth 0.1 -Total Square (Post) (cm) 1.96 -Area of Debridement (cm) - Length 1.4 -Area of Debridement (cm) - Width 1.4 -Total Square (Area) (cm) 1.96 -Tunneling No -Undermining/Tunneling No -Circular Undermining No -Wound/Ulcer Outcome Not Healed -Ulcer Cleansing Rinsed/ Irrigated with Saline -Foul Odor after Cleansing No -Bioengineered Tissue No -Treatment Response Procedure Tolerated Well -Offloading No -Debridement - Subq, 1st 20sq cm Yes Pain Scale: 0-10 Numeric Is Patient Pain Free? Yes - Nurse 3 - General Ulcer D/C NN Start: 05/28/22 08:31 Freq: Status: Active Protocol: Activity Type Activity Date Activity User E-sign Co-sign Detail Recorded Client Recorded Date Recorded By Document 05/28/22 09:13 [id number] 05/28/22 09:14 RB 05/28/22 09:13 Wound Care Center Nurse 3 #2 L Sanchez -Ulcer Cleansing Wound Cleanser -Primary Dressing Applied Promogran [place] Matter -Primary Dressing Covered/Secured with Dry Gauze,Dry Gauze & Roll Gauze -Promogran [place] Matter 1 Left -Other ryan Treatment Response Procedure Tolerated Well Pain Scale: 0-10 Numeric Is Patient Pain Free? Yes WC - Visit Discharge Discharge Condition Stable Ambulatory Status Ambulatory, Crutches Transportation Private Auto Medication Reconcilliation completed & No provided to patient/care provider Clinical Summary of Care Provided Yes Assessment/Plan Assessment/Plan (1) Ulcer of left lower extremity with fat layer exposed: CODE(S): L97.922 - Non-pressure chronic ulcer of unspecified part of left lower leg with fat layer exposed (2) Bilateral lower extremity edema: CODE(S): R60.0 - Localized edema (3) Lymphedema associated with obesity: CODE(S): I89.0 - Lymphedema, not elsewhere classified; E66.9 - Obesity, unspecified (4) Venous insufficiency: CODE(S): I87.2 - Venous insufficiency (chronic) (peripheral) (5) Other specified peripheral vascular diseases: CODE(S): I73.89 - Other specified peripheral vascular diseases (6) Candidal skin infection: CODE(S): B37.2 - Candidiasis of skin and nail PLAN: Plan Patient was evaluated at the wound center today. Wound care - To left anterior leg ulcer moistened Kenia covered with super absorber. To the toshia wound he has been using Nystatin cream to place on twice daily and he needs a refill. Will order Nystatin/triamcinalone cream daily to see if this will help the yeast appearance of his toshia would. Instructed him that the dressing needs to be changed daily and the nystatin cream needs to be placed daily. Compression - RYAN wrap the left leg for compression. Encourage patient to start to use his lymphedema pumps to help decrease some of his edema. He states he has been using them more frequently. Stressed that the pumps could really help his lymphedema and the wound healing. Discussed that with all the swelling, it will make it difficult to heal this wound. Discussed that he needs to use his pumps every day, all year long, even in the summer when it is hot. Stressed that his lymphedema is never going to go away and the best way to help keep it under control is to use his pumps and wear his compression every day. Wound culture obtained on 03/17/22 was positive for Staphylococcus pseudintermediu and MRSE. He completed Levaquin. Encouraged patient to elevate his legs when sitting. Stressed the importance of doing his wound care as prescribed and wearing the compression as instructed. He verbalized understanding. Encouraged increase protein intake with supplementation of Yash. Instructed marco sosa that he can get Yash at the hospital cafeteria without a prescription and it is the most cost effective place to purchase it. Follow up two weeks, per patient request. Call or come in sooner, or go to ED if develop any concerns.
[2022-06-11 08:27] VITALS: BP 132/82; PULSE 74; RESP 22; TEMP 35.6
--- NOTE | 2022-06-11 12:43 | PN.PCM_ITS ---
History of Present Illness Date of Service: 06/11/22 Chief Complaint: Left leg ulcer History of Wound: This 56-year-old male presents for evaluation of left anterior leg ulcer that started 2 months ago. He has been placing aloe gel and black christian on to the ulcer. He has a history of edema and lymphedema. He has not been wearing his compression wraps or using his compression pumps. He has a history of leg ulcers, lymphedema, edema in legs, CHF, HTN, obstructive sleep apnea, osteoarthritis, obesity, depression and PVD. Arterial study done 04/04/18 showed Resting ankle?brachial indices were calculated bilaterally. The resting right ankle?brachial index was calculated to be 1.43. The resting left ankle?brachial index was calculated to be 1.40 Venous studies from 03/31/18 showed Valvular competence appears intact within the proximal deep venous systems bilaterally. The right greater saphenous vein appears incompetent above the knee. The left greater saphenous vein appears incompetent above the knee. Wound culture obtained on 03/17/22 was positive for Staphylococcus pseudintermediu and MRSE. He completed Levaquin. He denies fever, chills, nausea or vomiting. Progress of Wound: Left anterior leg ulcer is slightly smaller. The toshia wound is very erythematous. He has only been changing his dressing every 2-3 days. . He states he has been using nystatin cream on the toshia wound but it not looking any better. He has been using an RYAN wrap for compression which is rolling down and adding increased compression lower on his leg. Objective Data Objective Data Vital Signs: Vital Signs Temp Pulse Resp BP 96.1 F L 74 22 H 132/82 H 06/11/22 08:27 06/11/22 08:27 06/11/22 08:27 06/11/22 08:27 Charges/Coding Procedures Integumentary 111xxx-113xx: [id number] Bettina subq tissue 20 sq cm/< Debridement Note Debridement Note Wound debrided: anterior leg ulcer Laterality: Left Wound Grade/Stage: Stage III Type of Debridement: Excisional debridement Anesthesia Used: 5% Lidocaine Gel Depth: Down to and including healthy tissue and in the subcutaneous layer Percentage of wound debrided: 100 Instrument Used: 3mm curette Tissue Removed: Devitalized tissue and slough Severity: Fat Layer Exposed Amount of bleeding with debridement: Mild Bleeding Controlled with: Compression and gauze Patient tolerated procedure: Patient tolerated procedure well Post-Debridement Measurements and Additional Note: Post-Debridement Measurements/Treatment WC - Nurse 1 - General Ulcer Assessment Start: 05/28/22 08:31 Freq: Status: Active Protocol: TERRANCE Activity Type Activity Date Activity User E-sign Co-sign Detail Recorded Client Recorded Date Recorded By Document 05/28/22 08:32 RB [id number] 05/28/22 08:34 RB Document 06/11/22 08:27 DL [id number] 06/11/22 08:31 DL 05/28/22 06/11/22 08:32 08:27 WC - Today's Visit Information Type of service Follow-up Visit Follow-up Visit (Physician/CONSTRUCTION EQUIPMENT TECHNICIAN (Physician/CONSTRUCTION EQUIPMENT TECHNICIAN ) ) Arrival Mode Ambulatory, Ambulatory, Crutches Crutches Transfer Assistance None None Patient Identification Verified (Name & Yes Yes ) Patient Requires Transmission-Based No No Precautions Vital Signs Temperature (97.8 F-99.1 F) 97 F L 96.1 F L Temperature Source Temporal Temporal Pulse Rate (60-100) 88 74 Pulse Location Monitor Monitor Respiratory Rate (12-18) 18 22 H Respiratory rate source Observation Observation Blood Pressure (90/60-120/80) 153/84 H 132/82 H Blood Pressure Mean (mm Hg) 107 98 Source Monitor Monitor Position Sitting Blood Pressure Location Left Arm History Since Last Visit- (Skip if this is Patient's initial visit) Have you changed medications since your No No last visit? Any new allergies or adverse reactions No No Had a fall/change in ADL's that may No No increase risk of falls Signs or symptoms of abuse and/or No No neglect since last visit Have you been in the hospital since your No No last visit? Has dressing in place as prescribed Yes Yes Has compression in place as prescribed Yes Yes Has offloadiing in place as prescribed No N/A Experienced any changes in pain level or No Yes management Pain Scale: 0-10 Numeric Is Patient Pain Free? Yes Yes - Nurse 1 - General Ulcer Measurement Start: 05/28/22 08:31 Freq: Status: Active Protocol: Activity Type Activity Date Activity User E-sign Co-sign Detail Recorded Client Recorded Date Recorded By Document 05/28/22 08:32 RB [id number] 05/28/22 08:34 RB Document 06/11/22 08:27 DL [id number] 06/11/22 08:31 DL 05/28/22 06/11/22 08:32 08:27 Wound Center Nurse 1 #2 L Sanchez -Combined with other wound No -Current Size (cm) - Length 0.9 0.8 -Current Size (cm) - Width 0.8 0.4 -Current Size (cm) - Depth 0.2 0.1 -Total Square Cm 0.72 0.32 -Photo Taken Yes Yes -Tunneling No -Undermining/Tunneling No -Circular Undermining No -Exudate Amt Large Medium -Exudate Type Serosanguineous Serosanguineous -Wound Margin Distinct, Indistinct, Non Outline -Visible Attached -Granulation Amt Medium (34-66%) Small (1-33%) -Granulation Quality [place] -Slough/Fibrin Yes -Necrosis Amt Medium (34-66%) Small (1-33%) -Necrotic Tissue Type Adherent Slough Adherent Slough -Structure Exposed N/A N/A -Texture (Toshia-wound Skin Appearance) Excoriation Scarring -Moisture (Toshia-wound Skin Appearance) Assessed Dry/Scaly -Color (Toshia-wound Skin Appearance) Assessed Hemosiderin Staining -Temperature (Toshia-wound Skin No Abnormality No Abnormality Appearance) (Pt Warm) (Pt Warm) -Tenderness on Palpation (Toshia-wound No Skin Appearance) -Ulcer Cleansing Wound Cleanser Soap and Water -Foul Odor after Cleansing No No -Anesthetic Used 5% Lidocaine 5% Lidocaine Gel Gel Lower Limb Edema Present Yes Left Calf (cm) 515 47 Left Ankle (cm) 27.5 26.8 WC - Nurse 2 - General Ulcer CM Notes Start: 05/28/22 08:31 Freq: Status: Active Protocol: Activity Type Activity Date Activity User E-sign Co-sign Detail Recorded Client Recorded Date Recorded By Document 05/28/22 08:46 [id number] 05/28/22 08:47 Document 06/11/22 09:00 [id number] 06/11/22 09:02 05/28/22 06/11/22 08:46 09:00 Wound Center Nurse 2 #2 L Sanchez -Time 08:46 09:01 -Correct Patient Yes Yes -Correct Side, Site, Position Yes Yes -Correct Procedure Yes Yes -Procedure Performed Yes Yes -Type of Procedure Debridement Debridement -Clinical Debridement Subcutaneous Subcutaneous -Tissue Removed Subcutaneous Subcutaneous -Post Debridement (cm) - Length 1.4 1.4 -Post Debridement (cm) - Width 1.4 2.0 -Post Debridement (cm) - Depth 0.1 0.1 -Total Square (Post) (cm) 1.96 2.80 -Area of Debridement (cm) - Length 1.4 1.4 -Area of Debridement (cm) - Width 1.4 2.0 -Total Square (Area) (cm) 1.96 2.80 -Tunneling No No -Undermining/Tunneling No No -Circular Undermining No No -Wound/Ulcer Outcome Not Healed Not Healed -Ulcer Cleansing Rinsed/ Rinsed/ Irrigated with Irrigated with Saline Saline -Foul Odor after Cleansing No No -Bioengineered Tissue No No -Bleeding Controlled with Pressure -Treatment Response Procedure Procedure Tolerated Well Tolerated Well -Offloading No No -Debridement - Subq, 1st 20sq cm Yes Yes Pain Scale: 0-10 Numeric Is Patient Pain Free? Yes Yes - Nurse 3 - General Ulcer D/C NN Start: 05/28/22 08:31 Freq: Status: Active Protocol: Activity Type Activity Date Activity User E-sign Co-sign Detail Recorded Client Recorded Date Recorded By Document 05/28/22 09:13 RB [id number] 05/28/22 09:14 RB Document 06/11/22 09:13 DL [id number] 06/11/22 09:14 DL 05/28/22 06/11/22 09:13 09:13 Wound Care Center Nurse 3 #2 L Sanchez -Ulcer Cleansing Wound Cleanser Rinsed/ Irrigated with Saline -Foul Odor after Cleansing No -Primary Dressing Applied Promogran Promogran [place] Matter Kenia Matter -Primary Dressing Covered/Secured with Dry Gauze,Dry Dry Gauze Gauze & Roll Gauze -Promogran [place] Matter 1 1 Left -Multi-Layered Wrap Application Multi-Layer Comp - Left ($) -Other ryan Treatment Response Procedure Procedure Tolerated Well Tolerated Well Pain Scale: 0-10 Numeric Is Patient Pain Free? Yes Yes - Visit Discharge Discharge Condition Stable Stable Ambulatory Status Ambulatory, Ambulatory, Crutches Crutches Transportation Private Auto Medication Reconcilliation completed & No provided to patient/care provider Clinical Summary of Care Provided Yes Assessment/Plan Assessment/Plan (1) Ulcer of left lower extremity with fat layer exposed: CODE(S): L97.922 - Non-pressure chronic ulcer of unspecified part of left lower leg with fat layer exposed (2) Bilateral lower extremity edema: CODE(S): R60.0 - Localized edema (3) Lymphedema associated with obesity: CODE(S): I89.0 - Lymphedema, not elsewhere classified; E66.9 - Obesity, unspecified (4) Venous insufficiency: CODE(S): I87.2 - Venous insufficiency (chronic) (peripheral) (5) Other specified peripheral vascular diseases: CODE(S): I73.89 - Other specified peripheral vascular diseases (6) Candidal skin infection: CODE(S): B37.2 - Candidiasis of skin and nail PLAN: Plan Patient was evaluated at the wound center today. Wound care - To left anterior leg ulcer moistened [place] covered with super absorber at the time of the 3M 2layer wrap changes. Compression - Restart 3M 2 layer wraps. Come back in on Thursday to have dressing and wrap changed. Encourage patient to start to use his lymphedema pumps to help decrease some of his edema. Stressed that the pumps could really help his lymphedema and the wound healing. Discussed that with all the swelling, it will make it difficult to heal this wound. Discussed that he needs to use his pumps every day, all year long, even in the summer when it is hot. Stressed that his lymphedema is never going to go away and the best way to help keep it under control is to use his pumps and wear his compression every day. Wound culture obtained on 03/17/22 was positive for Staphylococcus pseudintermediu and MRSE. He completed Levaquin. Encouraged patient to elevate his legs when sitting. Stressed the importance of doing his wound care as prescribed and wearing the compression as instructed. He verbalized understanding. Encouraged increase protein intake with supplementation of Yash. Instructed him that he can get Yash at the hospital cafeteria without a prescription and it is the most cost effective place to purchase it. Follow up Thursday for dressing and compression change and then next Thursday with me.
[2022-06-18 09:04] VITALS: BP 152/82; PULSE 78; RESP 18; TEMP 36.2
--- NOTE | 2022-06-18 10:05 | PCM.WC.PN ---
History of Present Illness Date of Service: 06/18/22 Chief Complaint: Left leg ulcer History of Wound: This 56-year-old male presents for evaluation of left anterior leg ulcer that started 2 months ago. He has been placing aloe gel and black christian on to the ulcer. He has a history of edema and lymphedema. He has not been wearing his compression wraps or using his compression pumps. He has a history of leg ulcers, lymphedema, edema in legs, CHF, HTN, obstructive sleep apnea, osteoarthritis, obesity, depression and PVD. Arterial study done 04/04/18 showed Resting ankle?brachial indices were calculated bilaterally. The resting right ankle?brachial index was calculated to be 1.43. The resting left ankle?brachial index was calculated to be 1.40 Venous studies from 03/31/18 showed Valvular competence appears intact within the proximal deep venous systems bilaterally. The right greater saphenous vein appears incompetent above the knee. The left greater saphenous vein appears incompetent above the knee. Wound culture obtained on 03/17/22 was positive for Staphylococcus pseudintermediu and MRSE. He completed Levaquin. He denies fever, chills, nausea or vomiting. Progress of Wound: Left anterior leg ulcer is smaller. The toshia wound is still erythematous. The ulcer appears smaller since wearing 3M 2 layer wraps which are getting changed 2 times a week. Objective Data Objective Data Vital Signs: Vital Signs Temp Pulse Resp BP 97.2 F L 78 18 152/82 H 06/18/22 09:04 06/18/22 09:04 06/18/22 09:04 06/18/22 09:04 Charges/Coding Procedures Integumentary 111xxx-113xx: [id number] Bettina subq tissue 20 sq cm/< Debridement Note Debridement Note Wound debrided: anterior leg ulcer Laterality: Left Wound Grade/Stage: Stage III Type of Debridement: Excisional debridement Anesthesia Used: 5% Lidocaine Gel Depth: Down to and including healthy tissue and in the subcutaneous layer Percentage of wound debrided: 100 Instrument Used: 3mm curette Tissue Removed: Devitalized tissue and slough Severity: Fat Layer Exposed Amount of bleeding with debridement: Mild Bleeding Controlled with: Compression and gauze Patient tolerated procedure: Patient tolerated procedure well Post-Debridement Measurements and Additional Note: Post-Debridement Measurements/Treatment WC - Nurse 1 - General Ulcer Assessment Start: 05/28/22 08:31 Freq: Status: Active Protocol: WC.LOWEXT Activity Type Activity Date Activity User E-sign Co-sign Detail Recorded Client Recorded Date Recorded By Document 05/28/22 08:32 RB [id number] 05/28/22 08:34 RB Document 06/11/22 08:27 DL [id number] 06/11/22 08:31 DL Document 06/16/22 09:11 DL [id number] 06/16/22 09:16 DL Document 06/18/22 09:04 RB [id number] 06/18/22 09:06 RB 05/28/22 06/11/22 06/16/22 08:32 08:27 09:11 - Today's Visit Information Type of service Follow-up Visit Follow-up Visit Nurse-only (Physician/CINDER WORKER (Physician/CINDER WORKER Visit ) ) Arrival Mode Ambulatory, Ambulatory, Ambulatory, Crutches Crutches Crutches Transfer Assistance None None None Patient Identification Verified (Name & Yes Yes Yes ) Patient Requires Transmission-Based No No No Precautions Vital Signs Temperature (97.8 F-99.1 F) 97 F L 96.1 F L Temperature Source Temporal Temporal Pulse Rate (60-100) 88 74 Pulse Location Monitor Monitor Respiratory Rate (12-18) 18 22 H Respiratory rate source Observation Observation Blood Pressure (90/60-120/80) 153/84 H 132/82 H Blood Pressure Mean (mm Hg) 107 98 Source Monitor Monitor Position Sitting Blood Pressure Location Left Arm History Since Last Visit- (Skip if this is Patient's initial visit) Have you changed medications since your No No last visit? Any new allergies or adverse reactions No No Had a fall/change in ADL's that may No No increase risk of falls Signs or symptoms of abuse and/or No No neglect since last visit Have you been in the hospital since your No No last visit? Has dressing in place as prescribed Yes Yes Has compression in place as prescribed Yes Yes Has offloadiing in place as prescribed No N/A Experienced any changes in pain level or No Yes management Pain Scale: 0-10 Numeric Is Patient Pain Free? Yes Yes Yes 06/18/22 09:04 - Today's Visit Information Type of service Follow-up Visit (Physician/CINDER WORKER ) Arrival Mode Ambulatory, Crutches Transfer Assistance None Patient Identification Verified (Name & ) Patient Requires Transmission-Based No Precautions Vital Signs Temperature (97.8 F-99.1 F) 97.2 F L Temperature Source Temporal Pulse Rate (60-100) 78 Pulse Location Monitor Respiratory Rate (12-18) 18 Respiratory rate source Observation Blood Pressure (90/60-120/80) 152/82 H Blood Pressure Mean (mm Hg) 105 Source Monitor Position Semi-Fowlers Blood Pressure Location Left Arm History Since Last Visit- (Skip if this is Patient's initial visit) Have you changed medications since your No last visit? Any new allergies or adverse reactions No Had a fall/change in ADL's that may No increase risk of falls Signs or symptoms of abuse and/or No neglect since last visit Have you been in the hospital since your No last visit? Has dressing in place as prescribed Yes Has compression in place as prescribed Yes Has offloadiing in place as prescribed No Experienced any changes in pain level or No management Pain Scale: 0-10 Numeric Is Patient Pain Free? Yes WC - Nurse 1 - General Ulcer Measurement Start: 05/28/22 08:31 Freq: Status: Active Protocol: Activity Type Activity Date Activity User E-sign Co-sign Detail Recorded Client Recorded Date Recorded By Document 05/28/22 08:32 RB [id number] 05/28/22 08:34 RB Document 06/11/22 08:27 DL [id number] 06/11/22 08:31 DL Document 06/16/22 09:11 DL [id number] 06/16/22 09:16 DL Document 06/18/22 09:04 RB [id number] 06/18/22 09:06 RB 05/28/22 06/11/22 06/16/22 08:32 08:27 09:11 Wound Center Nurse 1 #2 L Sanchez -Combined with other wound No -Current Size (cm) - Length 0.9 0.8 -Current Size (cm) - Width 0.8 0.4 -Current Size (cm) - Depth 0.2 0.1 -Total Square Cm 0.72 0.32 -Photo Taken Yes Yes -Tunneling No -Undermining/Tunneling No -Circular Undermining No -Exudate Amt Large Medium -Exudate Type Serosanguineous Serosanguineous -Wound Margin Distinct, Indistinct, Non Outline -Visible Attached -Granulation Amt Medium (34-66%) Small (1-33%) -Granulation Quality [place] -Slough/Fibrin Yes -Necrosis Amt Medium (34-66%) Small (1-33%) -Necrotic Tissue Type Adherent Slough Adherent Slough -Structure Exposed N/A N/A -Texture (Toshia-wound Skin Appearance) Excoriation Scarring -Moisture (Toshia-wound Skin Appearance) Assessed Dry/Scaly -Color (Toshia-wound Skin Appearance) Assessed Hemosiderin Staining -Temperature (Toshia-wound Skin No Abnormality No Abnormality Appearance) (Pt Warm) (Pt Warm) -Tenderness on Palpation (Toshia-wound No Skin Appearance) -Ulcer Cleansing Wound Cleanser Soap and Water -Foul Odor after Cleansing No No -Anesthetic Used 5% Lidocaine 5% Lidocaine Gel Gel Lower Limb Edema Present Yes Left Calf (cm) 515 47 52.5 Left Ankle (cm) 27.5 26.8 26.2 06/18/22 09:04 Wound Center Nurse 1 #2 L Sanchez -Combined with other wound No -Current Size (cm) - Length 0.1 -Current Size (cm) - Width 0.1 -Current Size (cm) - Depth 0.1 -Total Square Cm 0.01 -Photo Taken Yes -Tunneling No -Undermining/Tunneling No -Circular Undermining No -Exudate Amt Small -Exudate Type Serosanguineous -Wound Margin Distinct, Outline Attached -Granulation Amt Medium (34-66%) -Granulation Quality [place] -Slough/Fibrin Yes -Necrosis Amt Medium (34-66%) -Necrotic Tissue Type Adherent Slough -Structure Exposed N/A -Texture (Toshia-wound Skin Appearance) Assessed, Scarring -Moisture (Toshia-wound Skin Appearance) Assessed -Color (Toshia-wound Skin Appearance) Assessed -Temperature (Toshia-wound Skin No Abnormality Appearance) (Pt Warm) -Tenderness on Palpation (Toshia-wound No Skin Appearance) -Ulcer Cleansing Wound Cleanser -Foul Odor after Cleansing No -Anesthetic Used 4% Lidocaine Solution Lower Limb Edema Present Yes Left Calf (cm) 58.5 Left Ankle (cm) 28.5 WC - Nurse 2 - General Ulcer CM Notes Start: 05/28/22 08:31 Freq: Status: Active Protocol: Activity Type Activity Date Activity User E-sign Co-sign Detail Recorded Client Recorded Date Recorded By Document 05/28/22 08:46 [id number] 05/28/22 08:47 Document 06/11/22 09:00 [id number] 06/11/22 09:02 Document 06/18/22 09:25 [id number] 06/18/22 09:28 05/28/22 06/11/22 06/18/22 08:46 09:00 09:25 Wound Center Nurse 2 #2 L Sanchez -Time 08:46 09:01 09:27 -Correct Patient Yes Yes Yes -Correct Side, Site, Position Yes Yes Yes -Correct Procedure Yes Yes Yes -Procedure Performed Yes Yes Yes -Type of Procedure Debridement Debridement Debridement -Clinical Debridement Subcutaneous Subcutaneous Subcutaneous -Tissue Removed Subcutaneous Subcutaneous Subcutaneous -Post Debridement (cm) - Length 1.4 1.4 0.7 -Post Debridement (cm) - Width 1.4 2.0 0.7 -Post Debridement (cm) - Depth 0.1 0.1 0.1 -Total Square (Post) (cm) 1.96 2.80 0.49 -Area of Debridement (cm) - Length 1.4 1.4 0.7 -Area of Debridement (cm) - Width 1.4 2.0 0.7 -Total Square (Area) (cm) 1.96 2.80 0.49 -Tunneling No No No -Undermining/Tunneling No No No -Circular Undermining No No No -Wound/Ulcer Outcome Not Healed Not Healed Not Healed -Ulcer Cleansing Rinsed/ Rinsed/ Rinsed/ Irrigated with Irrigated with Irrigated with Saline Saline Saline -Foul Odor after Cleansing No No No -Bioengineered Tissue No No No -Bleeding Controlled with Pressure Pressure -Treatment Response Procedure Procedure Procedure Tolerated Well Tolerated Well Tolerated Well -Offloading No No No -Debridement - Subq, 1st 20sq cm Yes Yes Yes Pain Scale: 0-10 Numeric Is Patient Pain Free? Yes Yes Yes - Nurse 3 - General Ulcer D/C NN Start: 05/28/22 08:31 Freq: Status: Active Protocol: Activity Type Activity Date Activity User E-sign Co-sign Detail Recorded Client Recorded Date Recorded By Document 05/28/22 09:13 RB [id number] 05/28/22 09:14 RB Document 06/11/22 09:13 DL [id number] 06/11/22 09:14 DL Document 06/16/22 09:11 DL [id number] 06/16/22 09:16 DL Document 06/18/22 09:28 JF [id number] 06/18/22 09:28 JF 05/28/22 06/11/22 06/16/22 09:13 09:13 09:11 Wound Care Center Nurse 3 #2 L Sanchez -Ulcer Cleansing Wound Cleanser Rinsed/ Soap and Water Irrigated with Saline -Foul Odor after Cleansing No No -Negative Pressure Wound Therapy N/A -Primary Dressing Applied Promogran Promogran Promogran [place] Matter Ken[place] Matter [place] Matter -Primary Dressing Covered/Secured with Dry Gauze,Dry Dry Gauze Dry Gauze, Gauze & Roll Secured with Gauze Tape -Promogran [place] Matter 1 1 1 Left -Multi-Layered Wrap Application Multi-Layer Multi-Layer Comp - Left ($) Comp - Left ($) -Other lisandra Treatment Response Procedure Procedure Tolerated Well Tolerated Well Pain Scale: 0-10 Numeric Is Patient Pain Free? Yes Yes Yes WC - Visit Discharge Discharge Condition Stable Stable Stable Ambulatory Status Ambulatory, Ambulatory, Ambulatory, Crutches Crutches Crutches Transportation Private Auto Accompanied by transportation Medication Reconcilliation completed & No Yes provided to patient/care provider Clinical Summary of Care Provided Yes Yes 06/18/22 09:28 Wound Care Center Nurse 3 #2 L Sanchez -Ulcer Cleansing Rinsed/ Irrigated with Saline -Foul Odor after Cleansing No -Negative Pressure Wound Therapy -Primary Dressing Applied Promogran [place] Matter -Primary Dressing Covered/Secured with Dry Gauze -Promogran [place] Matter 1 Left -Multi-Layered Wrap Application Multi-Layer Comp - Left ($) -Other Treatment Response Pain Scale: 0-10 Numeric Is Patient Pain Free? Yes WC - Visit Discharge Discharge Condition Stable Ambulatory Status Ambulatory Transportation Private Auto Accompanied by Medication Reconcilliation completed & Yes provided to patient/care provider Clinical Summary of Care Provided Yes Assessment/Plan Assessment/Plan (1) Ulcer of left lower extremity with fat layer exposed: CODE(S): L97.922 - Non-pressure chronic ulcer of unspecified part of left lower leg with fat layer exposed (2) Bilateral lower extremity edema: CODE(S): R60.0 - Localized edema (3) Lymphedema associated with obesity: CODE(S): I89.0 - Lymphedema, not elsewhere classified; E66.9 - Obesity, unspecified (4) Venous insufficiency: CODE(S): I87.2 - Venous insufficiency (chronic) (peripheral) (5) Other specified peripheral vascular diseases: CODE(S): I73.89 - Other specified peripheral vascular diseases (6) Candidal skin infection: CODE(S): B37.2 - Candidiasis of skin and nail PLAN: Plan Patient was evaluated at the wound center today. Wound care - To left anterior leg ulcer moistened [place] covered with super absorber at the time of the 3M 2layer wrap changes. Compression - 3M 2 layer wraps. Come back in on Thursday or Thursday to have dressing and wrap changed. Encourage patient to use his lymphedema pumps to help decrease some of his edema. Stressed that the pumps could really help his lymphedema and the wound healing. Discussed that with all the swelling, it will make it difficult to heal this wound. Discussed that he needs to use his pumps every day, all year long, even in the summer when it is hot. Stressed that his lymphedema is never going to go away and the best way to help keep it under control is to use his pumps and wear his compression every day. Wound culture obtained on 03/17/22 was positive for Staphylococcus pseudintermediu and MRSE. He completed Levaquin. Encouraged patient to elevate his legs when sitting. Stressed the importance of doing his wound care as prescribed and wearing the compression as instructed. He verbalized understanding. Encouraged increase protein intake with supplementation of Yash. Instructed him that he can get Yash at the hospital cafeteria without a prescription and it is the most cost effective place to purchase it. Follow up Thursday or Thursday for dressing and compression change and then next Thursday with me.
[2022-06-23 08:55] VITALS: BP 128/81; PULSE 78; RESP 22; TEMP 35.9
== END 2022-06-24 23:59 | disposition home or self-care (01) ==
LOC: WC 09:00
PROVIDERS: PCP Internal Medicine; Visit Provider Nurse Practitioner Family
DX: L97.822 Non-pressure chronic ulcer of other part of left lower leg with fat layer exposed (principal); I11.0 Hypertensive heart disease with heart failure; I50.9 Heart failure, unspecified; I73.89 Other specified peripheral vascular diseases; I87.2 Venous insufficiency (chronic) (peripheral); I89.0 Lymphedema, not elsewhere classified; R60.9 Edema, unspecified; B37.2 Candidiasis of skin and nail; G47.33 Obstructive sleep apnea (adult) (pediatric); M19.90 Unspecified osteoarthritis, unspecified site; E66.9 Obesity, unspecified
CPT/HCPCS: 11042; 29581

== ENCOUNTER 2022-07-16 09:00 | Outpatient (RCR) | payer OTHER, SELFPAY ==
[2022-06-25 00:23] VITALS: BP 128/81; PULSE 78; RESP 22; TEMP 35.9
[2022-06-25 08:41] VITALS: BP 130/69; PULSE 86; RESP 18; TEMP 36
--- NOTE | 2022-06-25 10:13 | PCM.WC.PN ---
History of Present Illness Date of Service: 06/25/22 Chief Complaint: Left leg ulcer History of Wound: This 56-year-old male presents for evaluation of left anterior leg ulcer that started 2 months ago. He has been placing aloe gel and black christian on to the ulcer. He has a history of edema and lymphedema. He has not been wearing his compression wraps or using his compression pumps. He has a history of leg ulcers, lymphedema, edema in legs, CHF, HTN, obstructive sleep apnea, osteoarthritis, obesity, depression and PVD. Arterial study done 04/04/18 showed Resting ankle?brachial indices were calculated bilaterally. The resting right ankle?brachial index was calculated to be 1.43. The resting left ankle?brachial index was calculated to be 1.40 Venous studies from 03/31/18 showed Valvular competence appears intact within the proximal deep venous systems bilaterally. The right greater saphenous vein appears incompetent above the knee. The left greater saphenous vein appears incompetent above the knee. Wound culture obtained on 03/17/22 was positive for Staphylococcus pseudintermediu and MRSE. He completed Levaquin. He denies fever, chills, nausea or vomiting. Progress of Wound: Left anterior leg ulcer is smaller. The toshia wound is less erythematous now that he is placing anti itch cream on it. The ulcer appears smaller since wearing 3M 2 layer wraps which are getting changed 2 times a week. Objective Data Objective Data Vital Signs: Vital Signs Temp Pulse Resp BP 96.8 F L 86 18 130/69 H 06/25/22 08:41 06/25/22 08:41 06/25/22 08:41 06/25/22 08:41 Charges/Coding Procedures Integumentary 111xxx-113xx: [id number] Bettina subq tissue 20 sq cm/< Debridement Note Debridement Note Wound debrided: anterior leg ulcer Laterality: Left Wound Grade/Stage: Stage III Type of Debridement: Excisional debridement Anesthesia Used: 5% Lidocaine Gel Depth: Down to and including healthy tissue and in the subcutaneous layer Percentage of wound debrided: 100 Instrument Used: 3mm curette Tissue Removed: Devitalized tissue and slough Severity: Fat Layer Exposed Amount of bleeding with debridement: Mild Bleeding Controlled with: Compression and gauze Patient tolerated procedure: Patient tolerated procedure well Post-Debridement Measurements and Additional Note: Post-Debridement Measurements/Treatment WC - Nurse 1 - General Ulcer Assessment Start: 06/25/22 08:41 Freq: Status: Active Protocol: .JOÃOEXKey Activity Type Activity Date Activity User E-sign Co-sign Detail Recorded Client Recorded Date Recorded By Document 06/25/22 08:41 RB [id number] 06/25/22 08:43 RB 06/25/22 08:41 - Today's Visit Information Type of service Follow-up Visit (Physician/HAND BOOKBINDER ) Arrival Mode Ambulatory, Crutches Transfer Assistance None Patient Identification Verified (Name & Yes ) Patient Requires Transmission-Based No Precautions Vital Signs Temperature (97.8 F-99.1 F) 96.8 F L Temperature Source Temporal Pulse Rate (60-100) 86 Pulse Location Monitor Respiratory Rate (12-18) 18 Respiratory rate source Observation Blood Pressure (90/60-120/80) 130/69 H Blood Pressure Mean (mm Hg) 89 Source Monitor Position Semi-Fowlers Blood Pressure Location Left Arm History Since Last Visit- (Skip if this is Patient's initial visit) Have you changed medications since your No last visit? Any new allergies or adverse reactions No Had a fall/change in ADL's that may No increase risk of falls Signs or symptoms of abuse and/or No neglect since last visit Have you been in the hospital since your No last visit? Has dressing in place as prescribed Yes Has compression in place as prescribed Yes Has offloadiing in place as prescribed No Experienced any changes in pain level or No management Left Footwear Regular Shoe Right Footwear Regular Shoe Pain Scale: 0-10 Numeric Is Patient Pain Free? Yes - Nurse 1 - General Ulcer Measurement Start: 06/25/22 08:41 Freq: Status: Active Protocol: Activity Type Activity Date Activity User E-sign Co-sign Detail Recorded Client Recorded Date Recorded By Document 06/25/22 08:41 RB [id number] 06/25/22 08:43 RB 06/25/22 08:41 Wound Center Nurse 1 #2 L Sanchez -Combined with other wound No -Current Size (cm) - Length 0.5 -Current Size (cm) - Width 0.2 -Current Size (cm) - Depth 0.1 -Total Square Cm 0.10 -Photo Taken Yes -Tunneling No -Undermining/Tunneling No -Circular Undermining No -Exudate Amt Medium -Exudate Type Serosanguineous -Wound Margin Distinct, Outline Attached -Granulation Amt Medium (34-66%) -Granulation Quality [place] -Necrosis Amt Medium (34-66%) -Necrotic Tissue Type Adherent Slough -Structure Exposed N/A -Texture (Toshia-wound Skin Appearance) Assessed, Excoriation -Moisture (Toshia-wound Skin Appearance) Assessed -Color (Toshia-wound Skin Appearance) Assessed -Temperature (Toshia-wound Skin No Abnormality Appearance) (Pt Warm) -Tenderness on Palpation (Toshia-wound No Skin Appearance) -Ulcer Cleansing Wound Cleanser -Anesthetic Used 5% Lidocaine Gel Lower Limb Edema Present Yes Left Calf (cm) 54.5 Left Ankle (cm) 27.6 WC - Nurse 2 - General Ulcer CM Notes Start: 06/25/22 08:41 Freq: Status: Active Protocol: Activity Type Activity Date Activity User E-sign Co-sign Detail Recorded Client Recorded Date Recorded By Document 06/25/22 09:29 JO [id number] 06/25/22 09:30 JO 06/25/22 09:29 Wound Center Nurse 2 #2 L Sanchez -Time 09:29 -Correct Patient Yes -Correct Side, Site, Position Yes -Correct Procedure Yes -Procedure Performed Yes -Type of Procedure Debridement -Clinical Debridement Subcutaneous -Tissue Removed Subcutaneous -Post Debridement (cm) - Length 1.2 -Post Debridement (cm) - Width 1.0 -Post Debridement (cm) - Depth 0.1 -Total Square (Post) (cm) 1.20 -Area of Debridement (cm) - Length 1.2 -Area of Debridement (cm) - Width 1.0 -Total Square (Area) (cm) 1.20 -Tunneling No -Undermining/Tunneling No -Circular Undermining No -Wound/Ulcer Outcome Not Healed -Ulcer Cleansing Rinsed/ Irrigated with Saline -Foul Odor after Cleansing No -Bioengineered Tissue No -Bleeding Controlled with Pressure -Treatment Response Procedure Tolerated Well -Offloading No -Debridement - Subq, 1st 20sq cm Yes Pain Scale: 0-10 Numeric Is Patient Pain Free? Yes - Nurse 3 - General Ulcer D/C NN Start: 06/25/22 08:41 Freq: Status: Active Protocol: Activity Type Activity Date Activity User E-sign Co-sign Detail Recorded Client Recorded Date Recorded By Document 06/25/22 09:35 RB [id number] 06/25/22 09:37 RB 06/25/22 09:35 Wound Care Center Nurse 3 #2 L Sanchez -Ulcer Cleansing Wound Cleanser -Other Dressing agustin pt own anti itch periulcer of wound Left -Multi-Layered Wrap Application Multi-Layer Comp - Left ($) Treatment Response Procedure Tolerated Well Pain Scale: 0-10 Numeric Is Patient Pain Free? Yes WC - Visit Discharge Discharge Condition Stable Ambulatory Status Ambulatory Transportation [facility] transport Medication Reconcilliation completed & No provided to patient/care provider Clinical Summary of Care Provided Yes Assessment/Plan Assessment/Plan (1) Ulcer of left lower extremity with fat layer exposed: CODE(S): L97.922 - Non-pressure chronic ulcer of unspecified part of left lower leg with fat layer exposed (2) Bilateral lower extremity edema: CODE(S): R60.0 - Localized edema (3) Lymphedema associated with obesity: CODE(S): I89.0 - Lymphedema, not elsewhere classified; E66.9 - Obesity, unspecified (4) Venous insufficiency: CODE(S): I87.2 - Venous insufficiency (chronic) (peripheral) (5) Other specified peripheral vascular diseases: CODE(S): I73.89 - Other specified peripheral vascular diseases (6) Candidal skin infection: CODE(S): B37.2 - Candidiasis of skin and nail PLAN: Plan Patient was evaluated at the wound center today. Wound care - To left anterior leg ulcer moistened [place] covered with super absorber at the time of the 3M 2layer wrap changes. Compression - 3M 2 layer wraps. Come back in on Thursday or Thursday for a nurse visit to have dressing and wrap changed. Encourage patient to use his lymphedema pumps to help decrease some of his edema. Stressed that the pumps could really help his lymphedema and the wound healing. Discussed that with all the swelling, it will make it difficult to heal this wound. Discussed that he needs to use his pumps every day, all year long, even in the summer when it is hot. Stressed that his lymphedema is never going to go away and the best way to help keep it under control is to use his pumps and wear his compression every day. Wound culture obtained on 03/17/22 was positive for Staphylococcus pseudintermediu and MRSE. He completed Levaquin. Encouraged patient to elevate his legs when sitting. Stressed the importance of doing his wound care as prescribed and wearing the compression as instructed. He verbalized understanding. Encouraged increase protein intake with supplementation of Yash. Instructed him that he can get Yash at the hospital cafeteria without a prescription and it is the most cost effective place to purchase it. Will order vascular studies since his last ones were in 03/2018 and he had some venous incompetency in his bilateral greater saphenous veins at that time. Follow up Thursday or Thursday for dressing and compression change and then next Thursday with me.
[2022-07-02 09:02] VITALS: BP 131/76; PULSE 77; RESP 22; TEMP 36.4
--- NOTE | 2022-07-02 10:15 | ART_ITS ---
Reason For Study: LE Wound Procedure A bilateral lower extremity continuous wave Doppler with analog waveform analysis and ankle brachial indexes. Left Segmental Pressures Left brachial= 119mmHg. Left posterior tibial artery = 184mmHg. Left dorsalis pedis artery = 173mmHg. Left digit = 137 mmHg. The left posterior tibial artery waveforms are triphasic. The left dorsalis pedis waveforms are triphasic. Right Segmental Pressures Right brachial= 121mmHg. Right posterior tibial artery = 174mmHg. Right dorsalis pedis artery = 160mmHg. Right digit = 147 mmHg. The right posterior tibial artery waveforms are triphasic. The right dorsalis pedis waveforms are triphasic. Indices The right ankle brachial index by the posterior tibial artery is 1.44. The right ankle brachial index by the dorsalis pedis is 1.32. The right digital-brachial index is 1.21. The left ankle brachial index by the posterior tibial artery is 1.52. The left ankle brachial index by the dorsalis pedis is 1.43. The left digital-brachial index is 1.13. VL/Lower Ext Art Exam w/o Exercis Interpretation Summary Triphasic Doppler waveforms are noted at ankle level bilaterally. Pulse-volume recordings appear diminished at ankle and digital levels on the left, but satisfactory at all oth er levels bilaterally. Resting ankle-brachial indices are supra-normal bilaterally. Digit al-brachial indices are normal bilaterally. There is evidence of arterial calcification at ankle level bilaterally. There i s no evidence of significant arterial occlusive disease in the lower extremities bilaterally. Ordering Physician: Katie Kauffman Performed By: Charles Saavedra RVT
--- NOTE | 2022-07-02 11:00 | PCM.WC.PN ---
History of Present Illness Date of Service: 07/02/22 Chief Complaint: Left leg ulcer History of Wound: This 56-year-old male presents for evaluation of left anterior leg ulcer that started 2 months ago. He has been placing aloe gel and black christian on to the ulcer. He has a history of edema and lymphedema. He has not been wearing his compression wraps or using his compression pumps. He has a history of leg ulcers, lymphedema, edema in legs, CHF, HTN, obstructive sleep apnea, osteoarthritis, obesity, depression and PVD. Arterial study done 04/04/18 showed Resting ankle?brachial indices were calculated bilaterally. The resting right ankle?brachial index was calculated to be 1.43. The resting left ankle?brachial index was calculated to be 1.40 Venous studies from 03/31/18 showed Valvular competence appears intact within the proximal deep venous systems bilaterally. The right greater saphenous vein appears incompetent above the knee. The left greater saphenous vein appears incompetent above the knee. Wound culture obtained on 03/17/22 was positive for Staphylococcus pseudintermediu and MRSE. He completed Levaquin. He denies fever, chills, nausea or vomiting. Progress of Wound: Left anterior leg ulcer is stable. The 3M 2 layer wrap do help with the edema. He is scheduled for vascular studies today. Objective Data Objective Data Vital Signs: Vital Signs Temp Pulse Resp BP 97.5 F L 77 22 H 131/76 H 07/02/22 09:02 07/02/22 09:02 07/02/22 09:02 07/02/22 09:02 Charges/Coding Procedures Integumentary [id number]: [id number] Bettina subq tissue 20 sq cm/< Debridement Note Debridement Note Wound debrided: anterior leg ulcer Laterality: Left Wound Grade/Stage: Stage III Type of Debridement: Excisional debridement Anesthesia Used: 5% Lidocaine Gel Depth: Down to and including healthy tissue and in the subcutaneous layer Percentage of wound debrided: 100 Instrument Used: 3mm curette Tissue Removed: Devitalized tissue and slough Severity: Fat Layer Exposed Amount of bleeding with debridement: Mild Bleeding Controlled with: Compression and gauze Patient tolerated procedure: Patient tolerated procedure well Post-Debridement Measurements and Additional Note: Post-Debridement Measurements/Treatment GULSHAN - Nurse 1 - General Ulcer Assessment Start: 06/25/22 08:41 Freq: Status: Active Protocol: TERRANCE Activity Type Activity Date Activity User E-sign Co-sign Detail Recorded Client Recorded Date Recorded By Document 06/25/22 08:41 RB [id number] 06/25/22 08:43 RB Document 07/02/22 09:02 DL [id number] 07/02/22 09:06 DL 06/25/22 07/02/22 08:41 09:02 - Today's Visit Information Type of service Follow-up Visit Follow-up Visit (Physician/LOCKSTITCH MACHINE OPERATOR (Physician/LOCKSTITCH MACHINE OPERATOR ) ) Arrival Mode Ambulatory, Ambulatory, Crutches Crutches Transfer Assistance None None Patient Identification Verified (Name & Yes Yes ) Patient Requires Transmission-Based No No Precautions Vital Signs Temperature (97.8 F-99.1 F) 96.8 F L 97.5 F L Temperature Source Temporal Temporal Pulse Rate (60-100) 86 77 Pulse Location Monitor Monitor Respiratory Rate (12-18) 18 22 H Respiratory rate source Observation Observation Blood Pressure (90/60-120/80) 130/69 H 131/76 H Blood Pressure Mean (mm Hg) 89 94 Source Monitor Monitor Position Semi-Fowlers Blood Pressure Location Left Arm History Since Last Visit- (Skip if this is Patient's initial visit) Have you changed medications since your No No last visit? Any new allergies or adverse reactions No No Had a fall/change in ADL's that may No No increase risk of falls Signs or symptoms of abuse and/or No No neglect since last visit Have you been in the hospital since your No No last visit? Has dressing in place as prescribed Yes Yes Has compression in place as prescribed Yes Yes Has offloadiing in place as prescribed No N/A Experienced any changes in pain level or No No management Left Footwear Regular Shoe Right Footwear Regular Shoe Pain Scale: 0-10 Numeric Is Patient Pain Free? Yes Yes - Nurse 1 - General Ulcer Measurement Start: 06/25/22 08:41 Freq: Status: Active Protocol: Activity Type Activity Date Activity User E-sign Co-sign Detail Recorded Client Recorded Date Recorded By Document 06/25/22 08:41 RB [id number] 06/25/22 08:43 RB Document 07/02/22 09:02 DL [id number] 07/02/22 09:06 DL 06/25/22 07/02/22 08:41 09:02 Wound Center Nurse 1 #2 L Sanchez -Combined with other wound No -Current Size (cm) - Length 0.5 0.9 -Current Size (cm) - Width 0.2 0.8 -Current Size (cm) - Depth 0.1 0.1 -Total Square Cm 0.10 0.72 -Photo Taken Yes Yes -Tunneling No -Undermining/Tunneling No -Circular Undermining No -Exudate Amt Medium Small -Exudate Type Serosanguineous Serosanguineous -Wound Margin Distinct, Distinct, Outline Outline Attached Attached -Granulation Amt Medium (34-66%) Large (67-100%) -Granulation Quality [place] Red -Necrosis Amt Medium (34-66%) Small (1-33%) -Necrotic Tissue Type Adherent Slough Adherent Slough -Structure Exposed N/A N/A -Texture (Toshia-wound Skin Appearance) Assessed, Scarring Excoriation -Moisture (Toshia-wound Skin Appearance) Assessed Dry/Scaly -Color (Toshia-wound Skin Appearance) Assessed Hemosiderin Staining -Temperature (Toshia-wound Skin No Abnormality No Abnormality Appearance) (Pt Warm) (Pt Warm) -Tenderness on Palpation (Toshia-wound No No Skin Appearance) -Ulcer Cleansing Wound Cleanser Soap and Water -Foul Odor after Cleansing No -Anesthetic Used 5% Lidocaine 5% Lidocaine Gel Gel Lower Limb Edema Present Yes Left Calf (cm) 54.5 61.5 Left Ankle (cm) 27.6 28.5 WC - Nurse 2 - General Ulcer CM Notes Start: 06/25/22 08:41 Freq: Status: Active Protocol: Activity Type Activity Date Activity User E-sign Co-sign Detail Recorded Client Recorded Date Recorded By Document 06/25/22 09:29 [id number] 06/25/22 09:30 Document 07/02/22 09:29 JO [id number] 07/02/22 09:30 06/25/22 07/02/22 09:29 09:29 Wound Center Nurse 2 #2 L Asnchez -Time 09: 09:29 -Correct Patient Yes Yes -Correct Side, Site, Position Yes Yes -Correct Procedure Yes Yes -Procedure Performed Yes Yes -Type of Procedure Debridement Debridement -Clinical Debridement Subcutaneous Subcutaneous -Tissue Removed Subcutaneous Subcutaneous -Post Debridement (cm) - Length 1.2 1.1 -Post Debridement (cm) - Width 1.0 1.0 -Post Debridement (cm) - Depth 0.1 0.1 -Total Square (Post) (cm) 1.20 1.10 -Area of Debridement (cm) - Length 1.2 1.1 -Area of Debridement (cm) - Width 1.0 1.0 -Total Square (Area) (cm) 1.20 1.10 -Tunneling No No -Undermining/Tunneling No No -Circular Undermining No No -Wound/Ulcer Outcome Not Healed Not Healed -Ulcer Cleansing Rinsed/ Rinsed/ Irrigated with Irrigated with Saline Saline -Foul Odor after Cleansing No No -Bioengineered Tissue No No -Bleeding Controlled with Pressure Pressure -Treatment Response Procedure Procedure Tolerated Well Tolerated Well -Offloading No No -Debridement - Subq, 1st 20sq cm Yes Yes Pain Scale: 0-10 Numeric Is Patient Pain Free? Yes Yes - Nurse 3 - General Ulcer D/C NN Start: 06/25/22 08:41 Freq: Status: Active Protocol: Activity Type Activity Date Activity User E-sign Co-sign Detail Recorded Client Recorded Date Recorded By Document 06/25/22 09:35 RB [id number] 06/25/22 09:37 RB Document 07/02/22 09:44 RB [id number] 07/02/22 09:45 RB 06/25/22 07/02/22 09:35 09:44 Wound Care Center Nurse 3 #2 L Sanchez -Ulcer Cleansing Wound Cleanser -Other Dressing agustin pt own dry gauzea dn anti itch lisandra wrap periulcer of wound -Primary Dressing Covered/Secured with Dry Gauze Left -Multi-Layered Wrap Application Multi-Layer Comp - Left ($) Treatment Response Procedure Procedure Tolerated Well Tolerated Well Pain Scale: 0-10 Numeric Is Patient Pain Free? Yes Yes - Visit Discharge Discharge Condition Stable Stable Ambulatory Status Ambulatory Ambulatory, Crutches Transportation [facility] transport Private Auto Medication Reconcilliation completed & No No provided to patient/care provider Clinical Summary of Care Provided Yes Yes Notes: pt to hospital for vascular studies . pt will be rewrapped with 3M after appointment Assessment/Plan Assessment/Plan (1) Ulcer of left lower extremity with fat layer exposed: CODE(S): L97.922 - Non-pressure chronic ulcer of unspecified part of left lower leg with fat layer exposed (2) Bilateral lower extremity edema: CODE(S): R60.0 - Localized edema (3) Lymphedema associated with obesity: CODE(S): I89.0 - Lymphedema, not elsewhere classified; E66.9 - Obesity, unspecified (4) Venous insufficiency: CODE(S): I87.2 - Venous insufficiency (chronic) (peripheral) (5) Other specified peripheral vascular diseases: CODE(S): I73.89 - Other specified peripheral vascular diseases (6) Candidal skin infection: CODE(S): B37.2 - Candidiasis of skin and nail PLAN: Plan Patient was evaluated at the wound center today. He will go for his vascular studies today then come back to have the 3M 2 layer wraps applied. Wound care - To left anterior leg ulcer moistened Agsutin covered with super absorber at the time of the 3M 2layer wrap changes. Compression - 3M 2 layer wraps. Come back in on Thursday or Thursday for a nurse visit to have dressing and wrap changed. Encourage patient to use his lymphedema pumps to help decrease some of his edema. Stressed that the pumps could really help his lymphedema and the wound healing. Discussed that with all the swelling, it will make it difficult to heal this wound. Discussed that he needs to use his pumps every day, all year long, even in the summer when it is hot. Stressed that his lymphedema is never going to go away and the best way to help keep it under control is to use his pumps and wear his compression every day. The patient would really like to stop the 3M 2 layer wraps, but he he does not typically wear compression as he should. Wound culture obtained on 03/17/22 was positive for Staphylococcus pseudintermediu and MRSE. He completed Levaquin. Encouraged patient to elevate his legs when sitting. Stressed the importance of doing his wound care as prescribed and wearing the compression as instructed. He verbalized understanding. Encouraged increase protein intake with supplementation of Yash. Instructed him that he can get Yash at the hospital cafeteria without a prescription and it is the most cost effective place to purchase it. Vascular studies scheduled today. Follow up Thursday or Thursday for dressing and compression change and then next Thursday with me.
[2022-07-09 08:30] VITALS: BP 153/59; PULSE 87; RESP 18; TEMP 36.1
--- NOTE | 2022-07-09 09:15 | PN.PCM_ITS ---
History of Present Illness Date of Service: 07/09/22 Chief Complaint: Left leg ulcer History of Wound: This 56-year-old male presents for evaluation of left anterior leg ulcer that started 2 months ago. He has been placing aloe gel and black christian on to the ulcer. He has a history of edema and lymphedema. He has not been wearing his compression wraps or using his compression pumps. He has a history of leg ulcers, lymphedema, edema in legs, CHF, HTN, obstructive sleep apnea, osteoarthritis, obesity, depression and PVD. Arterial study done 07/02/22 showed Triphasic waveforms at ankle level bilaterally. Right ankle brachial index by dorsalis pedis 1.32. Left ankle brachial index by dorsalis pedis is 1.43. There is evidence of arterial calcification at the ankle level bilaterally. There is no evidence of significant arterial occlusive disease in the lower extremities bilaterally. Venous studies from 07/02/22 showed segmental valvular incompetence is noted within the great saphenous veins bilaterally. The right small saphenous vein is patent and incompetent. The left small saphenous vein is patent and competent. An incompetent piano sounding board matcher vein is noted in the left mid-calf. Wound culture obtained on 03/17/22 was positive for Staphylococcus pseudintermediu and MRSE. He completed Levaquin. He denies fever, chills, nausea or vomiting. Progress of Wound: Left anterior leg ulcer is stable. His toshia wound is excoriated. His 3M 2 layer wraps are wet. He states he showered on Thursday. Vascular studies obtained. Objective Data Objective Data Vital Signs: Vital Signs Temp Pulse Resp BP 97 F L 87 18 153/59 H 07/09/22 08:30 07/09/22 08:30 07/09/22 08:30 07/09/22 08:30 Charges/Coding Procedures Integumentary [id number]: 11504 Bettina subq tissue 20 sq cm/< Debridement Note Debridement Note Wound debrided: anterior leg ulcer Laterality: Left Wound Grade/Stage: Stage III Type of Debridement: Excisional debridement Anesthesia Used: 5% Lidocaine Gel Depth: Down to and including healthy tissue and in the subcutaneous layer Percentage of wound debrided: 100 Instrument Used: 3mm curette Tissue Removed: Devitalized tissue and slough Severity: Fat Layer Exposed Amount of bleeding with debridement: Mild Bleeding Controlled with: Compression and gauze Patient tolerated procedure: Patient tolerated procedure well Post-Debridement Measurements and Additional Note: Post-Debridement Measurements/Treatment - Nurse 1 - General Ulcer Assessment Start: 06/25/22 08:41 Freq: Status: Active Protocol: TERRANCE Activity Type Activity Date Activity User E-sign Co-sign Detail Recorded Client Recorded Date Recorded By Document 06/25/22 08:41 RB [id number] 06/25/22 08:43 RB Document 07/02/22 09:02 DL [id number] 07/02/22 09:06 DL Document 07/09/22 08:30 RB [id number] 07/09/22 08:33 RB 06/25/22 07/02/22 07/09/22 08:41 09:02 08:30 - Today's Visit Information Type of service Follow-up Visit Follow-up Visit Follow-up Visit (Physician/TECHNOLOGY COACH (Physician/TECHNOLOGY COACH (Physician/TECHNOLOGY COACH ) ) ) Arrival Mode Ambulatory, Ambulatory, Ambulatory, Crutches Crutches Crutches Transfer Assistance None None None Patient Identification Verified (Name & Yes Yes Yes ) Patient Requires Transmission-Based No No No Precautions Vital Signs Temperature (97.8 F-99.1 F) 96.8 F L 97.5 F L 97 F L Temperature Source Temporal Temporal Temporal Pulse Rate (60-100) 86 77 87 Pulse Location Monitor Monitor Monitor Respiratory Rate (12-18) 18 22 H 18 Respiratory rate source Observation Observation Observation Blood Pressure (90/60-120/80) 130/69 H 131/76 H 153/59 H Blood Pressure Mean (mm Hg) 89 94 90 Source Monitor Monitor Monitor Position Semi-Fowlers Semi-Fowlers Blood Pressure Location Left Arm Left Arm History Since Last Visit- (Skip if this is Patient's initial visit) Have you changed medications since your No No No last visit? Any new allergies or adverse reactions No No No Had a fall/change in ADL's that may No No No increase risk of falls Signs or symptoms of abuse and/or No No No neglect since last visit Have you been in the hospital since your No No No last visit? Has dressing in place as prescribed Yes Yes Yes Has compression in place as prescribed Yes Yes Yes Has offloadiing in place as prescribed No N/A No Experienced any changes in pain level or No No No management Left Footwear Regular Shoe Right Footwear Regular Shoe Pain Scale: 0-10 Numeric Is Patient Pain Free? Yes Yes Yes WC - Nurse 1 - General Ulcer Measurement Start: 06/25/22 08:41 Freq: Status: Active Protocol: Activity Type Activity Date Activity User E-sign Co-sign Detail Recorded Client Recorded Date Recorded By Document 06/25/22 08:41 RB [id number] 06/25/22 08:43 RB Document 07/02/22 09:02 DL [id number] 07/02/22 09:06 DL Document 07/09/22 08:30 RB [id number] 07/09/22 08:33 RB 06/25/22 07/02/22 07/09/22 08:41 09:02 08:30 Wound Center Nurse 1 #2 L Sanchez -Combined with other wound No No -Current Size (cm) - Length 0.5 0.9 1.4 -Current Size (cm) - Width 0.2 0.8 0.7 -Current Size (cm) - Depth 0.1 0.1 0.1 -Total Square Cm 0.10 0.72 0.98 -Photo Taken Yes Yes Yes -Tunneling No No -Undermining/Tunneling No No -Circular Undermining No No -Exudate Amt Medium Small Large -Exudate Type Serosanguineous Serosanguineous Serosanguineous -Wound Margin Distinct, Distinct, Distinct, Outline Outline Outline Attached Attached Attached -Granulation Amt Medium (34-66%) Large (67-100%) Medium (34-66%) -Granulation Quality Turner Red Turner,Red -Slough/Fibrin Yes -Necrosis Amt Medium (34-66%) Small (1-33%) Medium (34-66%) -Necrotic Tissue Type Adherent Slough Adherent Slough Adherent Slough -Structure Exposed N/A N/A N/A -Texture (Toshia-wound Skin Appearance) Assessed, Scarring Excoriation Excoriation -Moisture (Toshia-wound Skin Appearance) Assessed Dry/Scaly Assessed -Color (Toshia-wound Skin Appearance) Assessed Hemosiderin Assessed Staining -Temperature (Toshia-wound Skin No Abnormality No Abnormality No Abnormality Appearance) (Pt Warm) (Pt Warm) (Pt Warm) -Tenderness on Palpation (Toshia-wound No No No Skin Appearance) -Ulcer Cleansing Wound Cleanser Soap and Water Wound Cleanser -Foul Odor after Cleansing No -Anesthetic Used 5% Lidocaine 5% Lidocaine 5% Lidocaine Gel Gel Gel -Wound Comment(s) pt states he showered Thursday and wrapped LLE in garage bag. pt 3M on LLE wet to touch noted today. Lower Limb Edema Present Yes Yes Left Calf (cm) 54.5 61.5 55 Left Ankle (cm) 27.6 28.5 26.5 WC - Nurse 2 - General Ulcer CM Notes Start: 06/25/22 08:41 Freq: Status: Active Protocol: Activity Type Activity Date Activity User E-sign Co-sign Detail Recorded Client Recorded Date Recorded By Document 06/25/22 09:29 [id number] 06/25/22 09:30 Document 07/02/22 09:29 [id number] 07/02/22 09:30 Document 07/09/22 09:11 [id number] 07/09/22 09:13 06/25/22 07/02/22 07/09/22 09:29 09:29 09:11 Wound Center Nurse 2 #2 L Sanchez -Time 09:29 09:29 09:12 -Correct Patient Yes Yes Yes -Correct Side, Site, Position Yes Yes Yes -Correct Procedure Yes Yes Yes -Procedure Performed Yes Yes Yes -Type of Procedure Debridement Debridement Debridement -Clinical Debridement Subcutaneous Subcutaneous Subcutaneous -Tissue Removed Subcutaneous Subcutaneous Subcutaneous -Post Debridement (cm) - Length 1.2 1.1 1.1 -Post Debridement (cm) - Width 1.0 1.0 1.0 -Post Debridement (cm) - Depth 0.1 0.1 0.1 -Total Square (Post) (cm) 1.20 1.10 1.10 -Area of Debridement (cm) - Length 1.2 1.1 1.1 -Area of Debridement (cm) - Width 1.0 1.0 1.0 -Total Square (Area) (cm) 1.20 1.10 1.10 -Tunneling No No No -Undermining/Tunneling No No No -Circular Undermining No No No -Wound/Ulcer Outcome Not Healed Not Healed Not Healed -Ulcer Cleansing Rinsed/ Rinsed/ Rinsed/ Irrigated with Irrigated with Irrigated with Saline Saline Saline -Foul Odor after Cleansing No No No -Bioengineered Tissue No No No -Bleeding Controlled with Pressure Pressure Pressure -Treatment Response Procedure Procedure Procedure Tolerated Well Tolerated Well Tolerated Well -Offloading No No No -Debridement - Subq, 1st 20sq cm Yes Yes Yes Pain Scale: 0-10 Numeric Is Patient Pain Free? Yes Yes Yes - Nurse 3 - General Ulcer D/C NN Start: 06/25/22 08:41 Freq: Status: Active Protocol: Activity Type Activity Date Activity User E-sign Co-sign Detail Recorded Client Recorded Date Recorded By Document 06/25/22 09:35 RB [id number] 06/25/22 09:37 RB Document 07/02/22 09:44 RB [id number] 07/02/22 09:45 RB Document 07/02/22 12:04 [facility] [id number] 07/02/22 12:06 BM 06/25/22 07/02/22 07/02/22 09:35 09:44 12:04 Wound Care Center Nurse 3 #2 L Sanchez -Ulcer Cleansing Wound Cleanser Rinsed/ Irrigated with Saline -Foul Odor after Cleansing No -Primary Dressing Applied Promogran Agustin Matter -Other Dressing agustin pt own dry gauzea dn ABD; DRSG PER anti itch ryan wrap RB RN periulcer of wound -Primary Dressing Covered/Secured with Dry Gauze -Promogran Agustin Matter 1 Left -Multi-Layered Wrap Application Multi-Layer Multi-Layer Comp - Left ($) Comp - Left ($) Treatment Response Procedure Procedure Procedure Tolerated Well Tolerated Well Tolerated Well Pain Scale: 0-10 Numeric Is Patient Pain Free? Yes Yes Yes - Visit Discharge Discharge Condition Stable Stable Stable Ambulatory Status Ambulatory Ambulatory, Ambulatory Crutches Transportation [facility] transport Private Auto [facility] TRANSPORT Medication Reconcilliation completed & No No provided to patient/care provider Clinical Summary of Care Provided Yes Yes Notes: pt to hospital for vascular studies . pt will be rewrapped with 3M after appointment Assessment/Plan Assessment/Plan (1) Ulcer of left lower extremity with fat layer exposed: CODE(S): L97.922 - Non-pressure chronic ulcer of unspecified part of left lower leg with fat layer exposed (2) Bilateral lower extremity edema: CODE(S): R60.0 - Localized edema (3) Lymphedema associated with obesity: CODE(S): I89.0 - Lymphedema, not elsewhere classified; E66.9 - Obesity, unspecified (4) Venous insufficiency: CODE(S): I87.2 - Venous insufficiency (chronic) (peripheral) (5) Other specified peripheral vascular diseases: CODE(S): I73.89 - Other specified peripheral vascular diseases (6) Candidal skin infection: CODE(S): B37.2 - Candidiasis of skin and nail PLAN: Plan Patient was evaluated at the wound center today. He will go for his vascular studies today then come back to have the 3M 2 layer wraps applied. Wound care - To left anterior leg ulcer moistened Agustin covered with super absorber daily. Compression - RYAN wraps for compression. Encourage patient to use his lymphedema pumps to help decrease some of his edema. Stressed that the pumps could really help his lymphedema and the wound healing. Discussed that with all the swelling, it will make it difficult to heal this wound. Discussed that he needs to use his pumps every day, all year long, even in the summer when it is hot. Stressed that his lymphedema is never going to go away and the best way to help keep it under control is to use his pumps and wear his compression every day. Stressed importance of not getting wraps/dressing wet between dressing changes. Encouraged him to bring his brother with him because I'm concerned he is not understanding the importance of of the wound care. Wound culture obtained on 03/17/22 was positive for Staphylococcus pseudintermediu and MRSE. He completed Levaquin. Encouraged patient to elevate his legs when sitting. Stressed the importance of doing his wound care as prescribed and wearing the compression as instructed. He verbalized understanding. Encouraged increase protein intake with supplementation of Yash. Instructed him that he can get Yash at the hospital cafeteria without a prescription and it is the most cost effective place to purchase it. Due to the results of his vascular studies will refer to Dr. Ramirez for further evaluation. Encouraged him to take family member with him to that appointment. Follow up one week.
[2022-07-16 08:20] VITALS: BP 127/67; PULSE 78; RESP 22; TEMP 35.9
--- NOTE | 2022-07-16 14:22 | PN.PCM_ITS ---
History of Present Illness Date of Service: 07/16/22 Chief Complaint: Left leg ulcer History of Wound: This 56-year-old male presents for evaluation of left anterior leg ulcer that started 2 months ago. He has been placing aloe gel and black christian on to the ulcer. He has a history of edema and lymphedema. He has not been wearing his compression wraps or using his compression pumps. He has a history of leg ulcers, lymphedema, edema in legs, CHF, HTN, obstructive sleep apnea, osteoarthritis, obesity, depression and PVD. Arterial study done 07/02/22 showed Triphasic waveforms at ankle level bilaterally. Right ankle brachial index by dorsalis pedis 1.32. Left ankle brachial index by dorsalis pedis is 1.43. There is evidence of arterial calcification at the ankle level bilaterally. There is no evidence of significant arterial occlusive disease in the lower extremities bilaterally. Venous studies from 07/02/22 showed segmental valvular incompetence is noted within the great saphenous veins bilaterally. The right small saphenous vein is patent and incompetent. The left small saphenous vein is patent and competent. An incompetent hydrant setter vein is noted in the left mid-calf. Wound culture obtained on 03/17/22 was positive for Staphylococcus pseudintermediu and MRSE. He completed Levaquin. He denies fever, chills, nausea or vomiting. Progress of Wound: Left anterior leg ulcer has improved, it is smaller in size. His toshia wound excoriation is improving. His edema is stable. Objective Data Objective Data Vital Signs: Vital Signs Temp Pulse Resp BP 96.7 F L 78 22 H 127/67 H 07/16/22 08:20 07/16/22 08:20 07/16/22 08:20 07/16/22 08:20 Charges/Coding Procedures Integumentary [id number]: [id number] Bettina subq tissue 20 sq cm/< Debridement Note Debridement Note Wound debrided: anterior leg ulcer Laterality: Left Wound Grade/Stage: Stage III Type of Debridement: Excisional debridement Anesthesia Used: 5% Lidocaine Gel Depth: Down to and including healthy tissue and in the subcutaneous layer Percentage of wound debrided: 100 Instrument Used: 3mm curette Tissue Removed: Devitalized tissue and slough Severity: Fat Layer Exposed Amount of bleeding with debridement: Mild Bleeding Controlled with: Compression and gauze Patient tolerated procedure: Patient tolerated procedure well Post-Debridement Measurements and Additional Note: Post-Debridement Measurements/Treatment - Nurse 1 - General Ulcer Assessment Start: 06/25/22 08:41 Freq: Status: Active Protocol: TERRANCE Activity Type Activity Date Activity User E-sign Co-sign Detail Recorded Client Recorded Date Recorded By Document 06/25/22 08:41 RB [id number] 06/25/22 08:43 RB Document 07/02/22 09:02 DL [id number] 07/02/22 09:06 DL Document 07/09/22 08:30 RB [id number] 07/09/22 08:33 RB Document 07/16/22 08:20 DL Desktop 07/16/22 08:22 DL 06/25/22 07/02/22 07/09/22 08:41 09:02 08:30 - Today's Visit Information Type of service Follow-up Visit Follow-up Visit Follow-up Visit (Physician/FAST FOOD FRY COOK (Physician/FAST FOOD FRY COOK (Physician/FAST FOOD FRY COOK ) ) ) Arrival Mode Ambulatory, Ambulatory, Ambulatory, Crutches Crutches Crutches Transfer Assistance None None None Patient Identification Verified (Name & Yes Yes Yes ) Patient Requires Transmission-Based No No No Precautions Vital Signs Temperature (97.8 F-99.1 F) 96.8 F L 97.5 F L 97 F L Temperature Source Temporal Temporal Temporal Pulse Rate (60-100) 86 77 87 Pulse Location Monitor Monitor Monitor Respiratory Rate (12-18) 18 22 H 18 Respiratory rate source Observation Observation Observation Blood Pressure (90/60-120/80) 130/69 H 131/76 H 153/59 H Blood Pressure Mean (mm Hg) 89 94 90 Source Monitor Monitor Monitor Position Semi-Fowlers Semi-Fowlers Blood Pressure Location Left Arm Left Arm History Since Last Visit- (Skip if this is Patient's initial visit) Have you changed medications since your No No No last visit? Any new allergies or adverse reactions No No No Had a fall/change in ADL's that may No No No increase risk of falls Signs or symptoms of abuse and/or No No No neglect since last visit Have you been in the hospital since your No No No last visit? Has dressing in place as prescribed Yes Yes Yes Has compression in place as prescribed Yes Yes Yes Has offloadiing in place as prescribed No N/A No Experienced any changes in pain level or No No No management Left Footwear Regular Shoe Right Footwear Regular Shoe Pain Scale: 0-10 Numeric Is Patient Pain Free? Yes Yes Yes 07/16/22 08:20 WC - Today's Visit Information Type of service Follow-up Visit (Physician/FAST [facility] FRY COOK ) Arrival Mode Ambulatory, Crutches Transfer Assistance None Patient Identification Verified (Name & Yes ) Patient Requires Transmission-Based No Precautions Vital Signs Temperature (97.8 F-99.1 F) 96.7 F L Temperature Source Temporal Pulse Rate (60-100) 78 Pulse Location Monitor Respiratory Rate (12-18) 22 H Respiratory rate source Observation Blood Pressure (90/60-120/80) 127/67 H Blood Pressure Mean (mm Hg) 87 Source Monitor Position Blood Pressure Location History Since Last Visit- (Skip if this is Patient's initial visit) Have you changed medications since your No last visit? Any new allergies or adverse reactions No Had a fall/change in ADL's that may No increase risk of falls Signs or symptoms of abuse and/or No neglect since last visit Have you been in the hospital since your No last visit? Has dressing in place as prescribed Yes Has compression in place as prescribed Yes Has offloadiing in place as prescribed N/A Experienced any changes in pain level or management Left Footwear Right Footwear Pain Scale: 0-10 Numeric Is Patient Pain Free? Yes - Nurse 1 - General Ulcer Measurement Start: 06/25/22 08:41 Freq: Status: Active Protocol: Activity Type Activity Date Activity User E-sign Co-sign Detail Recorded Client Recorded Date Recorded By Document 06/25/22 08:41 RB [id number] 06/25/22 08:43 RB Document 07/02/22 09:02 DL [id number] 07/02/22 09:06 DL Document 07/09/22 08:30 RB [id number] 07/09/22 08:33 RB Document 07/16/22 08:20 DL Desktop 07/16/22 08:22 DL 06/25/22 07/02/22 07/09/22 08:41 09:02 08:30 Wound Center Nurse 1 #2 L Sanchez -Combined with other wound No No -Current Size (cm) - Length 0.5 0.9 1.4 -Current Size (cm) - Width 0.2 0.8 0.7 -Current Size (cm) - Depth 0.1 0.1 0.1 -Total Square Cm 0.10 0.72 0.98 -Photo Taken Yes Yes Yes -Tunneling No No -Undermining/Tunneling No No -Circular Undermining No No -Exudate Amt Medium Small Large -Exudate Type Serosanguineous Serosanguineous Serosanguineous -Wound Margin Distinct, Distinct, Distinct, Outline Outline Outline Attached Attached Attached -Granulation Amt Medium (34-66%) Large (67-100%) Medium (34-66%) -Granulation Quality [place] Red [place],Red -Slough/Fibrin Yes -Necrosis Amt Medium (34-66%) Small (1-33%) Medium (34-66%) -Necrotic Tissue Type Adherent Slough Adherent Slough Adherent Slough -Structure Exposed N/A N/A N/A -Texture (Toshia-wound Skin Appearance) Assessed, Scarring Excoriation Excoriation -Moisture (Toshia-wound Skin Appearance) Assessed Dry/Scaly Assessed -Color (Toshia-wound Skin Appearance) Assessed Hemosiderin Assessed Staining -Temperature (Toshia-wound Skin No Abnormality No Abnormality No Abnormality Appearance) (Pt Warm) (Pt Warm) (Pt Warm) -Tenderness on Palpation (Toshia-wound No No No Skin Appearance) -Ulcer Cleansing Wound Cleanser Soap and Water Wound Cleanser -Foul Odor after Cleansing No -Anesthetic Used 5% Lidocaine 5% Lidocaine 5% Lidocaine Gel Gel Gel -Wound Comment(s) pt states he showered Thursday and wrapped LLE in garage bag. pt 3M on LLE wet to touch noted today. Lower Limb Edema Present Yes Yes Left Calf (cm) 54.5 61.5 55 Left Ankle (cm) 27.6 28.5 26.5 07/16/22 08:20 Wound Center Nurse 1 #2 L Sanchez -Combined with other wound -Current Size (cm) - Length 0.9 -Current Size (cm) - Width 0.7 -Current Size (cm) - Depth 0.2 -Total Square Cm 0.63 -Photo Taken No -Tunneling -Undermining/Tunneling -Circular Undermining -Exudate Amt Small -Exudate Type Serosanguineous -Wound Margin Distinct, Outline Attached -Granulation Amt None Present (0 %) -Granulation Quality -Slough/Fibrin -Necrosis Amt Large (67-100%) -Necrotic Tissue Type Adherent Slough -Structure Exposed N/A -Texture (Toshia-wound Skin Appearance) Excoriation, Scarring,Rash -Moisture (Toshia-wound Skin Appearance) Weeping -Color (Toshia-wound Skin Appearance) No Abnormality -Temperature (Toshia-wound Skin No Abnormality Appearance) (Pt Warm) -Tenderness on Palpation (Toshia-wound No Skin Appearance) -Ulcer Cleansing Soap and Water -Foul Odor after Cleansing No -Anesthetic Used 5% Lidocaine Gel -Wound Comment(s) Lower Limb Edema Present Left Calf (cm) 52.5 Left Ankle (cm) 27 WC - Nurse 2 - General Ulcer CM Notes Start: 06/25/22 08:41 Freq: Status: Active Protocol: Activity Type Activity Date Activity User E-sign Co-sign Detail Recorded Client Recorded Date Recorded By Document 06/25/22 09:29 [id number] 06/25/22 09:30 Document 07/02/22 09:29 [id number] 07/02/22 09:30 Document 07/09/22 09:11 [id number] 07/09/22 09:13 Document 07/16/22 08:51 [id number] 07/16/22 08:52 06/25/22 07/02/22 07/09/22 09:29 09:29 09:11 Wound Center Nurse 2 #2 L Sanchez -Time 09:29 09:29 09:12 -Correct Patient Yes Yes Yes -Correct Side, Site, Position Yes Yes Yes -Correct Procedure Yes Yes Yes -Procedure Performed Yes Yes Yes -Type of Procedure Debridement Debridement Debridement -Clinical Debridement Subcutaneous Subcutaneous Subcutaneous -Tissue Removed Subcutaneous Subcutaneous Subcutaneous -Post Debridement (cm) - Length 1.2 1.1 1.1 -Post Debridement (cm) - Width 1.0 1.0 1.0 -Post Debridement (cm) - Depth 0.1 0.1 0.1 -Total Square (Post) (cm) 1.20 1.10 1.10 -Area of Debridement (cm) - Length 1.2 1.1 1.1 -Area of Debridement (cm) - Width 1.0 1.0 1.0 -Total Square (Area) (cm) 1.20 1.10 1.10 -Tunneling No No No -Undermining/Tunneling No No No -Circular Undermining No No No -Wound/Ulcer Outcome Not Healed Not Healed Not Healed -Ulcer Cleansing Rinsed/ Rinsed/ Rinsed/ Irrigated with Irrigated with Irrigated with Saline Saline Saline -Foul Odor after Cleansing No No No -Bioengineered Tissue No No No -Bleeding Controlled with Pressure Pressure Pressure -Treatment Response Procedure Procedure Procedure Tolerated Well Tolerated Well Tolerated Well -Offloading No No No -Debridement - Subq, 1st 20sq cm Yes Yes Yes Pain Scale: 0-10 Numeric Is Patient Pain Free? Yes Yes Yes 07/16/22 08:51 Wound Center Nurse 2 #2 L Sanchez -Time 08:51 -Correct Patient Yes -Correct Side, Site, Position Yes -Correct Procedure Yes -Procedure Performed Yes -Type of Procedure Debridement -Clinical Debridement Subcutaneous -Tissue Removed Subcutaneous -Post Debridement (cm) - Length 0.9 -Post Debridement (cm) - Width 1.0 -Post Debridement (cm) - Depth 0.1 -Total Square (Post) (cm) 0.90 -Area of Debridement (cm) - Length 0.9 -Area of Debridement (cm) - Width 1.0 -Total Square (Area) (cm) 0.90 -Tunneling No -Undermining/Tunneling No -Circular Undermining No -Wound/Ulcer Outcome Not Healed -Ulcer Cleansing Rinsed/ Irrigated with Saline -Foul Odor after Cleansing No -Bioengineered Tissue No -Bleeding Controlled with Pressure -Treatment Response Procedure Tolerated Well -Offloading No -Debridement - Subq, 1st 20sq cm Yes Pain Scale: 0-10 Numeric Is Patient Pain Free? Yes - Nurse 3 - General Ulcer D/C NN Start: 06/25/22 08:41 Freq: Status: Active Protocol: Activity Type Activity Date Activity User E-sign Co-sign Detail Recorded Client Recorded Date Recorded By Document 06/25/22 09:35 RB [id number] 06/25/22 09:37 RB Document 07/02/22 09:44 RB [id number] 07/02/22 09:45 RB Document 07/02/22 12:04 [facility] [id number] 07/02/22 12:06 BMF Document 07/09/22 09:24 [id number] 07/09/22 09:25 JF 06/25/22 07/02/22 07/02/22 09:35 09:44 12:04 Wound Care Center Nurse 3 #2 L Sanchez -Ulcer Cleansing Wound Cleanser Rinsed/ Irrigated with Saline -Foul Odor after Cleansing No -Primary Dressing Applied Promogran Agustin Matter -Other Dressing agustin pt own dry gauzea dn ABD; DRSG PER anti itch mani wrap RB RN periulcer of wound -Primary Dressing Covered/Secured with Dry Gauze -Promogran Agustin Matter 1 Left -Multi-Layered Wrap Application Multi-Layer Multi-Layer Comp - Left ($) Comp - Left ($) -Compression Wrap Treatment Response Procedure Procedure Procedure Tolerated Well Tolerated Well Tolerated Well Pain Scale: 0-10 Numeric Is Patient Pain Free? Yes Yes Yes WC - Visit Discharge Discharge Condition Stable Stable Stable Ambulatory Status Ambulatory Ambulatory, Ambulatory Crutches Transportation [facility] transport Private Auto [facility] TRANSPORT Medication Reconcilliation completed & No No provided to patient/care provider Clinical Summary of Care Provided Yes Yes Notes: pt to hospital for vascular studies . pt will be rewrapped with 3M after appointment 07/09/22 09:24 Wound Care Center Nurse 3 #2 L Sanchez -Ulcer Cleansing Rinsed/ Irrigated with Saline -Foul Odor after Cleansing No -Primary Dressing Applied Promogran Agustin Matter -Other Dressing OTC steroid cream -Primary Dressing Covered/Secured with Dry Gauze -Promogran Agustin Matter 1 Left -Multi-Layered Wrap Application -Compression Wrap Mani Wrap Treatment Response Pain Scale: 0-10 Numeric Is Patient Pain Free? Yes WC - Visit Discharge Discharge Condition Stable Ambulatory Status Ambulatory, Crutches Transportation Private Auto Medication Reconcilliation completed & No provided to patient/care provider Clinical Summary of Care Provided Yes Notes: Assessment/Plan Assessment/Plan (1) Ulcer of left lower extremity with fat layer exposed: CODE(S): L97.922 - Non-pressure chronic ulcer of unspecified part of left lower leg with fat layer exposed (2) Bilateral lower extremity edema: CODE(S): R60.0 - Localized edema (3) Lymphedema associated with obesity: CODE(S): I89.0 - Lymphedema, not elsewhere classified; E66.9 - Obesity, unspecified (4) Venous insufficiency: CODE(S): I87.2 - Venous insufficiency (chronic) (peripheral) (5) Other specified peripheral vascular diseases: CODE(S): I73.89 - Other specified peripheral vascular diseases (6) Candidal skin infection: CODE(S): B37.2 - Candidiasis of skin and nail PLAN: Plan Patient was evaluated at the wound center today. Wound care - To left anterior leg ulcer moistened Agustin covered with super absorber daily. Compression - Double MANI wraps for compression. Encourage patient to use his lymphedema pumps to help decrease some of his edema. Stressed that the pumps could really help his lymphedema and the wound healing. Discussed that with all the swelling, it will make it difficult to heal this wound. Discussed that he needs to use his pumps every day, all year long, even in the summer when it is hot. Stressed that his lymphedema is never going to go away and the best way to help keep it under control is to use his pumps and wear his compression every day. Stressed importance of not getting wraps/dressing wet between dressing changes. Encouraged him to bring his brother with him because I'm concerned he is not understanding the importance of of the wound care. Wound culture obtained on 03/17/22 was positive for Staphylococcus pseudintermediu and MRSE. He completed Levaquin. Encouraged patient to elevate his legs when sitting. Stressed the importance of doing his wound care as prescribed and wearing the compression as instructed. He verbalized understanding. Encouraged increase protein intake with supplementation of Yash. Instructed him that he can get Yash at the hospital cafeteria without a prescription and it is the most cost effective place to purchase it. He sees Dr. Ramirez today. He did not bring a family member with him for that appointment. Follow up two weeks. I am out of town next week.
== END 2022-07-25 23:59 | disposition home or self-care (01) ==
LOC: WC 09:00
PROVIDERS: PCP Internal Medicine; Visit Provider Nurse Practitioner Family
DX: L97.822 Non-pressure chronic ulcer of other part of left lower leg with fat layer exposed (principal); I11.0 Hypertensive heart disease with heart failure; I50.9 Heart failure, unspecified; I73.89 Other specified peripheral vascular diseases; R60.0 Localized edema; I89.0 Lymphedema, not elsewhere classified; B37.2 Candidiasis of skin and nail; G47.33 Obstructive sleep apnea (adult) (pediatric); M19.90 Unspecified osteoarthritis, unspecified site; E66.9 Obesity, unspecified; F32.A Depression, unspecified; Z79.82 Long term (current) use of aspirin; Z79.899 Other long term (current) drug therapy
CPT/HCPCS: 11042; 29581; 93923; 93970

== ENCOUNTER 2023-11-14 20:33 | Observation (INO) | payer OTHER, SELFPAY ==
[2023-11-14 20:35] VITALS: PULSE 83; RESP 19; TEMP 36; O2SAT 94; BMI 54.8
--- NOTE | 2023-11-14 20:43 | EKG12_ITS ---
Test Reason : SYNCOPE Blood Pressure : / mmHG Vent. Rate : 073 BPM Atrial Rate : 073 BPM P-R Int : 150 ms QRS Dur : 086 ms QT Int : 390 ms P-R-T Axes : 042 046 060 degrees QTc Int : 429 ms Normal sinus rhythm Normal ECG Confirmed by GEOVANI APPIAH MD ([id number]), field map editor CAROL CINTRON ([id number]) on 11/16/2023 10:59:05 AM Referred By: Confirmed By:GEOVANI APPIAH MD
--- NOTE | 2023-11-14 20:44 | EDS_ITS ---
HPI History of Present Illness Chief Complaint: Syncope Narrative Narrative: 58-year-old male past medical history of obesity, chronic lymphedema, presents with near syncope versus syncopal episode that happened approximately 3 hours ago. He and his brother relate history that he last ate breakfast at 830. He did not eat until this evening where he had a big meal, then reportedly had a syncopal episode. Patient denies any prodromal symptoms. No chest pain or shortness of breath. His brother states that patient was very briefly unresponsive. They had to put a cold wash rag on his face/water to wake him up. However, patient denies actually passing out, stating that his vision got mildly blurry, but he was aware of what was going on. His brother states that there are friends of theirs that were paramedics who thought maybe he should be evaluated although he states he feels back to normal. They ended up calling the squad approximately 2-1/2 hours after the event just so he could be evaluated. [facility] Medical History Edema leg Home Medications ?Medication ?Instructions ?Recorded ?Last Taken ?Type furosemide 20 mg tablet 20 mg PO BIDLX 03/24/18 Unknown History aspirin 81 mg tablet 81 mg PO DAILY 03/17/22 Unknown History lisinopril 10 mg tablet 10 mg PO DAILY 11/14/23 Unknown History Allergy/AdvReac Type Severity Reaction Status Date / Time No Known Allergies Allergy Verified 11/14/23 20:42 Family History Mother CHF (congestive heart failure) Father Parkinsons disease Surgical History History of surgical removal of skin lesion Status post right foot surgery Social History Smoking Status: Never smoker ROS ROS ED ROS Narrative Constitutional: No fever, no chills. HEENT: No sore throat. No neck pain. No loss of vision. No rhinorrhea. Reported blurry vision-resolved. Cardiovascular: No chest pain. No palpitations. Positive chronic lymphedema. Respiratory: No cough, no shortness of breath. Abdominal: No abdominal pain. No nausea. No vomiting. Genitourinary: No dysuria. No hematuria. Musculoskeletal: No myalgias. No arthralgias. Neurologic: No headaches. No dizziness. Positive lightheadedness. Near syncope versus syncope. Skin: No rash. No change in color. Psychiatric: No depression. No anxiety. EXAM Physical Exam Narrative Exam Narrative: Afebrile. Vital signs noted. HEENT: Normocephalic. Atraumatic. PERRL, EOMI. Neck soft and supple. No point tenderness or step off. Cardiovascular: Regular rate and rhythm. No murmurs, rubs, or gallops ap preciated. Respiratory: No tachypnea. Lungs clear to auscultation bilaterally. Gastrointestinal: Abdomen soft, obese nontender, with normoactive bowel sounds. No rebound or guarding. Neurological: Awake. Alert. Oriented x 3. Nonfocal, nonlateralizing. Able to raise arms above head without difficulty. Skin: No rash. Normal color. No pallor. Musculoskeletal: Bilateral chronic pedal edema. Full range of motion extremities. Const Vital Signs: 11/14/23 20:35 11/14/23 20:39 11/14/23 21:57 Temperature 96.8 F L Temperature Source Temporal Pulse Rate 83 74 Respiratory Rate 19 H 17 Respiratory Effort Normal Respiratory Pattern Normal Blood Pressure 97/57 L Blood Pressure Mean 70 Pulse Ox 94 98 Oxygen Delivery Method Room Air Room Air 11/14/23 22:32 11/14/23 23:15 11/14/23 23:46 Temperature Temperature Source Pulse Rate 77 71 75 Respiratory Rate 19 H 16 17 Respiratory Effort Respiratory Pattern Blood Pressure 101/61 106/63 93/53 L Blood Pressure Mean 74 77 66 Pulse Ox 100 98 99 Oxygen Delivery Method Room Air Room Air Room Air 11/14/23 23:47 Temperature 98.1 F Temperature Source Pulse Rate 75 Respiratory Rate 18 Respiratory Effort Respiratory Pattern Blood Pressure 94/58 L Blood Pressure Mean 70 Pulse Ox 98 Oxygen Delivery Method MDM MDM MDM Narrative Medical decision making narrative: Differential diagnosis includes but not limited to near syncope versus very brief syncopal episode versus transient hypoglycemia versus intravascular volume depletion. Patient states he feels back to normal currently. Comprehensive workup will be pursued to include EKG for dysrhythmia, chest x-ray for occult pneumonia, urinalysis along with laboratory work to look for evidence of dehydration. EKG was obtained and interpreted by myself independently as normal sinus rhythm at 73 bpm without ectopy or acute ST changes. No STEMI. QTc 429 ms, not prolonged. I reviewed his laboratory work and he has slightly elevated white count of 11.9 which I think is nonspecific, hemoglobin 13.5, hematocrit 42.3, platelet count normal at 322. His electrolyte panel is remarkable for BUN of 31 and a creatinine of 1.28 which shows mild dehydration. Glucose is appropriately elevated at 145 with an anion gap normal at 7. Urinalysis is negative for i nfection but there were 5 ketones. He may have more intravascular volume depletion. He did have a transient drop in his blood pressure to 97/57, so he is bolused normal saline 1 L intravenously. His resultant blood pressure is 106 systolic. He has 0-5 WBCs in his urine so I do not feel antibiotics are indicated. Chest x-ray in 1 view interpreted by myself independently shows no pneumonia or pneumothorax. No CHF. I reviewed the radiology report which confirms my independent interpretation. At this point in time, I do feel that he can be discharged as long as his systolic blood pressure remains sufficient. I do not feel that he is septic as there is no source of infection, and additionally he is not meeting other SIRS criteria. Although his blood pressure had improved, prior to discharge, patient had another dip in his blood pressure at 97 systolic. He is mentating well. Start another bolus of IV fluids and check a lactic acid. In review of his lactic acid, it is normal at 1.2. His blood pressure remains soft but he remains awake and mentating well. I will discuss the patient with the hospitalist for at least observation for his hypotension. In discussion with Dr. Mckeon, he requests that a prealbumin and albumin be drawn and additionally that the patient be given albumin 25 mg intravenously. Disposition is assigned to observation in stable condition. History & Record Review Discussion w/independent historian: Patient and Family (Brother) Additional record(s) reviewed:: Prior ED visit (No prior ED visits) Lab Data Attestation: I reviewed the patient's lab results. Labs: Laboratory Results - last 24 hr 11/14/23 11/14/23 11/14/23 20:20 21:20 22:50 WBC 11.9 H RBC 4.87 Hgb 13.5 Hct 42.3 MCV 86.9 MCH 27.7 MCHC 31.9 L RDW Std Deviation 47.4 H RDW Coeff of Emelina 14.7 H Plt Count 322 MPV 10.9 Immature Gran % (Auto) 1.000 H Neut % (Auto) 70.2 H Lymph % (Auto) 13.0 L [place] % (Auto) 6.6 Eos % (Auto) 8.2 H Baso % (Auto) 1.0 Absolute Neuts (auto) 8.3 H Absolute Lymphs (auto) 1.54 Nucleated RBC % 0 Sodium 139 Potassium 4.0 Chloride 106 Carbon Dioxide 26.0 Anion Gap 7 BUN 31 H Creatinine 1.28 Estim Creat Clear Calc 92.36 Est GFR (MDRD) Af Amer 74 Est GFR (MDRD) Non-Af 61 BUN/Creatinine Ratio 24.2 H Glucose 145 H Lactic Acid 1.2 Calcium 8.8 Troponin I High Sens 6 Urine Color Vicki Urine Clarity Clear Urine pH 5.0 Ur Specific [place] 1.025 Urine Protein 30 H Urine Glucose (UA) Normal Urine Ketones 5 H Urine Occult Blood Negative Urine Nitrite Negative Urine Bilirubin 3 H Urine Urobilinogen 4 H Ur Leukocyte Esterase 100 H Urine RBC 0 SEEN Urine WBC 0-5 SEEN Ur Squamous Epith Cells 5-10 SEEN Urine Bacteria 2+ Hyaline Casts 0-5 SEEN Urine Mucus 1+ Radiography Diagnostic Testing: Clinical Impression(s) from Imaging Studies Chest X-Ray 11/14/23 20:55 IMPRESSION: Borderline cardiomegaly. No infiltrates. Electronically Signed: Shelley Chamberlain MD at 21:15 EDT Reading Location ID and State: [facility] / [place] Tel , Service support , Management Discussion w/another healthcare provider: Hospitalist (Dr. Salvador) Discharge Plan Dx/Rx/DC Orders Clinical Impression: Syncope, Mild dehydration, Episodic lightheadedness, Hypotension Disposition Disposition: Acute Care Hospital [facility]
[2023-11-14 20:54] LABS: Absolute Lymphocyte Count 1.54 X10^3/uL (0.83-4.51); Absolute Neutrophil Count 8.3 X10^3/uL (2.0-7.7); Basophil# 0.12 X10^3/uL; Eosinophil# 0.97 X10^3/uL; Eosinophils% 8.2 % (0-5); Hematocrit 42.3 % (40-54); Hemoglobin 13.5 g/dL (13.0-16.5); Lymphocyte # 1.54 X10^3/ul (0.83-4.51); Mean Corp Hgb Conc 31.9 g/dL (32-36); Mean Corpuscular Hgb 27.7 pg (27.0-32.0); Mean Corpuscular Volume 86.9 fL (80-94); Mean Platelet Vol. 10.9 fl (6.2-12.0); Monocyte# 0.78 X10^3/uL; Monocyte% 6.6 % (0-10); NRBC Flagged by Analyzer 0 % (0-5); Neutrophil # 8.33 X10^3/uL (2.7-7.7); Neutrophil % 70.2 % (47-70); Platelet Count 322 K/mm3 (150-450); RBC Distribution Width CV 14.7 % (11.6-14.6); RBC Distribution Width SD 47.4 fl (35.1-43.9); Red Blood Count 4.87 M/mm3 (4.6-6.2); White Blood Count 11.9 K/mm3 (4.4-11.0)
[2023-11-14] MEDS: 0.9% Normal Saline (1000mL) 1,000 ML 1000 ML IV (20:54)
--- NOTE | 2023-11-14 20:55 | RAD_ITS ---
EXAM: XR CHEST, 1 VIEW CLINICAL INDICATION: CAD TECHNIQUE: Frontal view of the chest. COMPARISON: No relevant prior studies available. FINDINGS: LUNGS AND PLEURAL SPACES: Mild pulmonary hypoinflation. No pneumothorax. No effusion. HEART: Borderline enlarged transverse cardiac diameter, accentuated by portable technique. MEDIASTINUM: Central airways and mediastinal contour are unremarkable. BONES/JOINTS: Unremarkable. No acute fracture. SOFT TISSUES: Unremarkable. RAD/Chest 1 View (Portable) IMPRESSION: Borderline cardiomegaly. No infiltrates. Electronically Signed: Shelley Chamberlain MD at 21:15 EDT ,
[2023-11-14 21:30] LABS: Red Blood Cells-Urine 0 SEEN /hpf (0-5)
[2023-11-14 21:53] LABS: Color, Urine Amber (Yellow); Glucose, Dipstick Normal (Normal); Ketone-Dipstick 5 mg/dl (Negative); Leukocyte Esterase-Dipstick 100 /ul (Negative); Nitrite-Dipstick Negative (Negative); Occult Blood-Urine Negative /ul (Negative); Protein-Dipstick 30 mg/dl (Negative); Specific Gravity, Urine 1.025 (1.002-1.030); Urine Bilirubin Dipstick 3 mg/dL (Negative); Urine Clarity Clear (Clear); Urine Urobilinogen 4 mg/dl (Normal)
[2023-11-14 21:56] LABS: Anion Gap 7 (5-15); BUN 31 mg/dL (7-18); BUN/Creat Ratio 24.2 RATIO (10-20); Calcium,Total 8.8 mg/dL (8.5-10.1); Chloride 106 mmol/L (98-107); Creatinine, Serum 1.28 mg/dL (0.70-1.30); EST Glomerular Filtration Rate 61 mL/min (>60); Est Glom Filt Rate - Afr Amer 74 mL/min (>60); Estimated Creatinine Clearance 92.36 ml/min; Glucose 145 mg/dL (74-106); Sodium Level 139 mmol/L (136-145); Troponin-I HS 6 pg/mL (3.0-78.0)
[2023-11-14 21:57] VITALS: BP 97/57; PULSE 74; RESP 17; O2SAT 98
[2023-11-14 21:57] LABS: Hyaline Cast 0-5 SEEN /lpf (0-5); Squamous Epithelial Cells - UA 5-10 SEEN /hpf (0-5)
[2023-11-14 21:58] LABS: Bacteria 2+ /hpf (None Seen); Mucous, Urine 1+ /hpf (<or=2+)
[2023-11-14 21:59] LABS: White Blood Cells 0-5 SEEN /hpf (0-5)
[2023-11-14 22:32] VITALS: BP 101/61; PULSE 77; RESP 19; O2SAT 100
[2023-11-14 23:13] LABS: Lactic Acid 1.2 mmol/L (0.4-1.9)
[2023-11-14] MEDS: 0.9% Normal Saline (1000mL) 1,000 ML 999 ML IV (23:14)
[2023-11-14 23:15] VITALS: BP 106/63; PULSE 71; RESP 16; O2SAT 98
[2023-11-14 23:46] VITALS: BP 93/53; PULSE 75; RESP 17; O2SAT 99
[2023-11-14 23:47] VITALS: BP 94/58; PULSE 75; RESP 18; TEMP 36.7; O2SAT 98
--- NOTE | 2023-11-14 23:56 | PCM.HP.STD ---
[facility] - General General Date of Admission: 11/15/23 Date of Service: 11/14/23 Chief Complaint: Near Syncope. HPI Narrative JAMARI GARCIA, is a 58 M with a past medical history of essential hypertension, morbid obesity; with BMI of 54.8 this admission, MARILU, chronic LE lymphedema with chronic venous insufficiency, history of cellulitis and abscess of the LLE, history of Right foot surgery (2009), history of delayed wound healing with history of CHF and OA who presents to [facility] ER complaining of a near syncopal event. Mr. Garcia reports his symptoms began approximately 3 hours prior to admission when he nearly passed out after eating a large meal with his brother reporting he had to put a cold rag on his face with water to wake him up. There was no report of prodromal chest pain, palpitations, heart racing, SOB, diaphoresis or aura but he does admit to transient blurriness of his vision that has since resolved. He states the last time he ate was ~8:30 AM when he had breakfast. He denies related fever, chills, nausea, vomiting, diarrhea, constipation or other recent illness. In the ER he was diagnosed with near syncope with confirmatory clinical evidence of orthostatic hypotension complicated by laboratory evidence of dehydration with serum creatinine of 1.28 mg/dL with BUN of 31 mg/dL (BUN:creatinine ratio ~25:1) likely due to adverse drug reaction to combination of Lasix and Lisinopril and he was then admitted to the PCU under observation status for ongoing care for a stay that is expected to be less than 2 midnights. [facility] Medical History Hypertension Edema leg Home Medications ?Medication ?Instructions ?Recorded ?Last Taken ?Type furosemide 20 mg tablet 20 mg PO BIDLX 03/24/18 Unknown History aspirin 81 mg tablet 81 mg PO DAILY 03/17/22 Unknown History lisinopril 10 mg tablet 10 mg PO DAILY 11/14/23 Unknown History Allergy/AdvReac Type Severity Reaction Status Date / Time No Known Allergies Allergy Verified 11/15/23 01:38 Family History Mother CHF (congestive heart failure) Father Parkinsons disease Surgical History History of surgical removal of skin lesion Status post right foot surgery Social History Smoking Status: Never smoker ROS ROS Narrative Review of systems: Constitutional: Patient denies fever or chills. Eyes: Patient admits to transient blurry vision but denies discharge from eyes. ENT: Patient denies runny nose, sore throat or ear pain. CV: Patient admit to near syncope but he denies chest pain, palpitations or heart racing. Resp: Patient denies SOB or cough. GI: Patient denies abdominal pain, nausea, vomiting, diarrhea or constipation. : Patient denies dysuria or hematuria. MSK: Patient denies arthralgias or myalgias. Skin: Patient denies abscess, rash or jaundice. Psych: Patient denies symptoms of uncontrolled depression or anxiety. Neuro: Patient admits to transient blurry vision but he denies headache, paresthesias or focal neurologic deficits. Allergy: Patient denies lip swelling, tongue swelling or urticaria. Hematology: Patient denies easy bleeding or easy bruisability. Endocrinology: Patient denies polyuria, polydipsia and polyphagia. 14 point ROS otherwise negative except for positives noted above in HPI. Vital Signs Vital Signs Vital Signs: 11/14/23 20:35 11/14/23 20:39 11/14/23 21:57 Temperature 96.8 F L Temperature Source Temporal Pulse Rate 83 74 Respiratory Rate 19 H 17 Respiratory Effort Normal Respiratory Pattern Normal Blood Pressure 97/57 L Blood Pressure Mean 70 Pulse Ox 94 98 Oxygen Delivery Method Room Air Room Air 11/14/23 22:32 11/14/23 23:15 11/14/23 23:46 Temperature Temperature Source Pulse Rate 77 71 75 Respiratory Rate 19 H 16 17 Respiratory Effort Respiratory Pattern Blood Pressure 101/61 106/63 93/53 L Blood Pressure Mean 74 77 66 Pulse Ox 100 98 99 Oxygen Delivery Method Room Air Room Air Room Air 11/14/23 23:47 Temperature 98.1 F Temperature Source Pulse Rate 75 Respiratory Rate 18 Respiratory Effort Respiratory Pattern Blood Pressure 94/58 L Blood Pressure Mean 70 Pulse Ox 98 Oxygen Delivery Method Weight Weight: 360 lb 3.765 oz Body Mass Index (BMI) 54.8 Physical Exam Const alert, oriented x3 and no apparent distress Constitutional Narrative: Patient is morbidly obese with Pickwickian phenotype. General Appearance: cooperative HEENT normocephalic, head/scalp atraumatic, hearing grossly normal bilaterally and moist oral mucous membranes Eyes PERRL and EOMs intact bilaterally Neck no lymphadenopathy and supple Resp normal respiratory effort, no retractions, no use of accessory muscles and clear to auscultation bilaterally Cardio regular rate and regular rhythm GI normal to inspection, nondistended, normoactive bowel sounds, soft to palpation, non-tender and non-distended GI Narrative: Morbidly obese. Extremity full ROM Extremity Narrative: Chronic 2-3+ pedal edema with chronic venous stasis changes noted Left > Right; which patient states in chronic. Skin Skin Narrative: Patient has no evidence of abscess, jaundice or rash. Neuro oriented x3, CN's II-XII intact bilaterally, moves all extremities and no focal motor deficits Sensorium / Orientation: awake, alert, oriented to person, oriented to place and oriented to time Speech: speech normal Psych affect normal Results Medical Records Data Attestation: I reviewed the patient's medical records Lab / Micro Data Attestation: I reviewed the patient's lab results. 11/14/23 20:20 11/14/23 20:20 Labs: Laboratory Results - last 24 hr 11/14/23 20:20: WBC 11.9 H, RBC 4.87, Hgb 13.5, Hct 42.3, MCV 86.9, MCH 27.7, MCHC 31.9 L, RDW Std Deviation 47.4 H, RDW Coeff of Emelina 14.7 H, Plt Count 322, MPV 10.9, Immature Gran % (Auto) 1.000 H, Neut % (Auto) 70.2 H, Lymph % (Auto) 13.0 L, [place] % (Auto) 6.6, Eos % (Auto) 8.2 H, Baso % (Auto) 1.0, Absolute Neuts (auto) 8.3 H, Absolute Lymphs (auto) 1.54, Nucleated RBC % 0, Sodium 139, Potassium 4.0, Chloride 106, Carbon Dioxide 26.0, Anion Gap 7, BUN 31 H, Creatinine 1.28, Estim Creat Clear Calc 92.36, Est GFR (MDRD) Af Amer 74, Est GFR (MDRD) Non-Af 61, BUN/Creatinine Ratio 24.2 H, Glucose 145 H, Calcium 8.8, Troponin I High Sens 6 11/14/23 21:20: Urine Color Vicki, Urine Clarity Clear, Urine pH 5.0, Ur Specific [place] 1.025, Urine Protein 30 H, Urine Glucose (UA) Normal, Urine Ketones 5 H, Urine Occult Blood Negative, Urine Nitrite Negative, Urine Bilirubin 3 H, Urine Urobilinogen 4 H, Ur Leukocyte Esterase 100 H, Urine RBC 0 SEEN, Urine WBC 0-5 SEEN, Ur Squamous Epith Cells 5-10 SEEN, Urine Bacteria 2+, Hyaline Casts 0-5 SEEN, Urine Mucus 1+ 11/14/23 22:50: Lactic Acid 1.2 Imaging Radiology Impression Chest X-Ray 11/14/23 20:55 IMPRESSION: Borderline cardiomegaly. No infiltrates. Electronically Signed: Shelley Chamberlain MD at 21:15 EDT Reading Location ID and State: [facility] / [place] Tel , Service support , Assessment & Plan Assessment/Plan (1) Near syncope: (2) Orthostatic hypotension: (3) Mild dehydration: (4) Adverse drug reaction: QUALIFIERS: Encounter type: initial encounter Qualified Code(s): T50.905A - Adverse effect of unspecified drugs, medicaments and biological substances, initial encounter (5) Lymphedema associated with obesity: (6) Venous insufficiency: (7) CHF (congestive heart failure): QUALIFIERS: Heart failure chronicity: unspecified Heart failure type: unspecified Qualified Code(s): I50.9 - Heart failure, unspecified (8) Morbid obesity with BMI of 50.0-59.9, adult: (9) Obstructive sleep apnea of adult: PLAN: Plan 1. Near Syncopal Event with Orthostatic Hypotension - Admit to PCU under observation status. Give IV Albumin with patient still orthostatic after ~2L NS IVF. Check echocardiogram to evaluate LVEF. Serialize troponin. Check stress test in AM to evaluate for possible underlying ischemia. If patient is still orthostatic after crystalloid and colloids consider starting low-dose Midodrine. 2. Laboratory evidence of dehydration with serum creatinine of 1.28 mg/dL with BUN of 31 mg/dL (BUN:creatinine ratio ~25:1) likely precipitating #1 - Volume resuscitate and recheck CMP in AM to ensure improvement. 3. Adverse Drug Reaction to combination of Lasix and Lisinopril complicating #1 & #2 - Hold these agents for now and then consider restarting at decreased dose once orthostasis resolves. 4. Morbid obesity; with BMI of 54.8 this admission with MARILU and 'Pickwickian' phenotype compounding #1 - #3 - Weight loss will be recommended. Resume nocturnal CPAP. Check TSH. 5. Essential hypertension - Hold scheduled antihypertensives for now. 6. Chronic LE lymphedema with chronic venous insufficiency with LLE redness > Right chronically - Stable with marking made around area not expanding. We will continue to monitor for potential changes with d-dimer also pending. 7. History of cellulitis and abscess of the LLE - Noted. 8. History of Right foot surgery (2009) - Noted. 9. History of delayed wound healing - Noted with no wounds present at this time. 10. History of CHF - Noted. Echocardiogram pending this admission. 11. OA - Give Tylenol prn. 12. DVT prophylaxis - Lovenox 40 mg sq BID. Total time: Approximately 85 minutes. Charges/Coding Visit Charges OBSV E&M: 81669 Observ/hosp same date L2
[2023-11-15 00:56] VITALS: BMI 55.3
[2023-11-15 01:00] VITALS: BP 118/72; BP 120/81; BP 130/90
[2023-11-15 01:11] LABS: Albumin, Serum 3.6 g/dL (3.2-5.0)
[2023-11-15] MEDS: 0.9% Saline Lock 10 ML Syringe IV ×2 (01:38→05:04)
[2023-11-15] MEDS: Albumin Human 25% (100 mL) 25 GM/100 ML BAG IV (01:39)
[2023-11-15 01:52] VITALS: BP 118/72; PULSE 79; RESP 18; TEMP 36.7; O2SAT 98
[2023-11-15 02:11] LABS: Troponin-I HS 7 pg/mL (3.0-78.0)
[2023-11-15] MEDS: Acetaminophen 325 MG Tablet 650 MG PO (02:36)
[2023-11-15 05:00] VITALS: BP 111/62; PULSE 66; RESP 18; TEMP 36.5; O2SAT 96
[2023-11-15] MEDS: Nystatin Powder 15gm Bottle 1 APPLIC TOPICAL (05:04)
[2023-11-15 06:21] LABS: Troponin-I HS 8 pg/mL (3.0-78.0)
[2023-11-15 06:45] LABS: Absolute Lymphocyte Count 1.74 X10^3/uL (0.83-4.51); Absolute Neutrophil Count 4.8 X10^3/uL (2.0-7.7); Basophil# 0.12 X10^3/uL; Basophil% 1.4 % (0-1); Eosinophils% 11.8 % (0-5); Hematocrit 36.7 % (40-54); Hemoglobin 11.7 g/dL (13.0-16.5); Lymphocyte # 1.74 X10^3/ul (0.83-4.51); Lymphocyte % 20.6 % (19-41); Mean Corp Hgb Conc 31.9 g/dL (32-36); Mean Corpuscular Hgb 28.3 pg (27.0-32.0); Mean Corpuscular Volume 88.6 fL (80-94); Mean Platelet Vol. 10.8 fl (6.2-12.0); Monocyte# 0.81 X10^3/uL; Monocyte% 9.6 % (0-10); NRBC Flagged by Analyzer 0 % (0-5); Neutrophil # 4.75 X10^3/uL (2.7-7.7); Neutrophil % 56.2 % (47-70); Platelet Count 265 K/mm3 (150-450); RBC Distribution Width SD 48.7 fl (35.1-43.9); Red Blood Count 4.14 M/mm3 (4.6-6.2); White Blood Count 8.5 K/mm3 (4.4-11.0)
[2023-11-15 07:06] LABS: D-Dimer Quantitative (DVT/PE) 0.48 FEU/ug/m (0.27-0.49)
[2023-11-15 07:10] LABS: ALB/GLOB Ratio 1.1 RATIO (0.9-2.4); AST(SGOT) 16 U/L (15-37); Alanine Aminotransfer ALT/SGPT 16 U/L (16-61); Albumin, Serum 3.1 g/dL (3.2-5.0); Alkaline Phosphatase 59 U/L (45-117); Anion Gap 7 (5-15); BUN 30 mg/dL (7-18); BUN/Creat Ratio 35.5 RATIO (10-20); Calcium,Total 8.3 mg/dL (8.5-10.1); Chloride 111 mmol/L (98-107); Creatinine, Serum 0.84 mg/dL (0.70-1.30); EST Glomerular Filtration Rate 99 mL/min (>60); Est Glom Filt Rate - Afr Amer 119 mL/min (>60); Estimated Creatinine Clearance 141.59 ml/min; Globulin 2.7 g/dL (2.2-4.2); Glucose 98 mg/dL (74-106); Potassium 4.5 mmol/L (3.5-5.1); Protein, Total 5.8 g/dL (6.4-8.2); Sodium Level 141 mmol/L (136-145)
[2023-11-15 08:30] VITALS: BP 111/66; BP 138/92; BP 144/92; PULSE 64; PULSE 67; PULSE 73
[2023-11-15 08:36] LABS: Hemoglobin A1c 5.7 % (3.8-5.6)
[2023-11-15] MEDS: Enoxaparin 40 MG/0.4 ML Syringe SC (08:43)
[2023-11-15] MEDS: Aspirin 81 MG TAB.CHEW PO (08:43)
--- NOTE | 2023-11-15 10:02 | DCINST_ITS ---
Discharge Instructions Diet Discharge Diet: Low fat / Low cholesterol and 6 Cup Fluid Restriction Activity Discharge Activity: Return to Normal Activity Dressing / Incision Call your doctor if you observe: Fever of 101 or Higher, Shortness of breath, Dizziness, Fainting spells, Swelling in the ankles, Chest pain and Increased palpitations (irregular heartbeat) Follow Up Care Test Results: Test results from this visit will be discussed in further detail at your follow- up appointment, if applicable. Discharge Plan Admission Admit Date/Time: 11/15/23 00:41 Attending Provider: Dmitry Tomas Primary Care Provider: Lobo Longo Consulting Providers: Nicholas Shannon; Sara Lopez; Dora Mcclain; Blake Pastor; Derik Angulo; Keaton Richardson; SILVANO GAMEZ; Elizabeth Morse; Ashia Koenig; Wilner Alejandro; Esha Dela Cruz; David Iqbal Instructions Patient Instructions: ED Dehydration (Adult), ED Low Blood Pressure, All Causes, ED Fainting, Uncertain Cause Discharge Orders/Prescriptions Prescriptions: Continued furosemide 20 MG tablet 20 mg PO BIDLX aspirin 81 mg Tablet 81 mg PO DAILY lisinopril 10 mg tablet 10 mg PO DAILY Referrals / Follow Up: Lobo Longo MD [Primary Care Provider] - 2 Days Disposition Disposition (needs filled in before D/C Order can be placed): Home, Self Care
--- NOTE | 2023-11-15 10:03 | DS.PCM_ITS ---
Providers Date of Admission: 11/15/23 Primary Care Physician: Dr. Lobo Longo MD Reason For Visit: NEAR SYNCOPE DEHYDRATION ADVERSE DRUG REACTION Diagnosis Discharge Diagnosis (1) Near syncope: Status: Acute Code(s): R55 - Syncope and collapse (2) Orthostatic hypotension: Status: Acute Code(s): I95.1 - Orthostatic hypotension (3) Mild dehydration: Status: Acute Code(s): E86.0 - Dehydration (4) Adverse drug reaction: Status: Acute Code(s): T50.905A - Adverse effect of unspecified drugs, medicaments and biological substances, initial encounter Qualifiers: Encounter type: initial encounter Qualified Code(s): T50.905A - Adverse effect of unspecified drugs, medicaments and biological substances, initial encounter (5) Lymphedema associated with obesity: Status: Acute Code(s): I89.0 - Lymphedema, not elsewhere classified; E66.9 - Obesity, unspecified (6) Venous insufficiency: Status: Chronic Code(s): I87.2 - Venous insufficiency (chronic) (peripheral) (7) CHF (congestive heart failure): Status: Acute Code(s): I50.9 - Heart failure, unspecified Qualifiers: Heart failure type: unspecified Heart failure chronicity: unspecified Qualified Code(s): I50.9 - Heart failure, unspecified (8) Morbid obesity with BMI of 50.0-59.9, adult: Status: Acute Code(s): E66.01 - Morbid (severe) obesity due to excess calories; Z68.43 - Body mass index [BMI] 50.0-59.9, adult (9) Obstructive sleep apnea of adult: Status: Acute Code(s): G47.33 - Obstructive sleep apnea (adult) (pediatric) Medications at Discharge Home Medications furosemide 20 mg tablet 20 mg PO BIDLX 03/24/18 aspirin 81 mg tablet 81 mg PO DAILY 03/17/22 lisinopril 10 mg tablet 10 mg PO DAILY 11/14/23 Hospital Course Operations None Procedures None Summary of Care Provided Minutes Spent on Discharge: 38 Hospital Course: Per HPI: JAMARI GARCIA, is a 58 M with a past medical history of essential hypertension, morbid obesity; with BMI of 54.8 this admission, MARILU, chronic LE lymphedema with chronic venous insufficiency, history of cellulitis and abscess of the LLE, history of Right foot surgery (2009), history of delayed wound healing with history of CHF and OA who presents to [facility] ER complaining of a near syncopal event. Mr. Garcia reports his symptoms began approximately 3 hours prior to admission when he nearly passed out after eating a large meal with his brother reporting he had to put a cold rag on his face with water to wake him up. There was no report of prodromal chest pain, palpitations, heart racing, SOB, diaphoresis or aura but he does admit to transient blurriness of his vision that has since resolved. He states the last time he ate was ~8:30 AM when he had breakfast. He denies related fever, chills, nausea, vomiting, diarrhea, constipation or other recent illness. In the ER he was diagnosed with near syncope with confirmatory clinical evidence of orthostatic hypotension complicated by laboratory evidence of dehydration with serum creatinine of 1.28 mg/dL with BUN of 31 mg/dL (BUN:creatinine ratio ~25:1) likely due to adverse drug reaction to combination of Lasix and Lisinopril and he was then admitted to the PCU under observation status for ongoing care for a stay that is expected to be less than 2 midnights. Hospital Course: 1. Near syncope?58-year-old male presented to the hospital with a near syncopal episode. As related by the ED physician he had a large meal at dinner and then had what appeared to be a syncopal episode consistent with a vasovagal syndrome. Family says that he was unresponsive he states that he was aware of his surroundings and that his vision had just gotten blurry. He denies any chest pain, troponins in the ER were unremarkable. 2 sets of orthostatic vital signs were normal. He does have a history of heart failure and takes Lasix at a low dose of 20 mg p.o. twice daily which could have led to a little bit of dehydration. Repeat ambulation today did not demonstrate any lightheadedness or dizziness. Given the lack of chest pain or shortness of breath I do not think that an echo is necessary and no seizure-like activity was described. I discussed with him and his family the plan for possible discharge today they expressed understanding the risk benefits of going home and would like to go home today. He already has a doctor's appointment scheduled for tomorrow which I recommend he keeps for blood pressure medication adjustments and further education. 2. Essential hypertension, chronic CHF unknown type chronic medical conditions which complicate his care. His home medications were continued where appropriate. Physical Exam Narrative General: Alert, Oriented x3, Cooperative, No apparent distress HEENT: Atraumatic, PERRLA, EOMI, Normocephalic Oral: Moist Mucosa Neck: Supple, No JVD Lungs: Diminished, Normal air movement, No rhonchi, No wheeze, No rales Cardiovascular: Regular rate, Regular Rhythm, Normal S1, Normal S2, No murmurs Abdomen: Soft, Non Tender, Non-Distended, No Hepato-splenomegaly Extremities: Bilateral lymphedema, Capillary Refill Less than 3 Seconds Skin: No rashes, No breakdown, he does have a chronic redness on his left anterior ponce from a chainsaw injury several years ago, family states that this is baseline Musculoskeletal: No Tenderness to Palpation of Joints or Extremities Neurological: No focal neurological deficits, Motor Exam 5/5 strength throughout, Sensory exam intact to light touch and pain Psych/Mental Status: Normal Affect, Appropriate Weight / BMI Weight Weight: 363 lb 12.203 oz Body Mass Index (BMI) 55.3 ABG / Lab / Microbiology Data 11/15/23 05:40 11/15/23 05:40 Laboratory: Laboratory Results - last 24 hr 11/14/23 20:20: WBC 11.9 H, RBC 4.87, Hgb 13.5, Hct 42.3, MCV 86.9, MCH 27.7, M CHC 31.9 L, RDW Std Deviation 47.4 H, RDW Coeff of Emelina 14.7 H, Plt Count 322, MPV 10.9, Immature Gran % (Auto) 1.000 H, Neut % (Auto) 70.2 H, Lymph % (Auto) 13.0 L, [place] % (Auto) 6.6, Eos % (Auto) 8.2 H, Baso % (Auto) 1.0, Absolute Neuts (auto) 8.3 H, Absolute Lymphs (auto) 1.54, Nucleated RBC % 0, Sodium 139, Potassium 4.0, Chloride 106, Carbon Dioxide 26.0, Anion Gap 7, BUN 31 H, Creatinine 1.28, Estim Creat Clear Calc 92.36, Est GFR (MDRD) Af Amer 74, Est GFR (MDRD) Non-Af 61, BUN/Creatinine Ratio 24.2 H, Glucose 145 H, Calcium 8.8, Troponin I High Sens 6 11/14/23 20:44: Albumin 3.6, Prealbumin 24.0 11/14/23 21:20: Urine Color Vicki, Urine Clarity Clear, Urine pH 5.0, Ur Specific Rogers 1.025, Urine Protein 30 H, Urine Glucose (UA) Normal, Urine Ketones 5 H, Urine Occult Blood Negative, Urine Nitrite Negative, Urine Bilirubin 3 H, Urine Urobilinogen 4 H, Ur Leukocyte Esterase 100 H, Urine RBC 0 SEEN, Urine WBC 0-5 SEEN, Ur Squamous Epith Cells 5-10 SEEN, Urine Bacteria 2+, Hyaline Casts 0-5 SEEN, Urine Mucus 1+ 11/14/23 22:50: Lactic Acid 1.2 11/15/23 01:45: Troponin I High Sens 7 11/15/23 05:40: WBC 8.5, RBC 4.14 L, Hgb 11.7 L, Hct 36.7 L, MCV 88.6, MCH 28.3, MCHC 31.9 L, RDW Std Deviation 48.7 H, RDW Coeff of Emelina 15.0 H, Plt Count 265, MPV 10.8, Immature Gran % (Auto) 0.400, Neut % (Auto) 56.2, Lymph % (Auto) 20.6, [place] % (Auto) 9.6, Eos % (Auto) 11.8 H, Baso % (Auto) 1.4 H, Absolute Neuts (auto) 4.8, Absolute Lymphs (auto) 1.74, Nucleated RBC % 0, Sodium 141, Potassium 4.5, Chloride 111 H, Carbon Dioxide 23.0, Anion Gap 7, BUN 30 H, Creatinine 0.84, Estim Creat Clear Calc 141.59, Est GFR (MDRD) Af Amer 119, Est GFR (MDRD) Non-Af 99, BUN/Creatinine Ratio 35.5 H, Glucose 98, Hemoglobin A1c 5.7 H, Calcium 8.3 L, Total Bilirubin 0.50, AST 16, ALT 16, Alkaline Phosphatase 59, Troponin I High Sens 8, Total Protein 5.8 L, Albumin 3.1 L, Globulin 2.7, Albumin/Globulin Ratio 1.1 11/15/23 06:22: D-Dimer Quant (PE/DVT) 0.48 Radiography Diagnostic Testing: Radiology Impression Chest X-Ray 11/14/23 20:55 IMPRESSION: Borderline cardiomegaly. No infiltrates. Electronically Signed: Shelley Chamberlain MD at 21:15 EDT Reading Location ID and State: [facility] / [place] Tel , Service support , D/C Instructions Discharge Diet: Low fat / Low cholesterol and 6 Cup Fluid Restriction Call your doctor if you observe: Fever of 101 or Higher, Shortness of breath, Dizziness, Fainting spells, Swelling in the ankles, Chest pain and Increased palpitations (irregular heartbeat) Meaningful Use Info Meaningful Use Meaningful Use Diagnoses (Choose all that apply): None applicable Ischemic Stroke Statin Dosing Therapy Reference: STATIN DOSE THERAPY REFERENCE: * Patients > 75 years receive moderate or high dose statin therapy. * Patients 75 years or YOUNGER should receive HIGH intensity statin dose unless contraindicated. You will be required to document reason for non-treatment if statin daily dose does not meet guidelines. HIGH DOSE STATIN THERAPY DAILY Atorvastatin > than or = to 40 mg Rosuvastatin > than or = to 20 mg Amlodipine + Atorvastatin > than or = to 2.5/40 mg Ezetimibe + Simvastatin 10/80 mg Simvastatin 80mg Discharge Plan Admission Admit Date/Time: 11/15/23 00:41 Attending Provider: Dmitry Tomas Primary Care Provider: Lobo Longo Consulting Providers: Nicholas Shannon; Sara Lopez; Dora Mcclain; Blake Pastor; Derik Angulo; Keaton Richardson; SILVANO GAMEZ; Elizabeth Morse; Ashia Koenig; Wilner Alejandro; Esha Dela Cruz; David Iqbal Instructions Patient Instructions: ED Dehydration (Adult), ED Low Blood Pressure, All Causes, ED Fainting, Uncertain Cause Discharge Orders/Prescriptions Prescriptions: Continued furosemide 20 MG tablet 20 mg PO BIDLX aspirin 81 mg Tablet 81 mg PO DAILY lisinopril 10 mg tablet 10 mg PO DAILY Referrals / Follow Up: Lobo Longo MD [Primary Care Provider] - 2 Days Disposition Disposition (needs filled in before D/C Order can be placed): Home, Self Care Charges/Coding Visit Charges Inpatient E&M: 27635 Disch Hosp >30min
[2023-11-15 11:53] VITALS: BP 130/71; PULSE 60; RESP 18; TEMP 36.4; O2SAT 99
== END 2023-11-15 10:03 | disposition home or self-care (01) ==
LOC: ED 23:52 → PCU 11-15 00:49
PROVIDERS: Admitting Provider Internal Medicine; Emergency Provider Emergency Medicine; PCP Internal Medicine; Visit Provider Family Medicine
DX: I95.1 Orthostatic hypotension (principal); I11.0 Hypertensive heart disease with heart failure; I50.9 Heart failure, unspecified; Z68.43 Body mass index [BMI] 50.0-59.9, adult; E66.01 Morbid (severe) obesity due to excess calories; I89.0 Lymphedema, not elsewhere classified; I87.2 Venous insufficiency (chronic) (peripheral); E86.0 Dehydration; G47.33 Obstructive sleep apnea (adult) (pediatric); Z79.82 Long term (current) use of aspirin; Z79.899 Other long term (current) drug therapy; T50.905A Adverse effect of unspecified drugs, medicaments and biological substances, initial encounter; T46.4X5A Adverse effect of angiotensin-converting-enzyme inhibitors, initial encounter
CPT/HCPCS: 36415; 71045; 80048; 80053; 81001; 82040; 83036; 83605; 84134; 84484; 85025; 85379; 93005; 96361; 96365; 96366; 96372; 99221; 99285; J7030; P9047; A4216; G0378

== ENCOUNTER 2024-02-05 06:19 | Day surgery (SDC) | payer SELFPAY, OTHER ==
[2024-02-05] VITALS (7 sets, daily range): BP systolic 120–132; BP diastolic 66–86; PULSE 72–75; RESP 16; TEMP 36.3–36.4; O2SAT 94–100; BMI 116.8
[2024-02-05] MEDS: Lactated Ringers 1,000 ML 15 ML IV (06:30)
--- NOTE | 2024-02-05 07:12 | PCM.PRE.AN2 ---
ASA Classification* ASA Classification ASA Classification: 3 Assessment & Plan Anesthesia* Anesthesia Assessment Anesthesia Assessment: Discussed sedation and/or anesthesia options, risks, benefits, and alternatives with patient/parents/legal guardian/POA. Questions invited. The patient/parents/legal guardian/POA seems to understand and agrees to proceed with anesthesia plan. Reviewed the physical assessment, medical history, allergy history and patient home medications list prior to surgery/procedure/anesthetic and documented any changes. Performed airway and anesthesia risk assessments. Anesthesia Type Anesthesia Type: General (see written pre anesthesia record for full assessment) Anesthesia Focused Assessment* Temperature: 97.6 F Pulse Rate: 75 Blood Pressure: 132/86 Respiratory Rate: 16 Pulse Ox: 100 Airway Assessment Mouth opens: >3 cm Mallampati Score: III Focused Labs Anesthesia Preop lab: CBC WBC 8.5 K/mm3 (4.4-11.0) 11/15/23 05:40 RBC 4.14 M/mm3 (4.6-6.2) L 11/15/23 05:40 Hgb 11.7 g/dL (13.0-16.5) L 11/15/23 05:40 Hct 36.7 % (40-54) L 11/15/23 05:40 Plt Count 265 K/mm3 (150-450) 11/15/23 05:40 CHEMISTRY Potassium 4.5 mmol/L (3.5-5.1) 11/15/23 05:40 Sodium 141 mmol/L (136-145) 11/15/23 05:40 BUN 30 mg/dL (7-18) H 11/15/23 05:40 Creatinine 0.84 mg/dL (0.70-1.30) 11/15/23 05:40 Glucose 98 mg/dL (74-106) 11/15/23 05:40 COAG Pre-Assessment Diagnosis/Proposed Procedure Planned Operative Procedure(s): LEFT HYDROCELECTOMY Anesthesia History Anesthesia History - auto body repairer: Anesthesia History - auto body repairer Hx Hospitalization Yes: 09/2023 FOR DEHYDRATION 02/02/24 14:51 Any Problems With Anesthesia No 02/02/24 14:51 Cholinesterase deficiency No 02/02/24 14:51 You/Your Family Experience No 02/02/24 14:51 fever (hyperthermia) with Relationship Recent Exposure to Contagious No 02/05/24 07:07 Disease Does patient have nerve No 02/02/24 14:51 stimulator Patient instructed to have device shut off --Does patient have Pacemaker No 02/05/24 07:07 or ICD? When Was Last Pacemaker Check QUESTION #4 FULL TEXT: You/Your Family Experience fever (hyperthermia) with Anesthesia Last Oral Intake Last Oral intake: Last Oral Intake NPO since 05:00 02/05/24 07:07 Meds taken in AM with sips of Yes 02/05/24 07:07 water? Meds patient instructed to lisinopril 02/05/24 07:07 take am of surgery PONV PONV - auto body repairer: PONV - auto body repairer Female No 02/02/24 14:51 HX of Motion Sickness No 02/02/24 14:51 HX of N/V After Surgery No 02/02/24 14:51 Non-Smoker Yes 02/02/24 14:51 Duration of Surgery greater Yes 02/02/24 14:51 than 60 minutes Number of Risk Factors 2 02/02/24 14:51 PONV Score Moderate Risk 02/02/24 14:51 Height & Weight Height & Weight: Anesthesia: Height & Weight Height 5 ft 8 in 02/05/24 07:07 Weight: 348.6 kg 02/05/24 07:07 Body Mass Index (BMI) 116.8 02/05/24 07:07 Respiratory Assessment Respiratory Assessment - auto body repairer: Respiratory Tract Infection Hx - auto body repairer Hx Respiratory Tract Infection No 02/02/24 14:51 STOP Sleep Apnea STOP Sleep Apnea - auto body repairer: STOP Sleep Apnea - auto body repairer Hx Hypertension Yes: CONTROLLED WITH MED 02/02/24 14:51 Hx Sleep Apnea Yes 02/02/24 14:51 CPAP Yes 02/02/24 14:51 BIPAP No 02/02/24 14:51 Do you snore loudly (louder than talking or can be heard Do you often feel tired/ fatigued/ sleepy during daytime? Has anyone observed you stop breathing during sleep? STOP Results Positive 02/02/24 14:51 QUESTION #5 FULL TEXT : Do you snore loudly (louder than talking or can be heard through closed doors)? Tobacco Use History Tobacco Use History - auto body repairer: Tobacco Use History - auto body repairer Tobacco Use Smoking Status Never smoker 02/02/24 14:51 Hx Tobacco Use No 02/02/24 14:51 Years Smoking Packs Smoked per Day Smoking Cessation Date was within the last 15 years Hx Smoking Cessation Date Hx Smoking Cessation Counseling Hematologic Medial History Hematologic Hx - auto body repairer: Hematologic Medical Hx - creative arts therapist Hx of Blood Transfusion No 02/02/24 14:51 Hx of Transfusion in last 3 No 02/02/24 14:51 Months Date of Last Transfusion (if within last 3 months) Ever experience any problems No 02/02/24 14:51 with transfusion(s)? Specify any problems Hx of Preganancy in last 3 N/A 02/02/24 14:51 Months Nurse Filling Out Transfusion DSCHRIBER 02/02/24 14:51 & Questions: Date: 02/02/24 02/02/24 14:51 Time: 14:52 02/02/24 14:51 Patient unable to answer at this time (ie. confused, unrespo /Reproduction History /Reproductive History - auto body repairer: /Reproductive Hx- auto body repairer Hx Now No 02/02/24 14:51 Gestational Age (in weeks): EDC: Hx Hx Para Hx Section SAB No 02/02/24 14:51 Active Medications Active Medications: Current Medications Generic Name Dose Route Start Last Admin Trade Name Freq PRN Reason Stop Dose Admin Cefazolin Sodium 3 gm/ N/A 30 mls @ 600 mls/hr 02/05/24 08:25 IV 02/05/24 08:27 PREOP ONE Lactated Ringer's 1,000 mls @ 15 mls/hr 02/05/24 06:30 IV 02/10/24 19:49 .Q48H [facility] Protocol PFSH Medical History Wears glasses Crutches as ambulation aid Arthritis Bladder disease Back pain Non-smoker CPAP (continuous positive airway pressure) dependence Open wound Hypertension Edema leg Home Medications ?Medication ?Instructions ?Recorded ?Last Taken ?Type furosemide 20 mg tablet 20 mg PO BIDLX water pill 03/24/18 Unknown History aspirin 81 mg tablet 81 mg PO DAILY heart health 03/17/22 02/02/24 History lisinopril 10 mg tablet 5 mg PO DAILY blood pressure 11/14/23 Unknown History Allergy/AdvReac Type Severity Reaction Status Date / Time No Known Allergies Allergy Verified 02/02/24 14:48 Family History Mother CHF (congestive heart failure) Father Parkinsons disease Surgical History History of surgical removal of skin lesion Status post right foot surgery Social History Smoking Status: Never smoker Review of Systems (Anesthesia) ROS Narrative System reviewed and no additional complaints, except as documented.
--- NOTE | 2024-02-05 08:10 | HP.PCM_ITS ---
HPI - General General Date of Service: 02/05/24 Chief Complaint: Left large hydrocele HPI Narrative JAMARI LOVE, is a 58 M who presents for surgical excision of a large hydrocele he does have a lot of medical problems and morbid obese patient with multiple morbidities but he is got a significantly enlarged hydrocele it is causing him daily bother and and problem so he wants to have the hydrocele removed Zirgan to proceed with a surgical removal of the left hydrocele. [facility] Medical History Wears glasses Crutches as ambulation aid Arthritis Bladder disease Back pain Non-smoker CPAP (continuous positive airway pressure) dependence Open wound Hypertension Edema leg Home Medications ?Medication ?Instructions ?Recorded ?Last Taken ?Type furosemide 20 mg tablet 20 mg PO BIDLX water pill 03/24/18 Unknown History aspirin 81 mg tablet 81 mg PO DAILY heart health 03/17/22 02/02/24 History lisinopril 10 mg tablet 5 mg PO DAILY blood pressure 11/14/23 Unknown History Allergy/AdvReac Type Severity Reaction Status Date / Time No Known Allergies Allergy Verified 02/02/24 14:48 Family History Mother CHF (congestive heart failure) Father Parkinsons disease Surgical History History of surgical removal of skin lesion Status post right foot surgery Social History Smoking Status: Never smoker Vital Signs Vital Signs Vital Signs: 02/05/24 07:07 02/05/24 07:07 02/05/24 07:12 Temperature 97.6 F L 97.6 F L Temperature Source Temporal Pulse Rate 75 75 Respiratory Rate 16 16 Respiratory Pattern Normal Blood Pressure 132/86 H 132/86 H Blood Pressure Mean 101 Blood Pressure Source Monitor Blood Pressure Position Semi-Fowlers Blood Pressure Location Right Arm Pulse Ox 100 100 Oxygen Delivery Method Room Air Weight Weight: 348.6 kg Body Mass Index (BMI) 116.8
--- NOTE | 2024-02-05 08:15 | DCINST_ITS ---
Discharge Instructions Diet Discharge Diet: No restrictions Activity Discharge Activity: Return to Normal Activity and May Not Drive (while taking narcotic pain medications.) Dressing / Incision Call your doctor if you observe: Fever of 101 or Higher Follow Up Care Please Follow Up With: Cam Burgos MD When: Call [phone] for an appointment Test Results: Test results from this visit will be discussed in further detail at your follow- up appointment, if applicable. Discharge Plan Admission Primary Reason for Your Visit: Left hydrocelectomy Attending Provider: Cam Burgos Primary Care Provider: Lobo Longo Instructions Patient Instructions: ED Hydrocele Non-Communicating Type Print Language: Tamazight Discharge Orders/Prescriptions Prescriptions: New oxycodone 5 mg tablet 5 mg PO Q6H PRN (Reason: pain) 3 Days Qty: 14 0RF cephalexin 500 mg capsule 500 mg PO TID Qty: 14 0RF Continued furosemide 20 MG tablet 20 mg PO BIDLX aspirin 81 mg Tablet 81 mg PO DAILY lisinopril 10 mg tablet 5 mg PO DAILY Referrals / Follow Up: Lobo Longo MD [Primary Care Provider] - Cam Burgos MD [Med Staff - Active Staff] - Disposition Disposition (needs filled in before D/C Order can be placed): Home, Self Care
--- NOTE | 2024-02-05 08:25 | TEST_PTH ---
PATIENT: JAMARI LOVE LOC: [facility] [place] U#:[id number] AGE/SX: 58/M ROOM: RE02/05/[address]: Dr. Cam Burgos MD : 1965 BED: DIS: 02/05/2024 SPEC #: [id number] RECD: 02/05/24 10:25 STATUS: NADEEN LOIDA #: [id number] TERRI: 02/05/24 08:[address]: Cam Burgos DEPT: SURGICAL PATHOLOGY RECD BY: Gladis Noriega ENTERED: 02/05/24 11:06 SP TYPE: TESTICLE OTHR DR: Dr. Lobo Longo MD Tissues: Testis, NOS Procedures: Surgery Specimen Level HEADER OPERATION: Left hydrocelectomy PRE-OP DIAGNOSIS: Left hydrocele TISSUE SUBMITTED: Left hydrocele MICROSCOPIC DIAGNOSIS Left hydrocele sac, hydrocelectomy: Consistent with hydrocele sac. AM.mr 02/08/2024 MICROSCOPIC DESCRIPTION Slides are reviewed. GROSS DESCRIPTION Received in fixative is one container labeled with the patient's name and designated Left hydrocele. The specimen consists of three glistening fragments of pink-youngblood soft tissue measuring in aggregate 7.0 x 5.0 x 0.8cm. Serial sections do not reveal mass lesions. Matcher Offbearer sections are submitted in three cassettes. 02/05/2024 TC:5 CPT:50742
[2024-02-05] MEDS: Cefazolin 3 GM in Syringe 1 EACH IV (08:40)
[2024-02-05] MEDS: Bupivacaine Mpf 0.5% 30 ML VIAL ×2 (09:35→09:40)
--- NOTE | 2024-02-05 09:39 | OP.PCM_ITS ---
Report of Operation Date of Procedure: 02/05/24 Pre-Operative Diagnosis: Left large hydrocele Post-Operative Diagnosis: Same Surgery/Procedure Performed:: Left hydrocelectomy Description of Surgical Findings:: Indication this is a 58-year-old male with multiple medical problems but he does have a significantly enlarged left hydrocele causing him daily distress and bother so he wishes to have the hydrocele addressed on ultrasound appears to have multiple a loculated hydroceles in the left side of the scrotum. Patient was taken back to the operating room after smooth induction of anesthesia he underwent LMA intubation, infiltrated the midline raphae of the scrotum and made an incision in the midline raphae over the left large hydrocele I then dissected through the skin and then got down to the hydrocele sac we then delivered the hy drocele from the scrotum completely I then excised the edges of the hydrocele and then deliver the hydrocele completely use of extensive electrocautery to control for hemostasis the hydrocele then was opened up in the midline it was found to have multiple hydroceles loculated along the spermatic cord probably about 3 large hydroceles each of these were drained out each sac was then removed off the cord I then ran a chromic stitch along the edges of the cord to enveloped the hydroceles and to help track these down and also to control hemostasis after the edges were then suture-ligated all the way around with a continuous 3-0 chromic then I used electrocautery and extensively cauterized the inside of the scrotum and the the cord and around the testicle to obtain hemostasis we then put the testicle back into the scrotum and then we put a made a small incision in the upper part of the left hemiscrotum and put a TOMMY drain 10 flat TOMMY drain wrapped around the testicle and then suture held uses suture to hold the drain in place and then we closed the midline incision in the scrotum with a 3-0 chromic and a 4-0 Monocryl running fashion. We then fluffs and scrotal support was then placed patient anesthetic was reversed and he was taken back to the PACU in good condition successful removal of multiloculated left large hydrocele. Surgeon: Cam Burgos Type of Anesthesia: General Drains: TOMMY drain Estimated Blood Loss (mL): 25 Admit VTE Documentation VTE Present on Admission: No VTE Mechan Device Prophylaxis: SCD's VTE Pharm Prophylaxis ordered?: No
--- NOTE | 2024-02-05 09:49 | PCM.POST.ANE ---
Anesthesia: Postop Eval I Current Vital Signs Temperature: 97.5 F Pulse Rate: 74 Blood Pressure: 120/69 Respiratory Rate: 16 Pulse Ox: 99 Oxygen Delivery Method: Room Air Assessment Airway patent: Yes Spontaneous unlabored respirations: Yes Mental status: Awake and Calm nausea: No Vomiting: No Anesthesia Complication: No Fluid Hydration Crystalloid volume administer (ml): 800 Total IV fluid infused: 800 Progress Note Anesthesia document: Postop Eval 1 completed: Yes
--- NOTE | 2024-02-05 10:16 | POSTOPAN2_ITS ---
Anesthesia Postop Eval I Sum Postop Eval Completion status Anesthesia document: Postop Eval 1 completed: Yes Anesthesia Postop Eval I Summary Anesthesia Postop Eval I Summary: Anesthesia Postop Eval I: Assessment Summary Airway patent Yes 02/05/24 09:50 [email or web address] Spontaneous unlabored Yes 02/05/24 09:50 [email or web address] respirations Mental status Awake,Calm 02/05/24 09:50 SIGNAL [email or web address] nausea No 02/05/24 09:50 SIGNAL TESTER.[email or web address] Vomiting No 02/05/24 09:50 SIGNAL [email or web address].[email or web address] Anesthesia Postop Eval I: Fluid Summary Crystalloid volume administer 800 02/05/24 09:50 SIGNAL [email or web address].[email or web address] (ml) Colloids volume administered ( ml) Blood Product volume administered (ml) Total IV fluid infused 800 02/05/24 09:50 SIGNAL [email or web address].[email or web address] Anesthesia Postop Eval I: Summary Notes Anesthesia Complication No 02/05/24 09:50 SIGNAL [email or web address].[email or web address] Anesthesia Complication Comment: Post-operative progress note Anesthesia: Postop Eval II Evaluation Mental status: Awake Pain Level: 0 nausea: No Vomiting: No
--- NOTE | 2024-02-05 10:16 | PCM.POSTANE2 ---
Anesthesia Postop Eval I Sum Postop Eval Completion status Anesthesia document: Postop Eval 1 completed: Yes Anesthesia Postop Eval I Summary Anesthesia Postop Eval I Summary: Anesthesia Postop Eval I: Assessment Summary Airway patent Yes 02/05/24 09:50 CORE SHAPER SIDES.[email or web address] Spontaneous unlabored Yes 02/05/24 09:50 CORE SHAPER SIDES.[email or web address] respirations Mental status Awake,Calm 02/05/24 09:50 CORE SHAPER SIDES.[email or web address] nausea No 02/05/24 09:50 CORE SHAPER SIDES.[email or web address] Vomiting No 02/05/24 09:50 CORE SHAPER SIDES.[email or web address] Anesthesia Postop Eval I: Fluid Summary Crystalloid volume administer 800 02/05/24 09:50 CORE SHAPER SIDES.[email or web address] (ml) Colloids volume administered ( ml) Blood Product volume administered (ml) Total IV fluid infused 800 02/05/24 09:50 CORE SHAPER SIDES.[email or web address] Anesthesia Postop Eval I: Summary Notes Anesthesia Complication No 02/05/24 09:50 CORE SHAPER SIDES.[email or web address] Anesthesia Complication Comment: Post-operative progress note Anesthesia: Postop Eval II Evaluation Mental status: Awake Pain Level: 0 nausea: No Vomiting: No
== END 2024-02-05 11:35 | disposition home or self-care (01) ==
LOC: SDC 06:28 → AC 06:32
PROVIDERS: PCP Internal Medicine; Referring Provider Urology; Visit Provider Urology
PROC: (CPT 55040; principal; 2024-02-05 08:10)
DX: N43.3 Hydrocele, unspecified (principal); E66.01 Morbid (severe) obesity due to excess calories; Z68.43 Body mass index [BMI] 50.0-59.9, adult; I10 Essential (primary) hypertension; Z79.82 Long term (current) use of aspirin
CPT/HCPCS: 55040; 00920; 88309; J7120; J2405